=== PATIENT | male | born 1945 | race Caucasian/White ===

== ENCOUNTER 2016-08-10 13:56 | Inpatient (IN) | payer OTHER, BC ==
--- NOTE | 2016-08-10 14:09 | PDOC ---
[id number] Source: Patient Exam Limitations: No Limitations - History of Present Illness Initial Comments: 71 yo M hx tracheostomy with laryngectomy, PVD, DM presents with discolored R foot. He states that this occurred over the past week. C/o pain to the same. No f/c. He follows up with Dr. Boston for wound care. C/o pain to the R foot. He has a wound to the great toe. <Kaye Torres - Last Filed: 08/12/16 07:26> - General Stated Complaint: FOOT PAIN Time Seen by Provider: 08/10/16 14:00 Past History <Jonel Bird - Last Filed: 08/10/16 15:08> - Past Medical History Anemia: Yes Cancer: Yes (laryngeal CA w/ permenant tracheostomy) COPD: Yes (PE) GI Disorders: Yes (colostomy/GERD) Disorders: Yes (UTI) HTN: Yes Seizures: Yes (dementia) - Surgical History Abdominal Surgery: Yes (S/P COLOSTOMY; Hartmans procedure) - Immunization History Immunization Up to Date: Yes - Psycho/Social/Smoking Cessation Hx Anxiety: No Suicidal Ideation: No Smoking History: Unknown if ever smoked Have you smoked in the past 12 months: No Hx Alcohol Use: No Drug/Substance Use Hx: No Substance Use Type: None <Kaye Torres - Last Filed: 08/12/16 07:26> - Past Medical History Allergies/Adverse Reactions: Allergies Allergy/AdvReac Type Severity Reaction Status Date / Time Penicillins Allergy Unknown Verified 09/19/15 22:08 Home Medications: Ambulatory Orders Ferrous Sulfate 325 mg PO TID 04/09/15 Midodrine HCl 5 mg PO BID 04/09/15 Oxycodone HCl/Acetaminophen [Percocet 5-325 mg Tablet] 1 tab PO Q6H PRN Pantoprazole Sodium [Protonix] 40 mg PO BID 04/09/15 Potassium Chloride [Klor-Con 10] 20 meq PO DAILY 04/09/15 Warfarin Na [Coumadin -] 7 mg PO HS 04/09/15 Folic Acid - 1 mg PO DAILY tablet 04/25/15 Latanoprost 0.005% Eye Drops [Xalatan 0.005% Eye Drops -] 1 drop OU HS drops Mirtazapine [Remeron -] 15 mg PO HS 07/25/15 Multivitamins [Multivit ([facility] Formulary)] 1 tab PO DAILY 07/25/15 Magnesium Oxide [Mag-Ox -] 400 mg PO DAILY 08/30/15 Acetaminophen [Pain Relief] 650 mg PO PRN PRN 09/19/15 Albuterol 2.5/Ipratropium 0.5 [Duoneb -] 1 amp NEB QID PRN #0 amp 09/26/15 Clotrimazole [Lotrimin 1% Solution -] 1 applic TP BID 06/17/16 Dorzolamide HCl [Trusopt 2%] 1 drop OD DAILY 06/17/16 Famotidine 10 mg PO DAILY 06/17/16 Brimonidine Tartrate [Alphagan 0.15% -] 1 drop OD BID 08/10/16 Doxycycline Monohydrate [Monodox] 100 mg PO Q12H 08/10/16 Nystatin Cream [Mycostatin] 1 applic TP TID 08/10/16 Review of Systems - Review of Systems Able to Perform ROS?: Yes Comments:: GENERAL/CONSTITUTIONAL: No fever or chills. No weakness. HEAD, EYES, EARS, NOSE AND THROAT: No change in vision. No ear pain or discharge. No sore throat. CARDIOVASCULAR: No chest pain or shortness of breath. RESPIRATORY: No cough, wheezing, or hemoptysis. GASTROINTESTINAL: No nausea, vomiting, diarrhea or constipation. GENITOURINARY: No dysuria, frequency, or change in urination. MUSCULOSKELETAL: No joint or muscle swelling or pain. No neck or back pain. SKIN: +Discolored R foot. NEUROLOGIC: No headache, vertigo, loss of consciousness, or change in strength/ sensation. ENDOCRINE: No increased thirst. No abnormal weight change. HEMATOLOGIC/LYMPHATIC: No anemia, easy bleeding, or history of blood clots. ALLERGIC/IMMUNOLOGIC: No hives or skin allergy. <Kaye Torres - Last Filed: 08/12/16 07:26> *Physical Exam - Vital Signs Last Vital Signs Temp Pulse Resp BP Pulse Ox 98.3 F 18 L 17 129/77 100 08/10/16 14:14 08/10/16 14:14 08/10/16 14:14 08/10/16 14:14 08/10/16 14:14 <Jonel Bird - Last Filed: 08/10/16 15:08> - Physical Exam Comments: GENERAL: Awake, alert, and fully oriented, in no acute distress HEAD: No signs of trauma EYES: PERRLA, EOMI, sclera anicteric, conjunctiva clear ENT: Auricles normal inspection, hearing grossly normal, nares patent, oropharynx clear without exudates. Moist mucosa NECK: Normal ROM, supple, no lymphadenopathy, JVD, or masses LUNGS: Breath sounds equal, clear to auscultation bilaterally. No wheezes, and no crackles HEART: Regular rate and rhythm, normal S1 and S2, no murmurs, rubs or gallops ABDOMEN: Soft, nontender, normoactive bowel sounds. No guarding, no rebound. No masses EXTREMITIES: Normal range of motion. No clubbing or cyanosis. No cords, erythema. +Purple discoloration to the toes and distal foot on the R side. + Wound to the 1st toe, no active drainage. +Faint R DP pulse. NEUROLOGICAL: Cranial nerves II through XII grossly intact. Normal speech, normal gait SKIN: Warm, Dry, normal turgor, no rashes or lesions noted. <Kaye Torres - Last Filed: 08/12/16 07:26> ED Treatment Course - LABORATORY CBC & Chemistry Diagram: 08/10/16 14:21 08/10/16 14:21 - ADDITIONAL ORDERS Additional order review: 08/10/16 14:21 RBC 3.96 L MCV 92.3 MCHC 33.5 RDW 13.1 MPV 7.5 Neutrophils % 68.7 Lymphocytes % 17.2 Monocytes % 9.8 Eosinophils % 3.3 Basophils % 1.0 D <Jonel Bird - Last Filed: 08/10/16 15:08> - LABORATORY CBC & Chemistry Diagram: 08/10/16 14:21 08/10/16 14:21 <Kaye Torres - Last Filed: 08/12/16 07:26> Medical Decision Making - Medical Decision Making 08/10/16 14:49 Second call placed to Dr. Boston at 14:49. Awaiting call back. Case discussed with Dr. Boston at 15:05. <Jonel Bird - Last Filed: 08/10/16 15:08> - Medical Decision Making 08/10/16 14:[address] Boston through his service. Awaiting callback. 08/10/16 17:[address] Rdoas at shift change. He is currently in [place], obtaining CTA aorta with runoffs as per Dr. Boston. Heparin ordered. For admission. <Kaye Torres - Last Filed: 08/12/16 07:26> *DC/Admit/Observation/Transfer - Attestations Scribe Attestion: 08/10/16 15:08 Documentation prepared by Jonel Bird, acting as medical record librarians teacher for Kaye Torres MD. <Jonel Bird - Last Filed: 08/10/16 15:08> <Kaye Torres - Last Filed: 08/12/16 07:26> Diagnosis at time of Disposition: Peripheral vascular disease, Chronic wound of extremity
[2016-08-10 14:20] VITALS: BMI 23.1
[2016-08-10 14:42] LABS: EOSINOPHIL 3.3 % (0-4.5); MCH 30.9 pg (25.7-33.7); MCHC 33.5 g/dl (32.0-35.9); MEAN CELL VOLUME 92.3 fl (80-96); MEAN PLT VOLUME 7.5 fl (7.5-11.1); NEUTROPHILS 68.7 % (42.8-82.8); PLATELET COUNT 283 K/MM3 (134-434); RDW 13.1 % (11.9-15.9); WHITE BLOOD COUNT 6.6 K/mm3 (4.0-10.0)
[2016-08-10 15:06] LABS: INR 2.47 (0.82-1.09); PROTHROMBIN TIME (PATIENT) 27.7 SEC (9.98-11.88)
[2016-08-10] MEDS ORDERED: HEPARIN NA (PORCINE) 5,000 UNITS/ML 1ML VIAL IVPUSH ONE (15:11)
[2016-08-10 15:19] LABS: ALBUMIN 3.5 g/dl (3.4-5.0); ANION GAP 10 (8-16); CALCIUM 8.9 mg/dL (8.5-10.1); CO2 27 mmol/L (21-32); CREATININE 0.8 mg/dL (0.7-1.3); GLUCOSE,RANDOM 85 mg/dL (74-106); SGOT/AST 11 U/L (15-37); SGPT/ALT 20 U/L (12-78)
[2016-08-10 15:20] LABS: ALK PHOS 80 U/L (45-117); BILIRUBIN,TOTAL 0.4 mg/dL (0.2-1.0); TOT PROT 7.4 g/dl (6.4-8.2)
[2016-08-10] MEDS ORDERED: HEPARIN INFUSION - 500 ML IVPB ONE (16:34)
--- NOTE | 2016-08-10 17:42 | PDOC ---
*Physical Exam - Vital Signs Last Vital Signs Temp Pulse Resp BP Pulse Ox 98.3 F 18 L 17 129/77 100 08/10/16 14:14 08/10/16 14:14 08/10/16 14:14 08/10/16 14:14 08/10/16 14:14 ED Treatment Course - LABORATORY CBC & Chemistry Diagram: 08/10/16 14:21 08/10/16 14:21 - ADDITIONAL ORDERS Additional order review: Laboratory Results 08/10/16 08/10/16 08/10/16 14:29 14:29 14:21 INR PTT (Actin FS) 44.8 H Sodium Potassium Chloride Carbon Dioxide Anion Gap BUN Creatinine Creat Clearance w eGFR Random Glucose Lactic Acid 1.141 Calcium Total Bilirubin AST ALT Alkaline Phosphatase Total Protein Albumin Blood Type O POSITIVE Antibody Screen Negative 08/10/16 08/10/16 14:21 14:21 INR 2.47 H PTT (Actin FS) Sodium 140 Potassium 4.2 Chloride 103 Carbon Dioxide 27 Anion Gap 10 BUN 17 D Creatinine 0.8 Creat Clearance w eGFR > 60 Random Glucose 85 Lactic Acid Calcium 8.9 Total Bilirubin 0.4 D AST 11 L D ALT 20 Alkaline Phosphatase 80 Total Protein 7.4 Albumin 3.5 D Blood Type Antibody Screen 08/10/16 14:21 RBC 3.96 L MCV 92.3 MCHC 33.5 RDW 13.1 MPV 7.5 Neutrophils % 68.7 Lymphocytes % 17.2 Monocytes % 9.8 Eosinophils % 3.3 Basophils % 1.0 D Medical Decision Making - Medical Decision Making 08/10/16 17:38 Received signout on this 71-year-old gentleman sent from senior living with necrotic right foot. Vascular has been consulted, patient has been ordered for heparin, plan was to admit to Dr. Smith, covering Dr. Bear. Dr. Smith accepts the patient for inpatient med/surg. *DC/Admit/Observation/Transfer Diagnosis at time of Disposition: Peripheral vascular disease, Chronic wound of extremity - Discharge Dispostion Condition at time of disposition: Fair Admit: Yes - Referrals Referrals: Nat Bear MD [Primary Care Provider] - - Patient Instructions - Post Discharge Activity
[2016-08-10] MEDS ORDERED: HEPARIN NA (PORCINE) 5,000 UNITS/ML 1ML VIAL ONE (17:43)
[2016-08-10] MEDS ORDERED: ACETAMINOPHEN 325 MG TABLET (FP) PO PRN (18:13)
[2016-08-10] MEDS ORDERED: ALBUTEROL SO4 2.5/IPRATROPIUM 0.5 INH SOL 3 ML VIAL.NEB. NEB PRN (18:13)
[2016-08-10] MEDS ORDERED: FOLIC ACID 1 MG TABLET (FP) PO ONE (18:13)
[2016-08-10] MEDS ORDERED: DOCUSATE SODIUM 100 MG CAPSULE (FP) PO PRN (18:13)
[2016-08-10] MEDS: HEPARIN - 25,000 UNIT in SODIUM CHLORIDE 495 ML IV SCH (18:50)
[2016-08-10] MEDS: DORZOLAMIDE 2% HCL OPHTHALMIC SOLUTION 10 ML BOTTLE OD SCH (22:35)
[2016-08-10] MEDS: LATANOPROST 0.005% OPHTH SOLN 2.5ML BOTTLE OD SCH (22:35)
[2016-08-10] MEDS: NYSTATIN 100,000 UNIT/GM TOPICAL CREAM 15 GM TUBE TP SCH (22:35)
[2016-08-10] MEDS: MIRTAZAPINE 15 MG TABLET (FP) PO SCH (22:36)
[2016-08-11] MEDS: DORZOLAMIDE 2% HCL OPHTHALMIC SOLUTION 10 ML BOTTLE OD SCH ×3 (05:34→21:29)
[2016-08-11 08:38] LABS: INR 2.55 (0.82-1.09); PROTHROMBIN TIME (PATIENT) 28.6 SEC (9.98-11.88)
[2016-08-11 08:41] LABS: ACTIVATED PTT 69.3 SECONDS (26.9-34.4)
[2016-08-11] MEDS: NYSTATIN 100,000 UNIT/GM TOPICAL CREAM 15 GM TUBE TP SCH ×3 (09:35→21:29)
[2016-08-11] MEDS: MULTIVITAMINS (DAILY MVI) TABLET (FP) PO SCH (09:35)
[2016-08-11] MEDS: FERROUS SO4 325 MG TABLET (FP) PO SCH ×3 (09:36→17:51)
[2016-08-11] MEDS: MIDODRINE HCL 5 MG TABLET PO SCH ×2 (09:37→17:51)
[2016-08-11] MEDS: oxyCODONE HCL 5 MG TABLET PO PRN ×2 (09:37→21:30)
[2016-08-11] MEDS: BRIMONIDINE TARTRATE 0.15% OPHTHALMIC 5 ML BOTTLE OD SCH (09:37)
[2016-08-11] MEDS: PANTOPRAZOLE 40 MG TABLET (FP) PO SCH (09:38)
[2016-08-11 09:50] LABS: CHOLESTEROL 155 mg/dL (50-200); LDL CHOLESTEROL (ONLY SJRH) 106 mg/dL (5-100)
--- NOTE | 2016-08-11 10:22 | HP ---
Admitting History and Physical - Primary Care Physician PCP: Nat Bear - Admission Chief Complaint: LOWER EXTREMITY ARTERIAL OCCLUSION VS GANGRENE NECROSIS History of Present Illness: 71 yo M hx tracheostomy with laryngectomy, PVD, DM presents with discolored R foot. He states that this occurred over the past week. C/o pain to the same. No f/c. He follows up with Dr. Boston for wound care. History Source: Patient, Medical Record - Past Medical History OUTPATIENT PHYSICAL THERAPIST: Yes: Dementia Cardiovascular: Yes: HTN Pulmonary: Yes: COPD, Pulmonary Embolus Gastrointestinal: Yes: Diverticulitis, Other (colovesicular fistula with diverticulosis , heme posistive stools) Renal/: Yes: UTI (recurrent) Heme/Onc: Yes: Anemia, Cancer (laryngeal cancer with permanent tracheostomy ) Musculoskeletal: Yes: Chronic low back pain, Osteoarthritis, Other (avascular necrosis of the hip) - Past Surgical History Past Surgical History: Yes: Colectomy, Colostomy - Smoking History Smoking history: Unknown if ever smoked Have you smoked in the past 12 months: No - Alcohol/Substance Use Hx Alcohol Use: No - Social History ADL: Support Services History of Recent Travel: No Home Medications - Allergies Allergies/Adverse Reactions: Allergies Allergy/AdvReac Type Severity Reaction Status Date / Time Penicillins Allergy Unknown Verified 09/19/15 22:08 - Home Medications Home Medications: Ambulatory Orders Ferrous Sulfate 325 mg PO TID 04/09/15 Midodrine HCl 5 mg PO BID 04/09/15 Oxycodone HCl/Acetaminophen [Percocet 5-325 mg Tablet] 1 tab PO Q6H PRN Pantoprazole Sodium [Protonix] 40 mg PO BID 04/09/15 Potassium Chloride [Klor-Con 10] 20 meq PO DAILY 04/09/15 Warfarin Na [Coumadin -] 7 mg PO HS 04/09/15 Folic Acid - 1 mg PO DAILY tablet 04/25/15 Latanoprost 0.005% Eye Drops [Xalatan 0.005% Eye Drops -] 1 drop OU HS drops Mirtazapine [Remeron -] 15 mg PO HS 07/25/15 Multivitamins [Multivit ([facility] Formulary)] 1 tab PO DAILY 07/25/15 Magnesium Oxide [Mag-Ox -] 400 mg PO DAILY 08/30/15 Acetaminophen [Pain Relief] 650 mg PO PRN PRN 09/19/15 Albuterol 2.5/Ipratropium 0.5 [Duoneb -] 1 amp NEB QID PRN #0 amp 09/26/15 Clotrimazole [Lotrimin 1% Solution -] 1 applic TP BID 06/17/16 Dorzolamide HCl [Trusopt 2%] 1 drop OD DAILY 06/17/16 Famotidine 10 mg PO DAILY 06/17/16 Brimonidine Tartrate [Alphagan 0.15% -] 1 drop OD BID 08/10/16 Doxycycline Monohydrate [Monodox] 100 mg PO Q12H 08/10/16 Nystatin Cream [Mycostatin] 1 applic TP TID 08/10/16 Review of Systems - Review of Systems Constitutional: reports: Weakness Eyes: reports: No Symptoms HENT: reports: No Symptoms Neck: reports: No Symptoms Cardiovascular: reports: No Symptoms Respiratory: reports: SOB, Other Gastrointestinal: reports: No Symptoms Genitourinary: reports: Incontinence Musculoskeletal: reports: Muscle Weakness Integumentary: reports: Wound Neurological: reports: Pre-Existing Deficit, Weakness Endocrine: reports: No Symptoms Hematology/Lymphatic: reports: No Symptoms Physical Examination Vital Signs: Vital Signs Temperature 98.3 F 08/11/16 07:03 Pulse Rate 68 08/11/16 07:03 Respiratory Rate 20 08/11/16 07:03 Blood Pressure 112/65 08/11/16 07:03 O2 Sat by Pulse Oximetry (%) 100 08/10/16 22:00 Findings/Remarks: TRACHEOSTOMY PRESENT, NO RESP. DISTRESS Constitutional: Yes: No Distress Eyes: Yes: WNL HENT: Yes: WNL Neck: Yes: Other Cardiovascular: Yes: WNL Respiratory: Yes: Other (TRACHEOSTOMY) Renal/: Yes: Incontinence Musculoskeletal: Yes: Muscle Weakness Extremities: Yes: WNL Edema: No Peripheral Pulses WNL: Yes Integumentary: Yes: Other Wound/Incision: Yes: Dressing Dry and Intact Neurological: Yes: Pre-Existing Deficit ...Motor Strength: LLE, RLE Psychiatric: Yes: Other Imaging - Results Cat Scan: Pending Problem List - Problems (1) Chronic wound of extremity Code(s): GZV3922 - (2) Peripheral vascular disease Code(s): I73.9 - PERIPHERAL VASCULAR DISEASE, UNSPECIFIED (3) Anemia Code(s): D64.9 - ANEMIA, UNSPECIFIED (4) Tracheostomy in place Code(s): Z98.89 - OTHER SPECIFIED POSTPROCEDURAL STATES * DO NOT USE * (5) Wound infection Code(s): T14.8 - OTHER INJURY OF UNSPECIFIED BODY REGION L08.9 - LOCAL INFECTION OF THE SKIN AND SUBCUTANEOUS TISSUE, UNSP Assessment/Plan WOUND CARE WITH VASC SX CTA LOWER EXTREMITY PENDING IC ABX PER ID TRACHEOSTOMY CARE PULMONARY FOLLOW UP
--- NOTE | 2016-08-11 11:20 | CON.PULM ---
Consult Consult Specialty:: PULM/CCM Referred by:: DEYSI Reason for Consultation:: Trach / COPD / PE - History of Present Illness Chief Complaint: Right Foot dicoloration History of Present Illness: 71 M, laryngeal CA, S/P laryngectomy/Tracheostomy, PE on Coumadin, PVD, and DM. Admitted via the ER due to discoloration and tenderness of his right great toe and second digit. Patient is awake and alert. He is in NAD on RA. He communicates with an electronic speaking aide. Trach is noted to be intact and in place. Patient reports cough up a very hard, dark 5mm object. Difficult to ascertain grossly what it is (?dried mucous, a part of a tooth). - History Source History Provided By: Patient Limitations to Obtaining History: No Limitations - Past Medical History [employer]: Yes: Dementia Cardio/Vascular: Yes: HTN Pulmonary: Yes: COPD, Pulmonary Embolus Gastrointestinal: Yes: Diverticulitis, Other (colovesicular fistula with diverticulosis , heme posistive stools) Renal/: Yes: UTI (recurrent) Musculoskeletal: Yes: Chronic low back pain, Osteoarthritis, Other (avascular necrosis of the hip) - Past Surgical History Past Surgical History: Yes: Colectomy, Colostomy - Alcohol/Substance Use Hx Alcohol Use: No - Smoking History Smoking history: Unknown if ever smoked Have you smoked in the past 12 months: No - Social History Usual Living Arrangement: Custodial ADL: Support Services History of Recent Travel: No Home Medications - Allergies Allergies/Adverse Reactions: Allergies Allergy/AdvReac Type Severity Reaction Status Date / Time Penicillins Allergy Unknown Verified 09/19/15 22:08 - Home Medications Home Medications: Ambulatory Orders Ferrous Sulfate 325 mg PO TID 04/09/15 Midodrine HCl 5 mg PO BID 04/09/15 Oxycodone HCl/Acetaminophen [Percocet 5-325 mg Tablet] 1 tab PO Q6H PRN Pantoprazole Sodium [Protonix] 40 mg PO BID 04/09/15 Potassium Chloride [Klor-Con 10] 20 meq PO DAILY 04/09/15 Warfarin Na [Coumadin -] 7 mg PO HS 04/09/15 Folic Acid - 1 mg PO DAILY tablet 04/25/15 Latanoprost 0.005% Eye Drops [Xalatan 0.005% Eye Drops -] 1 drop OU HS drops Mirtazapine [Remeron -] 15 mg PO HS 07/25/15 Multivitamins [Multivit ([facility] Formulary)] 1 tab PO DAILY 07/25/15 Magnesium Oxide [Mag-Ox -] 400 mg PO DAILY 08/30/15 Acetaminophen [Pain Relief] 650 mg PO PRN PRN 09/19/15 Albuterol 2.5/Ipratropium 0.5 [Duoneb -] 1 amp NEB QID PRN #0 amp 09/26/15 Clotrimazole [Lotrimin 1% Solution -] 1 applic TP BID 06/17/16 Dorzolamide HCl [Trusopt 2%] 1 drop OD DAILY 06/17/16 Famotidine 10 mg PO DAILY 06/17/16 Brimonidine Tartrate [Alphagan 0.15% -] 1 drop OD BID 08/10/16 Doxycycline Monohydrate [Monodox] 100 mg PO Q12H 08/10/16 Nystatin Cream [Mycostatin] 1 applic TP TID 08/10/16 Review of Systems - Review of Systems Constitutional: denies: Chills, Fever, Loss of Appetite, Malaise, Night Sweats, Weakness Eyes: reports: No Symptoms HENT: reports: No Symptoms Neck: reports: No Symptoms Cardiovascular: denies: Chest Pain, Edema, Palpitations, Shortness of Breath Respiratory: reports: Cough. denies: Hemoptysis, SOB, SOB on Exertion, Wheezing Gastrointestinal: reports: No Symptoms Genitourinary: reports: No Symptoms Breasts: reports: No Symptoms Reported Musculoskeletal: reports: Other (Right foot discoloration/discomfort) Integumentary: reports: Change in Color, Wound Neurological: reports: No Symptoms Endocrine: reports: No Symptoms Hematology/Lymphatic: reports: No Symptoms Psychiatric: reports: No Symptoms Physical Exam Vital Sings: Vital Signs Temperature 98.3 F 08/11/16 07:03 Pulse Rate 68 08/11/16 07:03 Respiratory Rate 20 08/11/16 07:03 Blood Pressure 112/65 08/11/16 07:03 O2 Sat by Pulse Oximetry (%) 100 08/10/16 22:00 Constitutional: Yes: Well Nourished, No Distress, Calm Eyes: Yes: Conjunctiva Clear, EOM Intact HENT: Yes: Atraumatic, Normocephalic, Other (intact tracheostomy ) Neck: Yes: Supple, Trachea Midline, Other (Tracheostomy intact ) Cardiovascular: Yes: Regular Rate and Rhythm Respiratory: Yes: Cough, Rhonchi. No: Accessory Muscle Use, Rales, SOB, Stridor , Tachypnea, Wheezes ...Inspection: Yes: WNL ...Clubbing: No Gastrointestinal: Yes: WNL, Normal Bowel Sounds, Soft Renal/: Yes: WNL Musculoskeletal: Yes: WNL Extremities: Yes: Other (discoloration (?) Gangrene right great toe/second digit ) Peripheral Pulses WNL: Yes Integumentary: Yes: Venous Stasis Changes, Other Neurological: Yes: WNL, Alert, Oriented ...Motor Strength: WNL Psychiatric: Yes: WNL, Alert, Oriented Problem List - Problems (1) Chronic wound of extremity Code(s): [id number] - (2) Peripheral vascular disease Code(s): I73.9 - PERIPHERAL VASCULAR DISEASE, UNSPECIFIED (3) Afib Code(s): I48.91 - UNSPECIFIED ATRIAL FIBRILLATION Qualifiers: Atrial fibrillation type: chronic Qualified Code(s): I48.2 - Chronic atrial fibrillation (4) Glaucoma Code(s): H40.9 - UNSPECIFIED GLAUCOMA (5) HTN (hypertension) Code(s): I10 - ESSENTIAL (PRIMARY) HYPERTENSION Qualifiers: Hypertension type: essential hypertension (7) Pulmonary emboli Code(s): I26.99 - OTHER PULMONARY EMBOLISM WITHOUT ACUTE COR PULMONALE (8) Tracheostomy in place Code(s): Z98.89 - OTHER SPECIFIED POSTPROCEDURAL STATES * DO NOT USE * (9) Wound infection Code(s): T14.8 - OTHER INJURY OF UNSPECIFIED BODY REGION L08.9 - LOCAL INFECTION OF THE SKIN AND SUBCUTANEOUS TISSUE, UNSP Assessment/Plan CXR O2 as needed BD TX PRN Suction PRN Noted patient is on IV Heparin Vascular evaluation has been called Will follow Thank you. Dr Kelley
[2016-08-11] MEDS: HEPARIN - 25,000 UNIT in SODIUM CHLORIDE 495 ML IV SCH (17:51)
--- NOTE | 2016-08-11 20:23 | EKG ---
Test Reason : Blood Pressure : / mmHG Vent. Rate : 077 BPM Atrial Rate : 077 BPM P-R Int : 162 ms QRS Dur : 094 ms QT Int : 408 ms P-R-T Axes : 065 -11 044 degrees QTc Int : 461 ms NORMAL SINUS RHYTHM MINIMAL VOLTAGE CRITERIA FOR LVH, MAY BE NORMAL VARIANT SUSPECT LEAD REVERSAL IN PRECORDIAL LEADS ABNORMAL ECG WHEN COMPARED WITH ECG OF 20-SEP-2015 12:18, COMPARED TO EKG NO SIGNIFICANT CHANGE IS FOUND Confirmed by FIDENCIO OLEA MD ([id number]) on 08/11/2016 8:22:52 PM Referred By: Confirmed By:FIDENCIO OLEA MD
[2016-08-11] MEDS ORDERED: PT OWN MED DRAWER 7, Y5N ONE (20:58)
[2016-08-11] MEDS: LATANOPROST 0.005% OPHTH SOLN 2.5ML BOTTLE OD SCH (21:30)
[2016-08-11] MEDS: MIRTAZAPINE 15 MG TABLET (FP) PO SCH (21:30)
[2016-08-12] MEDS: DORZOLAMIDE 2% HCL OPHTHALMIC SOLUTION 10 ML BOTTLE OD SCH ×3 (06:23→22:01)
[2016-08-12 08:02] LABS: INR 2.05 (0.82-1.09); PROTHROMBIN TIME (PATIENT) 22.9 SEC (9.98-11.88)
[2016-08-12 08:05] LABS: ACTIVATED PTT 61.7 SECONDS (26.9-34.4)
--- NOTE | 2016-08-12 09:29 | CONSULT ---
Consult Consult Specialty:: Infectious Disease Referred by:: Dr. Olivares Reason for Consultation:: Wound to right foot/possible gangrene - History of Present Illness Chief Complaint: Worsening pain to right foot History of Present Illness: this is a 71M PMH of HTN COPD PE in the past laryngeal Ca s/p laryngectomy with tracheostomy speaks with a voice assist device PVD DM presented to the emergency room yesterday 2 days ago with a complaint of worsening redness/ discoloration of RLE involving the toes. He states that this progressed over the past week and he wanted his foot to be looked at by a doctor. He denies nausea vomiting fevers chills chest pain or shortness of breath denies dysuria. - History Source History Provided By: Patient, Medical Record Limitations to Obtaining History: Dementia - Past Medical History [employer]: Yes: Dementia Cardio/Vascular: Yes: HTN Pulmonary: Yes: COPD, Pulmonary Embolus Gastrointestinal: Yes: Diverticulitis, Other (colovesicular fistula with diverticulosis , heme posistive stools) Renal/: Yes: UTI (recurrent) Musculoskeletal: Yes: Chronic low back pain, Osteoarthritis, Other (avascular necrosis of the hip) - Past Surgical History Past Surgical History: Yes: Colectomy, Colostomy Additional Surgical History: laryngectomy - Alcohol/Substance Use Hx Alcohol Use: No - Smoking History Smoking history: Former smoker Have you smoked in the past 12 months: No - Social History Usual Living Arrangement: [facility] ADL: Support Services History of Recent Travel: No Home Medications - Allergies Allergies/Adverse Reactions: Allergies Allergy/AdvReac Type Severity Reaction Status Date / Time Penicillins Allergy Unknown Verified 09/19/15 22:08 - Home Medications Home Medications: Ambulatory Orders Ferrous Sulfate 325 mg PO TID 04/09/15 Midodrine HCl 5 mg PO BID 04/09/15 Oxycodone HCl/Acetaminophen [Percocet 5-325 mg Tablet] 1 tab PO Q6H PRN Pantoprazole Sodium [Protonix] 40 mg PO BID 04/09/15 Potassium Chloride [Klor-Con 10] 20 meq PO DAILY 04/09/15 Warfarin Na [Coumadin -] 7 mg PO HS 04/09/15 Folic Acid - 1 mg PO DAILY tablet 04/25/15 Latanoprost 0.005% Eye Drops [Xalatan 0.005% Eye Drops -] 1 drop OU HS drops Mirtazapine [Remeron -] 15 mg PO HS 07/25/15 Multivitamins [Multivit ([facility] Formulary)] 1 tab PO DAILY 07/25/15 Magnesium Oxide [Mag-Ox -] 400 mg PO DAILY 08/30/15 Acetaminophen [Pain Relief] 650 mg PO PRN PRN 09/19/15 Albuterol 2.5/Ipratropium 0.5 [Duoneb -] 1 amp NEB QID PRN #0 amp 09/26/15 Clotrimazole [Lotrimin 1% Solution -] 1 applic TP BID 06/17/16 Dorzolamide HCl [Trusopt 2%] 1 drop OD DAILY 06/17/16 Famotidine 10 mg PO DAILY 06/17/16 Brimonidine Tartrate [Alphagan 0.15% -] 1 drop OD BID 08/10/16 Doxycycline Monohydrate [Monodox] 100 mg PO Q12H 08/10/16 Nystatin Cream [Mycostatin] 1 applic TP TID 08/10/16 [place]-3 Acid Ethyl Esters [Lovaza] 1 gm PO BID #30 capsule 08/12/16 Family Disease History - Family Disease History Family History: Unable to Obtain (does not remember) Review of Systems - Review of Systems Constitutional: reports: No Symptoms. denies: Chills, Fever HENT: reports: No Symptoms Neck: reports: No Symptoms Cardiovascular: reports: No Symptoms Respiratory: reports: No Symptoms Gastrointestinal: reports: No Symptoms Integumentary: reports: Erythema, Wound, Other (RLE dusky/erythema with pain and a black eschar over great toe) Neurological: reports: No Symptoms Endocrine: reports: No Symptoms Physical Exam Vital Signs: Vital Signs Temperature 98.9 F 08/12/16 06:48 Pulse Rate 78 08/12/16 06:48 Respiratory Rate 20 08/12/16 06:48 Blood Pressure 142/74 08/12/16 06:48 O2 Sat by Pulse Oximetry (%) 100 08/11/16 21:00 Constitutional: Yes: Well Nourished, No Distress Eyes: Yes: Conjunctiva Clear HENT: Yes: Atraumatic, Other (trachestomy in place) Neck: Yes: Trachea Midline Cardiovascular: Yes: Regular Rate and Rhythm Respiratory: Yes: CTA Bilaterally, Other (bronchial breath sounds) Gastrointestinal: Yes: Soft Extremities: Yes: Other (RLE dusky with some erythema over toes and going up towards the metatarsals cool to touch when compared to LLE decreased capillary refill tender to palpation Eschar over Right great toe. 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 - VESICAL FISTULA, NOT ELSEWHERE CLASSIFIED (5) [place]-vesical fistula Code(s): N32.1 - VESICOINTESTINAL FISTULA (6) Glaucoma Code(s): H40.9 - UNSPECIFIED GLAUCOMA (7) HTN (hypertension) Code(s): I10 - ESSENTIAL (PRIMARY) HYPERTENSION Qualifiers: Hypertension type: essential hypertension Qualified Code(s): I10 - Essential (primary) hypertension (9) Pulmonary emboli Code(s): I26.99 - OTHER PULMONARY EMBOLISM WITHOUT ACUTE COR PULMONALE (10) Tracheostomy in place Code(s): Z98.89 - OTHER SPECIFIED POSTPROCEDURAL STATES * DO NOT USE * (11) Critical ischemia of lower extremity Code(s): I99.8 - OTHER DISORDER OF CIRCULATORY SYSTEM Assessment/Plan 71M with multiple medical problems including peripheral vascular disease and history of PE presents to the hospital with right foot change in color and increased pain concern for critical limb ischemia. patient is known to Dr. Boston and follow with him for wound care. CTA done with bilateral lower extremity run off - final read pending patient is afebrile without leukocytosis this seems to be a vascular issue not an infectious issue. Do not suspect wet gangrene of the RLE Vascular surgery evaluation please recall if further assistance is needed from the ID service thank you for this consult and allowing us to participate in the care of this patient Case discussed with attending Dr. Tilley
--- NOTE | 2016-08-12 10:10 | PN ---
Progress Note, Physician Chief Complaint: patient trach is clogged with mucus plugs want it leaned complaining of pain on right foot toes 1 and 2nd toe - Current Medication List Current Medications: Active Medications Acetaminophen (Tylenol -) 650 mg PO Q6H PRN PRN Reason: FEVER OR PAIN Albuterol/Ipratropium (Duoneb -) 1 amp NEB Q6H PRN PRN Reason: SHORTNESS OF BREATH Brimonidine Tartrate (Alphagan 0.15% -) 1 drop OD DAILY [facility] Last Admin: 08/11/16 09:37 Dose: 1 drop Docusate Sodium (Colace -) 100 mg PO Q8H PRN PRN Reason: CONSTIPATION Dorzolamide HCl (Trusopt 2%) 1 drop OD TID [facility] Last Admin: 08/12/16 06:23 Dose: 1 drop Ferrous Sulfate (Feosol -) 325 mg PO TIDCM [facility] Last Admin: 08/11/16 17:51 Dose: 325 mg Heparin Sodium (Porcine) 25, (000 unit/ Sodium Chloride) 500 mls @ 20 mls/hr IV TITR TEDDY; 1,000 UNIT/HR PRN Reason: Protocol Last Admin: 08/11/16 17:51 Dose: 18 mls/hr Latanoprost (Xalatan 0.005% Eye Drops -) 1 drop OD HS [facility] Last Admin: 08/11/16 21:30 Dose: 1 drop Midodrine (Proamatine -) 5 mg PO BID-MID [facility] Last Admin: 08/11/16 17:51 Dose: 5 mg Mirtazapine (Remeron -) 15 mg PO HS [facility] Last Admin: 08/11/16 21:30 Dose: 15 mg Multivitamins/Minerals/Vitamin C (Tab-A-Vit -) 1 tab PO DAILY [facility] Last Admin: 08/11/16 09:35 Dose: 1 tab Nystatin (Mycostatin Cream -) 1 applic TP BID [facility] Last Admin: 08/11/16 21:29 Dose: 1 applic Oxycodone HCl (Roxicodone -) 5 mg PO Q6H PRN PRN Reason: PAIN Last Admin: 08/11/16 21:30 Dose: 5 mg Pantoprazole Sodium (Protonix -) 40 mg PO DAILY [facility] Last Admin: 08/11/16 09:38 Dose: 40 mg - Objective Vital Signs: Vital Signs Temperature 98.9 F 08/12/16 06:48 Pulse Rate 78 08/12/16 06:48 Respiratory Rate 20 08/12/16 06:48 Blood Pressure 142/74 08/12/16 06:48 O2 Sat by Pulse Oximetry (%) 100 08/11/16 21:00 Constitutional: Yes: Calm Neck: Yes: Other (trach) Cardiovascular: Yes: Regular Rate and Rhythm, S1, S2 Respiratory: Yes: CTA Bilaterally, Diminished (at bases) Gastrointestinal: Yes: Normal Bowel Sounds, Soft, Other (colostomy) Extremities: Yes: Other (right foot 1 and 2 nd toe darkish discoloration tender to touch wound on plantar surface of first toe on right foot has right DP pulse) Edema: No Neurological: Yes: Alert, Oriented Labs: INR, PTT INR 2.05 (0.82-1.09) H 08/12/16 06:00 Problem List - Problems (1) [place]-vesical fistula Assessment/Plan: functioning Code(s): N32.1 - VESICOINTESTINAL FISTULA (2) HTN (hypertension) Code(s): I10 - ESSENTIAL (PRIMARY) HYPERTENSION Qualifiers: Hypertension type: essential hypertension (3) Laryngeal cancer Assessment/Plan: s/p surgery with trach (4) Pulmonary emboli Assessment/Plan: heparin drip couamdin on hold if intervention is needed for right foot Code(s): I26.99 - OTHER PULMONARY EMBOLISM WITHOUT ACUTE COR PULMONALE (5) Tracheostomy in place Assessment/Plan: needs cleaning Code(s): Z98.89 - OTHER SPECIFIED POSTPROCEDURAL STATES * DO NOT USE * (6) Orthostatic hypotension Assessment/Plan: midodrine Code(s): I95.1 - ORTHOSTATIC HYPOTENSION (7) Chronic wound of extremity Assessment/Plan: does not look infectious will hold off abx vascular eval CTA done report pending heparin drip Code(s): [id number] - (8) Peripheral vascular disease Assessment/Plan: vascular to see patinet heparin drip Code(s): I73.9 - PERIPHERAL VASCULAR DISEASE, UNSPECIFIED (9) Hyperlipidemia Assessment/Plan: statin lovaza check hga1c Code(s): E78.5 - HYPERLIPIDEMIA, UNSPECIFIED (10) Glaucoma Assessment/Plan: eye drops Code(s): H40.9 - UNSPECIFIED GLAUCOMA
[2016-08-12] MEDS: FERROUS SO4 325 MG TABLET (FP) PO SCH ×3 (10:23→17:57)
[2016-08-12] MEDS: PANTOPRAZOLE 40 MG TABLET (FP) PO SCH (10:23)
[2016-08-12] MEDS: MIDODRINE HCL 5 MG TABLET PO SCH ×2 (10:23→18:04)
[2016-08-12] MEDS: BRIMONIDINE TARTRATE 0.15% OPHTHALMIC 5 ML BOTTLE OD SCH (10:26)
[2016-08-12] MEDS: MULTIVITAMINS (DAILY MVI) TABLET (FP) PO SCH (10:27)
[2016-08-12] MEDS: NYSTATIN 100,000 UNIT/GM TOPICAL CREAM 15 GM TUBE TP SCH ×2 (10:27→22:02)
--- NOTE | 2016-08-12 11:44 | PN ---
Teaching Attending Note Name of Resident: Jose Maria Espinoza ATTENDING PHYSICIAN STATEMENT I saw and evaluated the patient. I reviewed the resident's note and discussed the case with the resident. I agree with the resident's findings and plan as documented. SUBJECTIVE: Chart reviewed Patient examned OBJECTIVE: ASSESSMENT AND PLAN: NO infection issues at this time Vascular evaluation pending
--- NOTE | 2016-08-12 14:35 | PN ---
Progress Note (short form) - Note Progress Note: Feels like Trach is full of secretions. Inner cannula was washed by the RN. Yesterday he showed me a very hard, dark 5mm object. Difficult to ascertain grossly what it was (?dried mucous, a part of a tooth). CXR: No acute pathology Intake & Output 08/09/16 08/10/16 08/11/16 08/12/16 23:59 23:59 23:59 23:59 Intake Total 1466 516 Output Total 550 600 600 Balance -550 866 -84 Weight 171 lb Last Vital Signs Temp Pulse Resp BP Pulse Ox 98.9 F 78 20 142/74 100 08/12/16 06:48 08/12/16 06:48 08/12/16 06:48 08/12/16 06:48 08/11/16 21:00 Active Medications Acetaminophen (Tylenol -) 650 mg PO Q6H PRN PRN Reason: FEVER OR PAIN Albuterol/Ipratropium (Duoneb -) 1 amp NEB Q6H PRN PRN Reason: SHORTNESS OF BREATH Atorvastatin Calcium (Lipitor -) 10 mg PO [facility] Brimonidine Tartrate (Alphagan 0.15% -) 1 drop OD DAILY [facility] Last Admin: 08/12/16 10:26 Dose: 1 drop Docusate Sodium (Colace -) 100 mg PO Q8H PRN PRN Reason: CONSTIPATION Dorzolamide HCl (Trusopt 2%) 1 drop OD TID [facility] Last Admin: 08/12/16 06:23 Dose: 1 drop Ferrous Sulfate (Feosol -) 325 mg PO TIDCM [facility] Last Admin: 08/12/16 12:15 Dose: 325 mg Heparin Sodium (Porcine) 25, (000 unit/ Sodium Chloride) 500 mls @ 20 mls/hr IV TITR TEDDY; 1,000 UNIT/HR PRN Reason: Protocol Last Admin: 08/11/16 17:51 Dose: 18 mls/hr Latanoprost (Xalatan 0.005% Eye Drops -) 1 drop OD [facility] Last Admin: 08/11/16 21:30 Dose: 1 drop Midodrine (Proamatine -) 5 mg PO BID-MID [facility] Last Admin: 08/12/16 10:23 Dose: 5 mg Mirtazapine (Remeron -) 15 mg PO [facility] Last Admin: 08/11/16 21:30 Dose: 15 mg Multivitamins/Minerals/Vitamin C (Tab-A-Vit -) 1 tab PO DAILY [facility] Last Admin: 08/12/16 10:27 Dose: 1 tab Nystatin (Mycostatin Cream -) 1 applic TP BID [facility] Last Admin: 08/12/16 10:27 Dose: 1 applic [id number] Ethyl Esters (Lovaza -) 2 gm PO BID [facility] Oxycodone HCl (Roxicodone -) 5 mg PO Q6H PRN PRN Reason: PAIN Last Admin: 08/11/16 21:30 Dose: 5 mg Pantoprazole Sodium (Protonix -) 40 mg PO DAILY [facility] Last Admin: 08/12/16 10:23 Dose: 40 mg Constitutional: Yes: Well Nourished, No Distress Eyes: Yes: Conjunctiva Clear, EOM Intact HENT: Yes: Atraumatic, Normocephalic, Other (intact tracheostomy ) Neck: Yes: Supple, Trachea Midline, Other (Tracheostomy intact ) Cardiovascular: Yes: Regular Rate and Rhythm Respiratory: Yes: Cough, Rhonchi. No: Accessory Muscle Use, Rales, SOB, Stridor , Tachypnea, Wheezes ...Inspection: Yes: WNL ...Clubbing: No Gastrointestinal: Yes: WNL, Normal Bowel Sounds, Soft Renal/: Yes: WNL Musculoskeletal: Yes: WNL Extremities: Yes: Other (discoloration right great toe/second digit ) Peripheral Pulses WNL: Yes Integumentary: Yes: Venous Stasis Changes, Other Neurological: Yes: WNL, Alert, Oriented ...Motor Strength: WNL Psychiatric: Yes: WNL, Alert, Oriented Laboratory Results - last 24 hr 08/12/16 06:00 INR 2.05 H PTT ([facility]) 61.7 H Problem List - Problems (1) Chronic wound of extremity Code(s): [id number] - (2) Peripheral vascular disease Code(s): I73.9 - PERIPHERAL VASCULAR DISEASE, UNSPECIFIED (3) Afib Code(s): I48.91 - UNSPECIFIED ATRIAL FIBRILLATION Qualifiers: Atrial fibrillation type: chronic Qualified Code(s): I48.2 - Chronic atrial fibrillation (4) Glaucoma Code(s): H40.9 - UNSPECIFIED GLAUCOMA (5) HTN (hypertension) Code(s): I10 - ESSENTIAL (PRIMARY) HYPERTENSION Qualifiers: Hypertension type: essential hypertension (7) Pulmonary emboli Code(s): I26.99 - OTHER PULMONARY EMBOLISM WITHOUT ACUTE COR PULMONALE (8) Tracheostomy in place Code(s): Z98.89 - OTHER SPECIFIED POSTPROCEDURAL STATES * DO NOT USE * (9) Wound infection Code(s): T14.8 - OTHER INJURY OF UNSPECIFIED BODY REGION L08.9 - LOCAL INFECTION OF THE SKIN AND SUBCUTANEOUS TISSUE, UNSP Assessment/Plan O2 as needed BD TX PRN Suction PRN (can have use suction catheter if needed) D/C planning if no vascular intervention Dr Kelley Problem List - Problems (1) Chronic wound of extremity Code(s): ACL3896 - (2) Peripheral vascular disease Code(s): I73.9 - PERIPHERAL VASCULAR DISEASE, UNSPECIFIED (3) Afib Code(s): I48.91 - UNSPECIFIED ATRIAL FIBRILLATION Qualifiers: Atrial fibrillation type: chronic Qualified Code(s): I48.2 - Chronic atrial fibrillation (4) Glaucoma Code(s): H40.9 - UNSPECIFIED GLAUCOMA (5) HTN (hypertension) Code(s): I10 - ESSENTIAL (PRIMARY) HYPERTENSION Qualifiers: Hypertension type: essential hypertension Qualified Code(s): I10 - Essential (primary) hypertension (7) Pulmonary emboli Code(s): I26.99 - OTHER PULMONARY EMBOLISM WITHOUT ACUTE COR PULMONALE (8) Tracheostomy in place Code(s): Z98.89 - OTHER SPECIFIED POSTPROCEDURAL STATES * DO NOT USE * (9) Wound infection Code(s): T14.8 - OTHER INJURY OF UNSPECIFIED BODY REGION L08.9 - LOCAL INFECTION OF THE SKIN AND SUBCUTANEOUS TISSUE, UNSP
[2016-08-12] MEDS: HEPARIN - 25,000 UNIT in SODIUM CHLORIDE 495 ML IV SCH ×2 (18:04→18:05)
--- NOTE | 2016-08-12 18:54 | CONSULT ---
Consult - Past Medical History LENO SEWER: Yes: Dementia Cardio/Vascular: Yes: HTN Pulmonary: Yes: COPD, Pulmonary Embolus Gastrointestinal: Yes: Diverticulitis, Other (colovesicular fistula with diverticulosis , heme posistive stools) Renal/: Yes: UTI (recurrent) Musculoskeletal: Yes: Chronic low back pain, Osteoarthritis, Other (avascular necrosis of the hip) - Past Surgical History Past Surgical History: Yes: Colectomy, Colostomy Additional Surgical History: laryngectomy - Alcohol/Substance Use Hx Alcohol Use: No - Smoking History Smoking history: Former smoker Have you smoked in the past 12 months: No - Social History Usual Living Arrangement: Residential ADL: Support Services History of Recent Travel: No Home Medications - Allergies Allergies/Adverse Reactions: Allergies Allergy/AdvReac Type Severity Reaction Status Date / Time Penicillins Allergy Unknown Verified 09/19/15 22:08 - Home Medications Home Medications: Ambulatory Orders Ferrous Sulfate 325 mg PO TID 04/09/15 Midodrine HCl 5 mg PO BID 04/09/15 Oxycodone HCl/Acetaminophen [Percocet 5-325 mg Tablet] 1 tab PO Q6H PRN Pantoprazole Sodium [Protonix] 40 mg PO BID 04/09/15 Potassium Chloride [Klor-Con 10] 20 meq PO DAILY 04/09/15 Warfarin Na [Coumadin -] 7 mg PO HS 04/09/15 Folic Acid - 1 mg PO DAILY tablet 04/25/15 Latanoprost 0.005% Eye Drops [Xalatan 0.005% Eye Drops -] 1 drop OU HS drops Mirtazapine [Remeron -] 15 mg PO HS 07/25/15 Multivitamins [Multivit ([facility] Formulary)] 1 tab PO DAILY 07/25/15 Magnesium Oxide [Mag-Ox -] 400 mg PO DAILY 08/30/15 Acetaminophen [Pain Relief] 650 mg PO PRN PRN 09/19/15 Albuterol 2.5/Ipratropium 0.5 [Duoneb -] 1 amp NEB QID PRN #0 amp 09/26/15 Clotrimazole [Lotrimin 1% Solution -] 1 applic TP BID 06/17/16 Dorzolamide HCl [Trusopt 2%] 1 drop OD DAILY 06/17/16 Famotidine 10 mg PO DAILY 06/17/16 Brimonidine Tartrate [Alphagan 0.15% -] 1 drop OD BID 08/10/16 Doxycycline Monohydrate [Monodox] 100 mg PO Q12H 08/10/16 Nystatin Cream [Mycostatin] 1 applic TP TID 08/10/16 [place]-3 Acid Ethyl Esters [Lovaza] 1 gm PO BID #30 capsule 08/12/16 Physical Exam Vital Signs: Vital Signs Temperature 98.6 F 08/12/16 17:39 Pulse Rate 103 H 08/12/16 17:39 Respiratory Rate 20 08/12/16 17:39 Blood Pressure 159/79 08/12/16 17:39 O2 Sat by Pulse Oximetry (%) 100 08/12/16 09:00 Assessment/Plan Vascular Surgery 71 yo M hx tracheostomy with laryngectomy, PVD, DM presents with discolored R foot. He states that this occurred over the past week. C/o pain to the same. No f/c. He follows up with Dr. Boston for wound care. C/o pain to the R foot. He has a wound to the great toe. <Kaye Torres - Last Filed: 08/12/16 07:26> - General Stated Complaint: FOOT PAIN Time Seen by Provider: 08/10/16 14:00 Past History <Jonel Bird - Last Filed: 08/10/16 15:08> - Past Medical History Anemia: Yes Cancer: Yes (laryngeal CA w/ permenant tracheostomy) COPD: Yes (PE) GI Disorders: Yes (colostomy/GERD) Disorders: Yes (UTI) HTN: Yes Seizures: Yes (dementia) - Surgical History Abdominal Surgery: Yes (S/P COLOSTOMY; Hartmans procedure) - Immunization History Immunization Up to Date: Yes - Psycho/Social/Smoking Cessation Hx Anxiety: No Suicidal Ideation: No Smoking History: Unknown if ever smoked Have you smoked in the past 12 months: No Hx Alcohol Use: No Drug/Substance Use Hx: No Substance Use Type: None <Kaye Torres - Last Filed: 08/12/16 07:26> - Past Medical History Allergies/Adverse Reactions: Allergies Allergy/AdvReac Type Severity Reaction Status Date / Time Penicillins Allergy Unknown Verified 09/19/15 22:08 Home Medications: Ambulatory Orders Ferrous Sulfate 325 mg PO TID 11/01/15 Midodrine HCl 5 mg PO BID 04/09/15 Oxycodone HCl/Acetaminophen [Percocet 5-325 mg Tablet] 1 tab PO Q6H PRN Pantoprazole Sodium [Protonix] 40 mg PO BID 04/09/15 Potassium Chloride [Klor-Con 10] 20 meq PO DAILY 04/09/15 Warfarin Na [Coumadin -] 7 mg PO HS 04/09/15 Folic Acid - 1 mg PO DAILY tablet 04/25/15 Latanoprost 0.005% Eye Drops [Xalatan 0.005% Eye Drops -] 1 drop OU HS drops Mirtazapine [Remeron -] 15 mg PO HS 07/25/15 Multivitamins [Multivit ([facility] Formulary)] 1 tab PO DAILY 07/25/15 Magnesium Oxide [Mag-Ox -] 400 mg PO DAILY 08/30/15 Acetaminophen [Pain Relief] 650 mg PO PRN PRN 09/19/15 Albuterol 2.5/Ipratropium 0.5 [Duoneb -] 1 amp NEB QID PRN #0 amp 09/26/15 Clotrimazole [Lotrimin 1% Solution -] 1 applic TP BID 06/17/16 Dorzolamide HCl [Trusopt 2%] 1 drop OD DAILY 06/17/16 Famotidine 10 mg PO DAILY 06/17/16 Brimonidine Tartrate [Alphagan 0.15% -] 1 drop OD BID 08/10/16 Doxycycline Monohydrate [Monodox] 100 mg PO Q12H 08/10/16 Nystatin Cream [Mycostatin] 1 applic TP TID 08/10/16 PE Head - NC/AT Lung - CTA Heart - RRR abd - soft,nt,nd ext - right foot rubor. Painful to touch No palpable DP, PT , or popliteal pulse. A/P Right foot rubor with great toe gangrene. CTA does not show any stenosis. Could be emoblization from the aorta. However there is no palpable pulse in the foot, and the CTA shows good runoff into foot. Pt should get angiogram to look at runoff into foot. Currently INR is 2.05. Hold coumadin. Will do angio on once INR is stable. Will make NPO past midnite to check INR in am. Stanley Boston DO
[2016-08-12] MEDS ORDERED: ATORVASTATIN CA 10 MG TABLET (FP) PO SCH (22:00)
[2016-08-12] MEDS: LATANOPROST 0.005% OPHTH SOLN 2.5ML BOTTLE OD SCH (22:01)
[2016-08-12] MEDS: MIRTAZAPINE 15 MG TABLET (FP) PO SCH (22:01)
[2016-08-12] MEDS: OMEGA-3 ACID ETHYL ESTERS (FATTY-ACIDS) 1 GM CAPSULE (FP) PO SCH (22:01)
[2016-08-13] MEDS ORDERED: PT OWN MED DRAWER 7, Y5N ONE ×5 (05:56→22:22)
[2016-08-13] MEDS: DORZOLAMIDE 2% HCL OPHTHALMIC SOLUTION 10 ML BOTTLE OD SCH ×3 (05:57→22:50)
--- NOTE | 2016-08-13 07:58 | PN ---
Progress Note, Physician - Current Medication List Current Medications: Active Medications Acetaminophen (Tylenol -) 650 mg PO Q6H PRN PRN Reason: FEVER OR PAIN Albuterol/Ipratropium (Duoneb -) 1 amp NEB Q6H PRN PRN Reason: SHORTNESS OF BREATH Atorvastatin Calcium (Lipitor -) 10 mg PO [facility] Last Admin: 08/12/16 22:01 Dose: 10 mg Brimonidine Tartrate (Alphagan 0.15% -) 1 drop OD DAILY [facility] Last Admin: 08/12/16 10:26 Dose: 1 drop Docusate Sodium (Colace -) 100 mg PO Q8H PRN PRN Reason: CONSTIPATION Dorzolamide HCl (Trusopt 2%) 1 drop OD TID [facility] Last Admin: 08/13/16 05:57 Dose: 1 drop Ferrous Sulfate (Feosol -) 325 mg PO TIDCM [facility] Last Admin: 08/12/16 17:57 Dose: Not Given Latanoprost (Xalatan 0.005% Eye Drops -) 1 drop OD [facility] Last Admin: 08/12/16 22:01 Dose: 1 drop Midodrine (Proamatine -) 5 mg PO BID-MID [facility] Last Admin: 08/12/16 18:04 Dose: 5 mg Mirtazapine (Remeron -) 15 mg PO [facility] Last Admin: 08/12/16 22:01 Dose: 15 mg Multivitamins/Minerals/Vitamin C (Tab-A-Vit -) 1 tab PO DAILY [facility] Last Admin: 08/12/16 10:27 Dose: 1 tab Nystatin (Mycostatin Cream -) 1 applic TP BID [facility] Last Admin: 08/12/16 22:02 Dose: 1 applic Hwtuq-8-Dvgh Ethyl Esters (Lovaza -) 2 gm PO BID [facility] Last Admin: 08/12/16 22:01 Dose: 2 gm Oxycodone HCl (Roxicodone -) 5 mg PO Q6H PRN PRN Reason: PAIN Last Admin: 08/11/16 21:30 Dose: 5 mg Pantoprazole Sodium (Protonix -) 40 mg PO DAILY [facility] Last Admin: 08/12/16 10:23 Dose: 40 mg - Objective Vital Signs: Vital Signs Temperature 98.5 F 08/13/16 06:48 Pulse Rate 77 08/13/16 06:48 Respiratory Rate 20 08/13/16 06:48 Blood Pressure 137/78 08/13/16 06:48 O2 Sat by Pulse Oximetry (%) 96 08/12/16 21:00 Cardiovascular: Yes: S1, S2 Respiratory: Yes: Regular, CTA Bilaterally Gastrointestinal: Yes: Normal Bowel Sounds, Soft Extremities: Yes: Cyanosis Wound/Incision: Yes: Excoriated, Unapproximated Labs: INR, PTT INR 2.05 (0.82-1.09) H 08/12/16 06:00 Assessment/Plan Problems (1) [place]-vesical fistula Assessment/Plan: functioning Code(s): N32.1 - VESICOINTESTINAL FISTULA (2) HTN (hypertension) Code(s): I10 - ESSENTIAL (PRIMARY) HYPERTENSION Qualifiers: Hypertension type: essential hypertension (3) Laryngeal cancer Assessment/Plan: s/p surgery with trach (4) Pulmonary emboli Assessment/Plan: heparin drip Coumadin on hold if intervention is needed for right foot Code(s): I26.99 - OTHER PULMONARY EMBOLISM WITHOUT ACUTE COR PULMONALE (5) Tracheostomy in place Assessment/Plan: needs cleaning Code(s): Z98.89 - OTHER SPECIFIED POSTPROCEDURAL STATES * DO NOT USE * (6) Orthostatic hypotension Assessment/Plan: midodrine Code(s): I95.1 - ORTHOSTATIC HYPOTENSION (7) Chronic wound of extremity Assessment/Plan: does not look infectious will hold off abx vascular eval noted CTA done report noted--for angio heparin drip Code(s): PPL9128 - (8) Peripheral vascular disease Assessment/Plan: R/O EMBOLIC EVENTS CARDIO vascular consult noted heparin drip Code(s): I73.9 - PERIPHERAL VASCULAR DISEASE, UNSPECIFIED (9) Hyperlipidemia Assessment/Plan: statin lovaza check hga1c Code(s): E78.5 - HYPERLIPIDEMIA, UNSPECIFIED (10) Glaucoma Assessment/Plan: eye drops Code(s): H40.9 - UNSPECIFIED GLAUCOMA
[2016-08-13 08:07] LABS: BASOPHIL 0.8 % (0-2.0); EOSINOPHIL 2.8 % (0-4.5); MCH 31.2 pg (25.7-33.7); MCHC 34.1 g/dl (32.0-35.9); MEAN CELL VOLUME 91.4 fl (80-96); NEUTROPHILS 72.9 % (42.8-82.8); PLATELET COUNT 287 K/MM3 (134-434); RDW 13.2 % (11.9-15.9); WHITE BLOOD COUNT 6.9 K/mm3 (4.0-10.0)
[2016-08-13] MEDS: FERROUS SO4 325 MG TABLET (FP) PO SCH ×3 (08:25→18:17)
[2016-08-13 08:28] LABS: INR 1.47 (0.82-1.09); PROTHROMBIN TIME (PATIENT) 16.3 SEC (9.98-11.88)
[2016-08-13 08:34] LABS: ALBUMIN 3.4 g/dl (3.4-5.0); ALK PHOS 79 U/L (45-117); ANION GAP 8 (8-16); BILIRUBIN,TOTAL 0.6 mg/dL (0.2-1.0); CALCIUM 8.7 mg/dL (8.5-10.1); CO2 26 mmol/L (21-32); CREATININE 0.7 mg/dL (0.7-1.3); GLUCOSE,RANDOM 90 mg/dL (74-106); SGOT/AST 16 U/L (15-37); SGPT/ALT 18 U/L (12-78)
[2016-08-13] MEDS: OMEGA-3 ACID ETHYL ESTERS (FATTY-ACIDS) 1 GM CAPSULE (FP) PO SCH ×2 (10:03→22:49)
[2016-08-13] MEDS: MULTIVITAMINS (DAILY MVI) TABLET (FP) PO SCH (10:04)
[2016-08-13] MEDS: BRIMONIDINE TARTRATE 0.15% OPHTHALMIC 5 ML BOTTLE OD SCH (10:04)
[2016-08-13] MEDS: MIDODRINE HCL 5 MG TABLET PO SCH ×2 (10:04→18:17)
[2016-08-13] MEDS: PANTOPRAZOLE 40 MG TABLET (FP) PO SCH (10:04)
--- NOTE | 2016-08-13 10:25 | PN ---
Progress Note (short form) - Note Progress Note: No acute events overnight. Patient removed inner cannula and it appeared clean. No CP or SOB. Intake & Output 08/10/16 08/11/16 08/12/16 08/13/16 23:59 23:59 23:59 23:59 Intake Total 1466 716 Output Total 805 668 9803 450 Balance -550 866 -284 -450 Weight 171 lb Last Vital Signs Temp Pulse Resp BP Pulse Ox 98.6 F 71 20 128/81 96 08/13/16 09:14 08/13/16 09:14 08/13/16 09:14 08/13/16 09:14 08/12/16 21:00 Active Medications Acetaminophen (Tylenol -) 650 mg PO Q6H PRN PRN Reason: FEVER OR PAIN Albuterol/Ipratropium (Duoneb -) 1 amp NEB Q6H PRN PRN Reason: SHORTNESS OF BREATH Atorvastatin Calcium (Lipitor -) 10 mg PO [facility] Last Admin: 08/12/16 22:01 Dose: 10 mg Brimonidine Tartrate (Alphagan 0.15% -) 1 drop OD DAILY [facility] Last Admin: 08/13/16 10:04 Dose: 1 drop Docusate Sodium (Colace -) 100 mg PO Q8H PRN PRN Reason: CONSTIPATION Dorzolamide HCl (Trusopt 2%) 1 drop OD TID [facility] Last Admin: 08/13/16 05:57 Dose: 1 drop Ferrous Sulfate (Feosol -) 325 mg PO TIDCM [facility] Last Admin: 08/13/16 08:25 Dose: 325 mg Latanoprost (Xalatan 0.005% Eye Drops -) 1 drop OD [facility] Last Admin: 08/12/16 22:01 Dose: 1 drop Midodrine (Proamatine -) 5 mg PO BID-MID [facility] Last Admin: 08/13/16 10:04 Dose: 5 mg Mirtazapine (Remeron -) 15 mg PO [facility] Last Admin: 08/12/16 22:01 Dose: 15 mg Multivitamins/Minerals/Vitamin C (Tab-A-Vit -) 1 tab PO DAILY [facility] Last Admin: 08/13/16 10:04 Dose: 1 tab Nystatin (Mycostatin Cream -) 1 applic TP BID [facility] Last Admin: 08/12/16 22:02 Dose: 1 applic Kyfhb-7-[id number] Ethyl Esters (Lovaza -) 2 gm PO BID [facility] Last Admin: 08/13/16 10:03 Dose: 2 gm Oxycodone HCl (Roxicodone -) 5 mg PO Q6H PRN PRN Reason: PAIN Last Admin: 08/11/16 21:30 Dose: 5 mg Pantoprazole Sodium (Protonix -) 40 mg PO DAILY [facility] Last Admin: 08/13/16 10:04 Dose: 40 mg Constitutional: Yes: Well Nourished, No Distress Eyes: Yes: Conjunctiva Clear, EOM Intact HENT: Yes: Atraumatic, Normocephalic, Other (intact tracheostomy ) Neck: Yes: Supple, Trachea Midline, Other (Tracheostomy intact ) Cardiovascular: Yes: Regular Rate and Rhythm Respiratory: Yes: Cough, Rhonchi. No: Accessory Muscle Use, Rales, SOB, Stridor , Tachypnea, Wheezes ...Inspection: Yes: WNL ...Clubbing: No Gastrointestinal: Yes: WNL, Normal Bowel Sounds, Soft Renal/: Yes: WNL Musculoskeletal: Yes: WNL Extremities: Yes: Other (discoloration right great toe/second digit ) Peripheral Pulses WNL: Yes Integumentary: Yes: Venous Stasis Changes, Other Neurological: Yes: WNL, Alert, Oriented ...Motor Strength: WNL Psychiatric: Yes: WNL, Alert, Oriented Laboratory Results - last 24 hr 08/13/16 08/13/16 08/13/16 06:00 06:00 06:00 WBC 6.9 RBC 3.90 L Hgb 12.2 Hct 35.7 MCV 91.4 MCHC 34.1 RDW 13.2 Plt Count 287 MPV 8.0 Neutrophils % 72.9 Lymphocytes % 15.2 Monocytes % 8.3 Eosinophils % 2.8 Basophils % 0.8 INR PTT (Actin FS) Sodium 141 Potassium 3.9 Chloride 107 Carbon Dioxide 26 Anion Gap 8 BUN 14 Creatinine 0.7 Creat Clearance w eGFR > 60 Random Glucose 90 Hemoglobin A1c % 5.0 D Calcium 8.7 Total Bilirubin 0.6 D AST 16 D ALT 18 Alkaline Phosphatase 79 Total Protein 7.0 Albumin 3.4 08/13/16 08/13/16 06:00 06:00 WBC RBC Hgb Hct MCV MCHC RDW Plt Count MPV Neutrophils % Lymphocytes % Monocytes % Eosinophils % Basophils % INR 1.47 H PTT (Actin FS) 36.7 H D Sodium Potassium Chloride Carbon Dioxide Anion Gap BUN Creatinine Creat Clearance w eGFR Random Glucose Hemoglobin A1c % Calcium Total Bilirubin AST ALT Alkaline Phosphatase Total Protein Albumin Problem List - Problems (1) Chronic wound of extremity Code(s): [id number] - (2) Peripheral vascular disease Code(s): I73.9 - PERIPHERAL VASCULAR DISEASE, UNSPECIFIED (3) Afib Code(s): I48.91 - UNSPECIFIED ATRIAL FIBRILLATION Qualifiers: Atrial fibrillation type: chronic Qualified Code(s): I48.2 - Chronic atrial fibrillation (4) Glaucoma Code(s): H40.9 - UNSPECIFIED GLAUCOMA (5) HTN (hypertension) Code(s): I10 - ESSENTIAL (PRIMARY) HYPERTENSION Qualifiers: Hypertension type: essential hypertension (7) Pulmonary emboli Code(s): I26.99 - OTHER PULMONARY EMBOLISM WITHOUT ACUTE COR PULMONALE (8) Tracheostomy in place Code(s): Z98.89 - OTHER SPECIFIED POSTPROCEDURAL STATES * DO NOT USE * (9) Wound infection Code(s): T14.8 - OTHER INJURY OF UNSPECIFIED BODY REGION L08.9 - LOCAL INFECTION OF THE SKIN AND SUBCUTANEOUS TISSUE, UNSP Assessment/Plan O2 as needed BD TX PRN Suction PRN D/C planning if no vascular intervention Dr Kelley Problem List - Problems (1) Chronic wound of extremity Code(s): QLG5696 - (2) Peripheral vascular disease Code(s): I73.9 - PERIPHERAL VASCULAR DISEASE, UNSPECIFIED (3) Afib Code(s): I48.91 - UNSPECIFIED ATRIAL FIBRILLATION Qualifiers: Atrial fibrillation type: chronic Qualified Code(s): I48.2 - Chronic atrial fibrillation (4) Glaucoma Code(s): H40.9 - UNSPECIFIED GLAUCOMA (5) HTN (hypertension) Code(s): I10 - ESSENTIAL (PRIMARY) HYPERTENSION Qualifiers: Hypertension type: essential hypertension Qualified Code(s): I10 - Essential (primary) hypertension (7) Pulmonary emboli Code(s): I26.99 - OTHER PULMONARY EMBOLISM WITHOUT ACUTE COR PULMONALE (8) Tracheostomy in place Code(s): Z98.89 - OTHER SPECIFIED POSTPROCEDURAL STATES * DO NOT USE * (9) Wound infection Code(s): T14.8 - OTHER INJURY OF UNSPECIFIED BODY REGION L08.9 - LOCAL INFECTION OF THE SKIN AND SUBCUTANEOUS TISSUE, UNSP
--- NOTE | 2016-08-13 10:36 | CONSULT ---
Consult - text type - Consultation Consultation Note: CARDIOLOGY ASKED BY DR. Brennan TO SEE PT. 72 YO MAN 08/12/16 RIGHT FOOT GANGRENE. PT SEEN, EXAMINED ECG'S REVIEWED. WORKING DX; PERIPHERAL VASCULAR DISEASE RIGHT TOE CRITICAL ISCHEMIA COMMENT: THERE IS NO CARDIAC CONTRA INDICATION TO VASCULAR SURGERY WHICH MAY PROCEED WITH AN ACCEPTABLE RISK. PT IS HEMODYNAMICALLY STABLE. NO CARDIAC SYMPTOMS. ECG NO ACUTE CHANGES. REC: OBTAIN ANY PRIOR CARDIAC RECORDS NOT PRESENTLY AVAILABLE. W/U AND TREATMENT DIRECTED BY VASCULAR SURGERY. THANKS. FULL NOTE DICTATED. WILL FOLLOW.
[2016-08-13] MEDS ORDERED: LIDOCAINE HCL 1%, 10 MG/ML (20ML VIAL) ONE (11:17)
[2016-08-13] MEDS ORDERED: HEPARIN NA (PORCINE) 5,000 UNITS/ML 1ML VIAL ONE (11:17)
[2016-08-13] MEDS ORDERED: CLINDAMYCIN PHOSPHATE 600 MG/4 ML VIAL IVPB ONE (12:09)
[2016-08-13] MEDS ORDERED: LIDOCAINE HCL 1%, 10 MG/ML (20ML VIAL) IJ ONE (12:15)
[2016-08-13] MEDS ORDERED: HEPARIN INFUSION - 500 ML IVPB ONE (13:48)
[2016-08-13] MEDS ORDERED: HEPARIN NA (PORCINE) 5,000 UNITS/ML 1ML VIAL IVPUSH PRN ×6 (13:50→13:53)
[2016-08-13] MEDS ORDERED: oxyCODONE HCL 5 MG TABLET PO PRN (13:53)
[2016-08-13] MEDS ORDERED: DOCUSATE SODIUM 100 MG CAPSULE (FP) PO PRN (13:53)
[2016-08-13] MEDS ORDERED: ALBUTEROL SO4 2.5/IPRATROPIUM 0.5 INH SOL 3 ML VIAL.NEB. NEB PRN (13:53)
--- NOTE | 2016-08-13 13:54 | OP ---
Operative Note - Note: Operative Date: 08/13/16 Pre-Operative Diagnosis: Right foot gangrene Operation: Aortogram, RLE angiogram, SFA atherectomy, angioplasty Findings: Right SFA occlusion Post-Operative Diagnosis: Same as Pre-op Surgeon: Stanley Boston Anesthesia: Fractional Estimated Blood Loss (mls): 75 Operative Report Dictated: Yes
[2016-08-13] MEDS ORDERED: HEPARIN INFUSION - 500 ML IVPB SCH (14:00)
[2016-08-13] MEDS: HEPARIN INFUSION - 500 ML IVPB SCH (14:50)
[2016-08-13] MEDS: NYSTATIN 100,000 UNIT/GM TOPICAL CREAM 15 GM TUBE TP SCH ×2 (15:18→22:49)
[2016-08-13] MEDS: MIRTAZAPINE 15 MG TABLET (FP) PO SCH (22:49)
[2016-08-13] MEDS: ATORVASTATIN CA 10 MG TABLET (FP) PO SCH (22:50)
[2016-08-13] MEDS: LATANOPROST 0.005% OPHTH SOLN 2.5ML BOTTLE OD SCH (22:50)
[2016-08-14] MEDS: DORZOLAMIDE 2% HCL OPHTHALMIC SOLUTION 10 ML BOTTLE OD SCH ×4 (06:43→22:10)
--- NOTE | 2016-08-14 08:33 | PN ---
Progress Note, Physician - Current Medication List Current Medications: Active Medications Acetaminophen (Tylenol -) 650 mg PO Q6H PRN PRN Reason: FEVER OR PAIN Albuterol/Ipratropium (Duoneb -) 1 amp NEB Q6H PRN PRN Reason: SHORTNESS OF BREATH Atorvastatin Calcium (Lipitor -) 10 mg PO HS [facility] Last Admin: 08/13/16 22:50 Dose: 10 mg Brimonidine Tartrate (Alphagan 0.15% -) 1 drop OD DAILY [facility] Docusate Sodium (Colace -) 100 mg PO Q8H PRN PRN Reason: CONSTIPATION Dorzolamide HCl (Trusopt 2%) 1 drop OD TID [facility] Last Admin: 08/14/16 06:43 Dose: 1 drop Fentanyl (Sublimaze Injection -) 25 mcg IVPUSH [id number] PRN PRN Reason: PAIN Stop: 08/16/16 14:57 Ferrous Sulfate (Feosol -) 325 mg PO TIDCM [facility] Last Admin: 08/13/16 18:17 Dose: 325 mg Heparin Sodium (Porcine) (Heparin -) 1,000 unit IVPUSH PRN PRN PRN Reason: Heparin Heparin Sodium (Porcine) (Heparin -) 5,000 unit IVPUSH PRN PRN PRN Reason: Heparin Heparin Sodium/Dextrose (Heparin Infusion -) 500 mls @ 20 mls/hr IVPB TITR [facility] ; 1,000 UNITS/HR PRN Reason: Protocol Last Admin: 08/13/16 14:50 Dose: 20 mls/hr Latanoprost (Xalatan 0.005% Eye Drops -) 1 drop OD [facility] Last Admin: 08/13/16 22:50 Dose: 1 drop Midodrine (Proamatine -) 5 mg PO BID-MID [facility] Last Admin: 08/13/16 18:17 Dose: 5 mg Mirtazapine (Remeron -) 15 mg PO [facility] Last Admin: 08/13/16 22:49 Dose: 15 mg Multivitamins/Minerals/Vitamin C (Tab-A-Vit -) 1 tab PO DAILY [facility] Nystatin (Mycostatin Cream -) 1 applic TP BID [facility] Last Admin: 08/13/16 22:49 Dose: 1 applic Eflbc-2-[id number] Ethyl Esters (Lovaza -) 2 gm PO BID [facility] Last Admin: 08/13/16 22:49 Dose: 2 gm Oxycodone HCl (Roxicodone -) 5 mg PO Q6H PRN PRN Reason: PAIN Pantoprazole Sodium (Protonix -) 40 mg PO DAILY [facility] - Objective Vital Signs: Vital Signs Temperature 99.1 F 08/14/16 06:00 Pulse Rate 80 08/14/16 06:00 Respiratory Rate 20 08/14/16 06:00 Blood Pressure 149/80 08/14/16 06:00 O2 Sat by Pulse Oximetry (%) 99 08/13/16 14:15 Cardiovascular: Yes: Regular Rate and Rhythm Respiratory: Yes: Regular, CTA Bilaterally Gastrointestinal: Yes: Normal Bowel Sounds, Soft Extremities: Yes: Cool, Cyanosis Labs: CBC, BMP 08/13/16 06:00 08/13/16 06:00 INR, PTT INR 1.47 (0.82-1.09) H 08/13/16 06:00 Assessment/Plan Problems (1) [place]-vesical fistula Assessment/Plan: functioning Code(s): N32.1 - VESICOINTESTINAL FISTULA (2) HTN (hypertension) Code(s): I10 - ESSENTIAL (PRIMARY) HYPERTENSION Qualifiers: Hypertension type: essential hypertension (3) Laryngeal cancer Assessment/Plan: s/p surgery with trach (4) Pulmonary emboli Assessment/Plan: heparin drip Coumadin on hold if intervention is needed for right foot Code(s): I26.99 - OTHER PULMONARY EMBOLISM WITHOUT ACUTE COR PULMONALE (5) Tracheostomy in place Assessment/Plan: needs cleaning Code(s): Z98.89 - OTHER SPECIFIED POSTPROCEDURAL STATES * DO NOT USE * (6) Orthostatic hypotension Assessment/Plan: midodrine Code(s): I95.1 - ORTHOSTATIC HYPOTENSION (7) Chronic wound of extremity Assessment/Plan: does not look infectious will hold off abx vascular eval noted CTA done report noted--for angio heparin drip Code(s): OCS1011 - (8) Peripheral vascular disease Assessment/Plan: Operative Date: 08/13/16 Pre-Operative Diagnosis: Right foot gangrene Operation: Aortogram, RLE angiogram, SFA atherectomy, angioplasty Findings: Right SFA occlusion Post-Operative Diagnosis: Same as Pre-op Surgeon: Stanley Boston CARDIO vascular consult noted heparin drip--CHECK IF ABLE TO RESUME COUMADIN Code(s): I73.9 - PERIPHERAL VASCULAR DISEASE, UNSPECIFIED (9) Hyperlipidemia Assessment/Plan: statin lovaza check hga1c Code(s): E78.5 - HYPERLIPIDEMIA, UNSPECIFIED (10) Glaucoma Assessment/Plan: eye drops Code(s): H40.9 - UNSPECIFIED GLAUCOMA
[2016-08-14] MEDS: FERROUS SO4 325 MG TABLET (FP) PO SCH ×3 (08:47→19:06)
--- NOTE | 2016-08-14 08:59 | PN ---
Progress Note (short form) - Note Progress Note: POD #1 s/p Aortogram, RLE angiogram, SFA atherectomy, angioplasty Alert. Doing well. No complaints. Afebrile. AVSS. General: alert. nad ABD: soft. nt. nd LE: left groin stab incision intact. small hematoma noted upon palpation. Right foot rubor w/ great toe gangrene. Problem List - Problems (1) Chronic wound of extremity Assessment/Plan: Cont care per primary medical team. Heparin gtt Monitor PT/PTT/INR Code(s): [id number] -
--- NOTE | 2016-08-14 09:33 | PN ---
Progress Note, Physician Chief Complaint: s/p angiogram angioplasty lower extremity under monitored anesthesia care History of Present Illness: post op day one - Current Medication List Current Medications: Active Medications Acetaminophen (Tylenol -) 650 mg PO Q6H PRN PRN Reason: FEVER OR PAIN Albuterol/Ipratropium (Duoneb -) 1 amp NEB Q6H PRN PRN Reason: SHORTNESS OF BREATH Atorvastatin Calcium (Lipitor -) 10 mg PO HS [facility] Last Admin: 08/13/16 22:50 Dose: 10 mg Brimonidine Tartrate (Alphagan 0.15% -) 1 drop OD DAILY [facility] Docusate Sodium (Colace -) 100 mg PO Q8H PRN PRN Reason: CONSTIPATION Dorzolamide HCl (Trusopt 2%) 1 drop OD TID [facility] Last Admin: 08/14/16 06:43 Dose: 1 drop Fentanyl (Sublimaze Injection -) 25 mcg IVPUSH [id number] PRN PRN Reason: PAIN Stop: 08/16/16 14:57 Ferrous Sulfate (Feosol -) 325 mg PO TIDCM [facility] Last Admin: 08/14/16 08:47 Dose: 325 mg Heparin Sodium (Porcine) (Heparin -) 1,000 unit IVPUSH PRN PRN PRN Reason: Heparin Heparin Sodium (Porcine) (Heparin -) 5,000 unit IVPUSH PRN PRN PRN Reason: Heparin Heparin Sodium/Dextrose (Heparin Infusion -) 500 mls @ 20 mls/hr IVPB TITR [facility] ; 1,000 UNITS/HR PRN Reason: Protocol Last Admin: 08/13/16 14:50 Dose: 20 mls/hr Latanoprost (Xalatan 0.005% Eye Drops -) 1 drop OD [facility] Last Admin: 08/13/16 22:50 Dose: 1 drop Midodrine (Proamatine -) 5 mg PO BID-MID [facility] Last Admin: 08/13/16 18:17 Dose: 5 mg Mirtazapine (Remeron -) 15 mg PO [facility] Last Admin: 08/13/16 22:49 Dose: 15 mg Multivitamins/Minerals/Vitamin C (Tab-A-Vit -) 1 tab PO DAILY [facility] Nystatin (Mycostatin Cream -) 1 applic TP BID [facility] Last Admin: 08/13/16 22:49 Dose: 1 applic Xdzde-3-Fvij Ethyl Esters (Lovaza -) 2 gm PO BID [facility] Last Admin: 08/13/16 22:49 Dose: 2 gm Oxycodone HCl (Roxicodone -) 5 mg PO Q6H PRN PRN Reason: PAIN Pantoprazole Sodium (Protonix -) 40 mg PO DAILY [facility] - Objective Vital Signs: Vital Signs Temperature 99.1 F 08/14/16 06:00 Pulse Rate 80 08/14/16 06:00 Respiratory Rate 20 08/14/16 06:00 Blood Pressure 149/80 08/14/16 06:00 O2 Sat by Pulse Oximetry (%) 99 08/13/16 14:15 Constitutional: Yes: Well Nourished Cardiovascular: Yes: WNL Respiratory: Yes: Other (trach collar, no difficulties breathing apparent) Gastrointestinal: Yes: WNL Labs: CBC, BMP 08/13/16 06:00 08/13/16 06:00 INR, PTT INR 1.47 (0.82-1.09) H 08/13/16 06:00 Assessment/Plan no adverse effect of anesthetic, dept of anesthesia will sign off care at this time
[2016-08-14] MEDS ORDERED: PT OWN MED DRAWER 7, Y5N ONE ×4 (10:35→21:37)
[2016-08-14] MEDS: NYSTATIN 100,000 UNIT/GM TOPICAL CREAM 15 GM TUBE TP SCH ×2 (10:43→23:49)
[2016-08-14] MEDS: BRIMONIDINE TARTRATE 0.15% OPHTHALMIC 5 ML BOTTLE OD SCH (10:45)
[2016-08-14] MEDS: OMEGA-3 ACID ETHYL ESTERS (FATTY-ACIDS) 1 GM CAPSULE (FP) PO SCH ×2 (10:47→22:09)
[2016-08-14] MEDS: MULTIVITAMINS (DAILY MVI) TABLET (FP) PO SCH (10:47)
[2016-08-14] MEDS: PANTOPRAZOLE 40 MG TABLET (FP) PO SCH (10:48)
[2016-08-14] MEDS: MIDODRINE HCL 5 MG TABLET PO SCH ×2 (10:53→19:06)
--- NOTE | 2016-08-14 11:48 | PN ---
Progress Note, Physician History of Present Illness: pulmonary alert,nad,-sob,+ dark tracheal secretions - Current Medication List Current Medications: Active Medications Acetaminophen (Tylenol -) 650 mg PO Q6H PRN PRN Reason: FEVER OR PAIN Albuterol/Ipratropium (Duoneb -) 1 amp NEB Q6H PRN PRN Reason: SHORTNESS OF BREATH Atorvastatin Calcium (Lipitor -) 10 mg PO HS [facility] Last Admin: 08/13/16 22:50 Dose: 10 mg Brimonidine Tartrate (Alphagan 0.15% -) 1 drop OD DAILY [facility] Last Admin: 08/14/16 10:45 Dose: 1 drop Docusate Sodium (Colace -) 100 mg PO Q8H PRN PRN Reason: CONSTIPATION Dorzolamide HCl (Trusopt 2%) 1 drop OD TID [facility] Last Admin: 08/14/16 06:43 Dose: 1 drop Fentanyl (Sublimaze Injection -) 25 mcg IVPUSH [id number] PRN PRN Reason: PAIN Stop: 08/16/16 14:57 Ferrous Sulfate (Feosol -) 325 mg PO TIDCM [facility] Last Admin: 08/14/16 08:47 Dose: 325 mg Heparin Sodium (Porcine) (Heparin -) 1,000 unit IVPUSH PRN PRN PRN Reason: Heparin Last Admin: 08/14/16 10:18 Dose: 1,000 unit Heparin Sodium (Porcine) (Heparin -) 5,000 unit IVPUSH PRN PRN PRN Reason: Heparin Heparin Sodium/Dextrose (Heparin Infusion -) 500 mls @ 20 mls/hr IVPB TITR [facility] ; 1,000 UNITS/HR PRN Reason: Protocol Last Titration: 08/14/16 10:10 Dose: 1,100 units/hr Latanoprost (Xalatan 0.005% Eye Drops -) 1 drop OD HS [facility] Last Admin: 08/13/16 22:50 Dose: 1 drop Midodrine (Proamatine -) 5 mg PO BID-MID [facility] Last Admin: 08/14/16 10:53 Dose: 5 mg Mirtazapine (Remeron -) 15 mg PO HS [facility] Last Admin: 08/13/16 22:49 Dose: 15 mg Multivitamins/Minerals/Vitamin C (Tab-A-Vit -) 1 tab PO DAILY [facility] Last Admin: 08/14/16 10:47 Dose: 1 tab Nystatin (Mycostatin Cream -) 1 applic TP BID [facility] Last Admin: 08/14/16 10:43 Dose: 1 applic Whyfj-7-Hzwj Ethyl Esters (Lovaza -) 2 gm PO BID [facility] Last Admin: 08/14/16 10:47 Dose: 2 gm Oxycodone HCl (Roxicodone -) 5 mg PO Q6H PRN PRN Reason: PAIN Pantoprazole Sodium (Protonix -) 40 mg PO DAILY [facility] Last Admin: 08/14/16 10:48 Dose: 40 mg - Objective Vital Signs: Vital Signs Temperature 99.1 F 08/14/16 06:00 Pulse Rate 80 08/14/16 06:00 Respiratory Rate 20 08/14/16 06:00 Blood Pressure 149/80 08/14/16 06:00 O2 Sat by Pulse Oximetry (%) 99 08/13/16 14:15 Constitutional: Yes: Well Nourished, Calm Eyes: Yes: WNL HENT: Yes: WNL Neck: Yes: Supple (trach) Cardiovascular: Yes: Pulse Irregular, S1, S2 Respiratory: Yes: Rhonchi (few scattered angélica rhonchi) Gastrointestinal: Yes: Normal Bowel Sounds, Soft Extremities: Yes: Other (r great toe gangrene) Labs: CBC, BMP Assessment/Plan Problem List - Problems (1) Chronic wound of extremity Code(s): [id number] - (2) Peripheral vascular disease Code(s): I73.9 - PERIPHERAL VASCULAR DISEASE, UNSPECIFIED (3) Afib Code(s): I48.91 - UNSPECIFIED ATRIAL FIBRILLATION Qualifiers: Atrial fibrillation type: chronic Qualified Code(s): I48.2 - Chronic atrial fibrillation (4) Glaucoma Code(s): H40.9 - UNSPECIFIED GLAUCOMA (5) HTN (hypertension) Code(s): I10 - ESSENTIAL (PRIMARY) HYPERTENSION Qualifiers: Hypertension type: essential hypertension (7) Pulmonary emboli Code(s): I26.99 - OTHER PULMONARY EMBOLISM WITHOUT ACUTE COR PULMONALE (8) Tracheostomy in place Code(s): Z98.89 - OTHER SPECIFIED POSTPROCEDURAL STATES * DO NOT USE * (9) Wound infection Code(s): T14.8 - OTHER INJURY OF UNSPECIFIED BODY REGION L08.9 - LOCAL INFECTION OF THE SKIN AND SUBCUTANEOUS TISSUE, UNSP Assessment/Plan CXR O2 as needed BD TX PRN Suction PRN heparin DR METCALF
--- NOTE | 2016-08-14 12:08 | CONS ---
DATE OF CONSULTATION: 08/13/2016 REQUESTING PHYSICIAN: Nat Bear MD PATIENT PROFILE: The patient is a 72-year-old man admitted because of pain in the right foot. He denies any prior history of a myocardial infarction, angina or congestive heart failure. He has a prior history of smoking and previously had undergone a laryngectomy. In addition he has known peripheral vascular disease. He is admitted now with complaints of pain in the right foot and was admitted to the emergency room on August 10, 2016. He was found to have clinica evidence of gangrene and surgical intervention and revascularization therapy is anticipated. The patient has a prior history of hyperlipidemia and hypertension. He denies any history of diabetes. He presently denies symptoms of chest pain, palpitations, and shortness of breath or syncope. PRIOR MEDICAL HISTORY: Mild dementia, hypertension, hyperlipidemia, chronic obstructive lung disease, pulmonary embolus, laryngectomy, peripheral vascular disease, colostomy for a colovesicular fistula secondary to diverticulosis, urinary tract infections. SOCIAL HISTORY: He denies a history of alcohol abuse, smoking in the past, stopped. PAST SURGICAL HISTORY: Colectomy, laryngectomy. ALLERGIES: PENICILLIN. MEDICATIONS: Midodrine 5 mg b.i.d., Remeron 15 mg daily, Lovaza 2 g b.i.d., Lipitor 10 mg daily, iron supplement. PHYSICAL EXAMINATION: GENERAL: On examination the patient appears in no acute distress, awake and alert. He is using a voice-assisted device to speak through his laryngectomy site. VITAL SIGNS: Temperature afebrile. Pulse is 70, respiratory rate 18 per minute, blood pressure 142/70, oxygen saturation 100%. NECK: There is no neck vein distention. LUNGS: There is poor air exchange bilaterally. HEART: Sounds are normal. No murmur or gallop is audible. ABDOMEN: Soft, nontender. There is no organ enlargement. There is no abdominal bruit. The patient is wearing diapers. EXTREMITIES: The foot is bandaged. Reportedly there was evidence of gangrene and rubor. DATA BASE: Electrocardiogram demonstrates sinus rhythm, R wave decay V1 through V3. There are no acute ST or T wave changes seen. The R wave decay may in part be related to abnormal lead placement. The possibility of anterior wall myocardial infarction of indeterminant age could not be ruled out. LABORATORY DATA: White blood cell count 6.9, hematocrit 36%, platelet count 287,000. INR is 1.5 down from 2.0 with previous treatment of Coumadin which has been discontinued/held. Electrolytes are normal. BUN is 14, creatinine 0.7. Cholesterol is 155, LDL 106, HDL 36 and triglycerides 94. Glucose is 85. IMPRESSION: The working diagnosis is peripheral vascular disease with critical right toe ischemia. COMMENT: There is no cardiac contraindication to vascular surgery which may proceed with an acceptable cardiac risk. There has been no recent myocardial infarction. The patient is hemodynamically stable. There are no cardiac related symptoms and the preoperative electrocardiogram shows no acute changes. As such, the operation may proceed with an acceptable cardiac risk. SUGGESTIONS: 1. Obtain any prior cardiac record, noninvasive studies, etc, not presently available for reviewed. 2. No further cardiac testing is required at this time prior to an attempt at revascularization. 3. Workup and therapy as directed by vascular surgery and medicine. Thank you for allowing me to take part in the care of this pleasant patient. We will follow along with you. MOLLY LUBIN M.D. MARIANO/[id number]
--- NOTE | 2016-08-14 12:51 | EKG ---
Test Reason : Blood Pressure : / mmHG Vent. Rate : 077 BPM Atrial Rate : 077 BPM P-R Int : 156 ms QRS Dur : 104 ms QT Int : 388 ms P-R-T Axes : 059 -15 035 degrees QTc Int : 439 ms NORMAL SINUS RHYTHM NORMAL ECG WHEN COMPARED WITH ECG OF 10-AUG-2016 19:04, MINIMAL CRITERIA FOR ANTERIOR INFARCT ARE NO LONGER PRESENT Confirmed by KAREN ARIZMENDI, KAN ([id number]) on 08/14/2016 12:51:13 PM Referred By: Shamar GARCÍA Confirmed By:KAN JONES MD
[2016-08-14] MEDS: HEPARIN INFUSION - 500 ML IVPB SCH ×2 (13:59→16:30)
[2016-08-14] MEDS ORDERED: HEPARIN INFUSION - 500 ML IVPB ONE (16:25)
--- NOTE | 2016-08-14 19:48 | PN ---
Progress Note (short form) - Note Progress Note: Vascular Surgery S/P angioplasty Doing well. Right foot is warm. Needs to follow up in wound care clinic Needs HBO as outpt [facility] [place] dO
[2016-08-14] MEDS: ATORVASTATIN CA 10 MG TABLET (FP) PO SCH (22:09)
[2016-08-14] MEDS: MIRTAZAPINE 15 MG TABLET (FP) PO SCH (22:09)
[2016-08-14] MEDS: LATANOPROST 0.005% OPHTH SOLN 2.5ML BOTTLE OD SCH (22:10)
[2016-08-15] MEDS: DORZOLAMIDE 2% HCL OPHTHALMIC SOLUTION 10 ML BOTTLE OD SCH ×3 (06:24→21:29)
[2016-08-15 07:52] LABS: MCHC 33.8 g/dl (32.0-35.9); MEAN CELL VOLUME 91.6 fl (80-96); MEAN PLT VOLUME 8.2 fl (7.5-11.1); PLATELET COUNT 283 K/MM3 (134-434); WHITE BLOOD COUNT 7.8 K/mm3 (4.0-10.0)
[2016-08-15 08:21] LABS: INR 1.3 (0.82-1.09); PROTHROMBIN TIME (PATIENT) 14.4 SEC (9.98-11.88)
--- NOTE | 2016-08-15 08:46 | PN ---
Progress Note (short form) - Note Progress Note: S/P angioplasty yesterday. No acute events overnight. No CP or SOB. Intake & Output 08/12/16 08/13/16 08/14/16 08/15/16 23:59 23:59 23:59 23:59 Intake Total 056 859 1367 264 Output Total 1000 1300 2175 450 Balance -284 -800 -1175 -186 Last Vital Signs Temp Pulse Resp BP Pulse Ox 97.5 F L 66 20 129/73 100 08/15/16 06:00 08/15/16 06:00 08/15/16 06:00 08/15/16 06:00 08/14/16 20:42 Active Medications Acetaminophen (Tylenol -) 650 mg PO Q6H PRN PRN Reason: FEVER OR PAIN Albuterol/Ipratropium (Duoneb -) 1 amp NEB Q6H PRN PRN Reason: SHORTNESS OF BREATH Atorvastatin Calcium (Lipitor -) 10 mg PO HS [facility] Last Admin: 08/14/16 22:09 Dose: 10 mg Brimonidine Tartrate (Alphagan 0.15% -) 1 drop OD DAILY [facility] Last Admin: 08/14/16 10:45 Dose: 1 drop Docusate Sodium (Colace -) 100 mg PO Q8H PRN PRN Reason: CONSTIPATION Dorzolamide HCl (Trusopt 2%) 1 drop OD TID [facility] Last Admin: 08/15/16 06:24 Dose: 1 drop Fentanyl (Sublimaze Injection -) 25 mcg IVPUSH [id number] PRN PRN Reason: PAIN Stop: 08/16/16 14:57 Ferrous Sulfate (Feosol -) 325 mg PO TIDCM [facility] Last Admin: 08/14/16 19:06 Dose: 325 mg Heparin Sodium (Porcine) (Heparin -) 1,000 unit IVPUSH PRN PRN PRN Reason: Heparin Last Admin: 08/14/16 10:18 Dose: 1,000 unit Heparin Sodium (Porcine) (Heparin -) 5,000 unit IVPUSH PRN PRN PRN Reason: Heparin Heparin Sodium/Dextrose (Heparin Infusion -) 500 mls @ 20 mls/hr IVPB TITR TEDDY ; 1,000 UNITS/HR PRN Reason: Protocol Last Admin: 08/14/16 16:30 Dose: 22 mls/hr Latanoprost (Xalatan 0.005% Eye Drops -) 1 drop OD HS [facility] Last Admin: 08/14/16 22:10 Dose: 1 drop Midodrine (Proamatine -) 5 mg PO BID-MID [facility] Last Admin: 08/14/16 19:06 Dose: 5 mg Mirtazapine (Remeron -) 15 mg PO HS [facility] Last Admin: 08/14/16 22:09 Dose: 15 mg Multivitamins/Minerals/Vitamin C (Tab-A-Vit -) 1 tab PO DAILY [facility] Last Admin: 08/14/16 10:47 Dose: 1 tab Nystatin (Mycostatin Cream -) 1 applic TP BID [facility] Last Admin: 08/14/16 23:49 Dose: 1 applic [id number]-1-[id number] Ethyl Esters (Lovaza -) 2 gm PO BID [facility] Last Admin: 08/14/16 22:09 Dose: 2 gm Oxycodone HCl (Roxicodone -) 5 mg PO Q6H PRN PRN Reason: PAIN Pantoprazole Sodium (Protonix -) 40 mg PO DAILY [facility] Last Admin: 08/14/16 10:48 Dose: 40 mg Constitutional: Yes: Well Nourished, No Distress Eyes: Yes: Conjunctiva Clear, EOM Intact HENT: Yes: Atraumatic, Normocephalic, Other (intact tracheostomy ) Neck: Yes: Supple, Trachea Midline, Other (Tracheostomy intact ) Cardiovascular: Yes: Regular Rate and Rhythm Respiratory: Yes: Cough, Rhonchi. No: Accessory Muscle Use, Rales, SOB, Stridor , Tachypnea, Wheezes ...Inspection: Yes: WNL ...Clubbing: No Gastrointestinal: Yes: WNL, Normal Bowel Sounds, Soft Renal/: Yes: WNL Musculoskeletal: Yes: WNL Extremities: Yes: warm Peripheral Pulses WNL: Yes Integumentary: Yes: Venous Stasis Changes, Other Neurological: Yes: WNL, Alert, Oriented ...Motor Strength: WNL Psychiatric: Yes: WNL, Alert, Oriented Laboratory Results - last 24 hr 08/14/16 08/15/16 08/15/16 16:00 06:00 06:00 WBC 7.8 RBC 3.88 L Hgb 12.0 Hct 35.5 MCV 91.6 MCHC 33.8 RDW 13.0 Plt Count 283 MPV 8.2 INR PTT (Actin FS) 59.6 H 56.6 H 08/15/16 06:00 WBC RBC Hgb Hct MCV MCHC RDW Plt Count MPV INR 1.30 H PTT (Actin FS) Problem List - Problems (1) Chronic wound of extremity Code(s): EVD8002 - (2) Peripheral vascular disease Code(s): I73.9 - PERIPHERAL VASCULAR DISEASE, UNSPECIFIED (3) Afib Code(s): I48.91 - UNSPECIFIED ATRIAL FIBRILLATION Qualifiers: Atrial fibrillation type: chronic Qualified Code(s): I48.2 - Chronic atrial fibrillation (4) Glaucoma Code(s): H40.9 - UNSPECIFIED GLAUCOMA (5) HTN (hypertension) Code(s): I10 - ESSENTIAL (PRIMARY) HYPERTENSION Qualifiers: Hypertension type: essential hypertension (7) Pulmonary emboli Code(s): I26.99 - OTHER PULMONARY EMBOLISM WITHOUT ACUTE COR PULMONALE (8) Tracheostomy in place Code(s): Z98.89 - OTHER SPECIFIED POSTPROCEDURAL STATES * DO NOT USE * (9) Wound infection Code(s): T14.8 - OTHER INJURY OF UNSPECIFIED BODY REGION L08.9 - LOCAL INFECTION OF THE SKIN AND SUBCUTANEOUS TISSUE, UNSP Assessment/Plan O2 as needed BD TX PRN Suction PRN D/C planning HBO therapy as an outpatient Dr Kelley Problem List - Problems (1) Chronic wound of extremity Code(s): [id number] - (2) Peripheral vascular disease Code(s): I73.9 - PERIPHERAL VASCULAR DISEASE, UNSPECIFIED (3) Afib Code(s): I48.91 - UNSPECIFIED ATRIAL FIBRILLATION Qualifiers: Atrial fibrillation type: chronic Qualified Code(s): I48.2 - Chronic atrial fibrillation (4) Glaucoma Code(s): H40.9 - UNSPECIFIED GLAUCOMA (5) HTN (hypertension) Code(s): I10 - ESSENTIAL (PRIMARY) HYPERTENSION Qualifiers: Hypertension type: essential hypertension Qualified Code(s): I10 - Essential (primary) hypertension (7) Pulmonary emboli Code(s): I26.99 - OTHER PULMONARY EMBOLISM WITHOUT ACUTE COR PULMONALE (8) Tracheostomy in place Code(s): Z98.89 - OTHER SPECIFIED POSTPROCEDURAL STATES * DO NOT USE * (9) Wound infection Code(s): T14.8 - OTHER INJURY OF UNSPECIFIED BODY REGION L08.9 - LOCAL INFECTION OF THE SKIN AND SUBCUTANEOUS TISSUE, UNSP
[2016-08-15] MEDS ORDERED: PT OWN MED DRAWER 7, Y5N ONE (09:56)
[2016-08-15] MEDS: FERROUS SO4 325 MG TABLET (FP) PO SCH ×3 (09:58→17:19)
[2016-08-15] MEDS: BRIMONIDINE TARTRATE 0.15% OPHTHALMIC 5 ML BOTTLE OD SCH (09:58)
[2016-08-15] MEDS: NYSTATIN 100,000 UNIT/GM TOPICAL CREAM 15 GM TUBE TP SCH ×2 (09:59→21:27)
[2016-08-15] MEDS: OMEGA-3 ACID ETHYL ESTERS (FATTY-ACIDS) 1 GM CAPSULE (FP) PO SCH ×2 (09:59→21:26)
[2016-08-15] MEDS: MULTIVITAMINS (DAILY MVI) TABLET (FP) PO SCH (09:59)
[2016-08-15] MEDS: PANTOPRAZOLE 40 MG TABLET (FP) PO SCH (09:59)
[2016-08-15] MEDS: MIDODRINE HCL 5 MG TABLET PO SCH ×2 (10:27→17:19)
--- NOTE | 2016-08-15 13:35 | PN ---
Progress Note, Physician Chief Complaint: patient is s/p angioplasdty on heparin drip to get kelvin patrick - Current Medication List Current Medications: Active Medications Acetaminophen (Tylenol -) 650 mg PO Q6H PRN PRN Reason: FEVER OR PAIN Albuterol/Ipratropium (Duoneb -) 1 amp NEB Q6H PRN PRN Reason: SHORTNESS OF BREATH Atorvastatin Calcium (Lipitor -) 10 mg PO HS [facility] Last Admin: 08/14/16 22:09 Dose: 10 mg Brimonidine Tartrate (Alphagan 0.15% -) 1 drop OD DAILY [facility] Last Admin: 08/15/16 09:58 Dose: 1 drop Docusate Sodium (Colace -) 100 mg PO Q8H PRN PRN Reason: CONSTIPATION Dorzolamide HCl (Trusopt 2%) 1 drop OD TID [facility] Last Admin: 08/15/16 13:26 Dose: 1 drop Fentanyl (Sublimaze Injection -) 25 mcg IVPUSH [id number] PRN PRN Reason: PAIN Stop: 08/16/16 14:57 Ferrous Sulfate (Feosol -) 325 mg PO TIDCM [facility] Last Admin: 08/15/16 11:47 Dose: 325 mg Heparin Sodium (Porcine) (Heparin -) 1,000 unit IVPUSH PRN PRN PRN Reason: Heparin Last Admin: 08/14/16 10:18 Dose: 1,000 unit Heparin Sodium (Porcine) (Heparin -) 5,000 unit IVPUSH PRN PRN PRN Reason: Heparin Heparin Sodium/Dextrose (Heparin Infusion -) 500 mls @ 20 mls/hr IVPB TITR TEDDY ; 1,000 UNITS/HR PRN Reason: Protocol Last Admin: 08/14/16 16:30 Dose: 22 mls/hr Latanoprost (Xalatan 0.005% Eye Drops -) 1 drop OD HS [facility] Last Admin: 08/14/16 22:10 Dose: 1 drop Midodrine (Proamatine -) 5 mg PO BID-MID [facility] Last Admin: 08/15/16 10:27 Dose: 5 mg Mirtazapine (Remeron -) 15 mg PO HS [facility] Last Admin: 08/14/16 22:09 Dose: 15 mg Multivitamins/Minerals/Vitamin C (Tab-A-Vit -) 1 tab PO DAILY [facility] Last Admin: 08/15/16 09:59 Dose: 1 tab Nystatin (Mycostatin Cream -) 1 applic TP BID [facility] Last Admin: 08/15/16 09:59 Dose: Not Given Fgkvs-[id number] Ethyl Esters (Lovaza -) 2 gm PO BID [facility] Last Admin: 08/15/16 09:59 Dose: 2 gm Oxycodone HCl (Roxicodone -) 5 mg PO Q6H PRN PRN Reason: PAIN Pantoprazole Sodium (Protonix -) 40 mg PO DAILY [facility] Last Admin: 08/15/16 09:59 Dose: 40 mg Warfarin Sodium (Coumadin -) 5 mg PO DAILY@1800 [facility] - Objective Vital Signs: Vital Signs Temperature 99.2 F 08/15/16 09:50 Pulse Rate 78 08/15/16 09:50 Respiratory Rate 20 08/15/16 09:50 Blood Pressure 107/67 08/15/16 09:50 O2 Sat by Pulse Oximetry (%) 100 08/14/16 20:42 Constitutional: Yes: Calm, Thin Neck: Yes: Other (trach) Cardiovascular: Yes: Regular Rate and Rhythm, S1, S2 Respiratory: Yes: CTA Bilaterally Gastrointestinal: Yes: Normal Bowel Sounds, Soft Extremities: Yes: Other (left foot dusky discoloration of 1-2 toes noted not painful anymore foot wound) Edema: No Labs: CBC, BMP 08/15/16 06:00 08/13/16 06:00 INR, PTT INR 1.30 (0.82-1.09) H 08/15/16 06:00 Problem List - Problems (1) [place]-vesical fistula Assessment/Plan: functioning Code(s): N32.1 - VESICOINTESTINAL FISTULA (2) HTN (hypertension) Assessment/Plan: stable Code(s): I10 - ESSENTIAL (PRIMARY) HYPERTENSION Qualifiers: Hypertension type: essential hypertension Qualified Code(s): I10 - Essential (primary) hypertension (3) Laryngeal cancer Assessment/Plan: s/p surgery with trach (4) Pulmonary emboli Assessment/Plan: heparin drip to couamdin transtiton Code(s): I26.99 - OTHER PULMONARY EMBOLISM WITHOUT ACUTE COR PULMONALE (5) Tracheostomy in place Assessment/Plan: needs cleaning Code(s): Z98.89 - OTHER SPECIFIED POSTPROCEDURAL STATES * DO NOT USE * (6) Orthostatic hypotension Assessment/Plan: midodrine Code(s): I95.1 - ORTHOSTATIC HYPOTENSION (7) Chronic wound of extremity Assessment/Plan: does not look infectious will hold off abx vascular eval CTA done report pending heparin drip Code(s): [id number] - (8) Peripheral vascular disease Assessment/Plan: s/p [facility] to coumadin Code(s): I73.9 - PERIPHERAL VASCULAR DISEASE, UNSPECIFIED (9) Hyperlipidemia Code(s): E78.5 - HYPERLIPIDEMIA, UNSPECIFIED (10) Glaucoma Code(s): H40.9 - UNSPECIFIED GLAUCOMA Assessment/Plan plan couamdin tonight need to brdige heparin to couamdin prior to dc
[2016-08-15] MEDS: HEPARIN INFUSION - 500 ML IVPB SCH (17:01)
[2016-08-15] MEDS: WARFARIN NA 5 MG TABLET (UD) PO SCH (17:19)
[2016-08-15] MEDS: MIRTAZAPINE 15 MG TABLET (FP) PO SCH (21:26)
[2016-08-15] MEDS: ATORVASTATIN CA 10 MG TABLET (FP) PO SCH (21:26)
[2016-08-15] MEDS: LATANOPROST 0.005% OPHTH SOLN 2.5ML BOTTLE OD SCH (21:29)
[2016-08-16] MEDS: HEPARIN INFUSION - 500 ML IVPB SCH ×2 (01:20→16:51)
[2016-08-16] MEDS: DORZOLAMIDE 2% HCL OPHTHALMIC SOLUTION 10 ML BOTTLE OD SCH ×3 (06:57→22:24)
[2016-08-16 08:03] LABS: MCH 31.1 pg (25.7-33.7); MCHC 34.1 g/dl (32.0-35.9); MEAN CELL VOLUME 91.3 fl (80-96); MEAN PLT VOLUME 8.3 fl (7.5-11.1); PLATELET COUNT 270 K/MM3 (134-434); RDW 13.4 % (11.9-15.9); WHITE BLOOD COUNT 7.1 K/mm3 (4.0-10.0)
[2016-08-16 08:26] LABS: INR 1.27 (0.82-1.09)
--- NOTE | 2016-08-16 09:37 | PN ---
Progress Note, Physician - Current Medication List Current Medications: Active Medications Acetaminophen (Tylenol -) 650 mg PO Q6H PRN PRN Reason: FEVER OR PAIN Albuterol/Ipratropium (Duoneb -) 1 amp NEB Q6H PRN PRN Reason: SHORTNESS OF BREATH Atorvastatin Calcium (Lipitor -) 10 mg PO HS [facility] Last Admin: 08/15/16 21:26 Dose: 10 mg Brimonidine Tartrate (Alphagan 0.15% -) 1 drop OD DAILY [facility] Last Admin: 08/15/16 09:58 Dose: 1 drop Docusate Sodium (Colace -) 100 mg PO Q8H PRN PRN Reason: CONSTIPATION Dorzolamide HCl (Trusopt 2%) 1 drop OD TID [facility] Last Admin: 08/16/16 06:57 Dose: 1 drop Ferrous Sulfate (Feosol -) 325 mg PO TIDCM [facility] Last Admin: 08/15/16 17:19 Dose: 325 mg Heparin Sodium (Porcine) (Heparin -) 1,000 unit IVPUSH PRN PRN PRN Reason: Heparin Last Admin: 08/14/16 10:18 Dose: 1,000 unit Heparin Sodium (Porcine) (Heparin -) 5,000 unit IVPUSH PRN PRN PRN Reason: Heparin Heparin Sodium/Dextrose (Heparin Infusion -) 500 mls @ 20 mls/hr IVPB TITR TEDDY ; 1,000 UNITS/HR PRN Reason: Protocol Last Admin: 08/16/16 01:20 Dose: 22 mls/hr Latanoprost (Xalatan 0.005% Eye Drops -) 1 drop OD HS [facility] Last Admin: 08/15/16 21:29 Dose: 1 drop Midodrine (Proamatine -) 5 mg PO BID-MID [facility] Last Admin: 08/15/16 17:19 Dose: 5 mg Mirtazapine (Remeron -) 15 mg PO HS [facility] Last Admin: 08/15/16 21:26 Dose: 15 mg Multivitamins/Minerals/Vitamin C (Tab-A-Vit -) 1 tab PO DAILY [facility] Last Admin: 08/15/16 09:59 Dose: 1 tab Nystatin (Mycostatin Cream -) 1 applic TP BID [facility] Last Admin: 08/15/16 21:27 Dose: Not Given Pfnvi-8-Tjie Ethyl Esters (Lovaza -) 2 gm PO BID [facility] Last Admin: 08/15/16 21:26 Dose: 2 gm Oxycodone HCl (Roxicodone -) 5 mg PO Q6H PRN PRN Reason: PAIN Pantoprazole Sodium (Protonix -) 40 mg PO DAILY [facility] Last Admin: 08/15/16 09:59 Dose: 40 mg Warfarin Sodium (Coumadin -) 5 mg PO DAILY@1800 [facility] Last Admin: 08/15/16 17:19 Dose: 5 mg - Objective Vital Signs: Vital Signs Temperature 98.4 F 08/16/16 06:39 Pulse Rate 71 08/16/16 06:39 Respiratory Rate 18 08/16/16 06:39 Blood Pressure 134/79 08/16/16 06:39 O2 Sat by Pulse Oximetry (%) 99 08/15/16 21:00 Cardiovascular: Yes: Regular Rate and Rhythm Respiratory: Yes: Regular, CTA Bilaterally Gastrointestinal: Yes: Normal Bowel Sounds, Soft Extremities: Yes: Cool, Cyanosis Labs: CBC, BMP 08/16/16 06:00 08/13/16 06:00 INR, PTT INR 1.27 (0.82-1.09) H 08/16/16 06:00 Assessment/Plan - Problems (1) [place]-vesical fistula Assessment/Plan: functioning Code(s): N32.1 - VESICOINTESTINAL FISTULA (2) HTN (hypertension) Assessment/Plan: stable Code(s): I10 - ESSENTIAL (PRIMARY) HYPERTENSION Qualifiers: Hypertension type: essential hypertension Qualified Code(s): I10 - Essential (primary) hypertension (3) Laryngeal cancer Assessment/Plan: s/p surgery with trach (4) Pulmonary emboli Assessment/Plan: heparin drip to Coumadin transition Code(s): I26.99 - OTHER PULMONARY EMBOLISM WITHOUT ACUTE COR PULMONALE (5) Tracheostomy in place Assessment/Plan: needs cleaning Code(s): Z98.89 - OTHER SPECIFIED POSTPROCEDURAL STATES * DO NOT USE * (6) Orthostatic hypotension Assessment/Plan: midodrine Code(s): I95.1 - ORTHOSTATIC HYPOTENSION (7) Chronic wound of extremity Assessment/Plan: does not look infectious will hold off abx vascular eval CTA done report pending heparin drip Code(s): [id number] - (8) Peripheral vascular disease Assessment/Plan: s/p angioplasty to get HBO as outpatient at wound care [facility] heparin drip to Coumadin Code(s): I73.9 - PERIPHERAL VASCULAR DISEASE, UNSPECIFIED (9) Hyperlipidemia Code(s): E78.5 - HYPERLIPIDEMIA, UNSPECIFIED (10) Glaucoma Code(s): H40.9 - UNSPECIFIED GLAUCOMA
[2016-08-16] MEDS ORDERED: PT OWN MED DRAWER 7, Y5N ONE ×2 (09:43→20:56)
[2016-08-16] MEDS: FERROUS SO4 325 MG TABLET (FP) PO SCH ×3 (09:49→17:12)
[2016-08-16] MEDS: OMEGA-3 ACID ETHYL ESTERS (FATTY-ACIDS) 1 GM CAPSULE (FP) PO SCH ×2 (09:49→22:23)
[2016-08-16] MEDS: BRIMONIDINE TARTRATE 0.15% OPHTHALMIC 5 ML BOTTLE OD SCH (09:49)
[2016-08-16] MEDS: NYSTATIN 100,000 UNIT/GM TOPICAL CREAM 15 GM TUBE TP SCH ×2 (09:50→22:24)
[2016-08-16] MEDS: PANTOPRAZOLE 40 MG TABLET (FP) PO SCH (09:50)
[2016-08-16] MEDS: MIDODRINE HCL 5 MG TABLET PO SCH ×2 (09:50→17:12)
[2016-08-16] MEDS: MULTIVITAMINS (DAILY MVI) TABLET (FP) PO SCH (09:51)
[2016-08-16] MEDS: WARFARIN NA 5 MG TABLET (UD) PO SCH (17:12)
[2016-08-16] MEDS: ATORVASTATIN CA 10 MG TABLET (FP) PO SCH (22:23)
[2016-08-16] MEDS: MIRTAZAPINE 15 MG TABLET (FP) PO SCH (22:23)
[2016-08-16] MEDS: LATANOPROST 0.005% OPHTH SOLN 2.5ML BOTTLE OD SCH (22:25)
[2016-08-17] MEDS: DORZOLAMIDE 2% HCL OPHTHALMIC SOLUTION 10 ML BOTTLE OD SCH ×3 (05:53→21:28)
[2016-08-17] MEDS: FERROUS SO4 325 MG TABLET (FP) PO SCH ×3 (08:38→17:13)
[2016-08-17 08:39] LABS: MCHC 33.8 g/dl (32.0-35.9); MEAN CELL VOLUME 91.6 fl (80-96); MEAN PLT VOLUME 8.4 fl (7.5-11.1); PLATELET COUNT 273 K/MM3 (134-434); RDW 13.2 % (11.9-15.9); WHITE BLOOD COUNT 6.9 K/mm3 (4.0-10.0)
[2016-08-17 08:59] LABS: INR 1.41 (0.82-1.09); PROTHROMBIN TIME (PATIENT) 15.6 SEC (9.98-11.88)
[2016-08-17] MEDS ORDERED: WARFARIN NA 5 MG TABLET (UD) PO SCH (10:22)
[2016-08-17] MEDS ORDERED: PT OWN MED DRAWER 7, Y5N ONE ×3 (10:22→21:09)
--- NOTE | 2016-08-17 10:23 | PN ---
Progress Note, Physician Chief Complaint: NO DISTRESS FOOT HURTS WITH PALPATION ONLY - Current Medication List Current Medications: Active Medications Acetaminophen (Tylenol -) 650 mg PO Q6H PRN PRN Reason: FEVER OR PAIN Albuterol/Ipratropium (Duoneb -) 1 amp NEB Q6H PRN PRN Reason: SHORTNESS OF BREATH Atorvastatin Calcium (Lipitor -) 10 mg PO HS [facility] Last Admin: 08/16/16 22:23 Dose: 10 mg Brimonidine Tartrate (Alphagan 0.15% -) 1 drop OD DAILY [facility] Last Admin: 08/16/16 09:49 Dose: 1 drop Docusate Sodium (Colace -) 100 mg PO Q8H PRN PRN Reason: CONSTIPATION Dorzolamide HCl (Trusopt 2%) 1 drop OD TID [facility] Last Admin: 08/17/16 05:53 Dose: 1 drop Ferrous Sulfate (Feosol -) 325 mg PO TIDCM [facility] Last Admin: 08/17/16 08:38 Dose: 325 mg Heparin Sodium (Porcine) (Heparin -) 1,000 unit IVPUSH PRN PRN PRN Reason: Heparin Last Admin: 08/14/16 10:18 Dose: 1,000 unit Heparin Sodium (Porcine) (Heparin -) 5,000 unit IVPUSH PRN PRN PRN Reason: Heparin Heparin Sodium/Dextrose (Heparin Infusion -) 500 mls @ 20 mls/hr IVPB TITR TEDDY ; 1,000 UNITS/HR PRN Reason: Protocol Last Admin: 08/16/16 16:51 Dose: Not Given Latanoprost (Xalatan 0.005% Eye Drops -) 1 drop OD HS [facility] Last Admin: 08/16/16 22:25 Dose: 1 drop Midodrine (Proamatine -) 5 mg PO BID-MID [facility] Last Admin: 08/16/16 17:12 Dose: 5 mg Mirtazapine (Remeron -) 15 mg PO HS [facility] Last Admin: 08/16/16 22:23 Dose: 15 mg Multivitamins/Minerals/Vitamin C (Tab-A-Vit -) 1 tab PO DAILY [facility] Last Admin: 08/16/16 09:51 Dose: 1 tab Nystatin (Mycostatin Cream -) 1 applic TP BID [facility] Last Admin: 08/16/16 22:24 Dose: 1 applic Ttmjg-3-Icef Ethyl Esters (Lovaza -) 2 gm PO BID [facility] Last Admin: 08/16/16 22:23 Dose: 2 gm Pantoprazole Sodium (Protonix -) 40 mg PO DAILY [facility] Last Admin: 08/16/16 09:50 Dose: 40 mg Warfarin Sodium (Coumadin -) 5 mg PO DAILY@1800 [facility] Last Admin: 08/16/16 17:12 Dose: 5 mg - Objective Vital Signs: Vital Signs Temperature 99.5 F 08/17/16 06:00 Pulse Rate 67 08/17/16 06:00 Respiratory Rate 20 08/17/16 06:00 Blood Pressure 123/78 08/17/16 06:00 O2 Sat by Pulse Oximetry (%) 99 08/16/16 20:16 Cardiovascular: Yes: WNL Respiratory: Yes: WNL Gastrointestinal: Yes: WNL Edema: No Labs: CBC, BMP 08/17/16 06:15 08/13/16 06:00 INR, PTT INR 1.41 (0.82-1.09) H 08/17/16 06:15 Problem List - Problems (1) Peripheral vascular disease Code(s): I73.9 - PERIPHERAL VASCULAR DISEASE, UNSPECIFIED (2) Afib Code(s): I48.91 - UNSPECIFIED ATRIAL FIBRILLATION Qualifiers: Atrial fibrillation type: chronic Qualified Code(s): I48.2 - Chronic atrial fibrillation (3) [place]-vesical fistula Code(s): N32.1 - VESICOINTESTINAL FISTULA (4) HTN (hypertension) Code(s): I10 - ESSENTIAL (PRIMARY) HYPERTENSION Qualifiers: Hypertension type: essential hypertension Qualified Code(s): I10 - Essential (primary) hypertension Assessment/Plan (1) [place]-vesical fistula Assessment/Plan: functioning Code(s): N32.1 - VESICOINTESTINAL FISTULA (2) HTN (hypertension) Assessment/Plan: stable Code(s): I10 - ESSENTIAL (PRIMARY) HYPERTENSION Qualifiers: Hypertension type: essential hypertension Qualified Code(s): I10 - Essential (primary) hypertension (3) Laryngeal cancer Assessment/Plan: s/p surgery with trach (4) Pulmonary emboli Assessment/Plan: heparin drip coumadin increased f/u inr Code(s): I26.99 - OTHER PULMONARY EMBOLISM WITHOUT ACUTE COR PULMONALE (5) Tracheostomy in place Assessment/Plan: needs cleaning Code(s): Z98.89 - OTHER SPECIFIED POSTPROCEDURAL STATES * DO NOT USE * (6) Orthostatic hypotension Assessment/Plan: midodrine Code(s): I95.1 - ORTHOSTATIC HYPOTENSION (7) Chronic wound of extremity Assessment/Plan: does not look infectious will hold off abx vascular eval heparin drip Code(s): [id number] - (8) Peripheral vascular disease Assessment/Plan: s/p angioplasty to get HBO as outpatient at [facility] heparin drip to Coumadin Code(s): I73.9 - PERIPHERAL VASCULAR DISEASE, UNSPECIFIED (9) Hyperlipidemia Code(s): E78.5 - HYPERLIPIDEMIA, UNSPECIFIED (10) Glaucoma Code(s): H40.9 - UNSPECIFIED 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
[2016-08-17] MEDS: OMEGA-3 ACID ETHYL ESTERS (FATTY-ACIDS) 1 GM CAPSULE (FP) PO SCH ×2 (10:30→21:27)
[2016-08-17] MEDS: MULTIVITAMINS (DAILY MVI) TABLET (FP) PO SCH (10:30)
[2016-08-17] MEDS: PANTOPRAZOLE 40 MG TABLET (FP) PO SCH (10:30)
[2016-08-17] MEDS: MIDODRINE HCL 5 MG TABLET PO SCH ×2 (10:31→17:13)
[2016-08-17] MEDS: BRIMONIDINE TARTRATE 0.15% OPHTHALMIC 5 ML BOTTLE OD SCH (10:32)
[2016-08-17] MEDS: NYSTATIN 100,000 UNIT/GM TOPICAL CREAM 15 GM TUBE TP SCH ×2 (10:33→21:27)
[2016-08-17] MEDS: HEPARIN INFUSION - 500 ML IVPB SCH (14:36)
[2016-08-17] MEDS ORDERED: WARFARIN NA 2.5 MG TABLET (FP) ONE (17:10)
[2016-08-17] MEDS ORDERED: WARFARIN NA 3 MG TABLET ONE (17:11)
[2016-08-17] MEDS: WARFARIN NA 2.5 MG, WARFARIN NA 3 MG PO SCH (17:13)
[2016-08-17] MEDS: ATORVASTATIN CA 10 MG TABLET (FP) PO SCH (21:27)
[2016-08-17] MEDS: MIRTAZAPINE 15 MG TABLET (FP) PO SCH (21:27)
[2016-08-17] MEDS: LATANOPROST 0.005% OPHTH SOLN 2.5ML BOTTLE OD SCH (21:28)
[2016-08-18] MEDS: DORZOLAMIDE 2% HCL OPHTHALMIC SOLUTION 10 ML BOTTLE OD SCH ×3 (06:25→21:50)
[2016-08-18 07:50] LABS: MCH 31.5 pg (25.7-33.7); MCHC 34.2 g/dl (32.0-35.9); MEAN PLT VOLUME 8.4 fl (7.5-11.1); PLATELET COUNT 288 K/MM3 (134-434); RDW 13.1 % (11.9-15.9); WHITE BLOOD COUNT 7.7 K/mm3 (4.0-10.0)
[2016-08-18 08:23] LABS: ALK PHOS 78 U/L (45-117); ANION GAP 10 (8-16); BILIRUBIN,TOTAL 0.5 mg/dL (0.2-1.0); CALCIUM 8.2 mg/dL (8.5-10.1); CO2 25 mmol/L (21-32); CREATININE 0.8 mg/dL (0.7-1.3); GLUCOSE,RANDOM 106 mg/dL (74-106); SGOT/AST 15 U/L (15-37); SGPT/ALT 24 U/L (12-78); TOT PROT 6.8 g/dl (6.4-8.2)
[2016-08-18] MEDS: FERROUS SO4 325 MG TABLET (FP) PO SCH ×3 (08:44→17:50)
[2016-08-18] MEDS: NYSTATIN 100,000 UNIT/GM TOPICAL CREAM 15 GM TUBE TP SCH ×2 (10:00→22:00)
[2016-08-18] MEDS ORDERED: PT OWN MED DRAWER 7, Y5N ONE (10:03)
[2016-08-18] MEDS: OMEGA-3 ACID ETHYL ESTERS (FATTY-ACIDS) 1 GM CAPSULE (FP) PO SCH ×2 (10:05→21:47)
[2016-08-18] MEDS: BRIMONIDINE TARTRATE 0.15% OPHTHALMIC 5 ML BOTTLE OD SCH (10:05)
[2016-08-18] MEDS: MULTIVITAMINS (DAILY MVI) TABLET (FP) PO SCH (10:05)
[2016-08-18] MEDS: MIDODRINE HCL 5 MG TABLET PO SCH ×2 (10:05→17:50)
[2016-08-18] MEDS: PANTOPRAZOLE 40 MG TABLET (FP) PO SCH (10:05)
--- NOTE | 2016-08-18 11:42 | PN ---
Progress Note (short form) - Note Progress Note: Nursing staff note the pts right toes to be slightly cooler and a little more bluish today. He has complaints of pain with examination of the toes. Vital Signs Period Temp Pulse Resp BP Sys/Apge Pulse Ox Last 24 Hr 98.4 F-99.1 F 68-73 18-20 125-132/75-82 94-99 PE: GEN: appears comfortable, resting in bed Left leg: left groin without hematoma. foot warm Right leg: foot warm to forefoot. with doppler there is a PT/DP signal. Good palpable femoral and popliteal with doppler heard. 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 INR, PTT INR 1.41 (0.82-1.09) H 08/17/16 06:15 Laboratory Tests 08/18/16 06:15 PTT (Actin FS) 54.7 H A/P: 71 yo male s/p angiogram with R SFA arterectomy His foot remains warm to the forefoot with doppler pulses Recommend to cont current therapy with IV heparin/coumadin D/w Dr. Childs and the surgical team will cont to follow the patient. No acute intervention at this time.
--- NOTE | 2016-08-18 13:17 | PN ---
Progress Note, Physician Chief Complaint: NOTED BLOTCHY SKIN & FLAKY HAIR -> NO COMPLAINTS C/O R FOOT COLDNESS -> WANT PAIN Rx - Current Medication List Current Medications: Active Medications Acetaminophen (Tylenol -) 650 mg PO Q6H PRN PRN Reason: FEVER OR PAIN Albuterol/Ipratropium (Duoneb -) 1 amp NEB Q6H PRN PRN Reason: SHORTNESS OF BREATH Atorvastatin Calcium (Lipitor -) 10 mg PO HS [facility] Last Admin: 08/17/16 21:27 Dose: 10 mg Brimonidine Tartrate (Alphagan 0.15% -) 1 drop OD DAILY [facility] Last Admin: 08/18/16 10:05 Dose: 1 drop Docusate Sodium (Colace -) 100 mg PO Q8H PRN PRN Reason: CONSTIPATION Dorzolamide HCl (Trusopt 2%) 1 drop OD TID [facility] Last Admin: 08/18/16 06:25 Dose: 1 drop Ferrous Sulfate (Feosol -) 325 mg PO TIDCM [facility] Last Admin: 08/18/16 12:08 Dose: 325 mg Heparin Sodium (Porcine) (Heparin -) 1,000 unit IVPUSH PRN PRN PRN Reason: Heparin Last Admin: 08/14/16 10:18 Dose: 1,000 unit Heparin Sodium (Porcine) (Heparin -) 5,000 unit IVPUSH PRN PRN PRN Reason: Heparin Heparin Sodium/Dextrose (Heparin Infusion -) 500 mls @ 20 mls/hr IVPB TITR [facility] ; 1,000 UNITS/HR PRN Reason: Protocol Last Titration: 08/18/16 10:00 Dose: 1,100 units/hr Latanoprost (Xalatan 0.005% Eye Drops -) 1 drop OD HS [facility] Last Admin: 08/17/16 21:28 Dose: 1 drop Midodrine (Proamatine -) 5 mg PO BID-MID [facility] Last Admin: 08/18/16 10:05 Dose: 5 mg Mirtazapine (Remeron -) 15 mg PO HS [facility] Last Admin: 08/17/16 21:27 Dose: 15 mg Multivitamins/Minerals/Vitamin C (Tab-A-Vit -) 1 tab PO DAILY [facility] Last Admin: 08/18/16 10:05 Dose: 1 tab Nystatin (Mycostatin Cream -) 1 applic TP BID [facility] Last Admin: 08/18/16 10:00 Dose: 1 applic [id number] Ethyl Esters (Lovaza -) 2 gm PO BID [facility] Last Admin: 08/18/16 10:05 Dose: 2 gm Pantoprazole Sodium (Protonix -) 40 mg PO DAILY [facility] Last Admin: 08/18/16 10:05 Dose: 40 mg Warfarin Sodium 2.5 mg/ (Warfarin Sodium 3 mg) 5.5 mg PO DAILY@1800 [facility] Last Admin: 08/17/16 17:13 Dose: 5.5 mg - Objective Vital Signs: Vital Signs Temperature 99.1 F 08/18/16 06:00 Pulse Rate 68 08/18/16 06:00 Respiratory Rate 20 08/18/16 09:00 Blood Pressure 132/80 08/18/16 06:00 O2 Sat by Pulse Oximetry (%) 99 08/18/16 09:00 Cardiovascular: Yes: WNL Respiratory: Yes: WNL Gastrointestinal: Yes: WNL Edema: No Labs: CBC, BMP 08/18/16 06:15 08/18/16 06:15 INR, PTT INR 1.41 (0.82-1.09) H 08/17/16 06:15 Problem List - Problems (1) Peripheral vascular disease Code(s): I73.9 - PERIPHERAL VASCULAR DISEASE, UNSPECIFIED (2) Afib Code(s): I48.91 - UNSPECIFIED ATRIAL FIBRILLATION Qualifiers: Atrial fibrillation type: chronic Qualified Code(s): I48.2 - Chronic atrial fibrillation (3) [place]-vesical fistula Code(s): N32.1 - VESICOINTESTINAL FISTULA (4) HTN (hypertension) Code(s): I10 - ESSENTIAL (PRIMARY) HYPERTENSION Qualifiers: Hypertension type: essential hypertension Qualified Code(s): I10 - Essential (primary) hypertension Assessment/Plan (1) [place]-vesical fistula Assessment/Plan: functioning Code(s): N32.1 - VESICOINTESTINAL FISTULA (2) HTN (hypertension) Assessment/Plan: stable Code(s): I10 - ESSENTIAL (PRIMARY) HYPERTENSION Qualifiers: Hypertension type: essential hypertension Qualified Code(s): I10 - Essential (primary) hypertension (3) Laryngeal cancer Assessment/Plan: s/p surgery with trach (4) Pulmonary emboli Assessment/Plan: heparin drip coumadin increased f/u inr Code(s): I26.99 - OTHER PULMONARY EMBOLISM WITHOUT ACUTE COR PULMONALE (5) Tracheostomy in place Assessment/Plan: needs cleaning Code(s): Z98.89 - OTHER SPECIFIED POSTPROCEDURAL STATES * DO NOT USE * (6) Orthostatic hypotension Assessment/Plan: midodrine Code(s): I95.1 - ORTHOSTATIC HYPOTENSION (7) Chronic wound of extremity Assessment/Plan: does not look infectious will hold off abx vascular eval heparin drip Code(s): [id number] - (8) Peripheral vascular disease Assessment/Plan: s/p angioplasty to get HBO as outpatient at [facility] care [facility] heparin drip to Coumadin Code(s): I73.9 - PERIPHERAL VASCULAR DISEASE, UNSPECIFIED (9) Hyperlipidemia Code(s): E78.5 - HYPERLIPIDEMIA, UNSPECIFIED (10) Glaucoma Code(s): H40.9 - UNSPECIFIED GLAUCOMA [facility]
[2016-08-18] MEDS: HEPARIN INFUSION - 500 ML IVPB SCH (13:41)
[2016-08-18] MEDS ORDERED: oxyCODONE HCL 5 MG TABLET PO PRN (13:49)
[2016-08-18] MEDS ORDERED: SELENIUM SULFIDE 2.5% LOTION 4 OZ. TP SCH (14:00)
[2016-08-18] MEDS ORDERED: SELENIUM SULFIDE TP PRN (15:59)
[2016-08-18] MEDS ORDERED: WARFARIN NA 3 MG TABLET ONE (17:34)
[2016-08-18] MEDS ORDERED: WARFARIN NA 2.5 MG TABLET (FP) ONE (17:34)
[2016-08-18] MEDS: WARFARIN NA 2.5 MG, WARFARIN NA 3 MG PO SCH (17:50)
[2016-08-18] MEDS: ACETAMINOPHEN 325 MG TABLET (FP) PO PRN (17:50)
[2016-08-18 20:38] LABS: INR 1.66 (0.82-1.09); PROTHROMBIN TIME (PATIENT) 18.5 SEC (9.98-11.88)
[2016-08-18] MEDS: MIRTAZAPINE 15 MG TABLET (FP) PO SCH (21:47)
[2016-08-18] MEDS: ATORVASTATIN CA 10 MG TABLET (FP) PO SCH (21:47)
[2016-08-18] MEDS: LATANOPROST 0.005% OPHTH SOLN 2.5ML BOTTLE OD SCH (21:51)
[2016-08-19] MEDS: DORZOLAMIDE 2% HCL OPHTHALMIC SOLUTION 10 ML BOTTLE OD SCH ×3 (06:20→22:17)
[2016-08-19] MEDS: FERROUS SO4 325 MG TABLET (FP) PO SCH ×3 (08:14→18:02)
[2016-08-19 08:38] LABS: MCH 31.1 pg (25.7-33.7); MCHC 33.8 g/dl (32.0-35.9); MEAN CELL VOLUME 92.2 fl (80-96); MEAN PLT VOLUME 8.3 fl (7.5-11.1); PLATELET COUNT 296 K/MM3 (134-434); RDW 13.2 % (11.9-15.9); WHITE BLOOD COUNT 7.5 K/mm3 (4.0-10.0)
[2016-08-19 08:59] LABS: ALBUMIN 2.9 g/dl (3.4-5.0); ANION GAP 10 (8-16); BILIRUBIN,TOTAL 0.4 mg/dL (0.2-1.0); CALCIUM 8.3 mg/dL (8.5-10.1); CO2 24 mmol/L (21-32); GLUCOSE,RANDOM 101 mg/dL (74-106); SGOT/AST 16 U/L (15-37); SGPT/ALT 21 U/L (12-78); TOT PROT 6.7 g/dl (6.4-8.2)
[2016-08-19 09:00] LABS: ALK PHOS 77 U/L (45-117); CREATININE 0.7 mg/dL (0.7-1.3)
[2016-08-19 09:01] LABS: INR 1.75 (0.82-1.09); PROTHROMBIN TIME (PATIENT) 19.5 SEC (9.98-11.88)
[2016-08-19] MEDS ORDERED: PT OWN MED DRAWER 7, Y5N ONE ×2 (10:17→22:11)
[2016-08-19] MEDS: MIDODRINE HCL 5 MG TABLET PO SCH ×2 (10:21→18:02)
[2016-08-19] MEDS: OMEGA-3 ACID ETHYL ESTERS (FATTY-ACIDS) 1 GM CAPSULE (FP) PO SCH ×2 (10:21→22:16)
[2016-08-19] MEDS: PANTOPRAZOLE 40 MG TABLET (FP) PO SCH (10:22)
[2016-08-19] MEDS: NYSTATIN 100,000 UNIT/GM TOPICAL CREAM 15 GM TUBE TP SCH ×2 (10:22→22:10)
[2016-08-19] MEDS: BRIMONIDINE TARTRATE 0.15% OPHTHALMIC 5 ML BOTTLE OD SCH (10:22)
[2016-08-19] MEDS: MULTIVITAMINS (DAILY MVI) TABLET (FP) PO SCH (10:22)
--- NOTE | 2016-08-19 10:25 | PN ---
Progress Note, Physician Chief Complaint: on heparin drip INR is subtherapeutic seen by jose peters yesterday - Current Medication List Current Medications: Active Medications Acetaminophen (Tylenol -) 650 mg PO Q6H PRN PRN Reason: FEVER OR PAIN Last Admin: 08/18/16 17:50 Dose: 650 mg Albuterol/Ipratropium (Duoneb -) 1 amp NEB Q6H PRN PRN Reason: SHORTNESS OF BREATH Atorvastatin Calcium (Lipitor -) 10 mg PO HS [facility] Last Admin: 08/18/16 21:47 Dose: 10 mg Brimonidine Tartrate (Alphagan 0.15% -) 1 drop OD DAILY [facility] Last Admin: 08/18/16 10:05 Dose: 1 drop Docusate Sodium (Colace -) 100 mg PO Q8H PRN PRN Reason: CONSTIPATION Dorzolamide HCl (Trusopt 2%) 1 drop OD TID [facility] Last Admin: 08/19/16 06:20 Dose: 1 drop Ferrous Sulfate (Feosol -) 325 mg PO TIDCM [facility] Last Admin: 08/19/16 08:14 Dose: 325 mg Heparin Sodium (Porcine) (Heparin -) 1,000 unit IVPUSH PRN PRN PRN Reason: Heparin Last Admin: 08/14/16 10:18 Dose: 1,000 unit Heparin Sodium (Porcine) (Heparin -) 5,000 unit IVPUSH PRN PRN PRN Reason: Heparin Heparin Sodium/Dextrose (Heparin Infusion -) 500 mls @ 20 mls/hr IVPB TITR [facility] ; 1,000 UNITS/HR PRN Reason: Protocol Last Admin: 08/18/16 13:41 Dose: 22 mls/hr Latanoprost (Xalatan 0.005% Eye Drops -) 1 drop OD HS [facility] Last Admin: 08/18/16 21:51 Dose: 1 drop Midodrine (Proamatine -) 5 mg PO BID-MID [facility] Last Admin: 08/18/16 17:50 Dose: 5 mg Mirtazapine (Remeron -) 15 mg PO HS [facility] Last Admin: 08/18/16 21:47 Dose: 15 mg Multivitamins/Minerals/Vitamin C (Tab-A-Vit -) 1 tab PO DAILY [facility] Last Admin: 08/18/16 10:05 Dose: 1 tab Non-Formulary Med ( Selenium Sulfide 2. 25% Shampoo) 1 each TP DAILY PRN Nystatin (Mycostatin Cream -) 1 applic TP BID [facility] Last Admin: 08/18/16 22:00 Dose: 1 applic [id number]-[id number] Ethyl Esters (Lovaza -) 2 gm PO BID [facility] Last Admin: 08/18/16 21:47 Dose: 2 gm Oxycodone HCl (Roxicodone -) 5 mg PO Q6H PRN PRN Reason: PAIN Pantoprazole Sodium (Protonix -) 40 mg PO DAILY [facility] Last Admin: 08/18/16 10:05 Dose: 40 mg Warfarin Sodium 2.5 mg/ (Warfarin Sodium 3 mg) 5.5 mg PO DAILY@1800 [facility] Last Admin: 08/18/16 17:50 Dose: 5.5 mg - Objective Vital Signs: Vital Signs Temperature 99.6 F 08/19/16 05:59 Pulse Rate 72 08/19/16 05:59 Respiratory Rate 20 08/19/16 05:59 Blood Pressure 138/87 08/19/16 05:59 O2 Sat by Pulse Oximetry (%) 98 08/18/16 21:00 Constitutional: Yes: Calm Neck: Yes: Other (trach) Cardiovascular: Yes: Regular Rate and Rhythm, S1, S2 Respiratory: Yes: CTA Bilaterally Gastrointestinal: Yes: Normal Bowel Sounds, Soft Extremities: Yes: Other (right foot first toe dry gangrene first to 3 toe blusih dicoloration) Neurological: Yes: Alert, Oriented Labs: CBC, BMP 08/19/16 06:15 08/19/16 06:15 INR, PTT INR 1.75 (0.82-1.09) H 08/19/16 06:15 Problem List - Problems (1) Peripheral vascular disease Assessment/Plan: s/p Right SFA arterectomy heparin to couamdin inr subhterepatic no further vasc intervention Code(s): I73.9 - PERIPHERAL VASCULAR DISEASE, UNSPECIFIED (2) [place]-vesical fistula Assessment/Plan: functioning Code(s): N32.1 - VESICOINTESTINAL FISTULA (3) HTN (hypertension) Assessment/Plan: stable Code(s): I10 - ESSENTIAL (PRIMARY) HYPERTENSION Qualifiers: Hypertension type: essential hypertension Qualified Code(s): I10 - Essential (primary) hypertension (4) Laryngeal cancer Assessment/Plan: s/p surgery with trach (5) Pulmonary emboli Assessment/Plan: heparin drip to kelvin hilliard Code(s): I26.99 - OTHER PULMONARY EMBOLISM WITHOUT ACUTE COR PULMONALE (6) Tracheostomy in place Assessment/Plan: needs cleaning Code(s): Z98.89 - OTHER SPECIFIED POSTPROCEDURAL STATES * DO NOT USE * (7) Orthostatic hypotension Assessment/Plan: midodrine Code(s): I95.1 - ORTHOSTATIC HYPOTENSION (8) Chronic wound of extremity Assessment/Plan: dry gangrene on right toe Code(s): [id number] - (9) Hyperlipidemia Assessment/Plan: statin lovaza check hga1c Code(s): E78.5 - HYPERLIPIDEMIA, UNSPECIFIED (10) Glaucoma Code(s): H40.9 - UNSPECIFIED GLAUCOMA Assessment/Plan to continue heparin drip till INR is therapetic then dc back to [place]
[2016-08-19] MEDS: HEPARIN INFUSION - 500 ML IVPB SCH ×3 (11:08→18:03)
[2016-08-19] MEDS ORDERED: WARFARIN NA 2.5 MG TABLET (FP) ONE (17:57)
[2016-08-19] MEDS ORDERED: WARFARIN NA 3 MG TABLET ONE (17:58)
[2016-08-19] MEDS: WARFARIN NA 2.5 MG, WARFARIN NA 3 MG PO SCH (18:01)
[2016-08-19] MEDS: ACETAMINOPHEN 325 MG TABLET (FP) PO PRN (18:03)
--- NOTE | 2016-08-19 19:49 | PN ---
Progress Note (short form) - Note Progress Note: Vascular Surgery Pt seen and examined Right foot is stable. Good cap refill. Cont present care. Stanley Boston DO
[2016-08-19] MEDS: MIRTAZAPINE 15 MG TABLET (FP) PO SCH (22:16)
[2016-08-19] MEDS: ATORVASTATIN CA 10 MG TABLET (FP) PO SCH (22:16)
[2016-08-19] MEDS: LATANOPROST 0.005% OPHTH SOLN 2.5ML BOTTLE OD SCH (22:17)
[2016-08-20] MEDS: DORZOLAMIDE 2% HCL OPHTHALMIC SOLUTION 10 ML BOTTLE OD SCH ×3 (06:04→22:11)
[2016-08-20 08:11] LABS: INR 1.92 (0.82-1.09); PROTHROMBIN TIME (PATIENT) 21.4 SEC (9.98-11.88)
[2016-08-20] MEDS: FERROUS SO4 325 MG TABLET (FP) PO SCH ×3 (09:18→17:51)
[2016-08-20] MEDS: PANTOPRAZOLE 40 MG TABLET (FP) PO SCH (09:18)
[2016-08-20] MEDS: OMEGA-3 ACID ETHYL ESTERS (FATTY-ACIDS) 1 GM CAPSULE (FP) PO SCH ×2 (09:18→22:10)
[2016-08-20] MEDS: MIDODRINE HCL 5 MG TABLET PO SCH ×2 (09:18→17:52)
[2016-08-20] MEDS: BRIMONIDINE TARTRATE 0.15% OPHTHALMIC 5 ML BOTTLE OD SCH (09:19)
[2016-08-20] MEDS: NYSTATIN 100,000 UNIT/GM TOPICAL CREAM 15 GM TUBE TP SCH ×2 (09:19→22:10)
[2016-08-20] MEDS: MULTIVITAMINS (DAILY MVI) TABLET (FP) PO SCH (09:19)
[2016-08-20] MEDS: HEPARIN INFUSION - 500 ML IVPB SCH (09:20)
--- NOTE | 2016-08-20 16:41 | PN ---
Progress Note, Physician Chief Complaint: C/O FOOT PAIN +TRACHEOSTOMY - Current Medication List Current Medications: Active Medications Acetaminophen (Tylenol -) 650 mg PO Q6H PRN PRN Reason: FEVER OR PAIN Last Admin: 08/19/16 18:03 Dose: 650 mg Albuterol/Ipratropium (Duoneb -) 1 amp NEB Q6H PRN PRN Reason: SHORTNESS OF BREATH Atorvastatin Calcium (Lipitor -) 10 mg PO [facility] Last Admin: 08/19/16 22:16 Dose: 10 mg Brimonidine Tartrate (Alphagan 0.15% -) 1 drop OD DAILY [facility] Last Admin: 08/20/16 09:19 Dose: 1 drop Docusate Sodium (Colace -) 100 mg PO Q8H PRN PRN Reason: CONSTIPATION Dorzolamide HCl (Trusopt 2%) 1 drop OD TID [facility] Last Admin: 08/20/16 13:49 Dose: 1 drop Ferrous Sulfate (Feosol -) 325 mg PO TIDCM [facility] Last Admin: 08/20/16 11:50 Dose: 325 mg Latanoprost (Xalatan 0.005% Eye Drops -) 1 drop OD [facility] Last Admin: 08/19/16 22:17 Dose: 1 drop Midodrine (Proamatine -) 5 mg PO BID-MID [facility] Last Admin: 08/20/16 09:18 Dose: 5 mg Mirtazapine (Remeron -) 15 mg PO [facility] Last Admin: 08/19/16 22:16 Dose: 15 mg Multivitamins/Minerals/Vitamin C (Tab-A-Vit -) 1 tab PO DAILY [facility] Last Admin: 08/20/16 09:19 Dose: 1 tab Non-Formulary Med ( Selenium Sulfide 2. 25% Shampoo) 1 each TP DAILY PRN Nystatin (Mycostatin Cream -) 1 applic TP BID [facility] Last Admin: 08/20/16 09:19 Dose: 1 applic Ifyrc-2-Uwvs Ethyl Esters (Lovaza -) 2 gm PO BID [facility] Last Admin: 08/20/16 09:18 Dose: 2 gm Oxycodone HCl (Roxicodone -) 5 mg PO Q6H PRN PRN Reason: PAIN Pantoprazole Sodium (Protonix -) 40 mg PO DAILY [facility] Last Admin: 08/20/16 09:18 Dose: 40 mg Warfarin Sodium 2.5 mg/ (Warfarin Sodium 3 mg) 5.5 mg PO DAILY@1800 [facility] Last Admin: 08/19/16 18:01 Dose: 5.5 mg - Objective Vital Signs: Vital Signs Temperature 98.5 F 08/20/16 08:30 Pulse Rate 70 08/20/16 08:30 Respiratory Rate 18 08/20/16 08:30 Blood Pressure 122/71 08/20/16 08:30 O2 Sat by Pulse Oximetry (%) 98 08/19/16 21:00 Constitutional: Yes: Mild Distress Eyes: Yes: WNL HENT: Yes: WNL Neck: Yes: WNL Cardiovascular: Yes: WNL Respiratory: Yes: Other (TRACHEOSOTMY) Gastrointestinal: Yes: WNL Genitourinary: Yes: WNL Musculoskeletal: Yes: Muscle Pain, Muscle Weakness Extremities: Yes: Other Edema: No Peripheral Pulses WNL: Yes Integumentary: Yes: WNL Wound/Incision: Yes: Other Neurological: Yes: Pre-Existing Deficit ...Motor Strength: LLE, RLE Labs: CBC, BMP 08/19/16 06:15 08/19/16 06:15 INR, PTT INR 1.92 (0.82-1.09) H 08/20/16 06:30 Problem List - Problems (1) Chronic wound of extremity Code(s): [id number] - (2) Peripheral vascular disease Code(s): I73.9 - PERIPHERAL VASCULAR DISEASE, UNSPECIFIED (3) Anemia Code(s): D64.9 - ANEMIA, UNSPECIFIED (4) Tracheostomy in place Code(s): Z98.89 - OTHER SPECIFIED POSTPROCEDURAL STATES * DO NOT USE * (5) Wound infection Code(s): T14.8 - OTHER INJURY OF UNSPECIFIED BODY REGION L08.9 - LOCAL INFECTION OF THE SKIN AND SUBCUTANEOUS TISSUE, UNSP Assessment/Plan WOUND CARE WITH VASC SX CTA LOWER EXTREMITY REVIEWED IC ABX PER ID TRACHEOSTOMY CARE PULMONARY FOLLOW UP PAIN CONTROL
[2016-08-20] MEDS ORDERED: WARFARIN NA 2.5 MG TABLET (FP) ONE (17:48)
[2016-08-20] MEDS ORDERED: WARFARIN NA 3 MG TABLET ONE (17:49)
[2016-08-20] MEDS: WARFARIN NA 2.5 MG, WARFARIN NA 3 MG PO SCH (17:51)
[2016-08-20] MEDS ORDERED: PT OWN MED DRAWER 7, Y5N ONE (22:07)
[2016-08-20] MEDS: MIRTAZAPINE 15 MG TABLET (FP) PO SCH (22:10)
[2016-08-20] MEDS: ATORVASTATIN CA 10 MG TABLET (FP) PO SCH (22:10)
[2016-08-20] MEDS: LATANOPROST 0.005% OPHTH SOLN 2.5ML BOTTLE OD SCH (22:11)
[2016-08-21] MEDS: DORZOLAMIDE 2% HCL OPHTHALMIC SOLUTION 10 ML BOTTLE OD SCH (05:42)
[2016-08-21 07:05] VITALS: BP 125/70; PULSE 62; TEMP 98.9
[2016-08-21 08:29] LABS: INR 2.08 (0.82-1.09); PROTHROMBIN TIME (PATIENT) 23.2 SEC (9.98-11.88)
[2016-08-21] MEDS: FERROUS SO4 325 MG TABLET (FP) PO SCH ×2 (08:54→11:14)
--- NOTE | 2016-08-21 09:54 | DS ---
Physical Examination Vital Signs: Vital Signs Temperature 98.9 F 08/21/16 07:02 Pulse Rate 62 08/21/16 07:02 Respiratory Rate 20 08/21/16 07:02 Blood Pressure 125/70 08/21/16 07:02 O2 Sat by Pulse Oximetry (%) 98 08/20/16 21:00 Cardiovascular: Yes: Regular Rate and Rhythm Respiratory: Yes: Regular, CTA Bilaterally Gastrointestinal: Yes: Normal Bowel Sounds, Soft Edema: No Integumentary: Yes: Other (TOES DISCOLLERED --CYANOSIS--IMPROVING) Wound/Incision: Yes: Open to air Labs: CBC, BMP 08/19/16 06:15 08/19/16 06:15 Discharge Summary Reason For Visit: PVD CHRONIC WOUND OF EXTREMITY (MRSA VRE Current Active Problems Chronic wound of extremity (Acute) Critical ischemia of lower extremity (Acute) Hyperlipidemia (Acute) Peripheral vascular disease (Acute) Hospital Course: - Problems (1) Peripheral vascular disease Assessment/Plan: s/p Right SFA arterectomy heparin to couamdin inr subhterepatic no further vasc intervention Code(s): I73.9 - PERIPHERAL VASCULAR DISEASE, UNSPECIFIED (2) [place]-vesical fistula Assessment/Plan: functioning Code(s): N32.1 - VESICOINTESTINAL FISTULA (3) HTN (hypertension) Assessment/Plan: stable Code(s): I10 - ESSENTIAL (PRIMARY) HYPERTENSION Qualifiers: Hypertension type: essential hypertension Qualified Code(s): I10 - Essential (primary) hypertension (4) Laryngeal cancer Assessment/Plan: s/p surgery with trach (5) Pulmonary emboli Assessment/Plan: heparin drip to couamdin transtiton Code(s): I26.99 - OTHER PULMONARY EMBOLISM WITHOUT ACUTE COR PULMONALE (6) Tracheostomy in place Assessment/Plan: needs cleaning Code(s): Z98.89 - OTHER SPECIFIED POSTPROCEDURAL STATES * DO NOT USE * (7) Orthostatic hypotension Assessment/Plan: midodrine Code(s): I95.1 - ORTHOSTATIC HYPOTENSION (8) Chronic wound of extremity Assessment/Plan: dry gangrene on right toe Code(s): [id number] - (9) Hyperlipidemia Assessment/Plan: statin lovaza check hga1c Code(s): E78.5 - HYPERLIPIDEMIA, UNSPECIFIED (10) Glaucoma Code(s): H40.9 - UNSPECIFIED GLAUCOMA Assessment/Plan to continue heparin drip till INR is therapetic then dc back to [place] - Instructions Referrals: Nat Bear MD [Primary Care Provider] - Disposition: LONG TERM FACILITY - Home Medications Comprehensive Discharge Medication List: Ambulatory Orders Ferrous Sulfate 325 mg PO TID 04/09/15 Midodrine HCl 5 mg PO BID 04/09/15 Oxycodone HCl/Acetaminophen [Percocet 5-325 mg Tablet] 1 tab PO Q6H PRN Pantoprazole Sodium [Protonix] 40 mg PO BID 04/09/15 Potassium Chloride [Klor-Con 10] 20 meq PO DAILY 04/09/15 Warfarin Na [Coumadin -] 7 mg PO HS 04/09/15 Folic Acid - 1 mg PO DAILY tablet 04/25/15 Latanoprost 0.005% Eye Drops [Xalatan 0.005% Eye Drops -] 1 drop OU HS drops Mirtazapine [Remeron -] 15 mg PO HS 07/25/15 Multivitamins [Multivit ([facility] Formulary)] 1 tab PO DAILY 07/25/15 Magnesium Oxide [Mag-Ox -] 400 mg PO DAILY 08/30/15 Acetaminophen [Pain Relief] 650 mg PO PRN PRN 09/19/15 Albuterol 2.5/Ipratropium 0.5 [Duoneb -] 1 amp NEB QID PRN #0 amp 09/26/15 Clotrimazole [Lotrimin 1% Solution -] 1 applic TP BID 06/17/16 Dorzolamide HCl [Trusopt 2%] 1 drop OD DAILY 06/17/16 Famotidine 10 mg PO DAILY 06/17/16 Brimonidine Tartrate [Alphagan 0.15% -] 1 drop OD BID 08/10/16 Doxycycline Monohydrate [Monodox] 100 mg PO Q12H 08/10/16 Nystatin Cream [Mycostatin] 1 applic TP TID 08/10/16 [place]-3 Acid Ethyl Esters [Lovaza] 1 gm PO BID #30 capsule 08/12/16
[2016-08-21] MEDS ORDERED: PT OWN MED DRAWER 7, Y5N ONE (11:07)
[2016-08-21] MEDS: OMEGA-3 ACID ETHYL ESTERS (FATTY-ACIDS) 1 GM CAPSULE (FP) PO SCH (11:14)
[2016-08-21] MEDS: ACETAMINOPHEN 325 MG TABLET (FP) PO PRN (11:15)
[2016-08-21] MEDS: MULTIVITAMINS (DAILY MVI) TABLET (FP) PO SCH (11:15)
[2016-08-21] MEDS: NYSTATIN 100,000 UNIT/GM TOPICAL CREAM 15 GM TUBE TP SCH (11:15)
[2016-08-21] MEDS: MIDODRINE HCL 5 MG TABLET PO SCH (11:15)
[2016-08-21] MEDS: BRIMONIDINE TARTRATE 0.15% OPHTHALMIC 5 ML BOTTLE OD SCH (11:15)
[2016-08-21] MEDS: PANTOPRAZOLE 40 MG TABLET (FP) PO SCH (11:15)
--- NOTE | 2016-09-12 16:15 | OP ---
DATE OF OPERATION: 08/13/2016 PREOPERATIVE DIAGNOSIS: Right foot gangrene. POSTOPERATIVE DIAGNOSIS: Right foot gangrene. OPERATION: Aortogram, right lower extremity angiogram, superficial femoral artery atherectomy with angioplasty. FINDINGS: Right SFA occlusion. SURGEON: Stanley Moncada DO ANESTHESIA: Fractional. BLOOD LOSS: 75 mL. DESCRIPTION OF PROCEDURE: The patient is a 71-year-old male who comes in with right foot gangrene from [facility]. It was decided that he would need an angiogram. Patient was consented for the procedure, understanding all risks, benefits, and alternatives and was then taken to the operating room. Once in the operating suite, he was laid on the operating table in supine manner and the area of the left and right groins were prepped and draped in sterile surgical manner. We then injected 10 mL of 0.5% over the left common femoral artery. We then used our Micropuncture needle and punctured the left common femoral artery. Micropuncture wire was inserted. Our Micropuncture sheath was inserted. A 0.035 floppy guidewire was inserted into the aorta, followed by a Merit catheter. We then shot an aortogram via hand injection showing that the aorta, then the iliac arteries were without any disease. We then placed a 0.035 floppy guidewire up and over to the right common femoral artery and our Merit catheter followed. We then shot an angiogram of the right lower extremity showing that the common femoral artery, the profunda, and the proximal SFA were patent. The mid to distal SFA had an occlusion for about 5 cm. SFA reconstituted. Popliteal artery was patent. The patient had 2-vessel runoff into the foot. The patient has microvascular disease and not much circulation is getting to his toes. At this point we placed a guidewire into the SFA, took out our Merit catheter and placed a 6 x 45 crossover sheath. IV heparin 5000 units was administered to the patient. We then placed a 0.035 stiff guidewire followed by a Quick-Cross catheter and we were able to cross our occlusion. Once the occlusion was crossed, we exchanged for a Viper Wire. We then performed CSI orbital atherectomy of the occluded SFA. Once orbital atherectomy was produced, we then went ahead and used a drug-coated balloon, and a 5 x 8 drug-coated balloon was used and we performed angioplasty of the SFA. Completion angiogram now showed that the SFA was patent and the flow was brisk and the runoff into the foot was the same as before but more brisk. At this point we brought our crossover sheath up and over. StarClose device was successfully deployed in the left common femoral artery. The area was wet and dried. Pressure was held for 5 minutes. After there was no bleeding, the area was wet and dried and Dermabond was placed. The patient tolerated the procedure with no complication. Patient transferred to the PACU in stable condition. STANLYE MONCADA DO [id number]
== END 2016-08-21 11:54 | DRG 271 ==
LOC: JER 13:56 → SUPCPDRO 13:56 → JERBED 17:42 → UNDOADMIN 17:46 → JERBED 17:46 → J8W 20:26
PROVIDERS: ADMIT Family Medicine; ATTEND Family Medicine
PROC: 3E033GC Introduction of Other Therapeutic Substance into Peripheral Vein, Percutaneous Approach (ICD-10-PCS; 2016-08-10)
PROC: 04CK3ZZ Extirpation of Matter from Right Femoral Artery, Percutaneous Approach (ICD-10-PCS; 2016-08-13)
PROC: B41D1ZZ Fluoroscopy of Aorta and Bilateral Lower Extremity Arteries using Low Osmolar Contrast (ICD-10-PCS; 2016-08-13)
PROC: 3E06317 Introduction of Other Thrombolytic into Central Artery, Percutaneous Approach (ICD-10-PCS; 2016-08-13)
PROC: 047K34Z Dilation of Right Femoral Artery with Drug-eluting Intraluminal Device, Percutaneous Approach (ICD-10-PCS; principal; 2016-08-13 12:00)
DX: E11.52 Type 2 diabetes mellitus with diabetic peripheral angiopathy with gangrene (principal); N32.1 Vesicointestinal fistula; J44.9 Chronic obstructive pulmonary disease, unspecified; M47.9 Spondylosis, unspecified; D64.9 Anemia, unspecified; Z93.0 Tracheostomy status; Z85.21 Personal history of malignant neoplasm of larynx; Z86.711 Personal history of pulmonary embolism; Z79.01 Long term (current) use of anticoagulants; H40.9 Unspecified glaucoma; I10 Essential (primary) hypertension; K21.9 Gastro-esophageal reflux disease without esophagitis; F03.90 Unspecified dementia, unspecified severity, without behavioral disturbance, psychotic disturbance, mood disturbance, and anxiety; I95.1 Orthostatic hypotension; I77.1 Stricture of artery
CPT/HCPCS: 36415; 71020-TC; 75635-TC; 76000-TC; 80053; 80061; 82272; 83036; 83605; 83721; 85025; 85027; 85610; 85730; 86850; 86900; 86901; 87040; 87081; 93005; 93010; 94640; 94760; 99285-25; J1644

== ENCOUNTER 2016-09-04 12:34 | Inpatient (IN) | payer OTHER, BC ==
--- NOTE | 2016-09-04 12:48 | PDOC ---
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 The patient reports having pain in his right foot with any weight bearing activities or movement. He denies any recent fevers , chills, headache or dizziness. He denies any recent nausea, vomit, or diarrhea. Allergies: Penicillins Past surgical history: None reported. Social History: Former smoker. Primary Care Physician: <Hill Huertas - Last Filed: 09/04/16 14:46> <Nishant Rodas - Last Filed: 09/04/16 14:49> - General Chief Complaint: Wound Stated Complaint: GANGRENE Time Seen by Provider: 09/04/16 12:38 Past History <Hill Huertas - Last Filed: 09/04/16 14:46> - Past Medical History Anemia: Yes Cancer: Yes (laryngeal CA w/ permenant tracheostomy) COPD: Yes (PE) GI Disorders: Yes (colostomy/GERD) Disorders: Yes (UTI) HTN: Yes Seizures: Yes (dementia) - Surgical History Abdominal Surgery: Yes (S/P COLOSTOMY; Hartmans procedure) - Immunization History Immunization Up to Date: Yes - Psycho/Social/Smoking Cessation Hx Anxiety: No Suicidal Ideation: No Smoking History: Former smoker Have you smoked in the past 12 months: No Hx Alcohol Use: No Drug/Substance Use Hx: No Substance Use Type: None <Nishant Rodas - Last Filed: 09/04/16 14:49> - Past Medical History Allergies/Adverse Reactions: Allergies Allergy/AdvReac Type Severity Reaction Status Date / Time Penicillins Allergy Unknown Verified 09/04/16 13:32 Home Medications: Ambulatory Orders Ferrous Sulfate 325 mg PO TID 04/09/15 Midodrine HCl 5 mg PO BID 04/09/15 Oxycodone HCl/Acetaminophen [Percocet 5-325 mg Tablet] 1 tab PO Q6H PRN Pantoprazole Sodium [Protonix] 40 mg PO BID 04/09/15 Potassium Chloride [Klor-Con 10] 20 meq PO DAILY 04/09/15 Warfarin Na [Coumadin -] 7 mg PO HS 04/09/15 Folic Acid - 1 mg PO DAILY tablet 04/25/15 Latanoprost 0.005% Eye Drops [Xalatan 0.005% Eye Drops -] 1 drop OU HS drops Mirtazapine [Remeron -] 15 mg PO HS 07/25/15 Multivitamins [Multivit ([facility] Formulary)] 1 tab PO DAILY 07/25/15 Magnesium Oxide [Mag-Ox -] 400 mg PO DAILY 08/30/15 Acetaminophen [Pain Relief] 650 mg PO PRN PRN 09/19/15 Albuterol 2.5/Ipratropium 0.5 [Duoneb -] 1 amp NEB QID PRN #0 amp 09/26/15 Clotrimazole [Lotrimin 1% Solution -] 1 applic TP BID 06/17/16 Dorzolamide HCl [Trusopt 2%] 1 drop OD DAILY 06/17/16 Famotidine 10 mg PO DAILY 06/17/16 Brimonidine Tartrate [Alphagan 0.15% -] 1 drop OD BID 08/10/16 Doxycycline Monohydrate [Monodox] 100 mg PO Q12H 08/10/16 Nystatin Cream [Mycostatin] 1 applic TP TID 08/10/16 [place]-3 Acid Ethyl Esters [Lovaza] 1 gm PO BID #30 capsule 08/12/16 Review of Systems - Review of Systems Constitutional: No: Chills, Fever Cardiac (ROS): No: Palpitations Musculoskeletal: Yes: Joint Pain Integumentary: Yes: Rash All Other Systems: Reviewed and Negative <Nishant Rodas - Last Filed: 09/04/16 14:49> *Physical Exam - Physical Exam Comments: 09/04/16 13:13 GENERAL: The patient is awake, alert, and fully oriented, in no acute distress. HEAD: Normal with no signs of trauma. EYES: Pupils equal, round and reactive to light, extraocular movements intact, sclera anicteric, conjunctiva clear with no pallor. ENT: Tracheostomy in place. Ears normal, nares patent, oropharynx clear without exudates. Moist mucous membranes. NECK: Normal range of motion, supple without lymphadenopathy, JVD, or masses. LUNGS: Breath sounds equal, clear to auscultation bilaterally. No wheeze/ crackles. HEART: Regular rate and rhythm, normal S1 and S2 without murmur or rub. ABDOMEN: LLQ ostomy with hardened stool in bag. The ostomy site is pink. Soft/ nontender/nondistended. BS wnl. No guarding or rebound. No palpable masses. No hepatosplenomegaly. EXTREMITIES: Dry Ghangaria at the the great toe and distal aspect of the 2nd toe. There is also erythema and early discharge from the proximal aspect of the 2nd toe. Foot is warm up to the ankle. Distal metatarsal also has diffuse robur and early cyanosis. NEUROLOGICAL: Cranial nerves II through XII grossly intact. PSYCH: Normal mood, normal affect. SKIN: Warm, Dry, normal turgor, no rashes or lesions noted. <Hill Huertas - Last Filed: 09/04/16 14:46> Heart Score/ECG Review #1 ECG reviewed & interpreted by me at: 13:16 General ECG Interpretation: Sinus Rhythm, Normal Rate (70), Normal Intervals ( qtc 442), No acute ischemic changes <Nishant Rodas - Last Filed: 09/04/16 14:49> ED Treatment Course - LABORATORY CBC & Chemistry Diagram: 09/04/16 13:55 09/04/16 13:55 <Hill Huertas - Last Filed: 09/04/16 14:46> - LABORATORY CBC & Chemistry Diagram: 09/04/16 13:55 09/04/16 13:55 <Nishant Rodas - Last Filed: 09/04/16 14:49> Medical Decision Making - Medical Decision Making 09/04/16 14:46 Call made to , case discussed. <Hill Huertas - Last Filed: 09/04/16 14:46> - Medical Decision Making 09/04/16 13:25 A portion of this note was documented by scribe services under my direction. I have reviewed the details of the note, within reason, and agree with the documentation with the following case summary and management plan written by me. 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 Bera for further evaluation. Afebrile. No acute distress but complaining of right foot pain Right foot has chronic great toe dry gangrene which extends to the distal second toe, proximal second toe and distal aspect of the foot are now erythematous and tender with possible early cyanosis. The foot is warm to touch , there is no evidence of ankle effusion or swelling or tracking cellulitis. 71-year-old male with possible acute on chronic right foot gangrene, will need antibiotics and vascular evaluation. Labs Pain control IV antibiotics Right foot x-ray, vascular consult Will discuss with Dr. Bear, likely admission. 09/04/16 14:48 WBC 9.8, chemistries pending. Discussed with Dr. Bear: Dr. hamilton saw the patient yesterday. Plan is for admission, angio, and likely amputation. Admitted to inpatient med/surg by Dr. Bear. Dr. hamilton consulted <Nishant Rodas - Last Filed: 09/04/16 14:49> *DC/Admit/Observation/Transfer - Attestations Scribe Attestion: 09/04/16 13:14 Documentation prepared by Hill Huertas, acting as director biomedical engineering for Nishant Rodas MD. <Hill Huertas - Last Filed: 09/04/16 14:46> - Discharge Dispostion Admit: Yes <Nishant Rodas - Last Filed: 09/04/16 14:49> Diagnosis at time of Disposition: Peripheral vascular disease, Gangrene - Discharge Dispostion Condition at time of disposition: Fair - Referrals Referrals: Nat Bear MD [Primary Care Provider] -
[2016-09-04] MEDS ORDERED: morphine CARPU-JECT 4 MG/1 ML DISP.SYRIN IVPUSH ONE (13:12)
[2016-09-04] MEDS ORDERED: VANCOMYCIN 1,000 MG in DEXTROSE 5%-WATER - 250 ML IVPB ONE (13:12)
[2016-09-04] MEDS ORDERED: LEVOFLOXACIN 500 MG IVPB 100 ML IVPB ONE ×2 (13:14→15:16)
[2016-09-04 13:34] VITALS: BMI 23.1
[2016-09-04] MEDS ORDERED: morphine CARPU-JECT 4 MG/1 ML DISP.SYRIN ONE (14:11)
[2016-09-04] MEDS ORDERED: VANCOMYCIN 1 GRAM (PRE-DOCKED) 250 ML IVPB ONE (14:12)
[2016-09-04 14:13] LABS: BASOPHIL 0.9 % (0-2.0); EOSINOPHIL 1.3 % (0-4.5); MCH 29.9 pg (25.7-33.7); MCHC 32.9 g/dl (32.0-35.9); MEAN CELL VOLUME 90.8 fl (80-96); NEUTROPHILS 79.1 % (42.8-82.8); PLATELET COUNT 367 K/MM3 (134-434); RDW 13.3 % (11.9-15.9); WHITE BLOOD COUNT 9.8 K/mm3 (4.0-10.0)
[2016-09-04 14:39] LABS: ALBUMIN 3.4 g/dl (3.4-5.0); ANION GAP 12 (8-16); C-REACTIVE PROTEIN 8.5 MG/DL (0.00-0.3); CALCIUM 8.9 mg/dL (8.5-10.1); CO2 25 mmol/L (21-32); CREATININE 0.9 mg/dL (0.7-1.3); GLUCOSE,RANDOM 79 mg/dL (74-106); SGOT/AST 18 U/L (15-37); SGPT/ALT 23 U/L (12-78)
[2016-09-04 14:41] LABS: ALK PHOS 95 U/L (45-117); BILIRUBIN,TOTAL 0.6 mg/dL (0.2-1.0); TOT PROT 8.1 g/dl (6.4-8.2)
[2016-09-04 14:48] LABS: INR 3.3 (0.82-1.09); PROTHROMBIN TIME (PATIENT) 37.2 SEC (9.98-11.88)
[2016-09-04 14:51] LABS: ACTIVATED PTT 54.2 SECONDS (26.9-34.4)
--- NOTE | 2016-09-04 17:26 | CONSULT ---
Consult - Past Medical History [employer]: Yes: Dementia Cardio/Vascular: Yes: HTN Pulmonary: Yes: COPD, Pulmonary Embolus Gastrointestinal: Yes: Diverticulitis, Other (colovesicular fistula with diverticulosis , heme posistive stools) Renal/: Yes: UTI (recurrent) Musculoskeletal: Yes: Chronic low back pain, Osteoarthritis, Other (avascular necrosis of the hip) - Past Surgical History Past Surgical History: Yes: Colectomy, Colostomy - Alcohol/Substance Use Hx Alcohol Use: No - Smoking History Smoking history: Former smoker Have you smoked in the past 12 months: No - Social History Usual Living Arrangement: Senior Care ADL: Support Services History of Recent Travel: No Home Medications - Allergies Allergies/Adverse Reactions: Allergies Allergy/AdvReac Type Severity Reaction Status Date / Time Penicillins Allergy Unknown Verified 09/04/16 13:32 - Home Medications Home Medications: Ambulatory Orders Aa/Hydrolyzed Collagen, Whey [Lps Neutral Flavor Liquid] 30 ml PO DAILY Acetaminophen [Tylenol] 650 mg PO QID PRN 09/04/16 Albuterol 2.5/Ipratropium 0.5 [Duoneb -] 1 amp NEB QID 09/04/16 Brimonidine Tartrate [Alphagan 0.15% -] 1 drop BID 09/04/16 Collagenase Clostridium Hist. [Santyl -] 1 applic TP BID 09/04/16 Dorzolamide HCl [Trusopt 2%] 1 drop AM 09/04/16 Famotidine 10 mg PO AM 09/04/16 Ferrous Sulfate 325 mg PO TID 09/04/16 Folic Acid 1 mg PO DAILY 09/04/16 Latanoprost 0.005% Eye Drops [Xalatan 0.005% Eye Drops -] 1 drop OU HS 09/04/16 Magnesium Oxide [Mag-Ox -] 400 mg PO DAILY 09/04/16 Midodrine HCl [Proamatine -] 5 mg PO BID 09/04/16 Mirtazapine [Remeron -] 15 mg PO HS 09/04/16 Multivitamin [Poly-Vitamin] 1 each PO DAILY 09/04/16 Oxford-3 Acid Ethyl Esters [Lovaza -] 1,000 mg PO BID 09/04/16 Omeprazole 20 mg PO BID 09/04/16 Oxycodone HCl 5 mg PO QID PRN 09/04/16 Potassium Chloride 20 meq PO DAILY 09/04/16 Warfarin Na [Coumadin] 7 mg PO DAILY@1800 09/04/16 Physical Exam Vital Signs: Vital Signs Temperature 98.2 F 09/04/16 12:55 Pulse Rate 72 09/04/16 12:55 Respiratory Rate 19 09/04/16 12:55 Blood Pressure 130/66 09/04/16 12:55 O2 Sat by Pulse Oximetry (%) 98 09/04/16 12:55 Assessment/Plan Vascular Surgery The patient is a 71 year old male, with a significant past medical history of s/ p largenectomy, PVD, DM, who presents to the emergency department with 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 The patient reports having pain in his right foot with any weight bearing activities or movement. He denies any recent fevers , chills, headache or dizziness. He denies any recent nausea, vomit, or diarrhea. Allergies: Penicillins Past surgical history: None reported. Social History: Former smoker. Primary Care Physician: Dr.Annabi TRISTAN Head - NC/AT Lung - cTA Heart - RRR abd - soft,nt,nd Ext -right foot gangrene first and second toe. A/P Will do angiogram ankit to look at runoff . Will then get podiatry for toe amputations if needed. Stanley Boston DO
[2016-09-04 17:48] LABS: ERYTHROCYTE SEDIMENTATION RATE 95 mm/hr (0-20)
[2016-09-04] MEDS ORDERED: oxyCODONE HCL 5 MG TABLET PO PRN (20:49)
[2016-09-04] MEDS: PANTOPRAZOLE 20 MG TABLET (FP) PO SCH (22:01)
[2016-09-04] MEDS: LATANOPROST 0.005% OPHTH SOLN 2.5ML BOTTLE OU SCH (22:01)
[2016-09-04] MEDS: MIRTAZAPINE 15 MG TABLET (FP) PO SCH (22:01)
[2016-09-04] MEDS: FERROUS SO4 325 MG TABLET (FP) PO SCH (22:02)
[2016-09-04] MEDS: D5-1/2NS+20 MEQ KCL - 1,000 ML IV SCH (22:02)
[2016-09-04] MEDS: OMEGA-3 ACID ETHYL ESTERS (FATTY-ACIDS) 1 GM CAPSULE (FP) PO SCH (22:02)
[2016-09-04] MEDS: MIDODRINE HCL 5 MG TABLET PO SCH (22:02)
[2016-09-04] MEDS: BRIMONIDINE TARTRATE 0.15% OPHTHALMIC 5 ML BOTTLE OU SCH (22:02)
[2016-09-05] MEDS: ALBUTEROL SO4 2.5/IPRATROPIUM 0.5 INH SOL 3 ML VIAL.NEB. NEB SCH ×5 (00:35→23:37)
[2016-09-05] MEDS: FERROUS SO4 325 MG TABLET (FP) PO SCH ×3 (06:02→22:12)
[2016-09-05 06:52] LABS: BASOPHIL 0.8 % (0-2.0); MCH 30.5 pg (25.7-33.7); MCHC 33.8 g/dl (32.0-35.9); MEAN PLT VOLUME 7.8 fl (7.5-11.1); NEUTROPHILS 78.8 % (42.8-82.8); PLATELET COUNT 322 K/MM3 (134-434); RDW 13.1 % (11.9-15.9); WHITE BLOOD COUNT 7.8 K/mm3 (4.0-10.0)
[2016-09-05 07:09] LABS: INR 3.99 (0.82-1.09); PROTHROMBIN TIME (PATIENT) 45.1 SEC (9.98-11.88)
[2016-09-05 07:18] LABS: ALK PHOS 84 U/L (45-117); ANION GAP 9 (8-16); BILIRUBIN,TOTAL 0.5 mg/dL (0.2-1.0); CALCIUM 8.7 mg/dL (8.5-10.1); CO2 25 mmol/L (21-32); CREATININE 0.9 mg/dL (0.7-1.3); GLUCOSE,RANDOM 120 mg/dL (74-106); MAGNESIUM 1.9 mg/dL (1.8-2.4); SGOT/AST 13 U/L (15-37); SGPT/ALT 20 U/L (12-78); TOT PROT 7.5 g/dl (6.4-8.2)
--- NOTE | 2016-09-05 08:27 | HP ---
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 Cardiovascular: Yes: HTN Pulmonary: Yes: COPD, Pulmonary Embolus Gastrointestinal: Yes: Diverticulitis, Other (colovesicular fistula with diverticulosis , heme posistive stools) Renal/: Yes: UTI (recurrent) Heme/Onc: Yes: Anemia, Cancer (laryngeal cancer with permanent tracheostomy ) Musculoskeletal: Yes: Chronic low back pain, Osteoarthritis, Other (avascular necrosis of the hip) - Past Surgical History Past Surgical History: Yes: Colectomy, Colostomy - Smoking History Smoking history: Former smoker Have you smoked in the past 12 months: No - Alcohol/Substance Use Hx Alcohol Use: No - Social History ADL: Support Services History of Recent Travel: No Home Medications - Allergies Allergies/Adverse Reactions: Allergies Allergy/AdvReac Type Severity Reaction Status Date / Time Penicillins Allergy Unknown Verified 09/04/16 13:32 - Home Medications Home Medications: Ambulatory Orders Aa/Hydrolyzed Collagen, Whey [Lps Neutral Flavor Liquid] 30 ml PO DAILY Acetaminophen [Tylenol] 650 mg PO QID PRN 09/04/16 Albuterol 2.5/Ipratropium 0.5 [Duoneb -] 1 amp NEB QID 09/04/16 Brimonidine Tartrate [Alphagan 0.15% -] 1 drop BID 09/04/16 Collagenase Clostridium Hist. [Santyl -] 1 applic TP BID 09/04/16 Dorzolamide HCl [Trusopt 2%] 1 drop AM 09/04/16 Famotidine 10 mg PO AM 09/04/16 Ferrous Sulfate 325 mg PO TID 09/04/16 Folic Acid 1 mg PO DAILY 09/04/16 Latanoprost 0.005% Eye Drops [Xalatan 0.005% Eye Drops -] 1 drop OU HS 09/04/16 Magnesium Oxide [Mag-Ox -] 400 mg PO DAILY 09/04/16 Midodrine HCl [Proamatine -] 5 mg PO BID 09/04/16 Mirtazapine [Remeron -] 15 mg PO HS 09/04/16 Multivitamin [Poly-Vitamin] 1 each PO DAILY 09/04/16 [place]-3 Acid Ethyl Esters [Lovaza -] 1,000 mg PO BID 09/04/16 Omeprazole 20 mg PO BID 09/04/16 Oxycodone HCl 5 mg PO QID PRN 09/04/16 Potassium Chloride 20 meq PO DAILY 09/04/16 Warfarin Na [Coumadin] 7 mg PO DAILY@1800 09/04/16 Review of Systems - Review of Systems Cardiovascular: denies: Chest Pain Respiratory: denies: SOB Gastrointestinal: denies: Abdominal Pain Musculoskeletal: reports: Extremity Pain Physical Examination Vital Signs: Vital Signs Temperature 98.2 F 09/04/16 12:55 Pulse Rate 72 09/05/16 02:45 Respiratory Rate 16 09/05/16 02:45 Blood Pressure 118/62 09/05/16 02:45 O2 Sat by Pulse Oximetry (%) 98 09/05/16 02:45 Cardiovascular: Yes: Murmur, S1, S2 Respiratory: Yes: Regular, CTA Bilaterally Gastrointestinal: Yes: Normal Bowel Sounds, Soft Extremities: Yes: Erythema (RT FOOT), Other (GANGRENE OF [address] AND [address] TOES ON RT ) Labs: CBC, BMP 09/05/16 06:25 09/05/16 06:25 Problem List - Problems (1) Gangrene Assessment/Plan: SURGICAL CONSULT FOR ANGIO AND AMPUTATION IV ABX Code(s): I96 - GANGRENE, NOT ELSEWHERE CLASSIFIED (2) Peripheral vascular disease Assessment/Plan: ABOVE Code(s): I73.9 - PERIPHERAL VASCULAR DISEASE, UNSPECIFIED (3) HTN (hypertension) Assessment/Plan: MONITOR Code(s): I10 - ESSENTIAL (PRIMARY) HYPERTENSION Qualifiers: Hypertension type: essential hypertension Qualified Code(s): I10 - Essential (primary) hypertension (4) Pulmonary emboli Assessment/Plan: ON COUMADIN HOLD AND ADJUST Code(s): I26.99 - OTHER PULMONARY EMBOLISM WITHOUT ACUTE COR PULMONALE
[2016-09-05] MEDS: OMEGA-3 ACID ETHYL ESTERS (FATTY-ACIDS) 1 GM CAPSULE (FP) PO SCH ×2 (09:00→22:12)
[2016-09-05] MEDS: MULTIVITAMINS (DAILY MVI) TABLET (FP) PO SCH (09:00)
[2016-09-05] MEDS: FOLIC ACID 1 MG TABLET (FP) PO SCH (09:00)
[2016-09-05] MEDS: MIDODRINE HCL 5 MG TABLET PO SCH ×2 (09:00→18:15)
[2016-09-05] MEDS: PANTOPRAZOLE 20 MG TABLET (FP) PO SCH ×2 (09:00→22:12)
[2016-09-05] MEDS: POTASSIUM CHLORIDE TABS 20 MEQ TABLET.ER (FP) PO SCH (09:00)
[2016-09-05] MEDS: MAGNESIUM OXIDE 400 MG TABLET (FP) PO SCH (09:00)
[2016-09-05] MEDS ORDERED: LEVOFLOXACIN 500 MG IVPB 100 ML IVPB ONE (09:01)
[2016-09-05] MEDS: LEVOFLOXACIN 500 MG IVPB 100 ML IVPB SCH (09:02)
[2016-09-05] MEDS: DORZOLAMIDE 2% HCL OPHTHALMIC SOLUTION 10 ML BOTTLE OU SCH (09:41)
[2016-09-05] MEDS: BRIMONIDINE TARTRATE 0.15% OPHTHALMIC 5 ML BOTTLE OU SCH ×2 (09:41→22:12)
[2016-09-05] MEDS ORDERED: PT OWN MED DRAWER 7, Y5N ONE ×2 (11:14→20:17)
--- NOTE | 2016-09-05 12:18 | EKG ---
Test Reason : Blood Pressure : / mmHG Vent. Rate : 072 BPM Atrial Rate : 072 BPM P-R Int : 152 ms QRS Dur : 100 ms QT Int : 408 ms P-R-T Axes : 067 005 055 degrees QTc Int : 446 ms NORMAL SINUS RHYTHM NORMAL ECG WHEN COMPARED WITH ECG OF 04-SEP-2016 13:16, NO SIGNIFICANT CHANGE WAS FOUND Confirmed by NIRALI MONROY MD ([id number]) on 09/05/2016 12:17:37 PM Referred By: PANFILO NEGRO Confirmed By:NIRALI MONROY MD
--- NOTE | 2016-09-05 12:23 | EKG ---
Test Reason : Blood Pressure : / mmHG Vent. Rate : 070 BPM Atrial Rate : 070 BPM P-R Int : 136 ms QRS Dur : 088 ms QT Int : 410 ms P-R-T Axes : 052 -03 042 degrees QTc Int : 442 ms POOR DATA QUALITY, INTERPRETATION MAY BE ADVERSELY AFFECTED NORMAL SINUS RHYTHM NORMAL ECG WHEN COMPARED WITH ECG OF 14-AUG-2016 09:57, NO SIGNIFICANT CHANGE WAS FOUND Confirmed by PORFIRIO ARIZMENDI, NIRALI ([id number]) on 09/05/2016 12:23:10 PM Referred By: Confirmed By:NIRALI MONROY MD
--- NOTE | 2016-09-05 15:17 | PN ---
Progress Note (short form) - Note Progress Note: ID Consult dictated Dry gangrene R foot Peripheral vascular disease PCN allergy Surgical evaluation Observe off antibiotics Local wound care
--- NOTE | 2016-09-05 16:42 | PN ---
Progress Note (short form) - Note Progress Note: Vascular surgery Pt with right foot gangrene. INR is 3.99. Will do angiogram when INR is stable. Please start IV heparin once INR falls below 2. Stanley Boston DO
[2016-09-05] MEDS: D5-1/2NS+20 MEQ KCL - 1,000 ML IV SCH (18:14)
--- NOTE | 2016-09-05 18:50 | CONS ---
DATE OF CONSULTATION: DATE OF DICTATION: 09/05/2016 The patient is a 71-year-old male evaluated for gangrene, right foot. The patient is a [place] [facility] resident. He has a history of peripheral vascular disease. According to the notes, he had a history of dry gangrene involving the right great toe. At the [place] [facility], he was noted to have progression of the dry gangrene with hyperemia involving the dorsal aspect of the right foot. There was no reported associated fever or chills. He was admitted for further evaluation. Past medical history positive for colovesical fistula, status post diverting colostomy complicated by intraabdominal abscess, requiring drainage, history of laryngeal cancer, status post tracheostomy, pulmonary embolism, hypertension, COPD, peripheral vascular disease. He has had a history of resistant pathogens including MRSA and VRE in IV fluid cultures and urine cultures. Allergies to PENICILLIN. He has tolerated cephalosporins in the past. Medications include Alphagan, Tylenol, Levaquin, Remeron, Lovaza, DuoNeb, Protonix, folic acid. SOCIAL HISTORY: He is a [place] [facility] resident, former smoker. SYSTEMS REVIEW: Neurologic: Positive for mild dementia. Cardiac: Negative chest pain or palpitations. Respiratory: Negative cough or sputum production. Gastrointestinal: As per HPI. Genitourinary: Negative for urinary tract infection. LABORATORY DATA: White count 7.8, hematocrit 34.0, platelet count 322, creatinine 0.9. ESR is 95. PHYSICAL EXAMINATION: General: He is awake and alert. He is chronically ill appearing. Vital Signs: Temperature 98.1. Blood pressure 116/75. Pulse 70, regular. Respiration 20 per minute. Eyes: Sclerae anicteric. Heart Sounds: S1, S2. Lungs: Clear. Abdomen: Soft. Positive colostomy. Extremities: Negative for edema. Examination of the right foot, there is dry gangrene present involving the right great toe and 2nd toe. No purulent drainage. Positive foul odor. IMPRESSION: 1. Dry gangrene of the right foot. 2. Peripheral vascular disease. 3. PENICILLIN allergy. Patient with dry gangrene of the right foot. There does not appear to be a cellulitic component. Would observe off antibiotic therapy. Obtain cultures for elevated temperature or leukocytosis. Surgical evaluation. Local wound care. Thank you for the kind referral. DALJIT PLATA M.D. OLLIS/[id number]
[2016-09-05] MEDS: LATANOPROST 0.005% OPHTH SOLN 2.5ML BOTTLE OU SCH (22:00)
[2016-09-05] MEDS: MIRTAZAPINE 15 MG TABLET (FP) PO SCH (22:12)
[2016-09-06] MEDS: ALBUTEROL SO4 2.5/IPRATROPIUM 0.5 INH SOL 3 ML VIAL.NEB. NEB SCH ×4 (06:04→23:57)
[2016-09-06] MEDS: FERROUS SO4 325 MG TABLET (FP) PO SCH ×3 (06:11→22:06)
[2016-09-06] MEDS: DORZOLAMIDE 2% HCL OPHTHALMIC SOLUTION 10 ML BOTTLE OU SCH (06:12)
[2016-09-06] MEDS ORDERED: PT OWN MED DRAWER 7, Y5N ONE ×3 (06:43→10:58)
[2016-09-06] MEDS: FOLIC ACID 1 MG TABLET (FP) PO SCH (10:22)
[2016-09-06] MEDS: MULTIVITAMINS (DAILY MVI) TABLET (FP) PO SCH (10:22)
[2016-09-06] MEDS: MIDODRINE HCL 5 MG TABLET PO SCH ×2 (10:22→17:14)
[2016-09-06] MEDS: LEVOFLOXACIN 500 MG IVPB 100 ML IVPB SCH (10:22)
[2016-09-06] MEDS: MAGNESIUM OXIDE 400 MG TABLET (FP) PO SCH (10:22)
[2016-09-06] MEDS: PANTOPRAZOLE 20 MG TABLET (FP) PO SCH ×2 (10:22→22:06)
[2016-09-06] MEDS: OMEGA-3 ACID ETHYL ESTERS (FATTY-ACIDS) 1 GM CAPSULE (FP) PO SCH ×2 (10:22→22:06)
[2016-09-06] MEDS: POTASSIUM CHLORIDE TABS 20 MEQ TABLET.ER (FP) PO SCH (10:22)
[2016-09-06] MEDS: D5-1/2NS+20 MEQ KCL - 1,000 ML IV SCH ×2 (10:23→21:09)
[2016-09-06] MEDS: BRIMONIDINE TARTRATE 0.15% OPHTHALMIC 5 ML BOTTLE OU SCH ×2 (10:23→22:10)
[2016-09-06 12:00] LABS: INR 3.64 (0.82-1.09); PROTHROMBIN TIME (PATIENT) 41.1 SEC (9.98-11.88)
--- NOTE | 2016-09-06 14:15 | PN ---
Progress Note, Physician Chief Complaint: in bed no distress - Current Medication List Current Medications: Active Medications Acetaminophen (Tylenol -) 650 mg PO QID PRN PRN Reason: PAIN/FEVER Albuterol/Ipratropium (Duoneb -) 1 amp NEB QIDR [facility] Last Admin: 09/06/16 11:33 Dose: 1 amp Brimonidine Tartrate (Alphagan 0.15% -) 1 drop OU BID [facility] Last Admin: 09/06/16 10:23 Dose: 1 drop Dorzolamide HCl (Trusopt 2%) 1 drop OU AM [facility] Last Admin: 09/06/16 06:12 Dose: 1 drop Ferrous Sulfate (Feosol -) 325 mg PO TID [facility] Last Admin: 09/06/16 14:06 Dose: 325 mg Folic Acid (Folic Acid -) 1 mg PO DAILY [facility] Last Admin: 09/06/16 10:22 Dose: 1 mg Potassium Chloride/Dextrose/Sod Cl (D5-1/2ns+20 Meq Kcl -) 1,000 mls @ 75 mls/ hr IV ASDIR [facility] Last Admin: 09/06/16 10:23 Dose: 75 mls/hr Levofloxacin (Levaquin 500 Mg Premixed Ivpb -) 100 mls @ 100 mls/hr IVPB DAILY [facility] Last Admin: 09/06/16 10:22 Dose: 100 mls/hr Latanoprost (Xalatan 0.005% Eye Drops -) 1 drop OU HS [facility] Last Admin: 09/05/16 22:00 Dose: Not Given Magnesium Oxide (Mag-Ox -) 400 mg PO DAILY [facility] Last Admin: 09/06/16 10:22 Dose: 400 mg Midodrine (Proamatine -) 5 mg PO BID-MID [facility] Last Admin: 09/06/16 10:22 Dose: 5 mg Mirtazapine (Remeron -) 15 mg PO HS [facility] Last Admin: 09/05/16 22:12 Dose: 15 mg Multivitamins/Minerals/Vitamin C (Tab-A-Vit -) 1 tab PO DAILY [facility] Last Admin: 09/06/16 10:22 Dose: 1 tab Ymhef-0-Axme Ethyl Esters (Lovaza -) 1 gm PO BID [facility] Last Admin: 09/06/16 10:22 Dose: 1 gm Oxycodone HCl (Roxicodone -) 5 mg PO QID PRN PRN Reason: PAIN Pantoprazole Sodium (Protonix -) 20 mg PO BID [facility] Last Admin: 09/06/16 10:22 Dose: 20 mg Potassium Chloride (K-Dur -) 20 meq PO DAILY [facility] Last Admin: 09/06/16 10:22 Dose: 20 meq - Objective Vital Signs: Vital Signs Temperature 98.5 F 09/06/16 06:28 Pulse Rate 70 09/06/16 06:28 Respiratory Rate 20 09/06/16 09:00 Blood Pressure 130/74 09/06/16 06:28 O2 Sat by Pulse Oximetry (%) 97 09/06/16 09:00 Constitutional: Yes: Calm Neck: Yes: Trachea Midline, Other (trachesostomy) Cardiovascular: Yes: Regular Rate and Rhythm, S1, S2 Respiratory: Yes: CTA Bilaterally Gastrointestinal: Yes: Normal Bowel Sounds, Soft Extremities: Yes: Other (right foot dry gangrene) Wound/Incision: Yes: Dressing Dry and Intact Labs: CBC, BMP 09/05/16 06:25 09/05/16 06:25 INR, PTT INR 3.64 (0.82-1.09) H 09/06/16 11:30 Problem List - Problems (1) Gangrene Assessment/Plan: appreicate vascl eval iNR still high wating to drift down ID saw patient no abx Code(s): I96 - GANGRENE, NOT ELSEWHERE CLASSIFIED (2) Peripheral vascular disease Assessment/Plan: angiogram once inr in < 2 then start heparin drip Code(s): I73.9 - PERIPHERAL VASCULAR DISEASE, UNSPECIFIED (3) Pulmonary emboli Assessment/Plan: hold coumadin let INR trend down then start heparin drip once INR < 2 Code(s): I26.99 - OTHER PULMONARY EMBOLISM WITHOUT ACUTE COR PULMONALE (4) Laryngeal cancer Assessment/Plan: s/p trach (5) Orthostatic hypotension Assessment/Plan: midodrine Code(s): I95.1 - ORTHOSTATIC HYPOTENSION
--- NOTE | 2016-09-06 15:51 | PN ---
Progress Note (short form) - Note Progress Note: Vascular surgery right foot gangrene INR is 3.64. Will await to do angiogram. Please start IV heparin once INR is below 2. Stanley Boston DO
[2016-09-06] MEDS: ACETAMINOPHEN 325 MG TABLET (FP) PO PRN ×2 (17:14→22:08)
[2016-09-06] MEDS: MIRTAZAPINE 15 MG TABLET (FP) PO SCH (22:07)
[2016-09-06] MEDS: LATANOPROST 0.005% OPHTH SOLN 2.5ML BOTTLE OU SCH (23:07)
[2016-09-07] MEDS: ALBUTEROL SO4 2.5/IPRATROPIUM 0.5 INH SOL 3 ML VIAL.NEB. NEB SCH ×3 (06:22→17:51)
[2016-09-07] MEDS: FERROUS SO4 325 MG TABLET (FP) PO SCH ×3 (07:05→21:21)
[2016-09-07] MEDS: DORZOLAMIDE 2% HCL OPHTHALMIC SOLUTION 10 ML BOTTLE OU SCH (07:07)
[2016-09-07] MEDS ORDERED: PT OWN MED DRAWER 7, Y5N ONE ×3 (07:57→21:27)
--- NOTE | 2016-09-07 08:11 | PN ---
Progress Note, Physician - Current Medication List Current Medications: Active Medications Acetaminophen (Tylenol -) 650 mg PO QID PRN PRN Reason: PAIN/FEVER Last Admin: 09/06/16 22:08 Dose: 650 mg Albuterol/Ipratropium (Duoneb -) 1 amp NEB QIDR [facility] Last Admin: 09/07/16 06:22 Dose: 1 amp Brimonidine Tartrate (Alphagan 0.15% -) 1 drop OU BID [facility] Last Admin: 09/06/16 22:10 Dose: 1 drop Dorzolamide HCl (Trusopt 2%) 1 drop OU AM [facility] Last Admin: 09/07/16 07:07 Dose: 1 drop Ferrous Sulfate (Feosol -) 325 mg PO TID [facility] Last Admin: 09/07/16 07:05 Dose: 325 mg Folic Acid (Folic Acid -) 1 mg PO DAILY [facility] Last Admin: 09/06/16 10:22 Dose: 1 mg Potassium Chloride/Dextrose/Sod Cl (D5-1/2ns+20 Meq Kcl -) 1,000 mls @ 75 mls/ hr IV ASDIR [facility] Last Admin: 09/06/16 21:09 Dose: 75 mls/hr Levofloxacin (Levaquin 500 Mg Premixed Ivpb -) 100 mls @ 100 mls/hr IVPB DAILY [facility] Last Admin: 09/06/16 10:22 Dose: 100 mls/hr Latanoprost (Xalatan 0.005% Eye Drops -) 1 drop OU HS [facility] Last Admin: 09/06/16 23:07 Dose: 1 drop Magnesium Oxide (Mag-Ox -) 400 mg PO DAILY [facility] Last Admin: 09/06/16 10:22 Dose: 400 mg Midodrine (Proamatine -) 5 mg PO BID-MID [facility] Last Admin: 09/06/16 17:14 Dose: 5 mg Mirtazapine (Remeron -) 15 mg PO HS [facility] Last Admin: 09/06/16 22:07 Dose: 15 mg Multivitamins/Minerals/Vitamin C (Tab-A-Vit -) 1 tab PO DAILY [facility] Last Admin: 09/06/16 10:22 Dose: 1 tab Hhwwa-5-Wfma Ethyl Esters (Lovaza -) 1 gm PO BID [facility] Last Admin: 09/06/16 22:06 Dose: 1 gm Oxycodone HCl (Roxicodone -) 5 mg PO QID PRN PRN Reason: PAIN Last Admin: 09/06/16 22:07 Dose: 5 mg Pantoprazole Sodium (Protonix -) 20 mg PO BID [facility] Last Admin: 09/06/16 22:06 Dose: 20 mg Potassium Chloride (K-Dur -) 20 meq PO DAILY [facility] Last Admin: 09/06/16 10:22 Dose: 20 meq - Objective Vital Signs: Vital Signs Temperature 98.2 F 09/07/16 06:00 Pulse Rate 68 09/07/16 06:00 Respiratory Rate 18 09/07/16 06:00 Blood Pressure 145/75 09/07/16 06:00 O2 Sat by Pulse Oximetry (%) 97 09/06/16 21:00 Cardiovascular: Yes: Regular Rate and Rhythm Respiratory: Yes: Regular, CTA Bilaterally Gastrointestinal: Yes: Normal Bowel Sounds, Soft Labs: CBC, BMP 09/05/16 06:25 09/05/16 06:25 INR, PTT INR 3.64 (0.82-1.09) H 09/06/16 11:30 Problem List - Problems (1) Gangrene Code(s): I96 - GANGRENE, NOT ELSEWHERE CLASSIFIED (2) Peripheral vascular disease Code(s): I73.9 - PERIPHERAL VASCULAR DISEASE, UNSPECIFIED (3) HTN (hypertension) Code(s): I10 - ESSENTIAL (PRIMARY) HYPERTENSION Qualifiers: Hypertension type: essential hypertension Qualified Code(s): I10 - Essential (primary) hypertension (4) Pulmonary emboli Code(s): I26.99 - OTHER PULMONARY EMBOLISM WITHOUT ACUTE COR PULMONALE Assessment/Plan 1) Gangrene Assessment/Plan: appreciate vascl eval INR still high INR, PTT INR 2.39 (0.82-1.09) H D 09/07/16 09:00 HEPARIN ONCE INR LESS THAN 2 ID saw patient no abx Code(s): I96 - GANGRENE, NOT ELSEWHERE CLASSIFIED (2) Peripheral vascular disease Assessment/Plan: angiogram once inr in < 2 then start heparin drip Code(s): I73.9 - PERIPHERAL VASCULAR DISEASE, UNSPECIFIED (3) Pulmonary emboli Assessment/Plan: hold Coumadin let INR trend down then start heparin drip once INR < 2 Code(s): I26.99 - OTHER PULMONARY EMBOLISM WITHOUT ACUTE COR PULMONALE (4) Laryngeal cancer Assessment/Plan: s/p trach (5) Orthostatic hypotension Assessment/Plan: midodrine Code(s): I95.1 - ORTHOSTATIC HYPOTENSION
--- NOTE | 2016-09-07 08:34 | PN ---
Progress Note (short form) - Note Progress Note: Vascular Surgery Vital Signs Period Temp Pulse Resp BP Sys/Page Pulse Ox Last 24 Hr 98.1 F-99.0 F 68-74 16-20 108-145/61-75 97-97 PE: Right foot remains warm with dry gangrene INR, PTT INR 3.64 (0.82-1.09) H 09/06/16 11:30 CBC, BMP 09/05/16 06:25 09/05/16 06:25 A/P: 71 yo male with R foot dry gangrene willl plan for angio once INR lower, follow value daily(ordered for today) Begin IV heparin wonce INR <2
[2016-09-07 09:39] LABS: BASOPHIL 0.7 % (0-2.0); MCH 30.3 pg (25.7-33.7); MCHC 33.8 g/dl (32.0-35.9); MEAN CELL VOLUME 89.6 fl (80-96); NEUTROPHILS 77.2 % (42.8-82.8); PLATELET COUNT 334 K/MM3 (134-434); RDW 13.4 % (11.9-15.9)
[2016-09-07 09:45] LABS: INR 2.39 (0.82-1.09); PROTHROMBIN TIME (PATIENT) 26.8 SEC (9.98-11.88)
[2016-09-07] MEDS: FOLIC ACID 1 MG TABLET (FP) PO SCH (09:58)
[2016-09-07] MEDS: POTASSIUM CHLORIDE TABS 20 MEQ TABLET.ER (FP) PO SCH (09:58)
[2016-09-07] MEDS: MAGNESIUM OXIDE 400 MG TABLET (FP) PO SCH (09:59)
[2016-09-07] MEDS: MIDODRINE HCL 5 MG TABLET PO SCH ×2 (09:59→17:22)
[2016-09-07] MEDS: OMEGA-3 ACID ETHYL ESTERS (FATTY-ACIDS) 1 GM CAPSULE (FP) PO SCH ×2 (09:59→21:31)
[2016-09-07] MEDS: PANTOPRAZOLE 20 MG TABLET (FP) PO SCH ×2 (10:00→21:22)
[2016-09-07] MEDS: MULTIVITAMINS (DAILY MVI) TABLET (FP) PO SCH (10:00)
[2016-09-07] MEDS: BRIMONIDINE TARTRATE 0.15% OPHTHALMIC 5 ML BOTTLE OU SCH ×2 (10:00→21:31)
[2016-09-07 10:03] LABS: ANION GAP 10 (8-16); CALCIUM 8.6 mg/dL (8.5-10.1); CO2 25 mmol/L (21-32); GLUCOSE,RANDOM 89 mg/dL (74-106)
[2016-09-07 10:08] LABS: ALK PHOS 88 U/L (45-117); BILIRUBIN,TOTAL 0.5 mg/dL (0.2-1.0); CREATININE 0.8 mg/dL (0.7-1.3); SGOT/AST 15 U/L (15-37); SGPT/ALT 22 U/L (12-78); TOT PROT 7.2 g/dl (6.4-8.2)
[2016-09-07] MEDS: D5-1/2NS+20 MEQ KCL - 1,000 ML IV SCH (21:06)
[2016-09-07] MEDS: ACETAMINOPHEN 325 MG TABLET (FP) PO PRN (21:21)
[2016-09-07] MEDS: MIRTAZAPINE 15 MG TABLET (FP) PO SCH (21:22)
[2016-09-07] MEDS: LATANOPROST 0.005% OPHTH SOLN 2.5ML BOTTLE OU SCH (21:31)
[2016-09-07] MEDS ORDERED: oxyCODONE HCL 5 MG TABLET PO PRN (23:06)
[2016-09-08] MEDS: ALBUTEROL SO4 2.5/IPRATROPIUM 0.5 INH SOL 3 ML VIAL.NEB. NEB SCH ×5 (00:11→23:43)
[2016-09-08] MEDS: FERROUS SO4 325 MG TABLET (FP) PO SCH ×3 (06:05→21:47)
[2016-09-08] MEDS: DORZOLAMIDE 2% HCL OPHTHALMIC SOLUTION 10 ML BOTTLE OU SCH (06:07)
[2016-09-08 07:39] LABS: INR 1.78 (0.82-1.09); PROTHROMBIN TIME (PATIENT) 19.8 SEC (9.98-11.88)
[2016-09-08] MEDS ORDERED: PT OWN MED DRAWER 7, Y5N ONE ×2 (08:02→10:19)
--- NOTE | 2016-09-08 08:32 | PN ---
Progress Note (short form) - Note Progress Note: Vascular surgery: Vital Signs Period Temp Pulse Resp BP Sys/Page Pulse Ox Last 24 Hr 97.7 F-99.3 F 65-78 16-20 115-147/70-88 96 INR 1.8 today, please begin IV heparin. Will plan for angio on 09/09. Npo after midnight. D/w Dr. Boston
[2016-09-08] MEDS ORDERED: HEPARIN NA (PORCINE) 5,000 UNITS/ML 1ML VIAL IVPUSH PRN (09:58)
--- NOTE | 2016-09-08 10:00 | PN ---
Progress Note, Physician - Current Medication List Current Medications: Active Medications Acetaminophen (Tylenol -) 650 mg PO QID PRN PRN Reason: PAIN/FEVER Last Admin: 09/07/16 21:21 Dose: 650 mg Albuterol/Ipratropium (Duoneb -) 1 amp NEB QIDR [facility] Last Admin: 09/08/16 06:12 Dose: 1 amp Brimonidine Tartrate (Alphagan 0.15% -) 1 drop OU BID [facility] Last Admin: 09/07/16 21:31 Dose: 1 drop Dorzolamide HCl (Trusopt 2%) 1 drop OU AM [facility] Last Admin: 09/08/16 06:07 Dose: 1 drop Ferrous Sulfate (Feosol -) 325 mg PO TID [facility] Last Admin: 09/08/16 06:05 Dose: 325 mg Folic Acid (Folic Acid -) 1 mg PO DAILY [facility] Last Admin: 09/07/16 09:58 Dose: 1 mg Potassium Chloride/Dextrose/Sod Cl (D5-1/2ns+20 Meq Kcl -) 1,000 mls @ 75 mls/ hr IV ASDIR [facility] Last Admin: 09/07/16 21:06 Dose: Not Given Latanoprost (Xalatan 0.005% Eye Drops -) 1 drop OU HS [facility] Last Admin: 09/07/16 21:31 Dose: 1 drop Magnesium Oxide (Mag-Ox -) 400 mg PO DAILY [facility] Last Admin: 09/07/16 09:59 Dose: 400 mg Midodrine (Proamatine -) 5 mg PO BID-MID [facility] Last Admin: 09/07/16 17:22 Dose: 5 mg Mirtazapine (Remeron -) 15 mg PO HS [facility] Last Admin: 09/07/16 21:22 Dose: 15 mg Multivitamins/Minerals/Vitamin C (Tab-A-Vit -) 1 tab PO DAILY [facility] Last Admin: 09/07/16 10:00 Dose: 1 tab Xycbe-8-Ikow Ethyl Esters (Lovaza -) 1 gm PO BID [facility] Last Admin: 09/07/16 21:31 Dose: 1 gm Oxycodone HCl (Roxicodone -) 5 mg PO Q6H PRN Pantoprazole Sodium (Protonix -) 20 mg PO BID [facility] Last Admin: 09/07/16 21:22 Dose: 20 mg Potassium Chloride (K-Dur -) 20 meq PO DAILY [facility] Last Admin: 09/07/16 09:58 Dose: 20 meq - Objective Vital Signs: Vital Signs Temperature 97.7 F 09/08/16 06:00 Pulse Rate 65 09/08/16 06:00 Respiratory Rate 20 09/08/16 06:00 Blood Pressure 147/88 09/08/16 06:00 O2 Sat by Pulse Oximetry (%) 96 09/07/16 21:00 Cardiovascular: Yes: Regular Rate and Rhythm Respiratory: Yes: Regular, CTA Bilaterally Gastrointestinal: Yes: Normal Bowel Sounds, Soft Extremities: Yes: Other (GANGRENE OF TOES) Labs: CBC, BMP 09/07/16 09:00 09/07/16 09:00 INR, PTT INR 1.78 (0.82-1.09) H 09/08/16 06:00 Problem List - Problems (1) Gangrene Code(s): I96 - GANGRENE, NOT ELSEWHERE CLASSIFIED (2) Peripheral vascular disease Code(s): I73.9 - PERIPHERAL VASCULAR DISEASE, UNSPECIFIED (3) HTN (hypertension) Code(s): I10 - ESSENTIAL (PRIMARY) HYPERTENSION Qualifiers: Hypertension type: essential hypertension Qualified Code(s): I10 - Essential (primary) hypertension (4) Pulmonary emboli Code(s): I26.99 - OTHER PULMONARY EMBOLISM WITHOUT ACUTE COR PULMONALE Assessment/Plan 1) Gangrene Assessment/Plan: appreciate vascl eval INR still high INR, PTT INR 1.78 (0.82-1.09) H 09/08/16 06:00 HEPARIN ORDERED ID saw patient no abx Code(s): I96 - GANGRENE, NOT ELSEWHERE CLASSIFIED (2) Peripheral vascular disease Assessment/Plan: angiogram once inr in < 2 then start heparin drip Code(s): I73.9 - PERIPHERAL VASCULAR DISEASE, UNSPECIFIED (3) Pulmonary emboli Assessment/Plan: hold Coumadin let INR trend down then start heparin drip once INR < 2 Code(s): I26.99 - OTHER PULMONARY EMBOLISM WITHOUT ACUTE COR PULMONALE (4) Laryngeal cancer Assessment/Plan: s/p trach (5) Orthostatic hypotension Assessment/Plan: midodrine Code(s): I95.1 - ORTHOSTATIC HYPOTENSION
[2016-09-08] MEDS: FOLIC ACID 1 MG TABLET (FP) PO SCH (10:23)
[2016-09-08] MEDS: POTASSIUM CHLORIDE TABS 20 MEQ TABLET.ER (FP) PO SCH (10:24)
[2016-09-08] MEDS: MAGNESIUM OXIDE 400 MG TABLET (FP) PO SCH (10:24)
[2016-09-08] MEDS: MIDODRINE HCL 5 MG TABLET PO SCH ×2 (10:24→17:13)
[2016-09-08] MEDS: OMEGA-3 ACID ETHYL ESTERS (FATTY-ACIDS) 1 GM CAPSULE (FP) PO SCH ×2 (10:24→21:47)
[2016-09-08] MEDS: MULTIVITAMINS (DAILY MVI) TABLET (FP) PO SCH (10:25)
[2016-09-08] MEDS: PANTOPRAZOLE 20 MG TABLET (FP) PO SCH ×2 (10:25→21:48)
[2016-09-08] MEDS: BRIMONIDINE TARTRATE 0.15% OPHTHALMIC 5 ML BOTTLE OU SCH ×2 (10:25→21:51)
[2016-09-08] MEDS: HEPARIN INFUSION - 500 ML IVPB SCH ×2 (12:02→18:37)
[2016-09-08] MEDS: HEPARIN NA (PORCINE) 5,000 UNITS/ML 1ML VIAL IVPUSH PRN (18:36)
[2016-09-08] MEDS: D5-1/2NS+20 MEQ KCL - 1,000 ML IV SCH (21:18)
[2016-09-08] MEDS: MIRTAZAPINE 15 MG TABLET (FP) PO SCH (21:48)
[2016-09-08] MEDS: ACETAMINOPHEN 325 MG TABLET (FP) PO PRN (21:49)
[2016-09-08] MEDS: LATANOPROST 0.005% OPHTH SOLN 2.5ML BOTTLE OU SCH (21:51)
[2016-09-09] MEDS: HEPARIN INFUSION - 500 ML IVPB SCH ×2 (00:53→12:30)
[2016-09-09] MEDS: HEPARIN NA (PORCINE) 5,000 UNITS/ML 1ML VIAL IVPUSH PRN (00:54)
[2016-09-09] MEDS: ALBUTEROL SO4 2.5/IPRATROPIUM 0.5 INH SOL 3 ML VIAL.NEB. NEB SCH ×4 (06:10→23:02)
[2016-09-09] MEDS: FERROUS SO4 325 MG TABLET (FP) PO SCH ×3 (06:16→21:52)
[2016-09-09] MEDS: DORZOLAMIDE 2% HCL OPHTHALMIC SOLUTION 10 ML BOTTLE OU SCH (06:18)
[2016-09-09] MEDS ORDERED: PT OWN MED DRAWER 7, Y5N ONE ×3 (07:06→21:34)
[2016-09-09] MEDS: LEVOFLOXACIN 500 MG IVPB 100 ML IVPB SCH (07:53)
[2016-09-09 08:24] LABS: BASOPHIL 0.8 % (0-2.0); EOSINOPHIL 5.3 % (0-4.5); MCH 30.3 pg (25.7-33.7); MCHC 33.8 g/dl (32.0-35.9); MEAN CELL VOLUME 89.6 fl (80-96); NEUTROPHILS 66.1 % (42.8-82.8); PLATELET COUNT 307 K/MM3 (134-434); RDW 13.5 % (11.9-15.9); WHITE BLOOD COUNT 7.5 K/mm3 (4.0-10.0)
[2016-09-09 08:57] LABS: INR 1.43 (0.82-1.09); PROTHROMBIN TIME (PATIENT) 15.9 SEC (9.98-11.88)
--- NOTE | 2016-09-09 09:47 | PN ---
Progress Note (short form) - Note Progress Note: Heparin held at 9AM. At 12P Medical optimization / clearance
[2016-09-09] MEDS: FOLIC ACID 1 MG TABLET (FP) PO SCH (10:59)
[2016-09-09] MEDS: POTASSIUM CHLORIDE TABS 20 MEQ TABLET.ER (FP) PO SCH (10:59)
[2016-09-09] MEDS: MIDODRINE HCL 5 MG TABLET PO SCH ×2 (11:00→18:57)
[2016-09-09] MEDS: MULTIVITAMINS (DAILY MVI) TABLET (FP) PO SCH (11:00)
[2016-09-09] MEDS: PANTOPRAZOLE 20 MG TABLET (FP) PO SCH ×2 (11:00→21:52)
[2016-09-09] MEDS: MAGNESIUM OXIDE 400 MG TABLET (FP) PO SCH (11:00)
[2016-09-09] MEDS: OMEGA-3 ACID ETHYL ESTERS (FATTY-ACIDS) 1 GM CAPSULE (FP) PO SCH ×2 (11:00→21:52)
[2016-09-09] MEDS: BRIMONIDINE TARTRATE 0.15% OPHTHALMIC 5 ML BOTTLE OU SCH ×2 (11:02→21:53)
[2016-09-09] MEDS ORDERED: KETAMINE HCL 200 MG/20 ML VIAL ONE (11:31)
[2016-09-09] MEDS ORDERED: PROPOFOL 20 ML ONE ×2 (11:31)
[2016-09-09] MEDS ORDERED: MIDAZOLAM HCL 2 MG/2 ML SINGLE DOSE VIAL ONE (11:31)
[2016-09-09] MEDS ORDERED: CLINDAMYCIN 600 MG PREMIX BAG IVPB ONE (11:50)
--- NOTE | 2016-09-09 12:18 | OP ---
Operative Note - Note: Operative Date: 09/09/16 Pre-Operative Diagnosis: Right foot gangrene Operation: Aortogram, Right lower extremtity angiogram Findings: Good runoff in foot. Pt needs TMA Post-Operative Diagnosis: Same as Pre-op Surgeon: Stanley Boston Anesthesia: Fractional Estimated Blood Loss (mls): 10 Operative Report Dictated: Yes
[2016-09-09] MEDS ORDERED: HEPARIN NA (PORCINE) 5,000 UNITS/ML 1ML VIAL IVPUSH PRN ×3 (12:21→12:24)
--- NOTE | 2016-09-09 12:23 | PN ---
Progress Note (short form) - Note Progress Note: Vascular Surgery Right lower ext angiogram performed. Pt has AT and PT runoff into foot. However minimal flow getting to distal toes. Pt needs TMA . Will consult Dr. Mayer for intervention. Stanley Boston DO
[2016-09-09] MEDS ORDERED: HEPARIN INFUSION - 500 ML IVPB ONE (12:40)
[2016-09-09] MEDS ORDERED: HEPARIN NA (PORCINE) 5,000 UNITS/ML 1ML VIAL ONE (12:41)
[2016-09-09] MEDS ORDERED: ONDANSETRON 4 MG/2 ML VIAL IVPUSH PRN (12:55)
[2016-09-09] MEDS ORDERED: oxyCODONE HCL 5 MG TABLET PO PRN (13:05)
[2016-09-09] MEDS ORDERED: D5-1/2NS+20 MEQ KCL - 1,000 ML IV SCH (13:05)
[2016-09-09] MEDS ORDERED: ACETAMINOPHEN 325 MG TABLET (FP) PO PRN (13:05)
--- NOTE | 2016-09-09 13:31 | PN ---
Progress Note, Physician Chief Complaint: seen in recovery room s/p angiogram mininmal flow in distal toes needs TMA - Current Medication List Current Medications: Active Medications Acetaminophen (Tylenol -) 650 mg PO QID PRN PRN Reason: PAIN/FEVER Albuterol/Ipratropium (Duoneb -) 1 amp NEB QIDR TEDDY Brimonidine Tartrate (Alphagan 0.15% -) 1 drop OU BID TEDDY Dorzolamide HCl (Trusopt 2%) 1 drop OU AM TEDDY Ferrous Sulfate (Feosol -) 325 mg PO TID TEDDY Folic Acid (Folic Acid -) 1 mg PO DAILY TEDDY Heparin Sodium (Porcine) (Heparin -) 5,000 unit IVPUSH PRN PRN PRN Reason: Heparin Heparin Sodium (Porcine) (Heparin -) 1,000 unit IVPUSH PRN PRN PRN Reason: Heparin Heparin Sodium/Dextrose (Heparin Infusion -) 500 mls @ 16 mls/hr IVPB TITR TEDDY ; 800 UNITS/HR PRN Reason: Protocol Potassium Chloride/Dextrose/Sod Cl (D5-1/2ns+20 Meq Kcl -) 1,000 mls @ 75 mls/ hr IV ASDIR TEDDY Latanoprost (Xalatan 0.005% Eye Drops -) 1 drop OU HS TEDDY Magnesium Oxide (Mag-Ox -) 400 mg PO DAILY TEDDY Midodrine (Proamatine -) 5 mg PO BID-MID TEDDY Mirtazapine (Remeron -) 15 mg PO HS [facility] Multivitamins/Minerals/Vitamin C (Tab-A-Vit -) 1 tab PO DAILY [facility] Drmdi-3-Ghym Ethyl Esters (Lovaza -) 1 gm PO BID TEDDY Ondansetron HCl (Zofran Injection) 4 mg IVPUSH Q6H PRN PRN Reason: NAUSEA AND/OR VOMITING Stop: 09/09/16 18:56 Oxycodone HCl (Roxicodone -) 5 mg PO Q6H PRN Pantoprazole Sodium (Protonix -) 20 mg PO BID [facility] Potassium Chloride (K-Dur -) 20 meq PO DAILY TEDDY - Objective Vital Signs: Vital Signs Temperature 98.6 F 09/09/16 09:40 Pulse Rate 68 09/09/16 09:40 Respiratory Rate 18 09/09/16 09:40 Blood Pressure 138/70 09/09/16 09:40 O2 Sat by Pulse Oximetry (%) 99 09/08/16 21:00 Constitutional: Yes: Calm Neck: Yes: Other (trachesotomy) Cardiovascular: Yes: Regular Rate and Rhythm, S1, S2 Respiratory: Yes: CTA Bilaterally, Diminished (at bases) Gastrointestinal: Yes: Normal Bowel Sounds, Soft Extremities: Yes: Other (black toes on left foot,pain on palpation) Edema: No Labs: CBC, BMP 09/09/16 06:00 09/07/16 09:00 INR, PTT INR 1.43 (0.82-1.09) H 09/09/16 06:00 Problem List - Problems (1) Gangrene Assessment/Plan: appreicate vascl eval s/p angiogram needs TMA on iv heparin Code(s): I96 - GANGRENE, NOT ELSEWHERE CLASSIFIED (2) Peripheral vascular disease Assessment/Plan: TMA per podiatry awaiting eval Code(s): I73.9 - PERIPHERAL VASCULAR DISEASE, UNSPECIFIED (3) Pulmonary emboli Assessment/Plan: icv heparin Code(s): I26.99 - OTHER PULMONARY EMBOLISM WITHOUT ACUTE COR PULMONALE (4) Laryngeal cancer Assessment/Plan: s/p trach (5) Orthostatic hypotension Assessment/Plan: midodrine Code(s): I95.1 - ORTHOSTATIC HYPOTENSION
--- NOTE | 2016-09-09 16:08 | CONSULT ---
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 The patient reports having pain in his right foot with any weight bearing activities or movement. He denies any recent fevers, chills, headache or dizziness. He denies any recent nausea, vomit, or diarrhea. - History Source History Provided By: Patient - Past Medical History TANK CALIBRATOR: Yes: Dementia Cardio/Vascular: Yes: HTN Pulmonary: Yes: COPD, Pulmonary Embolus Gastrointestinal: Yes: Diverticulitis, Other (colovesicular fistula with diverticulosis , heme posistive stools) Renal/: Yes: UTI (recurrent) Musculoskeletal: Yes: Chronic low back pain, Osteoarthritis, Other (avascular necrosis of the hip) - Past Surgical History Past Surgical History: Yes: Colectomy, Colostomy - Alcohol/Substance Use Hx Alcohol Use: No - Smoking History Smoking history: Former smoker Have you smoked in the past 12 months: No - Social History Usual Living Arrangement: Group Home ADL: Support Services History of Recent Travel: No Home Medications - Allergies Allergies/Adverse Reactions: Allergies Allergy/AdvReac Type Severity Reaction Status Date / Time Penicillins Allergy Unknown Verified 09/04/16 13:32 - Home Medications Home Medications: Ambulatory Orders Aa/Hydrolyzed Collagen, Whey [Lps Neutral Flavor Liquid] 30 ml PO DAILY Acetaminophen [Tylenol] 650 mg PO QID PRN 09/04/16 Albuterol 2.5/Ipratropium 0.5 [Duoneb -] 1 amp NEB QID 09/04/16 Brimonidine Tartrate [Alphagan 0.15% -] 1 drop BID 09/04/16 Collagenase Clostridium Hist. [Santyl -] 1 applic TP BID 09/04/16 Dorzolamide HCl [Trusopt 2%] 1 drop AM 09/04/16 Famotidine 10 mg PO AM 09/04/16 Ferrous Sulfate 325 mg PO TID 09/04/16 Folic Acid 1 mg PO DAILY 09/04/16 Latanoprost 0.005% Eye Drops [Xalatan 0.005% Eye Drops -] 1 drop OU HS 09/04/16 Magnesium Oxide [Mag-Ox -] 400 mg PO DAILY 09/04/16 Midodrine HCl [Proamatine -] 5 mg PO BID 09/04/16 Mirtazapine [Remeron -] 15 mg PO HS 09/04/16 Multivitamin [Poly-Vitamin] 1 each PO DAILY 09/04/16 [place]-3 Acid Ethyl Esters [Lovaza -] 1,000 mg PO BID 09/04/16 Omeprazole 20 mg PO BID 09/04/16 Oxycodone HCl 5 mg PO QID PRN 09/04/16 Potassium Chloride 20 meq PO DAILY 09/04/16 Warfarin Na [Coumadin] 7 mg PO DAILY@1800 09/04/16 Review of Systems - Review of Systems Constitutional: reports: No Symptoms Eyes: reports: No Symptoms HENT: reports: No Symptoms Neck: reports: No Symptoms Cardiovascular: reports: No Symptoms Respiratory: reports: No Symptoms Gastrointestinal: reports: No Symptoms Genitourinary: reports: No Symptoms Musculoskeletal: reports: No Symptoms Neurological: reports: No Symptoms Hematology/Lymphatic: reports: No Symptoms Psychiatric: reports: No Symptoms Physical Exam Vital Signs: Vital Signs Temperature 97.3 F L 09/09/16 15:00 Pulse Rate 63 09/09/16 15:00 Respiratory Rate 18 09/09/16 15:00 Blood Pressure 114/68 09/09/16 15:00 O2 Sat by Pulse Oximetry (%) 99 09/09/16 14:50 Constitutional: Yes: Well Nourished Extremities: Yes: Delayed Capillary Refill, Erythema Edema: No Edema: LLE: Trace, RLE: Trace Peripheral Pulses WNL: Yes Integumentary: Yes: Other (Right: full thickness well demarcated gangrene 1st & 2nd toes, with partial gangrene 3rd toe and cellulitis 4th&5th toes) Neurological: Yes: WNL, Alert ...Motor Strength: WNL Psychiatric: Yes: Alert Labs: CBC, BMP 09/09/16 06:00 09/07/16 09:00 Problem List - Problems (1) Gangrene Code(s): I96 - GANGRENE, NOT ELSEWHERE CLASSIFIED (2) Peripheral vascular disease Code(s): I73.9 - PERIPHERAL VASCULAR DISEASE, UNSPECIFIED (3) Afib Code(s): I48.91 - UNSPECIFIED ATRIAL FIBRILLATION Qualifiers: Atrial fibrillation type: chronic Qualified Code(s): I48.2 - Chronic atrial fibrillation (4) HTN (hypertension) Code(s): I10 - ESSENTIAL (PRIMARY) HYPERTENSION Qualifiers: Hypertension type: essential hypertension Qualified Code(s): I10 - Essential (primary) hypertension (5) Hyperlipidemia Code(s): E78.5 - HYPERLIPIDEMIA, UNSPECIFIED Assessment/Plan Plan: Patient seen and evaluated D/W Estee Meade via telephone the need for amputation, risks and procedure D/W Estee rivero guarantees given or implied as to the outcome and the need for possible future surgery explained Pateitn to the OR on 09/12/16 @ 9am Consent in Chart for Estee Meade to sign
[2016-09-09] MEDS: MIRTAZAPINE 15 MG TABLET (FP) PO SCH (21:52)
[2016-09-09] MEDS: LATANOPROST 0.005% OPHTH SOLN 2.5ML BOTTLE OU SCH (21:53)
[2016-09-10] MEDS: ALBUTEROL SO4 2.5/IPRATROPIUM 0.5 INH SOL 3 ML VIAL.NEB. NEB SCH ×3 (06:42→19:26)
[2016-09-10] MEDS: FERROUS SO4 325 MG TABLET (FP) PO SCH ×3 (06:53→21:30)
[2016-09-10] MEDS: DORZOLAMIDE 2% HCL OPHTHALMIC SOLUTION 10 ML BOTTLE OU SCH (06:53)
[2016-09-10 08:01] LABS: BASOPHIL 0.6 % (0-2.0); EOSINOPHIL 4.3 % (0-4.5); MCHC 33.6 g/dl (32.0-35.9); MEAN CELL VOLUME 89.3 fl (80-96); MEAN PLT VOLUME 8.1 fl (7.5-11.1); NEUTROPHILS 72.6 % (42.8-82.8); PLATELET COUNT 325 K/MM3 (134-434); RDW 13.1 % (11.9-15.9); WHITE BLOOD COUNT 7.7 K/mm3 (4.0-10.0)
[2016-09-10 08:12] LABS: INR 1.39 (0.82-1.09); PROTHROMBIN TIME (PATIENT) 15.4 SEC (9.98-11.88)
[2016-09-10] MEDS: POTASSIUM CHLORIDE TABS 20 MEQ TABLET.ER (FP) PO SCH (10:08)
[2016-09-10] MEDS: MIDODRINE HCL 5 MG TABLET PO SCH ×2 (10:08→17:39)
[2016-09-10] MEDS: MULTIVITAMINS (DAILY MVI) TABLET (FP) PO SCH (10:08)
[2016-09-10] MEDS: MAGNESIUM OXIDE 400 MG TABLET (FP) PO SCH (10:08)
[2016-09-10] MEDS: PANTOPRAZOLE 20 MG TABLET (FP) PO SCH ×2 (10:08→21:30)
[2016-09-10] MEDS: FOLIC ACID 1 MG TABLET (FP) PO SCH (10:08)
[2016-09-10] MEDS: OMEGA-3 ACID ETHYL ESTERS (FATTY-ACIDS) 1 GM CAPSULE (FP) PO SCH ×2 (10:09→21:29)
[2016-09-10] MEDS: BRIMONIDINE TARTRATE 0.15% OPHTHALMIC 5 ML BOTTLE OU SCH ×2 (10:21→21:30)
[2016-09-10] MEDS: HEPARIN INFUSION - 500 ML IVPB SCH (12:30)
[2016-09-10] MEDS ORDERED: PT OWN MED DRAWER 7, Y5N ONE (15:18)
--- NOTE | 2016-09-10 15:37 | OP ---
DATE OF OPERATION: 09/09/2016 PREOPERATIVE DIAGNOSIS: Right foot gangrene. POSTOPERATIVE DIAGNOSIS: Right foot gangrene. PROCEDURE: Aortogram, right lower extremity angiogram. SURGEON: Stanley Moncada DO ANESTHESIA: Fractional. BLOOD LOSS: Was 10 mL. The patient is a 71-year-old male who comes in with right foot gangrene from [facility]. He had angioplasty of his peroneal artery performed about a month ago, and now, the right foot gangrene of his 1st and 2nd toe has progressed onto his forefoot. It was thought that he would need an angiogram to look at what his runoff is into his foot. Patient's consented for the procedure, understanding all risks, benefits, alternatives. He was then taken to the operating room. Once in the operating room, he was placed on the operating table in supine manner and the right and left groin were prepped and draped in a sterile surgical manner. We then injected 10 mL of 0.5% lidocaine over the left common femoral artery. We then used our micropuncture needle to puncture the left common femoral artery. A micropuncture wire was placed, and a traditional 5-Eritrean sheath was placed. A 0.035 floppy guidewire was placed into the aorta followed by a Merit catheter. We then shot an aortogram by hand injection, showing that the aorta and the iliac arteries were without any disease. We then placed a 0.035 floppy guidewire up and over into the right common femoral artery followed by our Merit catheter. We then shot an angiogram of the right lower extremity showing that the common femoral artery, the profunda, and the SFA were patent. The popliteal artery was patent. Patient had 2-vessel runoff going into the foot which was the DP and the PT, and the peroneal artery was going down to the foot as well. The main 2 runoff arteries were the AT and the peroneal artery. The AT goes into the forefoot. Beyond that, there is very minimal flow to the toes, which is why there is gangrene of the toes. There is no bypassable disease. There are no areas that have stenosis that need angioplasty. At this point, we brought our Merit catheter up and over, and the 5-Eritrean sheath was removed, and pressure was held in the left groin for 5 minutes. There was no bleeding. The areas were wet and dried, and Dermabond was placed. The patient tolerated the procedure with no complications. Patient transferred to PACU in stable condition. Total blood loss 10 mL. I spoke to at length. Patient will need a TMA by Podiatry, and we will consult Podiatry. STANLEY MONCADA DO NP/[id number]
[2016-09-10] MEDS: MIRTAZAPINE 15 MG TABLET (FP) PO SCH (21:30)
[2016-09-10] MEDS: LATANOPROST 0.005% OPHTH SOLN 2.5ML BOTTLE OU SCH (21:30)
[2016-09-11] MEDS: ALBUTEROL SO4 2.5/IPRATROPIUM 0.5 INH SOL 3 ML VIAL.NEB. NEB SCH ×5 (06:02→23:55)
[2016-09-11] MEDS: DORZOLAMIDE 2% HCL OPHTHALMIC SOLUTION 10 ML BOTTLE OU SCH (06:41)
[2016-09-11] MEDS: FERROUS SO4 325 MG TABLET (FP) PO SCH ×3 (06:41→22:27)
[2016-09-11 08:31] LABS: BASOPHIL 0.5 % (0-2.0); EOSINOPHIL 1.9 % (0-4.5); MCH 30.1 pg (25.7-33.7); MCHC 33.6 g/dl (32.0-35.9); MEAN CELL VOLUME 89.8 fl (80-96); MEAN PLT VOLUME 8.2 fl (7.5-11.1); NEUTROPHILS 78.4 % (42.8-82.8); PLATELET COUNT 316 K/MM3 (134-434); RDW 13.5 % (11.9-15.9); WHITE BLOOD COUNT 8.6 K/mm3 (4.0-10.0)
[2016-09-11 08:46] LABS: INR 1.31 (0.82-1.09); PROTHROMBIN TIME (PATIENT) 14.5 SEC (9.98-11.88)
[2016-09-11 08:49] LABS: ACTIVATED PTT 49.5 SECONDS (26.9-34.4)
--- NOTE | 2016-09-11 09:02 | PN ---
Progress Note, Physician History of Present Illness: PODIATRY NOTES REVIEWED--FOR AMPUTATION - Current Medication List Current Medications: Active Medications Acetaminophen (Tylenol -) 650 mg PO QID PRN PRN Reason: PAIN/FEVER Albuterol/Ipratropium (Duoneb -) 1 amp NEB QIDR [facility] Last Admin: 09/11/16 06:02 Dose: 1 amp Brimonidine Tartrate (Alphagan 0.15% -) 1 drop OU BID [facility] Last Admin: 09/10/16 21:30 Dose: 1 drop Dorzolamide HCl (Trusopt 2%) 1 drop OU AM [facility] Last Admin: 09/11/16 06:41 Dose: 1 drop Ferrous Sulfate (Feosol -) 325 mg PO TID [facility] Last Admin: 09/11/16 06:41 Dose: 325 mg Folic Acid (Folic Acid -) 1 mg PO DAILY [facility] Last Admin: 09/10/16 10:08 Dose: 1 mg Heparin Sodium (Porcine) (Heparin -) 5,000 unit IVPUSH PRN PRN PRN Reason: Heparin Last Admin: 09/09/16 12:45 Dose: 5,000 unit Heparin Sodium (Porcine) (Heparin -) 1,000 unit IVPUSH PRN PRN PRN Reason: Heparin Last Admin: 09/10/16 10:17 Dose: 1,000 unit Heparin Sodium/Dextrose (Heparin Infusion -) 500 mls @ 16 mls/hr IVPB TITR TEDDY ; 800 UNITS/HR PRN Reason: Protocol Last Admin: 09/10/16 12:30 Dose: 18 mls/hr Latanoprost (Xalatan 0.005% Eye Drops -) 1 drop OU HS [facility] Last Admin: 09/10/16 21:30 Dose: 1 drop Magnesium Oxide (Mag-Ox -) 400 mg PO DAILY [facility] Last Admin: 09/10/16 10:08 Dose: 400 mg Midodrine (Proamatine -) 5 mg PO BID-MID [facility] Last Admin: 09/10/16 17:39 Dose: 5 mg Mirtazapine (Remeron -) 15 mg PO HS [facility] Last Admin: 09/10/16 21:30 Dose: 15 mg Multivitamins/Minerals/Vitamin C (Tab-A-Vit -) 1 tab PO DAILY [facility] Last Admin: 09/10/16 10:08 Dose: 1 tab [id number] Ethyl Esters (Lovaza -) 1 gm PO BID [facility] Last Admin: 09/10/16 21:29 Dose: 1 gm Oxycodone HCl (Roxicodone -) 5 mg PO Q6H PRN Pantoprazole Sodium (Protonix -) 20 mg PO BID [facility] Last Admin: 09/10/16 21:30 Dose: 20 mg Potassium Chloride (K-Dur -) 20 meq PO DAILY [facility] Last Admin: 09/10/16 10:08 Dose: 20 meq - Objective Vital Signs: Vital Signs Temperature 98.8 F 09/11/16 07:10 Pulse Rate 70 09/11/16 07:10 Respiratory Rate 20 09/11/16 07:10 Blood Pressure 110/68 09/11/16 07:10 O2 Sat by Pulse Oximetry (%) 96 09/10/16 21:16 Cardiovascular: Yes: Regular Rate and Rhythm Respiratory: Yes: Regular, CTA Bilaterally Gastrointestinal: Yes: Normal Bowel Sounds, Soft Extremities: Yes: Other (GANGRENE OF TOES ON RT FOOT) Labs: CBC, BMP 09/11/16 07:00 09/07/16 09:00 INR, PTT INR 1.31 (0.82-1.09) H 09/11/16 07:00 Problem List - Problems (1) Gangrene Code(s): I96 - GANGRENE, NOT ELSEWHERE CLASSIFIED (2) Peripheral vascular disease Code(s): I73.9 - PERIPHERAL VASCULAR DISEASE, UNSPECIFIED (3) HTN (hypertension) Code(s): I10 - ESSENTIAL (PRIMARY) HYPERTENSION Qualifiers: Qualified Code(s): I10 - Essential (primary) hypertension (4) Pulmonary emboli Code(s): I26.99 - OTHER PULMONARY EMBOLISM WITHOUT ACUTE COR PULMONALE Assessment/Plan 1) Gangrene Assessment/Plan: appreciate vascl eval INR still high HEPARIN ORDERED ID ON CASE FOR AMPUTATION CARDIO PREOP EVAL Code(s): I96 - GANGRENE, NOT ELSEWHERE CLASSIFIED (2) Peripheral vascular disease Assessment/Plan: angiogram NOTED then start heparin drip Code(s): I73.9 - PERIPHERAL VASCULAR DISEASE, UNSPECIFIED (3) Pulmonary emboli Assessment/Plan: hold Coumadin ON HEPARIN Code(s): I26.99 - OTHER PULMONARY EMBOLISM WITHOUT ACUTE COR PULMONALE (4) Laryngeal cancer Assessment/Plan: s/p trach
[2016-09-11] MEDS ORDERED: PT OWN MED DRAWER 7, Y5N ONE ×2 (10:39→21:08)
[2016-09-11] MEDS: MULTIVITAMINS (DAILY MVI) TABLET (FP) PO SCH (10:42)
[2016-09-11] MEDS: OMEGA-3 ACID ETHYL ESTERS (FATTY-ACIDS) 1 GM CAPSULE (FP) PO SCH ×2 (10:42→22:27)
[2016-09-11] MEDS: MAGNESIUM OXIDE 400 MG TABLET (FP) PO SCH (10:42)
[2016-09-11] MEDS: POTASSIUM CHLORIDE TABS 20 MEQ TABLET.ER (FP) PO SCH (10:42)
[2016-09-11] MEDS: MIDODRINE HCL 5 MG TABLET PO SCH ×2 (10:43→17:54)
[2016-09-11] MEDS: PANTOPRAZOLE 20 MG TABLET (FP) PO SCH ×2 (10:43→22:27)
[2016-09-11] MEDS: FOLIC ACID 1 MG TABLET (FP) PO SCH (10:43)
[2016-09-11] MEDS: BRIMONIDINE TARTRATE 0.15% OPHTHALMIC 5 ML BOTTLE OU SCH ×2 (10:48→22:26)
--- NOTE | 2016-09-11 13:07 | PN ---
Progress Note (short form) - Note Progress Note: PRE OP NOTE Patient seen bedside in NAD. He is for the OR tomorrow, TMA right foot Patient to NPO past midnight, D/C Heparin Risksk D/W with regarding Sx, consent obtained and in the Chart Problem List - Problems (1) Gangrene Code(s): I96 - GANGRENE, NOT ELSEWHERE CLASSIFIED (2) Peripheral vascular disease Code(s): I73.9 - PERIPHERAL VASCULAR DISEASE, UNSPECIFIED (3) Afib Code(s): I48.91 - UNSPECIFIED ATRIAL FIBRILLATION Qualifiers: Atrial fibrillation type: chronic Qualified Code(s): I48.2 - Chronic atrial fibrillation (4) HTN (hypertension) Code(s): I10 - ESSENTIAL (PRIMARY) HYPERTENSION Qualifiers: Hypertension type: essential hypertension Qualified Code(s): I10 - Essential (primary) hypertension (5) Hyperlipidemia Code(s): E78.5 - HYPERLIPIDEMIA, UNSPECIFIED
--- NOTE | 2016-09-11 14:16 | CON.CARD ---
Consult Consult Specialty:: Cardiology Referred by:: Dr. 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 Patient is pending transmetatarsal amputation of right foot tomorrow. Denies chest pain or dyspnea. 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 Cardio/Vascular: Yes: HTN Pulmonary: Yes: COPD, Pulmonary Embolus Gastrointestinal: Yes: Diverticulitis, Other (colovesicular fistula with diverticulosis , heme posistive stools) Renal/: Yes: UTI (recurrent) Musculoskeletal: Yes: Chronic low back pain, Osteoarthritis, Other (avascular necrosis of the hip) - Past Surgical History Past Surgical History: Yes: Colectomy, Colostomy - Alcohol/Substance Use Hx Alcohol Use: No - Smoking History Smoking history: Former smoker Have you smoked in the past 12 months: No - Social History Usual Living Arrangement: [facility] ADL: Support Services History of Recent Travel: No Home Medications - Allergies Allergies/Adverse Reactions: Allergies Allergy/AdvReac Type Severity Reaction Status Date / Time Penicillins Allergy Unknown Verified 09/04/16 13:32 - Home Medications Home Medications: Ambulatory Orders Aa/Hydrolyzed Collagen, Whey [Lps Neutral Flavor Liquid] 30 ml PO DAILY Acetaminophen [Tylenol] 650 mg PO QID PRN 09/04/16 Albuterol 2.5/Ipratropium 0.5 [Duoneb -] 1 amp NEB QID 09/04/16 Brimonidine Tartrate [Alphagan 0.15% -] 1 drop BID 09/04/16 Collagenase Clostridium Hist. [Santyl -] 1 applic TP BID 09/04/16 Dorzolamide HCl [Trusopt 2%] 1 drop AM 09/04/16 Famotidine 10 mg PO AM 09/04/16 Ferrous Sulfate 325 mg PO TID 09/04/16 Folic Acid 1 mg PO DAILY 09/04/16 Latanoprost 0.005% Eye Drops [Xalatan 0.005% Eye Drops -] 1 drop OU HS 03/29/17 Magnesium Oxide [Mag-Ox -] 400 mg PO DAILY 09/04/16 Midodrine HCl [Proamatine -] 5 mg PO BID 09/04/16 Mirtazapine [Remeron -] 15 mg PO HS 09/04/16 Multivitamin [Poly-Vitamin] 1 each PO DAILY 09/04/16 [place]-3 Acid Ethyl Esters [Lovaza -] 1,000 mg PO BID 09/04/16 Omeprazole 20 mg PO BID 09/04/16 Oxycodone HCl 5 mg PO QID PRN 09/04/16 Potassium Chloride 20 meq PO DAILY 09/04/16 Warfarin Na [Coumadin] 7 mg PO DAILY@1800 09/04/16 Family Disease History - Family Disease History Family History: Unremarkable (No premature CAD) Review of Systems - Review of Systems Constitutional: reports: No Symptoms Eyes: reports: No Symptoms HENT: reports: No Symptoms Cardiovascular: reports: No Symptoms Respiratory: reports: No Symptoms Genitourinary: reports: No Symptoms Endocrine: reports: No Symptoms Hematology/Lymphatic: reports: No Symptoms Vital Signs: Vital Signs Temperature 98.6 F 09/11/16 10:00 Pulse Rate 73 09/11/16 10:00 Respiratory Rate 18 09/11/16 10:00 Blood Pressure 122/71 09/11/16 10:00 O2 Sat by Pulse Oximetry (%) 96 09/10/16 21:16 Constitutional: Yes: No Distress Eyes: Yes: Conjunctiva Clear, EOM Intact HENT: Yes: Atraumatic, Normocephalic, Other (Tracheostomy present) Respiratory: Yes: CTA Bilaterally Gastrointestinal: Yes: Normal Bowel Sounds, Soft. No: Tenderness Cardiovascular: Yes: Regular Rate and Rhythm JVD: No Carotid Bruit: No Heart Sounds: Yes: S1, S2 Murmur: No: Systolic Murmur Extremities: Yes: Other (Dry gangrene of right 1st and 2nd toes) Edema: No Neurological: Yes: Alert, Oriented Psychiatric: Yes: WNL - Other Data Labs, Other Data: CBC, BMP 09/11/16 07:00 09/07/16 09:00 INR, PTT INR 1.31 (0.82-1.09) H 09/11/16 07:00 09/04/16 ECG: Normal sinus rhythm, rate 70 bpm Imaging - Results Chest X-ray: Report Reviewed (09/04/16: No active pulmonary disease), Image Reviewed Assessment/Plan 71 yo male with h/o pulmonary embolism on chronic anticoagulation (with coumadin ), hx laryngeal CA s/p laryngectomy, colo-vesicular fistula s/p repair, diverting colostomy, PAD, who was admitted on 09/05/16 with 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 Currently pending transmetatarsal amputation of right foot tomorrow. RECS: Patient does not have any cardiac contraindication to pending surgery and may proceed wiithout further cardiac evaluation. Patient to resume coumadin post-operatively when safe from bleeding risk standpoint per surgeon. Will see prn. Please call with questions.
[2016-09-11] MEDS: HEPARIN INFUSION - 500 ML IVPB SCH (15:39)
[2016-09-11] MEDS: LATANOPROST 0.005% OPHTH SOLN 2.5ML BOTTLE OU SCH (22:27)
[2016-09-11] MEDS: MIRTAZAPINE 15 MG TABLET (FP) PO SCH (22:27)
[2016-09-12] MEDS: HEPARIN INFUSION - 500 ML IVPB SCH ×2 (00:48→15:44)
[2016-09-12] MEDS: FERROUS SO4 325 MG TABLET (FP) PO SCH ×3 (05:45→21:22)
[2016-09-12] MEDS: DORZOLAMIDE 2% HCL OPHTHALMIC SOLUTION 10 ML BOTTLE OU SCH (06:13)
[2016-09-12] MEDS: ALBUTEROL SO4 2.5/IPRATROPIUM 0.5 INH SOL 3 ML VIAL.NEB. NEB SCH ×4 (06:15→23:40)
[2016-09-12] MEDS ORDERED: ONDANSETRON 4 MG/2 ML VIAL IVPUSH PRN ×2 (08:08→11:26)
[2016-09-12] MEDS ORDERED: PROMETHAZINE HCL 25 MG/1 ML VIAL IVPUSH PRN ×2 (08:08→11:26)
[2016-09-12] MEDS ORDERED: LACTATED RINGERS SOLUTION 1,000 ML IV SCH ×2 (08:15→11:26)
[2016-09-12 08:16] LABS: BASOPHIL 0.5 % (0-2.0); EOSINOPHIL 3.6 % (0-4.5); MCH 30.2 pg (25.7-33.7); MCHC 33.5 g/dl (32.0-35.9); MEAN CELL VOLUME 90.1 fl (80-96); MEAN PLT VOLUME 8.3 fl (7.5-11.1); NEUTROPHILS 73.7 % (42.8-82.8); PLATELET COUNT 319 K/MM3 (134-434); RDW 13.7 % (11.9-15.9); WHITE BLOOD COUNT 8.7 K/mm3 (4.0-10.0)
--- NOTE | 2016-09-12 08:17 | PN ---
Progress Note (short form) - Note Progress Note: PRe Op Note Patient seen and examined in holding area, no change in H&P Pateitn for TMA and HAMLET all Right foot secondary to Gangrene Consent Obtained and signed All Pre op labs notes X-rays reviewed Patient to the OR Problem List - Problems (1) Gangrene Code(s): I96 - GANGRENE, NOT ELSEWHERE CLASSIFIED (2) Peripheral vascular disease Code(s): I73.9 - PERIPHERAL VASCULAR DISEASE, UNSPECIFIED (3) Afib Code(s): I48.91 - UNSPECIFIED ATRIAL FIBRILLATION Qualifiers: Atrial fibrillation type: chronic Qualified Code(s): I48.2 - Chronic atrial fibrillation (4) HTN (hypertension) Code(s): I10 - ESSENTIAL (PRIMARY) HYPERTENSION Qualifiers: Hypertension type: essential hypertension Qualified Code(s): I10 - Essential (primary) hypertension (5) Hyperlipidemia Code(s): E78.5 - HYPERLIPIDEMIA, UNSPECIFIED
[2016-09-12 08:27] LABS: INR 1.19 (0.82-1.09); PROTHROMBIN TIME (PATIENT) 13.1 SEC (9.98-11.88)
[2016-09-12] MEDS ORDERED: LIDOCAINE HCL 2% (50ML VIAL) INF ONE (09:20)
[2016-09-12] MEDS: OMEGA-3 ACID ETHYL ESTERS (FATTY-ACIDS) 1 GM CAPSULE (FP) PO SCH ×2 (10:06→21:22)
[2016-09-12] MEDS: MAGNESIUM OXIDE 400 MG TABLET (FP) PO SCH (10:06)
[2016-09-12] MEDS: FOLIC ACID 1 MG TABLET (FP) PO SCH (10:06)
[2016-09-12] MEDS: MULTIVITAMINS (DAILY MVI) TABLET (FP) PO SCH (10:06)
[2016-09-12] MEDS: MIDODRINE HCL 5 MG TABLET PO SCH ×2 (10:06→18:09)
[2016-09-12] MEDS: PANTOPRAZOLE 20 MG TABLET (FP) PO SCH ×2 (10:06→21:22)
[2016-09-12] MEDS: POTASSIUM CHLORIDE TABS 20 MEQ TABLET.ER (FP) PO SCH (10:06)
[2016-09-12] MEDS: BRIMONIDINE TARTRATE 0.15% OPHTHALMIC 5 ML BOTTLE OU SCH ×2 (10:07→21:22)
--- NOTE | 2016-09-12 10:54 | OP ---
Operative Note - Note: Operative Date: 09/12/16 Pre-Operative Diagnosis: Gangrene right fore foot Operation: Trans metatarsal amputation with Tendo Achilles Lnegthening Findings: Gangrene across toes 1,2,3 and dusky appearance with no CFT toes 4and 5 all right foot Post-Operative Diagnosis: Same as Pre-op Surgeon: Raymundo Garcia Anesthesiologist/SHIPPING PACKER: Alejandro Wong Anesthesia: Local Specimens Removed: Bone and soft tissue ( Right Fore Foot) Estimated Blood Loss (mls): 25 Drains & Tubes with Location: none Operative Report Dictated: Yes
--- NOTE | 2016-09-12 11:03 | PROC ---
Procedure Note Procedure: Patetin underwent TMA right foot with Tendo Achilles Lengthening Patient tolerated all aspects of procedure and anesthesia well Transported to PACU with VSS in NAD and no active bleeding noted Will follow I will change dressing on the weekend
[2016-09-12] MEDS ORDERED: HEPARIN NA (PORCINE) 5,000 UNITS/ML 1ML VIAL IVPUSH PRN ×2 (11:26)
--- NOTE | 2016-09-12 11:44 | PN ---
Progress Note, Physician Chief Complaint: seen in pacu awake s/p tma and achiles tendon lenghtening - Current Medication List Current Medications: Active Medications Acetaminophen (Tylenol -) 650 mg PO QID PRN PRN Reason: PAIN/FEVER Albuterol/Ipratropium (Duoneb -) 1 amp NEB QIDR [facility] Brimonidine Tartrate (Alphagan 0.15% -) 1 drop OU BID TEDDY Dorzolamide HCl (Trusopt 2%) 1 drop OU AM [facility] Fentanyl (Sublimaze Injection -) 50 mcg IVPUSH [id number] PRN PRN Reason: PAIN Stop: 09/15/16 08:09 Ferrous Sulfate (Feosol -) 325 mg PO TID TEDDY Folic Acid (Folic Acid -) 1 mg PO DAILY TEDDY Heparin Sodium (Porcine) (Heparin -) 5,000 unit IVPUSH PRN PRN PRN Reason: Heparin Heparin Sodium (Porcine) (Heparin -) 1,000 unit IVPUSH PRN PRN PRN Reason: Heparin Heparin Sodium (Porcine) (Heparin -) 1,000 unit IVPUSH PRN PRN PRN Reason: Heparin Heparin Sodium (Porcine) (Heparin -) 5,000 unit IVPUSH PRN PRN PRN Reason: Heparin Heparin Sodium/Dextrose (Heparin Infusion -) 500 mls @ 16 mls/hr IVPB TITR TEDDY ; 800 UNITS/HR PRN Reason: Protocol Lactated Ringer's (Lactated Ringers Solution) 1,000 mls @ 125 mls/hr IV ASDIR TEDDY Latanoprost (Xalatan 0.005% Eye Drops -) 1 drop OU HS [facility] Magnesium Oxide (Mag-Ox -) 400 mg PO DAILY [facility] Midodrine (Proamatine -) 5 mg PO BID-MID TEDDY Mirtazapine (Remeron -) 15 mg PO HS [facility] Multivitamins/Minerals/Vitamin C (Tab-A-Vit -) 1 tab PO DAILY [facility] [id number]-6-[id number] Ethyl Esters (Lovaza -) 1 gm PO BID TEDDY Ondansetron HCl (Zofran Injection) 4 mg IVPUSH Q6H PRN PRN Reason: NAUSEA AND/OR VOMITING Stop: 09/12/16 14:09 Oxycodone HCl (Roxicodone -) 5 mg PO Q6H PRN Pantoprazole Sodium (Protonix -) 20 mg PO BID TEDDY Potassium Chloride (K-Dur -) 20 meq PO DAILY TEDDY Promethazine HCl (Phenergan Injection -) 12.5 mg IVPUSH Q6H PRN PRN Reason: NAUSEA Stop: 09/12/16 14:09 - Objective Vital Signs: Vital Signs Temperature 98.4 F 09/12/16 07:11 Pulse Rate 69 09/12/16 07:11 Respiratory Rate 20 09/12/16 07:11 Blood Pressure 120/69 09/12/16 07:11 O2 Sat by Pulse Oximetry (%) 100 09/11/16 12:00 Constitutional: Yes: Calm Neck: Yes: Other (trach) Cardiovascular: Yes: Regular Rate and Rhythm, S1, S2 Respiratory: Yes: CTA Bilaterally Gastrointestinal: Yes: Soft Wound/Incision: Yes: Dressing Dry and Intact Labs: CBC, BMP 09/12/16 06:15 09/07/16 09:00 INR, PTT INR 1.19 (0.82-1.09) H 09/12/16 06:15 Problem List - Problems (1) Gangrene Assessment/Plan: s/pTMA and achillles tendon lenghtening Code(s): I96 - GANGRENE, NOT ELSEWHERE CLASSIFIED (2) Peripheral vascular disease Assessment/Plan: TMA today Code(s): I73.9 - PERIPHERAL VASCULAR DISEASE, UNSPECIFIED (3) Pulmonary emboli Assessment/Plan: icv heparin Code(s): I26.99 - OTHER PULMONARY EMBOLISM WITHOUT ACUTE COR PULMONALE (4) Laryngeal cancer Assessment/Plan: s/p trach (5) Orthostatic hypotension Assessment/Plan: midodrine Code(s): I95.1 - ORTHOSTATIC HYPOTENSION
[2016-09-12] MEDS ORDERED: PT OWN MED DRAWER 7, Y5N ONE ×2 (15:39→21:02)
[2016-09-12] MEDS: HYDROCORTISONE 0.5% TOPICAL CREAM 30 GM TUBE TP SCH (15:44)
[2016-09-12] MEDS: LATANOPROST 0.005% OPHTH SOLN 2.5ML BOTTLE OU SCH (21:22)
[2016-09-12] MEDS: MIRTAZAPINE 15 MG TABLET (FP) PO SCH (21:22)
[2016-09-12] MEDS: oxyCODONE HCL 5 MG TABLET PO PRN (21:23)
[2016-09-12] MEDS: ACETAMINOPHEN 325 MG TABLET (FP) PO PRN (21:24)
[2016-09-12] MEDS: HEPARIN NA (PORCINE) 5,000 UNITS/ML 1ML VIAL IVPUSH PRN (22:52)
[2016-09-13] MEDS: FERROUS SO4 325 MG TABLET (FP) PO SCH ×3 (05:18→21:39)
[2016-09-13] MEDS: DORZOLAMIDE 2% HCL OPHTHALMIC SOLUTION 10 ML BOTTLE OU SCH (06:02)
[2016-09-13] MEDS: ALBUTEROL SO4 2.5/IPRATROPIUM 0.5 INH SOL 3 ML VIAL.NEB. NEB SCH ×4 (07:00→16:55)
--- NOTE | 2016-09-13 08:14 | OP ---
DATE OF OPERATION: 09/12/2016 SURGEON: Mina Messina DPM PREOPERATIVE DIAGNOSIS: Dry gangrene of the right foot with tight Achilles tendon of the right. POSTOPERATIVE DIAGNOSIS: Dry gangrene of the right foot with tight Achilles tendon of the right. OPERATION: Transmetatarsal amputation with percutaneous tendoachilles lengthening all right lower extremity. ANESTHESIA: Local with IV sedation. FINDINGS: The patient has dry gangrene across his digits 1, 2, and 3 with dusky appearance of digits 4 and 5 of the right foot. He also has a tight tendoachilles with limited ankle dorsiflexion. WOUND CLASSIFICATION: Clean. ESTIMATED BLOOD LOSS: 25 mL. SPECIMENS REMOVED: Bone and soft tissue, right forefoot. DRAINS: None. MATERIALS: None used. INDICATION FOR PROCEDURE: The patient is a pleasant 71-year-old male who was admitted to [facility] for gangrene of his right foot. The patient underwent an angiogram and angioplasty by Dr. Boston to increase flow to his right lower extremity. This procedure was done several days ago. I was then asked to see the patient, and it was determined that due to the level of the gangrene and the quality of his vascular status, a transmetatarsal amputation needed to be performed. The risks were discussed with the patient as well as his . No guarantees were given or implied as to the outcome of the procedure, and the need for possible future surgery including, but not limited to, a further proximal amputation was explained to the patient and the . After all their questions were answered to their satisfaction, consent was obtained. The patient was met this morning in the holding area, and once again, the procedure was discussed. The proper extremity was confirmed with the patient and marked with my initials. DESCRIPTION OF PROCEDURE: The patient was then transported into the operating room and placed on the operating room in a supine position and in good anatomical alignment with all bony prominences padded well. A time-out was called to confirm the nature of the procedure, the proper extremity to be worked on, and the identity of the patient. Once confirmed, attention was then directed to the right lower extremity where utilizing 2% lidocaine plain approximately 20 mL an ankle block was performed. The right foot was prepped and draped in the usual sterile fashion. Attention was then turned to the right forefoot where a fishmouth incision was made with the dorsal incision proximal and the plantar incision distal. The incision was carried down to the bone. All vessels transversing the incision line were identified and ligated as necessary. Utilizing a sagittal saw, a transmetatarsal amputation was performed. The forefoot was then handed off a sterile field and sent to Pathology for both gross and microscopic examination. The remaining portions of the bone were then rasped smooth. The surgical site was then flushed with copious amounts of normal saline. Hemostasis was noted to be under control. Attention was then turned to the posterior aspect of the right leg where 2 medial and 1 lateral stab incision was made starting 1 cm proximal to the superior aspect of the calcaneus. Once all 3 incisions were made and the tendoachilles was released, ankle joint dorsiflexion was noted to be past neutral, and there was no plantar flexion attitude of the forefoot. The deep tissue at the amputation site was then reapproximated using 2-0 Vicryl suture material in a simple interrupted fashion. The skin and skin flap was reapproximated using bryant. There was no evidence of any tension on the flap. It had good capillary refill and was noted to be warm to the touch. The incisions on the posterior aspect of the leg were all closed with 4-0 nylon suture material in a simple interrupted fashion. All surgical sites were dressed with Betadine-soaked Adaptic, Betadine-soaked gauze, dry, sterile gauze, Moustapha wrap, and an Sterling wrap. The instrument, needle, and sponge counts were all noted to be correct. Hemostasis was noted to be under control. The patient was transported to post anesthesia care unit with vital signs stable in no apparent distress. The patient will be discharged to the floor as per post anesthesia care unit criteria. MINA RUVALCABA DPM [id number]
[2016-09-13 08:49] LABS: BASOPHIL 0.5 % (0-2.0); EOSINOPHIL 0.9 % (0-4.5); MCH 29.9 pg (25.7-33.7); MCHC 33.3 g/dl (32.0-35.9); MEAN CELL VOLUME 89.7 fl (80-96); MEAN PLT VOLUME 8.2 fl (7.5-11.1); PLATELET COUNT 311 K/MM3 (134-434); RDW 13.5 % (11.9-15.9); WHITE BLOOD COUNT 13.3 K/mm3 (4.0-10.0)
[2016-09-13 08:53] LABS: INR 1.29 (0.82-1.09); PROTHROMBIN TIME (PATIENT) 14.3 SEC (9.98-11.88)
[2016-09-13] MEDS: ACETAMINOPHEN 325 MG TABLET (FP) PO PRN (09:05)
[2016-09-13] MEDS: MIDODRINE HCL 5 MG TABLET PO SCH ×2 (09:06→17:33)
[2016-09-13] MEDS: PANTOPRAZOLE 20 MG TABLET (FP) PO SCH ×2 (09:06→21:39)
[2016-09-13] MEDS: oxyCODONE HCL 5 MG TABLET PO PRN (09:06)
[2016-09-13] MEDS: FOLIC ACID 1 MG TABLET (FP) PO SCH (09:06)
[2016-09-13] MEDS: MAGNESIUM OXIDE 400 MG TABLET (FP) PO SCH (09:06)
[2016-09-13] MEDS: MULTIVITAMINS (DAILY MVI) TABLET (FP) PO SCH (09:06)
[2016-09-13] MEDS: OMEGA-3 ACID ETHYL ESTERS (FATTY-ACIDS) 1 GM CAPSULE (FP) PO SCH ×2 (09:07→21:39)
[2016-09-13] MEDS: HYDROCORTISONE 0.5% TOPICAL CREAM 30 GM TUBE TP SCH (09:08)
[2016-09-13] MEDS: BRIMONIDINE TARTRATE 0.15% OPHTHALMIC 5 ML BOTTLE OU SCH ×2 (09:10→21:40)
[2016-09-13] MEDS: HEPARIN NA (PORCINE) 5,000 UNITS/ML 1ML VIAL IVPUSH PRN (09:15)
[2016-09-13] MEDS ORDERED: POTASSIUM CHLORIDE TABS 20 MEQ TABLET.ER (FP) PO SCH (10:00)
--- NOTE | 2016-09-13 12:41 | PN ---
Progress Note, Physician Chief Complaint: awake and alert - Current Medication List Current Medications: Active Medications Acetaminophen (Tylenol -) 650 mg PO QID PRN PRN Reason: PAIN/FEVER Last Admin: 09/13/16 09:05 Dose: 650 mg Albuterol/Ipratropium (Duoneb -) 1 amp NEB QIDR [facility] Last Admin: 09/13/16 11:37 Dose: 1 amp Brimonidine Tartrate (Alphagan 0.15% -) 1 drop OU BID [facility] Last Admin: 09/13/16 09:10 Dose: 1 drop Dorzolamide HCl (Trusopt 2%) 1 drop OU AM [facility] Last Admin: 09/13/16 06:02 Dose: 1 drop Fentanyl (Sublimaze Injection -) 50 mcg IVPUSH [id number] PRN PRN Reason: PAIN Stop: 09/15/16 12:12 Ferrous Sulfate (Feosol -) 325 mg PO TID [facility] Last Admin: 09/13/16 05:18 Dose: 325 mg Folic Acid (Folic Acid -) 1 mg PO DAILY [facility] Last Admin: 09/13/16 09:06 Dose: 1 mg Heparin Sodium (Porcine) (Heparin -) 5,000 unit IVPUSH PRN PRN PRN Reason: Heparin Last Admin: 09/13/16 09:15 Dose: 5,000 unit Heparin Sodium (Porcine) (Heparin -) 1,000 unit IVPUSH PRN PRN PRN Reason: Heparin Hydrocortisone (Hytone 0.5% Cream -) 1 applic TP DAILY [facility] Last Admin: 09/13/16 09:08 Dose: 1 applic Heparin Sodium/Dextrose (Heparin Infusion -) 500 mls @ 16 mls/hr IVPB TITR TEDDY ; 800 UNITS/HR PRN Reason: Protocol Last Titration: 09/13/16 09:15 Dose: 1,100 units/hr Latanoprost (Xalatan 0.005% Eye Drops -) 1 drop OU HS [facility] Last Admin: 09/12/16 21:22 Dose: 1 drop Magnesium Oxide (Mag-Ox -) 400 mg PO DAILY [facility] Last Admin: 09/13/16 09:06 Dose: 400 mg Midodrine (Proamatine -) 5 mg PO BID-MID [facility] Last Admin: 09/13/16 09:06 Dose: 5 mg Mirtazapine (Remeron -) 15 mg PO HS [facility] Last Admin: 09/12/16 21:22 Dose: 15 mg Multivitamins/Minerals/Vitamin C (Tab-A-Vit -) 1 tab PO DAILY [facility] Last Admin: 09/13/16 09:06 Dose: 1 tab Eetcc-8-Dhjf Ethyl Esters (Lovaza -) 1 gm PO BID [facility] Last Admin: 09/13/16 09:07 Dose: 1 gm Oxycodone HCl (Roxicodone -) 5 mg PO Q6H PRN Last Admin: 09/13/16 09:06 Dose: 5 mg Pantoprazole Sodium (Protonix -) 20 mg PO BID [facility] Last Admin: 09/13/16 09:06 Dose: 20 mg - Objective Vital Signs: Vital Signs Temperature 98.1 F 09/13/16 06:34 Pulse Rate 99 H 09/13/16 06:34 Respiratory Rate 20 09/13/16 06:34 Blood Pressure 148/98 09/13/16 06:34 O2 Sat by Pulse Oximetry (%) 100 09/12/16 13:43 Constitutional: Yes: Calm Neck: Yes: Trachea Midline, Other (trach) Cardiovascular: Yes: Regular Rate and Rhythm, S1, S2 Respiratory: Yes: CTA Bilaterally Gastrointestinal: Yes: Normal Bowel Sounds, Soft Edema: No Wound/Incision: Yes: Dressing Dry and Intact Neurological: Yes: Alert, Oriented Labs: CBC, BMP 09/13/16 06:15 09/07/16 09:00 INR, PTT INR 1.29 (0.82-1.09) H 09/13/16 06:15 Problem List - Problems (1) Gangrene Assessment/Plan: s/pTMA and achillles tendon lenghtening podiatry to change dressing on weekend Code(s): I96 - GANGRENE, NOT ELSEWHERE CLASSIFIED (2) Peripheral vascular disease Assessment/Plan: POD 1 gonzales; start coumadin tomorrow heparin to coumadin before he can go backto [place] Code(s): I73.9 - PERIPHERAL VASCULAR DISEASE, UNSPECIFIED (3) Pulmonary emboli Assessment/Plan: will start coumadin tmw night and monitor inr Code(s): I26.99 - OTHER PULMONARY EMBOLISM WITHOUT ACUTE COR PULMONALE (4) Laryngeal cancer Assessment/Plan: s/p trach (5) Orthostatic hypotension Assessment/Plan: midodrine Code(s): I95.1 - ORTHOSTATIC HYPOTENSION
[2016-09-13] MEDS: HEPARIN INFUSION - 500 ML IVPB SCH (17:36)
[2016-09-13] MEDS: LATANOPROST 0.005% OPHTH SOLN 2.5ML BOTTLE OU SCH (21:39)
[2016-09-13] MEDS: MIRTAZAPINE 15 MG TABLET (FP) PO SCH (21:39)
[2016-09-14] MEDS: ALBUTEROL SO4 2.5/IPRATROPIUM 0.5 INH SOL 3 ML VIAL.NEB. NEB SCH ×4 (00:15→18:12)
[2016-09-14] MEDS: DORZOLAMIDE 2% HCL OPHTHALMIC SOLUTION 10 ML BOTTLE OU SCH (06:12)
[2016-09-14] MEDS: FERROUS SO4 325 MG TABLET (FP) PO SCH ×3 (06:12→23:19)
[2016-09-14 08:13] LABS: MCH 29.7 pg (25.7-33.7); MCHC 33.4 g/dl (32.0-35.9); MEAN CELL VOLUME 89.1 fl (80-96); MEAN PLT VOLUME 8.3 fl (7.5-11.1); PLATELET COUNT 264 K/MM3 (134-434); RDW 13.6 % (11.9-15.9); WHITE BLOOD COUNT 14.5 K/mm3 (4.0-10.0)
[2016-09-14 08:34] LABS: INR 1.49 (0.82-1.09); PROTHROMBIN TIME (PATIENT) 16.5 SEC (9.98-11.88)
[2016-09-14 08:37] LABS: ALBUMIN 2.7 g/dl (3.4-5.0); ANION GAP 13 (8-16); CO2 22 mmol/L (21-32); GLUCOSE,RANDOM 99 mg/dL (74-106); MAGNESIUM 1.6 mg/dL (1.8-2.4); SGOT/AST 20 U/L (15-37); SGPT/ALT 19 U/L (12-78)
[2016-09-14 08:40] LABS: ALK PHOS 79 U/L (45-117); BILIRUBIN,TOTAL 0.6 mg/dL (0.2-1.0); TOT PROT 6.9 g/dl (6.4-8.2)
[2016-09-14] MEDS ORDERED: PT OWN MED DRAWER 7, Y5N ONE (10:36)
[2016-09-14] MEDS: OMEGA-3 ACID ETHYL ESTERS (FATTY-ACIDS) 1 GM CAPSULE (FP) PO SCH ×2 (10:40→23:22)
[2016-09-14] MEDS: FOLIC ACID 1 MG TABLET (FP) PO SCH (10:40)
[2016-09-14] MEDS: MAGNESIUM OXIDE 400 MG TABLET (FP) PO SCH (10:40)
[2016-09-14] MEDS: MULTIVITAMINS (DAILY MVI) TABLET (FP) PO SCH (10:41)
[2016-09-14] MEDS: PANTOPRAZOLE 20 MG TABLET (FP) PO SCH ×2 (10:41→23:19)
[2016-09-14] MEDS: MIDODRINE HCL 5 MG TABLET PO SCH ×2 (10:41→17:48)
[2016-09-14] MEDS: BRIMONIDINE TARTRATE 0.15% OPHTHALMIC 5 ML BOTTLE OU SCH ×2 (10:42→23:21)
[2016-09-14] MEDS: HYDROCORTISONE 0.5% TOPICAL CREAM 30 GM TUBE TP SCH (10:42)
[2016-09-14] MEDS: HEPARIN NA (PORCINE) 5,000 UNITS/ML 1ML VIAL IVPUSH PRN (10:58)
[2016-09-14] MEDS: HEPARIN INFUSION - 500 ML IVPB SCH ×2 (11:00→14:39)
--- NOTE | 2016-09-14 11:10 | PN ---
Progress Note, Physician Chief Complaint: sleepy - Current Medication List Current Medications: Active Medications Acetaminophen (Tylenol -) 650 mg PO QID PRN PRN Reason: PAIN/FEVER Last Admin: 09/13/16 09:05 Dose: 650 mg Albuterol/Ipratropium (Duoneb -) 1 amp NEB QIDR [facility] Last Admin: 09/14/16 07:26 Dose: 1 amp Brimonidine Tartrate (Alphagan 0.15% -) 1 drop OU BID [facility] Last Admin: 09/14/16 10:42 Dose: 1 drop Dorzolamide HCl (Trusopt 2%) 1 drop OU AM TED[facility] Last Admin: 09/14/16 06:12 Dose: 1 drop Fentanyl (Sublimaze Injection -) 50 mcg IVPUSH [id number] PRN PRN Reason: PAIN Stop: 09/15/16 12:12 Ferrous Sulfate (Feosol -) 325 mg PO TID [facility] Last Admin: 09/14/16 06:12 Dose: 325 mg Folic Acid (Folic Acid -) 1 mg PO DAILY [facility] Last Admin: 09/14/16 10:40 Dose: 1 mg Heparin Sodium (Porcine) (Heparin -) 5,000 unit IVPUSH PRN PRN PRN Reason: Heparin Last Admin: 09/13/16 09:15 Dose: 5,000 unit Heparin Sodium (Porcine) (Heparin -) 1,000 unit IVPUSH PRN PRN PRN Reason: Heparin Last Admin: 09/14/16 10:58 Dose: 1,000 unit Hydrocortisone (Hytone 0.5% Cream -) 1 applic TP DAILY [facility] Last Admin: 09/14/16 10:42 Dose: 1 applic Heparin Sodium/Dextrose (Heparin Infusion -) 500 mls @ 16 mls/hr IVPB TITR TEDDY ; 800 UNITS/HR PRN Reason: Protocol Last Admin: 09/14/16 11:00 Dose: 24 mls/hr Latanoprost (Xalatan 0.005% Eye Drops -) 1 drop OU HS [facility] Last Admin: 09/13/16 21:39 Dose: 1 drop Magnesium Oxide (Mag-Ox -) 400 mg PO DAILY [facility] Last Admin: 09/14/16 10:40 Dose: 400 mg Midodrine (Proamatine -) 5 mg PO BID-MID [facility] Last Admin: 09/14/16 10:41 Dose: 5 mg Mirtazapine (Remeron -) 15 mg PO HS [facility] Last Admin: 09/13/16 21:39 Dose: 15 mg Multivitamins/Minerals/Vitamin C (Tab-A-Vit -) 1 tab PO DAILY [facility] Last Admin: 09/14/16 10:41 Dose: 1 tab Alssp-9-Fcoy Ethyl Esters (Lovaza -) 1 gm PO BID [facility] Last Admin: 09/14/16 10:40 Dose: 1 gm Oxycodone HCl (Roxicodone -) 5 mg PO Q6H PRN Last Admin: 09/13/16 09:06 Dose: 5 mg Pantoprazole Sodium (Protonix -) 20 mg PO BID [facility] Last Admin: 09/14/16 10:41 Dose: 20 mg Potassium Chloride (K-Dur -) 20 meq PO ONCE ONE Stop: 09/14/16 11:09 Warfarin Sodium (Coumadin -) 7 mg PO DAILY@1800 [facility] - Objective Vital Signs: Vital Signs Temperature 99.8 F H 09/14/16 06:47 Pulse Rate 93 H 09/14/16 06:47 Respiratory Rate 20 09/14/16 06:47 Blood Pressure 119/68 09/14/16 06:47 O2 Sat by Pulse Oximetry (%) 96 09/13/16 21:00 Constitutional: Yes: Calm Neck: Yes: WNL Cardiovascular: Yes: WNL Respiratory: Yes: WNL Gastrointestinal: Yes: WNL Edema: No Labs: CBC, BMP 09/14/16 06:20 09/14/16 06:20 INR, PTT INR 1.49 (0.82-1.09) H 09/14/16 06:20 Problem List - Problems (1) Gangrene Code(s): I96 - GANGRENE, NOT ELSEWHERE CLASSIFIED (2) Peripheral vascular disease Code(s): I73.9 - PERIPHERAL VASCULAR DISEASE, UNSPECIFIED Assessment/Plan (1) Gangrene Assessment/Plan: s/pTMA and achillles tendon lenghtening podiatry to change dressing on weekend Code(s): I96 - GANGRENE, NOT ELSEWHERE CLASSIFIED (2) Peripheral vascular disease Assessment/Plan: start coumadin heparin to coumadin before he can go backto [place] Code(s): I73.9 - PERIPHERAL VASCULAR DISEASE, UNSPECIFIED (3) Pulmonary emboli Assessment/Plan: start coumadin tmw night and monitor inr Code(s): I26.99 - OTHER PULMONARY EMBOLISM WITHOUT ACUTE COR PULMONALE (4) Laryngeal cancer Assessment/Plan: s/p trach (5) Orthostatic hypotension Assessment/Plan: midodrine Code(s): I95.1 - ORTHOSTATIC HYPOTENSION [facility]
[2016-09-14] MEDS ORDERED: POTASSIUM CHLORIDE TABS 20 MEQ TABLET.ER (FP) PO ONE (12:00)
[2016-09-14] MEDS ORDERED: WARFARIN NA 5 MG TABLET (UD) ONE (17:41)
[2016-09-14] MEDS ORDERED: WARFARIN NA 2 MG TABLET (UD) ONE (17:41)
[2016-09-14] MEDS: WARFARIN NA 5 MG, WARFARIN NA 2 MG PO SCH (17:48)
[2016-09-14] MEDS ORDERED: WARFARIN NA 1 MG TABLET (FP) PO SCH (18:00)
[2016-09-14] MEDS: ACETAMINOPHEN 325 MG TABLET (FP) PO PRN (18:53)
[2016-09-14] MEDS: MIRTAZAPINE 15 MG TABLET (FP) PO SCH (23:20)
[2016-09-14] MEDS: oxyCODONE HCL 5 MG TABLET PO PRN (23:20)
[2016-09-14] MEDS: LATANOPROST 0.005% OPHTH SOLN 2.5ML BOTTLE OU SCH (23:21)
[2016-09-15] MEDS: ALBUTEROL SO4 2.5/IPRATROPIUM 0.5 INH SOL 3 ML VIAL.NEB. NEB SCH ×4 (00:10→18:34)
[2016-09-15] MEDS: DORZOLAMIDE 2% HCL OPHTHALMIC SOLUTION 10 ML BOTTLE OU SCH (06:35)
[2016-09-15] MEDS: FERROUS SO4 325 MG TABLET (FP) PO SCH ×3 (06:35→22:20)
[2016-09-15 08:16] LABS: MCH 30.2 pg (25.7-33.7); MCHC 33.8 g/dl (32.0-35.9); MEAN CELL VOLUME 89.3 fl (80-96); MEAN PLT VOLUME 8.5 fl (7.5-11.1); PLATELET COUNT 257 K/MM3 (134-434); RDW 14.3 % (11.9-15.9); WHITE BLOOD COUNT 15.3 K/mm3 (4.0-10.0)
[2016-09-15 08:25] LABS: INR 1.4 (0.82-1.09); PROTHROMBIN TIME (PATIENT) 15.5 SEC (9.98-11.88)
--- NOTE | 2016-09-15 08:43 | PN ---
Progress Note (short form) - Note Progress Note: PODIATRY NOTE Patient seen bedside, Post-Op day # 3 resting comfortably eating lunch. Appreciate that bandage was taken off and re-applied by nursing Right foot: Dressing loose but clean dry intact. Upon removal bryant intact wound well coapted with no dehiscence. No drainage no mal odor slight color change to flap but not sure if its due to excessive motion/pressure from patient moving especially since flap warm to touch. Achilles sx sites clean and dry with sutures intact 3 days S/P TMA with HAMLET all right doing well thus far Today, paint sx sites with betadine, apply betadine DSD Leukocytosis? will follow Dressing change by me in 3 days All notes read & appreciated Problem List - Problems (1) Gangrene Code(s): I96 - GANGRENE, NOT ELSEWHERE CLASSIFIED (2) Peripheral vascular disease Code(s): I73.9 - PERIPHERAL VASCULAR DISEASE, UNSPECIFIED (3) Afib Code(s): I48.91 - UNSPECIFIED ATRIAL FIBRILLATION Qualifiers: Atrial fibrillation type: chronic Qualified Code(s): I48.2 - Chronic atrial fibrillation (4) HTN (hypertension) Code(s): I10 - ESSENTIAL (PRIMARY) HYPERTENSION Qualifiers: Hypertension type: essential hypertension Qualified Code(s): I10 - Essential (primary) hypertension (5) Hyperlipidemia Code(s): E78.5 - HYPERLIPIDEMIA, UNSPECIFIED
[2016-09-15 08:57] LABS: ALBUMIN 2.5 g/dl (3.4-5.0); ALK PHOS 89 U/L (45-117); ANION GAP 12 (8-16); BILIRUBIN,TOTAL 0.5 mg/dL (0.2-1.0); CALCIUM 8.1 mg/dL (8.5-10.1); CO2 22 mmol/L (21-32); COCKROFT - GAULT 68.55; CREATININE 1.1 mg/dL (0.7-1.3); GLUCOSE,RANDOM 110 mg/dL (74-106); SGOT/AST 24 U/L (15-37); SGPT/ALT 23 U/L (12-78); TOT PROT 6.8 g/dl (6.4-8.2)
--- NOTE | 2016-09-15 09:23 | PN ---
Progress Note, Physician Chief Complaint: CALM - Current Medication List Current Medications: Active Medications Acetaminophen (Tylenol -) 650 mg PO QID PRN PRN Reason: PAIN/FEVER Last Admin: 09/14/16 18:53 Dose: 650 mg Albuterol/Ipratropium (Duoneb -) 1 amp NEB QIDR [facility] Last Admin: 09/15/16 06:31 Dose: Not Given Brimonidine Tartrate (Alphagan 0.15% -) 1 drop OU BID [facility] Last Admin: 09/14/16 23:21 Dose: 1 drop Dorzolamide HCl (Trusopt 2%) 1 drop OU AM [facility] Last Admin: 09/15/16 06:35 Dose: 1 drop Fentanyl (Sublimaze Injection -) 50 mcg IVPUSH [id number] PRN PRN Reason: PAIN Stop: 09/15/16 12:12 Ferrous Sulfate (Feosol -) 325 mg PO TID [facility] Last Admin: 09/15/16 06:35 Dose: 325 mg Folic Acid (Folic Acid -) 1 mg PO DAILY [facility] Last Admin: 09/14/16 10:40 Dose: 1 mg Heparin Sodium (Porcine) (Heparin -) 5,000 unit IVPUSH PRN PRN PRN Reason: Heparin Last Admin: 09/13/16 09:15 Dose: 5,000 unit Heparin Sodium (Porcine) (Heparin -) 1,000 unit IVPUSH PRN PRN PRN Reason: Heparin Last Admin: 09/14/16 10:58 Dose: 1,000 unit Hydrocortisone (Hytone 0.5% Cream -) 1 applic TP DAILY [facility] Last Admin: 09/14/16 10:42 Dose: 1 applic Heparin Sodium/Dextrose (Heparin Infusion -) 500 mls @ 16 mls/hr IVPB TITR TEDDY ; 800 UNITS/HR PRN Reason: Protocol Last Admin: 09/14/16 14:39 Dose: 24 mls/hr Latanoprost (Xalatan 0.005% Eye Drops -) 1 drop OU HS [facility] Last Admin: 09/14/16 23:21 Dose: 1 drop Magnesium Oxide (Mag-Ox -) 400 mg PO DAILY [facility] Last Admin: 09/14/16 10:40 Dose: 400 mg Midodrine (Proamatine -) 5 mg PO BID-MID [facility] Last Admin: 09/14/16 17:48 Dose: 5 mg Mirtazapine (Remeron -) 15 mg PO HS [facility] Last Admin: 09/14/16 23:20 Dose: 15 mg Multivitamins/Minerals/Vitamin C (Tab-A-Vit -) 1 tab PO DAILY [facility] Last Admin: 09/14/16 10:41 Dose: 1 tab Nisrf-8-Rwek Ethyl Esters (Lovaza -) 1 gm PO BID [facility] Last Admin: 09/14/16 23:22 Dose: 1 gm Oxycodone HCl (Roxicodone -) 5 mg PO Q6H PRN Last Admin: 09/14/16 23:20 Dose: 5 mg Pantoprazole Sodium (Protonix -) 20 mg PO BID [facility] Last Admin: 09/14/16 23:19 Dose: 20 mg Warfarin Sodium 5 mg/ Warfarin (Sodium 2 mg) 7 mg PO DAILY@1800 [facility] Last Admin: 09/14/16 17:48 Dose: 7 mg - Objective Vital Signs: Vital Signs Temperature 100.3 F H 09/14/16 15:12 Pulse Rate 90 09/14/16 15:12 Respiratory Rate 18 09/14/16 22:00 Blood Pressure 89/57 09/14/16 15:12 O2 Sat by Pulse Oximetry (%) 96 09/14/16 21:00 Constitutional: Yes: Calm Neck: Yes: WNL Cardiovascular: Yes: WNL Respiratory: Yes: WNL Gastrointestinal: Yes: WNL Edema: No Labs: CBC, BMP 09/15/16 06:30 09/15/16 06:30 INR, PTT INR 1.40 (0.82-1.09) H 09/15/16 06:30 Problem List - Problems (1) Gangrene Code(s): I96 - GANGRENE, NOT ELSEWHERE CLASSIFIED (2) Peripheral vascular disease Code(s): I73.9 - PERIPHERAL VASCULAR DISEASE, UNSPECIFIED Assessment/Plan (1) Gangrene Assessment/Plan: s/pTMA and achillles tendon lenghtening podiatry to change dressing on weekend Code(s): I96 - GANGRENE, NOT ELSEWHERE CLASSIFIED (2) Peripheral vascular disease Assessment/Plan: started coumadin heparin to coumadin before he can go backto [place] -> consider lovenox Code(s): I73.9 - PERIPHERAL VASCULAR DISEASE, UNSPECIFIED (3) Pulmonary emboli Assessment/Plan: start coumadin tmw night and monitor inr Code(s): I26.99 - OTHER PULMONARY EMBOLISM WITHOUT ACUTE COR PULMONALE (4) Laryngeal cancer Assessment/Plan: s/p trach (5) Orthostatic hypotension Assessment/Plan: midodrine Code(s): I95.1 - ORTHOSTATIC HYPOTENSION DISCHARGE PLAN BACK TO SNF ONCE INR THERAPEUTIC SERVICE COORDINATOR FM
[2016-09-15] MEDS ORDERED: POTASSIUM CHLORIDE TABS 20 MEQ TABLET.ER (FP) PO ONE (09:45)
[2016-09-15] MEDS ORDERED: PT OWN MED DRAWER 7, Y5N ONE (11:05)
[2016-09-15] MEDS: BRIMONIDINE TARTRATE 0.15% OPHTHALMIC 5 ML BOTTLE OU SCH ×2 (11:08→22:23)
[2016-09-15] MEDS: PANTOPRAZOLE 20 MG TABLET (FP) PO SCH ×2 (11:09→22:20)
[2016-09-15] MEDS: MIDODRINE HCL 5 MG TABLET PO SCH ×2 (11:09→17:54)
[2016-09-15] MEDS: FOLIC ACID 1 MG TABLET (FP) PO SCH (11:09)
[2016-09-15] MEDS: OMEGA-3 ACID ETHYL ESTERS (FATTY-ACIDS) 1 GM CAPSULE (FP) PO SCH ×2 (11:09→22:20)
[2016-09-15] MEDS: MAGNESIUM OXIDE 400 MG TABLET (FP) PO SCH (11:09)
[2016-09-15] MEDS: HYDROCORTISONE 0.5% TOPICAL CREAM 30 GM TUBE TP SCH (11:09)
[2016-09-15] MEDS: MULTIVITAMINS (DAILY MVI) TABLET (FP) PO SCH (11:10)
[2016-09-15] MEDS: HEPARIN INFUSION - 500 ML IVPB SCH ×3 (11:10→20:26)
[2016-09-15] MEDS: HEPARIN NA (PORCINE) 5,000 UNITS/ML 1ML VIAL IVPUSH PRN (11:40)
[2016-09-15] MEDS ORDERED: WARFARIN NA 2 MG TABLET (UD) ONE (17:47)
[2016-09-15] MEDS ORDERED: WARFARIN NA 5 MG TABLET (UD) ONE (17:47)
[2016-09-15] MEDS: WARFARIN NA 5 MG, WARFARIN NA 2 MG PO SCH (17:55)
[2016-09-15] MEDS: ACETAMINOPHEN 325 MG TABLET (FP) PO PRN (17:55)
[2016-09-15] MEDS: MIRTAZAPINE 15 MG TABLET (FP) PO SCH (22:21)
[2016-09-15] MEDS: oxyCODONE HCL 5 MG TABLET PO PRN (22:21)
[2016-09-15] MEDS: LATANOPROST 0.005% OPHTH SOLN 2.5ML BOTTLE OU SCH (22:23)
[2016-09-16] MEDS: ALBUTEROL SO4 2.5/IPRATROPIUM 0.5 INH SOL 3 ML VIAL.NEB. NEB SCH ×5 (06:30→23:47)
[2016-09-16] MEDS: HEPARIN INFUSION - 500 ML IVPB SCH ×2 (06:36→15:39)
[2016-09-16] MEDS: FERROUS SO4 325 MG TABLET (FP) PO SCH ×3 (06:36→21:38)
[2016-09-16] MEDS: oxyCODONE HCL 5 MG TABLET PO PRN (06:41)
[2016-09-16 08:12] LABS: MCH 29.8 pg (25.7-33.7); MCHC 33.4 g/dl (32.0-35.9); MEAN CELL VOLUME 89.3 fl (80-96); MEAN PLT VOLUME 8.3 fl (7.5-11.1); PLATELET COUNT 263 K/MM3 (134-434); WHITE BLOOD COUNT 14.3 K/mm3 (4.0-10.0)
[2016-09-16 08:42] LABS: ALBUMIN 2.6 g/dl (3.4-5.0); ANION GAP 11 (8-16); CALCIUM 8.4 mg/dL (8.5-10.1); CO2 23 mmol/L (21-32); GLUCOSE,RANDOM 125 mg/dL (74-106)
[2016-09-16 08:46] LABS: ALK PHOS 100 U/L (45-117); BILIRUBIN,TOTAL 0.5 mg/dL (0.2-1.0); SGOT/AST 30 U/L (15-37); SGPT/ALT 35 U/L (12-78)
[2016-09-16] MEDS ORDERED: PT OWN MED DRAWER 7, Y5N ONE (09:12)
[2016-09-16] MEDS: PANTOPRAZOLE 20 MG TABLET (FP) PO SCH ×2 (09:13→21:38)
[2016-09-16] MEDS: MIDODRINE HCL 5 MG TABLET PO SCH ×2 (09:13→18:21)
[2016-09-16] MEDS: MAGNESIUM OXIDE 400 MG TABLET (FP) PO SCH (09:13)
[2016-09-16] MEDS: MULTIVITAMINS (DAILY MVI) TABLET (FP) PO SCH (09:13)
[2016-09-16] MEDS: BRIMONIDINE TARTRATE 0.15% OPHTHALMIC 5 ML BOTTLE OU SCH ×2 (09:14→21:43)
[2016-09-16] MEDS: HYDROCORTISONE 0.5% TOPICAL CREAM 30 GM TUBE TP SCH (09:14)
[2016-09-16] MEDS: DORZOLAMIDE 2% HCL OPHTHALMIC SOLUTION 10 ML BOTTLE OU SCH (09:14)
[2016-09-16] MEDS: FOLIC ACID 1 MG TABLET (FP) PO SCH (09:14)
[2016-09-16 10:54] LABS: INR 1.63 (0.82-1.09); PROTHROMBIN TIME (PATIENT) 18.1 SEC (9.98-11.88)
--- NOTE | 2016-09-16 11:47 | PN ---
Progress Note, Physician Chief Complaint: in bed calm on heparin drip - Current Medication List Current Medications: Active Medications Acetaminophen (Tylenol -) 650 mg PO QID PRN PRN Reason: PAIN/FEVER Last Admin: 09/15/16 17:55 Dose: 650 mg Albuterol/Ipratropium (Duoneb -) 1 amp NEB QIDR [facility] Last Admin: 09/16/16 06:30 Dose: Not Given Brimonidine Tartrate (Alphagan 0.15% -) 1 drop OU BID [facility] Last Admin: 09/16/16 09:14 Dose: 1 drop Dorzolamide HCl (Trusopt 2%) 1 drop OU AM [facility] Last Admin: 09/16/16 09:14 Dose: 1 drop Ferrous Sulfate (Feosol -) 325 mg PO TID [facility] Last Admin: 09/16/16 06:36 Dose: 325 mg Folic Acid (Folic Acid -) 1 mg PO DAILY [facility] Last Admin: 09/16/16 09:14 Dose: 1 mg Heparin Sodium (Porcine) (Heparin -) 5,000 unit IVPUSH PRN PRN PRN Reason: Heparin Last Admin: 09/13/16 09:15 Dose: 5,000 unit Heparin Sodium (Porcine) (Heparin -) 1,000 unit IVPUSH PRN PRN PRN Reason: Heparin Last Admin: 09/15/16 11:40 Dose: 1,000 unit Hydrocortisone (Hytone 0.5% Cream -) 1 applic TP DAILY [facility] Last Admin: 09/16/16 09:14 Dose: 1 applic Heparin Sodium/Dextrose (Heparin Infusion -) 500 mls @ 16 mls/hr IVPB TITR TEDDY ; 800 UNITS/HR PRN Reason: Protocol Last Admin: 09/16/16 06:36 Dose: 26 mls/hr Latanoprost (Xalatan 0.005% Eye Drops -) 1 drop OU HS [facility] Last Admin: 09/15/16 22:23 Dose: 1 drop Magnesium Oxide (Mag-Ox -) 400 mg PO DAILY [facility] Last Admin: 09/16/16 09:13 Dose: 400 mg Midodrine (Proamatine -) 5 mg PO BID-MID [facility] Last Admin: 09/16/16 09:13 Dose: 5 mg Mirtazapine (Remeron -) 15 mg PO HS [facility] Last Admin: 09/15/16 22:21 Dose: 15 mg Multivitamins/Minerals/Vitamin C (Tab-A-Vit -) 1 tab PO DAILY [facility] Last Admin: 09/16/16 09:13 Dose: 1 tab [id number] Ethyl Esters (Lovaza -) 1 gm PO BID [facility] Last Admin: 09/15/16 22:20 Dose: 1 gm Oxycodone HCl (Roxicodone -) 5 mg PO Q6H PRN Last Admin: 09/16/16 06:41 Dose: 5 mg Pantoprazole Sodium (Protonix -) 20 mg PO BID [facility] Last Admin: 09/16/16 09:13 Dose: 20 mg Warfarin Sodium (Coumadin -) 8 mg PO DAILY@1800 [facility] - Objective Vital Signs: Vital Signs Temperature 98.5 F 09/16/16 06:00 Pulse Rate 86 09/16/16 06:00 Respiratory Rate 18 09/16/16 06:00 Blood Pressure 98/57 09/16/16 06:00 O2 Sat by Pulse Oximetry (%) 98 09/15/16 21:00 Constitutional: Yes: Calm, Thin Neck: Yes: Other (trach) Cardiovascular: Yes: Regular Rate and Rhythm, S1, S2 Respiratory: Yes: CTA Bilaterally, Diminished (on bases) Gastrointestinal: Yes: Normal Bowel Sounds, Soft Edema: No Wound/Incision: Yes: Dressing Dry and Intact Neurological: Yes: Alert, Oriented Labs: CBC, BMP 09/16/16 07:00 09/16/16 07:00 INR, PTT INR 1.63 (0.82-1.09) H 09/16/16 07:00 Problem List - Problems (1) Gangrene Assessment/Plan: s/pTMA and achillles tendon lenghtening drssing change yesterday next change on friday iv heparin to couamdin Code(s): I96 - GANGRENE, NOT ELSEWHERE CLASSIFIED (2) Peripheral vascular disease Assessment/Plan: increase couamdin dose check inr in am Code(s): I73.9 - PERIPHERAL VASCULAR DISEASE, UNSPECIFIED (3) Pulmonary emboli Assessment/Plan: inr in am inc couamdin tonight Code(s): I26.99 - OTHER PULMONARY EMBOLISM WITHOUT ACUTE COR PULMONALE (4) Laryngeal cancer Assessment/Plan: s/p trach (5) Orthostatic hypotension Assessment/Plan: midodrine Code(s): I95.1 - ORTHOSTATIC HYPOTENSION Assessment/Plan heparin to couamdin next dressing change friday
[2016-09-16] MEDS: OMEGA-3 ACID ETHYL ESTERS (FATTY-ACIDS) 1 GM CAPSULE (FP) PO SCH ×2 (11:53→21:38)
--- NOTE | 2016-09-16 14:31 | PATH ---
Surgical Pathology Report Patient Name: FIDELIA VELEZ [facility]. Rec. #: [id number] /Age/Gender: 1945 (Age: 71) / M Account: [id number] Location: [facility] MED/SURG Taken: 09/12/2016 Received: 09/12/2016 Reported: 09/16/2016 Physicians: Raymundo Garcia DPM Specimen(s) Received TRANSMETATARSAL AMPUTATION RIGHT FOOT (FOREFOOT) & TENDONS Clinical History Peripheral vascular disease, gangrene right foot (forefoot) Final Diagnosis RIGHT FOREFOOT AND TENDONS, TRANSMETATARSAL AMPUTATION: SKIN, SOFT TISSUE AND UNDERLYING BONE WITH GANGRENOUS NECROSIS. SKIN AND SOFT TISSUE AT THE RESECTION MARGIN APPEAR VIABLE WITH FOCAL HEMORRHAGE. BONES AT RESECTION MARGIN APPEAR VIABLE WITH FOCAL HEMORRHAGE (FIRST METATARSAL). BENIGN FIBROCONNECTIVE TENDON TISSUE. Electronically Signed Lawrence Kessler M.D. Gross Description Received in formalin labeled "transmetatarsal amputation right foot and tendons" is a 9.0 x 8.8 x 3.0 cm transmetatarsal amputation specimen. The specimen displays an 8.6 x 6.8 cm black, gangrenous lesion focally extending to 0.4 cm from the skin and soft tissue margin of resection on the dorsal surface. The lesion involves digits 1-4 as well as the underlying bone. Also received within the same container is a 6.5 x 1.5 x 0.4 cm aggregate of multiple rausch, irregular portions of tendon. Sales Project Coordinator sections are submitted in 6 cassettes as follows: 1-lesion with underlying bone, following decalcification; 2-bone margin from hallux, following decalcification; 3-bone margin from second and third digits, following decalcification; 4-bone margin from fourth and fifth digits, following decalcification; 5-skin and soft tissue margin of resection; 6-authorization representative separately received tendons. 09/13/201609/13/2016
[2016-09-16] MEDS: ACETAMINOPHEN 325 MG TABLET (FP) PO PRN (15:38)
[2016-09-16] MEDS ORDERED: WARFARIN NA 3 MG TABLET PO SCH (18:00)
[2016-09-16] MEDS ORDERED: WARFARIN NA 5 MG TABLET (UD) PO SCH (18:00)
[2016-09-16] MEDS: MIRTAZAPINE 15 MG TABLET (FP) PO SCH (21:38)
[2016-09-16] MEDS: LATANOPROST 0.005% OPHTH SOLN 2.5ML BOTTLE OU SCH (21:44)
[2016-09-17] MEDS: HEPARIN INFUSION - 500 ML IVPB SCH (02:36)
[2016-09-17] MEDS: FERROUS SO4 325 MG TABLET (FP) PO SCH (05:24)
[2016-09-17] MEDS: DORZOLAMIDE 2% HCL OPHTHALMIC SOLUTION 10 ML BOTTLE OU SCH (06:08)
[2016-09-17] MEDS: ALBUTEROL SO4 2.5/IPRATROPIUM 0.5 INH SOL 3 ML VIAL.NEB. NEB SCH ×2 (07:03→11:46)
[2016-09-17 08:23] LABS: MCH 29.3 pg (25.7-33.7); MCHC 32.7 g/dl (32.0-35.9); MEAN CELL VOLUME 89.8 fl (80-96); MEAN PLT VOLUME 8.3 fl (7.5-11.1); PLATELET COUNT 294 K/MM3 (134-434); RDW 14.3 % (11.9-15.9); WHITE BLOOD COUNT 13.2 K/mm3 (4.0-10.0)
[2016-09-17 08:37] VITALS: BP 99/65; PULSE 93; TEMP 98.3
[2016-09-17 09:33] LABS: INR 2.58 (0.82-1.09); PROTHROMBIN TIME (PATIENT) 28.9 SEC (9.98-11.88)
[2016-09-17] MEDS ORDERED: PT OWN MED DRAWER 7, Y5N ONE (09:39)
[2016-09-17] MEDS: FOLIC ACID 1 MG TABLET (FP) PO SCH (09:44)
[2016-09-17] MEDS: MAGNESIUM OXIDE 400 MG TABLET (FP) PO SCH (09:44)
[2016-09-17] MEDS: OMEGA-3 ACID ETHYL ESTERS (FATTY-ACIDS) 1 GM CAPSULE (FP) PO SCH (09:44)
[2016-09-17] MEDS: HYDROCORTISONE 0.5% TOPICAL CREAM 30 GM TUBE TP SCH (09:45)
[2016-09-17] MEDS: BRIMONIDINE TARTRATE 0.15% OPHTHALMIC 5 ML BOTTLE OU SCH (09:45)
[2016-09-17] MEDS: MULTIVITAMINS (DAILY MVI) TABLET (FP) PO SCH (09:45)
[2016-09-17] MEDS: PANTOPRAZOLE 20 MG TABLET (FP) PO SCH (09:45)
[2016-09-17] MEDS: MIDODRINE HCL 5 MG TABLET PO SCH (09:45)
--- NOTE | 2016-09-17 10:52 | DS ---
Physical Examination Vital Signs: Vital Signs Temperature 98.3 F 09/17/16 08:20 Pulse Rate 93 H 09/17/16 08:20 Respiratory Rate 18 09/17/16 08:20 Blood Pressure 99/65 09/17/16 08:20 O2 Sat by Pulse Oximetry (%) 99 09/16/16 21:00 low grade temp Constitutional: Yes: Calm Neck: Yes: Trachea Midline, Other (tracheostomy) Cardiovascular: Yes: Regular Rate and Rhythm, Murmur, S1, S2 Respiratory: Yes: CTA Bilaterally Gastrointestinal: Yes: Normal Bowel Sounds, Soft Extremities: Yes: Other (left stump soft bryant clean, discoloration noted) Labs: CBC, BMP 09/17/16 07:15 09/16/16 07:00 Discharge Summary Reason For Visit: PERIPHERAL VASCULAR DISEASE Current Active Problems Gangrene (Acute) Peripheral vascular disease (Acute) Other Procedures: TMA and arteriogram Hospital Course: The patient is a 71 year old male, with a significant past medical history of s/ p largenectomy, PVD, DM, who presents to the emergency department with 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 The patient reports having pain in his right foot with any weight bearing activities or movement. He denies any recent fevers , chills, headache or dizziness. He denies any recent nausea, vomit, or diarrhea. Allergies: Penicillins but has tolerated cephalosporin in the past Past surgical history: None reported. Social History: Former smoker. Primary Care Physician: patient had arteriogram shows no flow in distal toes of left foot then had TMA and achiles tendon lenghtening slight low grade temp with WBC count will start on abx d/w podiatry he will see patient tmw at wound care center iv heparin to couamdn INR Is therapeutic - Instructions Diet, Activity, Other Instructions: INR on MWF have patient go to woundcare center on 09/18/[address] Mayer for left foot keflex po bid for 7 days weekly BMP check Referrals: Nat Bear MD [Primary Care Provider] - Disposition: [facility] - Home Medications Comprehensive Discharge Medication List: Ambulatory Orders Aa/Hydrolyzed Collagen, Whey [Lps Neutral Flavor Liquid] 30 ml PO DAILY Acetaminophen [Tylenol] 650 mg PO QID PRN 09/04/16 Albuterol 2.5/Ipratropium 0.5 [Duoneb -] 1 amp NEB QID 09/04/16 Brimonidine Tartrate [Alphagan 0.15% -] 1 drop BID 09/04/16 Collagenase Clostridium Hist. [Santyl -] 1 applic TP BID 09/04/16 Dorzolamide HCl [Trusopt 2%] 1 drop AM 09/04/16 Famotidine 10 mg PO AM 09/04/16 Ferrous Sulfate 325 mg PO TID 09/04/16 Folic Acid 1 mg PO DAILY 09/04/16 Latanoprost 0.005% Eye Drops [Xalatan 0.005% Eye Drops -] 1 drop OU HS 09/04/16 Magnesium Oxide [Mag-Ox -] 400 mg PO DAILY 09/04/16 Midodrine HCl [Proamatine -] 5 mg PO BID 09/04/16 Mirtazapine [Remeron -] 15 mg PO HS 09/04/16 Multivitamin [Poly-Vitamin] 1 each PO DAILY 09/04/16 [place]-3 Acid Ethyl Esters [Lovaza -] 1,000 mg PO BID 09/04/16 Omeprazole 20 mg PO BID 09/04/16 Oxycodone HCl 5 mg PO QID PRN 09/04/16 Potassium Chloride 20 meq PO DAILY 09/04/16 Warfarin Na [Coumadin] 7 mg PO DAILY@1800 09/04/16
[2016-09-17] MEDS ORDERED: CEPHALEXIN MONOHYDRATE 500 MG CAPSULE (UD) PO SCH (11:15)
[2016-09-17] MEDS: ACETAMINOPHEN 325 MG TABLET (FP) PO PRN (12:00)
== END 2016-09-17 13:40 | DRG 240 ==
LOC: JER 12:34 → JERBED 14:49 → J8W 09-05 10:40
PROVIDERS: ADMIT Family Medicine; ATTEND Family Medicine
PROC: 0Y6M0ZB Detachment at Right Foot, Partial 2nd Ray, Open Approach (ICD-10-PCS; 2016-09-09)
PROC: 0Y6M0ZC Detachment at Right Foot, Partial 3rd Ray, Open Approach (ICD-10-PCS; 2016-09-09)
PROC: 0Y6M0ZD Detachment at Right Foot, Partial 4th Ray, Open Approach (ICD-10-PCS; 2016-09-09)
PROC: 0Y6M0ZF Detachment at Right Foot, Partial 5th Ray, Open Approach (ICD-10-PCS; 2016-09-09)
PROC: 0L8N3ZZ Division of Right Lower Leg Tendon, Percutaneous Approach (ICD-10-PCS; 2016-09-09)
PROC: B40DYZZ Plain Radiography of Aorta and Bilateral Lower Extremity Arteries using Other Contrast (ICD-10-PCS; 2016-09-09)
PROC: B40FYZZ Plain Radiography of Right Lower Extremity Arteries using Other Contrast (ICD-10-PCS; 2016-09-09)
PROC: 0Y6M0Z9 Detachment at Right Foot, Partial 1st Ray, Open Approach (ICD-10-PCS; principal; 2016-09-09 12:30)
DX: E11.52 Type 2 diabetes mellitus with diabetic peripheral angiopathy with gangrene (principal); K57.92 Diverticulitis of intestine, part unspecified, without perforation or abscess without bleeding; D64.9 Anemia, unspecified; E78.5 Hyperlipidemia, unspecified; F03.90 Unspecified dementia, unspecified severity, without behavioral disturbance, psychotic disturbance, mood disturbance, and anxiety; I48.2 Chronic atrial fibrillation; J44.9 Chronic obstructive pulmonary disease, unspecified; I10 Essential (primary) hypertension; M19.90 Unspecified osteoarthritis, unspecified site; M54.5 Low back pain; I95.1 Orthostatic hypotension; Z86.711 Personal history of pulmonary embolism; Z85.21 Personal history of malignant neoplasm of larynx; Z93.0 Tracheostomy status; Z87.891 Personal history of nicotine dependence; Z88.0 Allergy status to penicillin; Z93.3 Colostomy status
CPT/HCPCS: 36415; 71010-TC; 73630-TC-RT; 76000-TC; 80053; 82272; 83735; 85025; 85027; 85610; 85651; 85730; 86140; 86850; 86900; 86901; 88305-TC; 88311-TC; 93005; 93010; 94640; 94760; 99285-25; J1644

== ENCOUNTER 2016-09-18 16:22 | Inpatient (IN) | payer OTHER, BC ==
--- NOTE | 2016-09-18 17:50 | PDOC ---
History of Present Illness - General History Source: Patient Exam Limitations: Clinical Condition - History of Present Illness Initial Comments: 09/18/16 18:15 The patient is a 71-year-old man with a significant past medical history of anemia, hypertension, laryngeal Ca with permanent tracheostomy and laryngectomy , chronic obstructive pulmonary disease, pulmonary embolism (on Coumadin), seizure disorder, dementia, gastroesophageal reflux disease and urinary tract infection who was discharge form this hospital yesterday and was sent to the emergency department by Dr. Garcia and Dr. Stanley Boston today for further evaluation of right foot gangrene (avascular necrosis). Patient is scheduled for right below the knee amputation after the reversal of Coumadin. HPI is limited. Allergies: Penicillin Past Surgical History: Colostomy. TME and HAMLET of the right foot Social History: No tobacco, ETOH and recreational drug use. Wound Care: Dr. Raymundo Garcia ext [phone] Vascular Surgeon: Dr. Stanley Boston [phone] <Ana Wyman - Last Filed: 09/18/16 18:44> - General History Source: Patient, Old Records Exam Limitations: Clinical Condition <Daniella Callahan - Last Filed: 09/18/16 19:49> - General Chief Complaint: Wound Infection Stated Complaint: PCP ADMIT Time Seen by Provider: 09/18/16 17:18 Past History <Ana Wyman - Last Filed: 09/18/16 18:44> - Past Medical History Anemia: Yes Cancer: Yes (laryngeal CA w/ permenant tracheostomy) COPD: Yes (PE) GI Disorders: Yes (colostomy/GERD) Disorders: Yes (UTI) HTN: Yes Seizures: Yes (dementia) - Surgical History Abdominal Surgery: Yes (S/P COLOSTOMY; Hartmans procedure) - Immunization History Immunization Up to Date: Yes - Psycho/Social/Smoking Cessation Hx Anxiety: No Suicidal Ideation: No Smoking History: Never smoked Have you smoked in the past 12 months: No Information on smoking cessation initiated: No Hx Alcohol Use: No Drug/Substance Use Hx: No Substance Use Type: None <Daniella Callahan - Last Filed: 09/18/16 19:49> - Past Medical History Allergies/Adverse Reactions: Allergies Allergy/AdvReac Type Severity Reaction Status Date / Time Penicillins Allergy Unknown Verified 09/18/16 16:31 Home Medications: Ambulatory Orders Aa/Hydrolyzed Collagen, Whey [Lps Neutral Flavor Liquid] 30 ml PO DAILY Acetaminophen [Tylenol] 650 mg PO QID PRN 09/04/16 Albuterol 2.5/Ipratropium 0.5 [Duoneb -] 1 amp NEB QID 09/04/16 Brimonidine Tartrate [Alphagan 0.15% -] 1 drop BID 09/04/16 Dorzolamide HCl [Trusopt 2% -] 1 drop AM 09/04/16 Famotidine 10 mg PO AM 09/04/16 Ferrous Sulfate 325 mg PO TID 09/04/16 Folic Acid 1 mg PO DAILY 09/04/16 Latanoprost 0.005% Eye Drops [Xalatan 0.005% Eye Drops -] 1 drop OU HS 09/04/16 Magnesium Oxide [Mag-Ox -] 400 mg PO DAILY 09/04/16 Midodrine HCl [Proamatine -] 5 mg PO BID 09/04/16 Mirtazapine [Remeron -] 15 mg PO HS 09/04/16 Multivitamin [Poly-Vitamin] 1 each PO DAILY 09/04/16 [place]-3 Acid Ethyl Esters [Lovaza -] 1,000 mg PO BID 09/04/16 Omeprazole 20 mg PO BID 09/04/16 Oxycodone HCl 5 mg PO QID PRN 09/04/16 Potassium Chloride 20 meq PO DAILY 09/04/16 Warfarin Na [Coumadin -] 7 mg PO DAILY@1800 09/04/16 Cephalexin Monohydrate [Keflex -] 500 mg PO BID #14 tab MDD 2 09/17/16 Review of Systems - Review of Systems Able to Perform ROS?: No <Ana Wyman - Last Filed: 09/18/16 18:44> *Physical Exam - Vital Signs Last Vital Signs Temp Pulse Resp BP Pulse Ox 98.5 F 94 H 19 110/70 100 09/18/16 16:29 09/18/16 16:29 09/18/16 16:29 09/18/16 16:29 09/18/16 16:29 - Physical Exam Comments: 09/18/16 18:17 GENERAL: Awake and alert. No acute distress. Uncooperative, refusing extremity examination. HEENT: Normocephalic, atraumatic. PERRLA, EOMI. No conjunctival pallor. Sclera are non-icteric. Permanent tracheostomy. NECK: Supple. Full ROM. No JVD. CARDIOVASCULAR: Regular rate and rhythm. No murmurs, rubs, or gallops. PULMONARY: No evidence of respiratory distress. Coarse crackles. ABDOMINAL: Soft. Non-tender. Non-distended. No rebound or guarding. No organomegaly. Normoactive bowel sounds. MUSCULOSKELETAL: Normal range of motion at all joints. No bony deformities or tenderness. No CVA tenderness. EXTREMITIES: Refused extremity exam. SKIN: Warm and dry. Normal capillary refill. No rashes. No jaundice. NEUROLOGICAL: Alert, awake, appropriate. Cranial nerves 2-12 intact. <Ana Wyman - Last Filed: 09/18/16 18:44> - Vital Signs Last Vital Signs Temp Pulse Resp BP Pulse Ox 98.5 F 94 H 19 110/70 100 09/18/16 16:29 09/18/16 16:29 09/18/16 16:29 09/18/16 16:29 09/18/16 16:29 <Daniella Callahan - Last Filed: 09/18/16 19:49> ED Treatment Course - LABORATORY CBC & Chemistry Diagram: 09/18/16 18:45 09/18/16 18:45 <Daniella Callahan - Last Filed: 09/18/16 19:49> Medical Decision Making - Medical Decision Making 09/18/16 18:[address] Bear. Immediate connection. Case was discussed. 09/18/16 18:[address] Stanley Boston. 09/18/16 18:[address] Boston. Case was discussed. <Ana Wyman - Last Filed: 09/18/16 18:44> - Medical Decision Making 09/18/16 18:33 71-year-old male with history of laryngeal CA status post tracheostomy, colectomy, dementia, hypertension, COPD, pulmonary embolism on Coumadin status post TM E and HAMLET of the right foot discharge from the hospital yesterday but was referred to the ED today for Coumadin reversal for surgery prior to right BKA as the wound site appears gangrenous. Plan: 1. Labs 2. Admit 09/18/16 19:48 <Daniella Callahan - Last Filed: 09/18/16 19:49> *DC/Admit/Observation/Transfer - Attestations Scribe Attestion: 09/18/16 18:17 Documentation prepared by Ana Wyman, acting as medical liaison for Daniella Callahan MD. <Ana Wyman - Last Filed: 09/18/16 18:44> - Discharge Dispostion Admit: Yes - Attestations Physician Attestion: 09/18/16 18:36 I, Dr. Daniella Callahan, attest that the scribes documentation that appears above has been prepared under my direction and personally reviewed by me in its entirety. I confirmed that the note above accurately reflects all work, treatment, procedures, and medical decision-making performed by me. <Daniella Callahan - Last Filed: 09/18/16 19:49> Diagnosis at time of Disposition: Wound infection - Discharge Dispostion Condition at time of disposition: Stable
[2016-09-18 18:57] LABS: BASOPHIL 0.4 % (0-2.0); EOSINOPHIL 0.5 % (0-4.5); MCH 29.5 pg (25.7-33.7); MCHC 33.3 g/dl (32.0-35.9); MEAN CELL VOLUME 88.5 fl (80-96); MEAN PLT VOLUME 8.9 fl (7.5-11.1); NEUTROPHILS 85.3 % (42.8-82.8); PLATELET COUNT 398 K/MM3 (134-434); RDW 14.1 % (11.9-15.9)
[2016-09-18 19:11] LABS: INR 3.39 (0.82-1.09); PROTHROMBIN TIME (PATIENT) 38.2 SEC (9.98-11.88)
[2016-09-18 19:13] LABS: ACTIVATED PTT 40.9 SECONDS (26.9-34.4)
[2016-09-18 19:37] LABS: ALBUMIN 2.8 g/dl (3.4-5.0); ANION GAP 11 (8-16); BILIRUBIN,TOTAL 0.5 mg/dL (0.2-1.0); CALCIUM 8.7 mg/dL (8.5-10.1); CO2 24 mmol/L (21-32); COCKROFT - GAULT 55.12; CREATININE 1.2 mg/dL (0.7-1.3); GLUCOSE,RANDOM 107 mg/dL (74-106); SGOT/AST 48 U/L (15-37); SGPT/ALT 61 U/L (12-78)
[2016-09-18 19:40] LABS: ALK PHOS 154 U/L (45-117); TOT PROT 7.9 g/dl (6.4-8.2); TROPONIN I < 0.02 ng/ml (0.00-0.05)
[2016-09-18 20:06] LABS: VENOUS BLOOD GAS HCO3 21.8 meq/L (19-25); VENOUS PH 7.34 (7.32-7.42)
[2016-09-18] MEDS ORDERED: oxyCODONE HCL 5 MG TABLET PO PRN (21:59)
[2016-09-18] MEDS: BRIMONIDINE TARTRATE 0.15% OPHTHALMIC 5 ML BOTTLE OD SCH (22:00)
[2016-09-18] MEDS: LATANOPROST 0.005% OPHTH SOLN 2.5ML BOTTLE OU SCH (22:00)
[2016-09-18] MEDS: MIDODRINE HCL 5 MG TABLET PO SCH (22:05)
[2016-09-18] MEDS: PANTOPRAZOLE 20 MG TABLET (FP) PO SCH (22:20)
[2016-09-18 22:24] LABS: URINE APPEARANCE TURBID; URINE BILIRUBIN NEGATIVE (NEGATIVE); URINE COLOR YELLOW; URINE GLUCOSE (UA) NEGATIVE (NEGATIVE); URINE KETONE TRACE (NEGATIVE); URINE NITRITE NEGATIVE (NEGATIVE); URINE UROBILINOGEN NEGATIVE E.U./dl (0.2-1.0)
[2016-09-18] MEDS ORDERED: LEVOFLOXACIN 500 MG IVPB 100 ML IVPB SCH (22:30)
[2016-09-18 22:31] LABS: URINE BLOOD 3+ (NEGATIVE); URINE LEUK ESTERASE 2+ (NEGATIVE); URINE PROTEIN 2+ (NEGATIVE)
[2016-09-18 22:55] LABS: URINE MUCUS FEW; URINE RBC 182 /hpf (0-3); URINE WBC 1747 /hpf (3-5)
[2016-09-19] MEDS: ALBUTEROL SO4 2.5/IPRATROPIUM 0.5 INH SOL 3 ML VIAL.NEB. NEB SCH ×4 (00:05→23:35)
[2016-09-19] MEDS: LEVOFLOXACIN 500 MG IVPB 100 ML IVPB SCH ×2 (00:53→21:42)
[2016-09-19] MEDS: MIRTAZAPINE 15 MG TABLET (FP) PO SCH ×2 (07:08→21:41)
[2016-09-19 09:05] LABS: BASOPHIL 0.3 % (0-2.0); EOSINOPHIL 0.3 % (0-4.5); MCH 29.5 pg (25.7-33.7); MCHC 33.4 g/dl (32.0-35.9); MEAN CELL VOLUME 88.3 fl (80-96); MEAN PLT VOLUME 8.4 fl (7.5-11.1); NEUTROPHILS 86.9 % (42.8-82.8); PLATELET COUNT 358 K/MM3 (134-434); WHITE BLOOD COUNT 14.3 K/mm3 (4.0-10.0)
[2016-09-19 09:17] LABS: INR 3.8 (0.82-1.09)
[2016-09-19 09:23] LABS: ALBUMIN 2.5 g/dl (3.4-5.0); ANION GAP 12 (8-16); CALCIUM 8.3 mg/dL (8.5-10.1); CO2 20 mmol/L (21-32); GLUCOSE,RANDOM 130 mg/dL (74-106); MAGNESIUM 1.9 mg/dL (1.8-2.4)
[2016-09-19 09:27] LABS: ALK PHOS 128 U/L (45-117); BILIRUBIN,TOTAL 0.6 mg/dL (0.2-1.0); COCKROFT - GAULT 73.49; CREATININE 0.9 mg/dL (0.7-1.3); SGOT/AST 29 U/L (15-37); SGPT/ALT 49 U/L (12-78); TOT PROT 7.4 g/dl (6.4-8.2)
--- NOTE | 2016-09-19 10:15 | CON.CARD ---
Consult Consult Specialty:: Cardiology Referred by:: Dr Bear Reason for Consultation:: preop evaluation - History of Present Illness Chief Complaint: sent to ER for Gangrene History of Present Illness: 71-year-old man with a history of anemia, hypertension, laryngeal Ca s/p tracheostomy and laryngectomy, COPD, colo-vesicular fistula s/p colostomy, pulmonary embolism on Coumadin, seizure disorder, dementia, GERD and urinary tract infection recently admitted with PVD s/p right TMA now sent to the emergency department for right foot gangrene awaiting right TMA. Not able to give history due to dementia. Appears comfortable. 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 Cardio/Vascular: Yes: HTN Pulmonary: Yes: COPD, Pulmonary Embolus Gastrointestinal: Yes: Diverticulitis, Other (colovesicular fistula with diverticulosis , heme posistive stools) Renal/: Yes: UTI (recurrent) Musculoskeletal: Yes: Chronic low back pain, Osteoarthritis, Other (avascular necrosis of the hip) - Past Surgical History Past Surgical History: Yes: Amputation, Colectomy, Colostomy - Alcohol/Substance Use Hx Alcohol Use: No - Smoking History Smoking history: Never smoked Have you smoked in the past 12 months: No - Social History Usual Living Arrangement: Assisted ADL: Support Services History of Recent Travel: No Home Medications - Allergies Allergies/Adverse Reactions: Allergies Allergy/AdvReac Type Severity Reaction Status Date / Time Penicillins Allergy Unknown Verified 09/18/16 16:31 - Home Medications Home Medications: Ambulatory Orders Aa/Hydrolyzed Collagen, Whey [Lps Neutral Flavor Liquid] 30 ml PO DAILY Acetaminophen [Tylenol] 650 mg PO QID PRN 09/04/16 Albuterol 2.5/Ipratropium 0.5 [Duoneb -] 1 amp NEB QID 09/04/16 Brimonidine Tartrate [Alphagan 0.15% -] 1 drop BID 09/04/16 Dorzolamide HCl [Trusopt 2% -] 1 drop AM 09/04/16 Famotidine 10 mg PO AM 09/04/16 Ferrous Sulfate 325 mg PO TID 09/04/16 Folic Acid 1 mg PO DAILY 09/04/16 Latanoprost 0.005% Eye Drops [Xalatan 0.005% Eye Drops -] 1 drop OU HS 09/04/16 Magnesium Oxide [Mag-Ox -] 400 mg PO DAILY 09/04/16 Midodrine HCl [Proamatine -] 5 mg PO BID 09/04/16 Mirtazapine [Remeron -] 15 mg PO HS 09/04/16 Multivitamin [Poly-Vitamin] 1 each PO DAILY 09/04/16 [place]-3 Acid Ethyl Esters [Lovaza -] 1,000 mg PO BID 09/04/16 Omeprazole 20 mg PO BID 09/04/16 Oxycodone HCl 5 mg PO QID PRN 09/04/16 Potassium Chloride 20 meq PO DAILY 09/04/16 Warfarin Na [Coumadin -] 7 mg PO DAILY@1800 09/04/16 Cephalexin Monohydrate [Keflex -] 500 mg PO BID #14 tab MDD 2 09/17/16 Family Disease History - Family Disease History Family History: Unable to Obtain Review of Systems Unable to obtain ROS, reason: dementia Vital Signs: Vital Signs Temperature 98.5 F 09/19/16 06:12 Pulse Rate 77 09/19/16 06:12 Respiratory Rate 20 09/19/16 06:12 Blood Pressure 108/73 09/19/16 06:12 O2 Sat by Pulse Oximetry (%) 99 09/19/16 06:12 Constitutional: Yes: No Distress Eyes: Yes: WNL HENT: Yes: Atraumatic, Normocephalic Neck: Yes: Supple, Other (tracheostomy) Respiratory: Yes: CTA Bilaterally Gastrointestinal: Yes: WNL Renal/: Yes: WNL Cardiovascular: Yes: WNL JVD: No Carotid Bruit: No PMI: Non-Displaced Heart Sounds: Yes: S1, S2 Murmur: Yes: Systolic Murmur, Grade 1 Musculoskeletal: Yes: WNL Extremities: Yes: WNL, Cool, Delayed Capillary Refill Peripheral Pulses: 0 Right Popliteal, 0 Right Dorsalis Pedis, 1+ Right Femoral, 1+ Left Popliteal, 1+ Left Doralis Pedis Integumentary: Yes: Venous Stasis Changes - Other Data Labs, Other Data: CBC, BMP 09/19/16 08:15 09/19/16 08:15 INR, PTT INR 3.80 (0.82-1.09) H 09/19/16 08:15 NSR nssttw changes, PVC. Echo: Report Reviewed (04/2015 normal EF, mac, moderate aortic sclerosis) Imaging - Results Chest X-ray: Report Reviewed (Trach, ASAO, KELLY uncoiled aorta.) EKG: Image Reviewed Problem List - Problems (1) Preop cardiovascular exam Assessment/Plan: There are no cardiac contraindications to surgery. He is medically optimized for the OR when coumadin is reversed. He is at intermediate risk. No further preop testing is needed. Restart coumadin when stable postop. Code(s): Z01.810 - ENCOUNTER FOR PREPROCEDURAL CARDIOVASCULAR EXAMINATION
[2016-09-19] MEDS: BRIMONIDINE TARTRATE 0.15% OPHTHALMIC 5 ML BOTTLE OD SCH ×2 (10:28→21:40)
[2016-09-19] MEDS: FERROUS SO4 325 MG TABLET (FP) PO SCH ×3 (10:29→17:30)
[2016-09-19] MEDS: MIDODRINE HCL 5 MG TABLET PO SCH ×2 (10:30→21:41)
[2016-09-19] MEDS: PANTOPRAZOLE 20 MG TABLET (FP) PO SCH ×2 (10:30→21:41)
[2016-09-19] MEDS: FOLIC ACID 1 MG TABLET (FP) PO SCH (10:30)
--- NOTE | 2016-09-19 11:02 | HP ---
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 Mayer and Dr. Stanley Boston today for further evaluation of right foot gangrene (avascular necrosis). Patient is scheduled for right below the knee amputation after the reversal of Coumadin. pateint is admitted for right BKA he was recently discharged and to go to wound care center yesterday, today his stump blackened discoloration which was not like that on the day of his last discharge and was discharge on course of keflex as well in ER WBC 15 and INR 3.3 History Source: Medical Record - Past Medical History YOUTH CARE SPECIALIST: Yes: Dementia Cardiovascular: Yes: HTN Pulmonary: Yes: COPD, Pulmonary Embolus Gastrointestinal: Yes: Diverticulitis, Other (colovesicular fistula with diverticulosis , heme posistive stools) Renal/: Yes: UTI (recurrent) Heme/Onc: Yes: Anemia, Cancer (laryngeal cancer with permanent tracheostomy ) Musculoskeletal: Yes: Chronic low back pain, Osteoarthritis, Other (avascular necrosis of the hip) - Past Surgical History Past Surgical History: Yes: Amputation, Colectomy, Colostomy - Smoking History Smoking history: Never smoked Have you smoked in the past 12 months: No - Alcohol/Substance Use Hx Alcohol Use: No - Social History ADL: Support Services History of Recent Travel: No Home Medications - Allergies Allergies/Adverse Reactions: Allergies Allergy/AdvReac Type Severity Reaction Status Date / Time Penicillins Allergy Unknown Verified 09/18/16 16:31 - Home Medications Home Medications: Ambulatory Orders Aa/Hydrolyzed Collagen, Whey [Lps Neutral Flavor Liquid] 30 ml PO DAILY Acetaminophen [Tylenol] 650 mg PO QID PRN 09/04/16 Albuterol 2.5/Ipratropium 0.5 [Duoneb -] 1 amp NEB QID 09/04/16 Brimonidine Tartrate [Alphagan 0.15% -] 1 drop BID 09/04/16 Dorzolamide HCl [Trusopt 2% -] 1 drop AM 09/04/16 Famotidine 10 mg PO AM 09/04/16 Ferrous Sulfate 325 mg PO TID 09/04/16 Folic Acid 1 mg PO DAILY 09/04/16 Latanoprost 0.005% Eye Drops [Xalatan 0.005% Eye Drops -] 1 drop OU HS 09/04/16 Magnesium Oxide [Mag-Ox -] 400 mg PO DAILY 09/04/16 Midodrine HCl [Proamatine -] 5 mg PO BID 09/04/16 Mirtazapine [Remeron -] 15 mg PO HS 09/04/16 Multivitamin [Poly-Vitamin] 1 each PO DAILY 09/04/16 [place]-3 Acid Ethyl Esters [Lovaza -] 1,000 mg PO BID 09/04/16 Omeprazole 20 mg PO BID 09/04/16 Oxycodone HCl 5 mg PO QID PRN 09/04/16 Potassium Chloride 20 meq PO DAILY 09/04/16 Warfarin Na [Coumadin -] 7 mg PO DAILY@1800 09/04/16 Cephalexin Monohydrate [Keflex -] 500 mg PO BID #14 tab MDD 2 09/17/16 Review of Systems - Review of Systems Neck: reports: No Symptoms Cardiovascular: reports: No Symptoms Respiratory: reports: No Symptoms Gastrointestinal: reports: No Symptoms Musculoskeletal: reports: Other (pain in right stump) Physical Examination Vital Signs: Vital Signs Temperature 98.5 F 09/19/16 06:12 Pulse Rate 77 09/19/16 06:12 Respiratory Rate 20 09/19/16 06:12 Blood Pressure 108/73 09/19/16 06:12 O2 Sat by Pulse Oximetry (%) 99 09/19/16 06:12 Constitutional: Yes: Calm Neck: Yes: Other (trach) Cardiovascular: Yes: Murmur, S1, S2 Respiratory: Yes: CTA Bilaterally Gastrointestinal: Yes: Normal Bowel Sounds, Soft Extremities: Yes: Other (right stump black discoloration which is spreading from the base of stup upwards tender to touch bryant clean) Labs: CBC, BMP 09/19/16 08:15 09/19/16 08:15 Imaging - Results Chest X-ray: Report Reviewed Problem List - Problems (1) Gangrene Assessment/Plan: spreading gnagrene of right stump hold coumadin when INR < 2.0 start heparin drip cardio clearance done vascular and podiatry on board to get Right BKA once INR < 2.0 iv abx Code(s): I96 - GANGRENE, NOT ELSEWHERE CLASSIFIED (2) Laryngeal cancer Assessment/Plan: s/p trach trach care (3) Orthostatic hypotension Assessment/Plan: midodrine Code(s): I95.1 - ORTHOSTATIC HYPOTENSION (4) Glaucoma Assessment/Plan: eye drops Code(s): H40.9 - UNSPECIFIED GLAUCOMA
--- NOTE | 2016-09-19 11:37 | EKG ---
Test Reason : Blood Pressure : / mmHG Vent. Rate : 077 BPM Atrial Rate : 077 BPM P-R Int : 112 ms QRS Dur : 096 ms QT Int : 424 ms P-R-T Axes : 051 004 033 degrees QTc Int : 479 ms POOR DATA QUALITY, INTERPRETATION MAY BE ADVERSELY AFFECTED SINUS RHYTHM WITH OCCASIONAL PREMATURE VENTRICULAR COMPLEXES OTHERWISE NORMAL ECG WHEN COMPARED WITH ECG OF 18-SEP-2016 18:55, PREMATURE VENTRICULAR COMPLEXES ARE NOW PRESENT Confirmed by NIRALI MONROY MD ([id number]) on 09/19/2016 11:36:36 AM Referred By: PANFILO NEGRO Confirmed By:NIRALI MONROY MD
--- NOTE | 2016-09-19 11:39 | EKG ---
Test Reason : Blood Pressure : / mmHG Vent. Rate : 089 BPM Atrial Rate : 089 BPM P-R Int : 100 ms QRS Dur : 086 ms QT Int : 384 ms P-R-T Axes : 024 012 051 degrees QTc Int : 467 ms POOR DATA QUALITY, INTERPRETATION MAY BE ADVERSELY AFFECTED SINUS RHYTHM WHEN COMPARED WITH ECG OF 05-SEP-2016 09:01, NO SIGNIFICANT CHANGE WAS FOUND Confirmed by PORFIRIO ARIZMENDI, NIRALI ([id number]) on 09/19/2016 11:39:24 AM Referred By: Confirmed By:NIRALI MONROY MD
[2016-09-19] MEDS ORDERED: PHYTONADIONE 10 MG/1 ML AMP IVPB ONE (15:29)
[2016-09-19 17:00] VITALS: BMI 19.0
[2016-09-19] MEDS ORDERED: PT OWN MED DRAWER 7, Y5N ONE (17:25)
--- NOTE | 2016-09-19 17:45 | PN ---
Progress Note (short form) - Note Progress Note: Vascular surgery Pt seen and examined yest in wound care center.
--- NOTE | 2016-09-19 17:47 | PN ---
Progress Note (short form) - Note Progress Note: Vascular Surgery Pt seen in wound care center yest. Recently had right TMA by podiatry, - now comes in with nonhealing flap. Will need BKA. INR is 3.80. Will do BKA once INR is normal. Can start IV heparin once Cr is less than 2. Stanley Boston DO
[2016-09-19] MEDS: ACETAMINOPHEN 325 MG TABLET (FP) PO PRN (18:47)
[2016-09-19] MEDS: DORZOLAMIDE 2% HCL OPHTHALMIC SOLUTION 10 ML BOTTLE OU SCH (19:54)
[2016-09-19] MEDS: LATANOPROST 0.005% OPHTH SOLN 2.5ML BOTTLE OU SCH (21:41)
[2016-09-19 22:25] LABS: INR 2.13 (0.82-1.09); PROTHROMBIN TIME (PATIENT) 23.8 SEC (9.98-11.88)
[2016-09-20] MEDS: DORZOLAMIDE 2% HCL OPHTHALMIC SOLUTION 10 ML BOTTLE OU SCH (06:14)
[2016-09-20] MEDS ORDERED: PT OWN MED DRAWER 7, Y5N ONE ×2 (06:16→10:49)
[2016-09-20] MEDS: ALBUTEROL SO4 2.5/IPRATROPIUM 0.5 INH SOL 3 ML VIAL.NEB. NEB SCH ×3 (07:02→17:48)
[2016-09-20] MEDS: FERROUS SO4 325 MG TABLET (FP) PO SCH ×3 (08:10→17:32)
[2016-09-20 09:14] LABS: BASOPHIL 0.4 % (0-2.0); EOSINOPHIL 0.3 % (0-4.5); MCH 30.3 pg (25.7-33.7); MCHC 34.1 g/dl (32.0-35.9); MEAN CELL VOLUME 88.9 fl (80-96); NEUTROPHILS 89.3 % (42.8-82.8); PLATELET COUNT 325 K/MM3 (134-434); RDW 14.2 % (11.9-15.9); WHITE BLOOD COUNT 12.6 K/mm3 (4.0-10.0)
--- NOTE | 2016-09-20 09:32 | PN ---
Progress Note (short form) - Note Progress Note: ID consult dictated imp/reccd 71 year old man just discharged 09/17 after right foot TMA on 09/12 for right foot gangrene of toes He was noted to have dry gangrene of the right TMA stump the day after discharge at the wound center and sent back to the hospital he was seen by vascular surgery and plan is for Right BKA today he had low grade fever overnight and we are asked to evaluate him he has dementia and is unable to give any history he is resting comfortably history of resistant organisms MRSA, VRE, ecoli ESBL last year gangrene of TMA stump- for right bka today, one dose of vancomycin education spec to OR with history of MRSA pyuria-UTI- f/u cultures- switch to ertapenem pending culture results PVD Dementia Problem List - Problems (1) Gangrene Code(s): I96 - GANGRENE, NOT ELSEWHERE CLASSIFIED (2) Urinary tract infection Code(s): N39.0 - URINARY TRACT INFECTION, SITE NOT SPECIFIED Qualifiers: Urinary tract infection type: site unspecified Hematuria presence: without hematuria Qualified Code(s): N39.0 - Urinary tract infection, site not specified (3) Peripheral vascular disease Code(s): I73.9 - PERIPHERAL VASCULAR DISEASE, UNSPECIFIED (4) Dementia Code(s): F03.90 - UNSPECIFIED DEMENTIA WITHOUT BEHAVIORAL DISTURBANCE
[2016-09-20 09:34] LABS: INR 1.68 (0.82-1.09); PROTHROMBIN TIME (PATIENT) 18.7 SEC (9.98-11.88)
[2016-09-20 09:46] LABS: CALCIUM 8.1 mg/dL (8.5-10.1); COCKROFT - GAULT 65.97
--- NOTE | 2016-09-20 09:50 | PN ---
Progress Note, Physician - Current Medication List Current Medications: Active Medications Acetaminophen (Tylenol -) 650 mg PO Q6H PRN PRN Reason: PAIN/FEVER Last Admin: 09/19/16 18:47 Dose: 650 mg Albuterol/Ipratropium (Duoneb -) 1 amp NEB QIDR [facility] Last Admin: 09/20/16 07:02 Dose: 1 amp Brimonidine Tartrate (Alphagan 0.15% -) 1 drop OD BID [facility] Last Admin: 09/19/16 21:40 Dose: 1 drop Dorzolamide HCl (Trusopt 2%) 1 drop OU AM [facility] Last Admin: 09/20/16 06:14 Dose: 1 drop Ferrous Sulfate (Feosol -) 325 mg PO TIDCM [facility] Last Admin: 09/20/16 08:10 Dose: Not Given Folic Acid (Folic Acid -) 1 mg PO DAILY [facility] Last Admin: 09/19/16 10:30 Dose: 1 mg Ertapenem 1 gm/ Sodium (Chloride) 50 mls @ 50 mls/hr IVPB DAILY [facility] PRN Reason: Protocol Latanoprost (Xalatan 0.005% Eye Drops -) 1 drop OU HS [facility] Last Admin: 09/19/16 21:41 Dose: 1 drop Midodrine (Proamatine -) 5 mg PO BID [facility] Last Admin: 09/19/16 21:41 Dose: 5 mg Mirtazapine (Remeron -) 15 mg PO HS [facility] Last Admin: 09/19/16 21:41 Dose: 15 mg Oxycodone HCl (Roxicodone -) 5 mg PO Q6H PRN PRN Reason: PAIN Pantoprazole Sodium (Protonix -) 20 mg PO BID [facility] Last Admin: 09/19/16 21:41 Dose: 20 mg Vancomycin HCl (Vancomycin (Pre-Docked)) 1,000 mg IVPB ONCE ONE PRN Reason: Protocol Stop: 09/20/16 10:01 - Objective Vital Signs: Vital Signs Temperature 97.9 F 09/20/16 05:30 Pulse Rate 79 09/20/16 05:30 Respiratory Rate 22 09/20/16 05:30 Blood Pressure 150/66 09/20/16 05:30 O2 Sat by Pulse Oximetry (%) 96 09/19/16 09:00 Cardiovascular: Yes: Regular Rate and Rhythm Respiratory: Yes: Regular, CTA Bilaterally Gastrointestinal: Yes: Normal Bowel Sounds, Soft Labs: CBC, BMP 09/20/16 07:45 INR, PTT INR 1.68 (0.82-1.09) H 09/20/16 07:45 Problem List - Problems (1) Gangrene Assessment/Plan: spreading gnagrene of right stump hold coumadin when INR < 2.0 start heparin drip cardio clearance done vascular and podiatry on board to get Right BKA once INR < 2.0 iv abx Code(s): I96 - GANGRENE, NOT ELSEWHERE CLASSIFIED (2) Orthostatic hypotension Assessment/Plan: on miodrine Code(s): I95.1 - ORTHOSTATIC HYPOTENSION (3) Peripheral vascular disease Assessment/Plan: per vascular ac postop Code(s): I73.9 - PERIPHERAL VASCULAR DISEASE, UNSPECIFIED (4) Pulmonary emboli Assessment/Plan: ac postop Code(s): I26.99 - OTHER PULMONARY EMBOLISM WITHOUT ACUTE COR PULMONALE
[2016-09-20] MEDS ORDERED: VANCOMYCIN 1 GRAM (PRE-DOCKED) 1,000 MG/250 ML BAG IVPB ONE (10:00)
[2016-09-20] MEDS ORDERED: ERTAPENEM SODIUM 1 GM in SODIUM CHLORIDE 50 ML IVPB SCH (10:00)
[2016-09-20] MEDS: MIDODRINE HCL 5 MG TABLET PO SCH ×2 (10:15→22:41)
[2016-09-20] MEDS: FOLIC ACID 1 MG TABLET (FP) PO SCH (10:15)
[2016-09-20] MEDS: PANTOPRAZOLE 20 MG TABLET (FP) PO SCH ×2 (10:15→22:41)
[2016-09-20] MEDS: BRIMONIDINE TARTRATE 0.15% OPHTHALMIC 5 ML BOTTLE OD SCH ×2 (10:55→22:42)
--- NOTE | 2016-09-20 13:57 | PN ---
Progress Note, Physician Chief Complaint: no new issues History of Present Illness: 71-year-old man with a history of anemia, hypertension, laryngeal Ca s/p tracheostomy and laryngectomy, COPD, colo-vesicular fistula s/p colostomy, pulmonary embolism on Coumadin, seizure disorder, dementia, GERD and urinary tract infection recently admitted with PVD s/p right TMA now sent to the emergency department for right foot gangrene awaiting right TMA. Not able to give history due to dementia. Appears comfortable. Getting PRBC and FFP to reverse coumadin. - Current Medication List Current Medications: Active Medications Acetaminophen (Tylenol -) 650 mg PO Q6H PRN PRN Reason: PAIN/FEVER Last Admin: 09/19/16 18:47 Dose: 650 mg Albuterol/Ipratropium (Duoneb -) 1 amp NEB QIDR [facility] Last Admin: 09/20/16 11:23 Dose: 1 amp Brimonidine Tartrate (Alphagan 0.15% -) 1 drop OD BID [facility] Last Admin: 09/20/16 10:55 Dose: 1 drop Dorzolamide HCl (Trusopt 2%) 1 drop OU AM [facility] Last Admin: 09/20/16 06:14 Dose: 1 drop Ferrous Sulfate (Feosol -) 325 mg PO TIDCM [facility] Last Admin: 09/20/16 13:20 Dose: Not Given Folic Acid (Folic Acid -) 1 mg PO DAILY [facility] Last Admin: 09/20/16 10:15 Dose: Not Given Ertapenem 1 gm/ Sodium (Chloride) 50 mls @ 50 mls/hr IVPB DAILY [facility] PRN Reason: Protocol Last Admin: 09/20/16 10:55 Dose: 50 mls/hr Latanoprost (Xalatan 0.005% Eye Drops -) 1 drop OU HS [facility] Last Admin: 09/19/16 21:41 Dose: 1 drop Midodrine (Proamatine -) 5 mg PO BID [facility] Last Admin: 09/20/16 10:15 Dose: Not Given Mirtazapine (Remeron -) 15 mg PO HS [facility] Last Admin: 09/19/16 21:41 Dose: 15 mg Oxycodone HCl (Roxicodone -) 5 mg PO Q6H PRN PRN Reason: PAIN Pantoprazole Sodium (Protonix -) 20 mg PO BID [facility] Last Admin: 09/20/16 10:15 Dose: Not Given - Objective Vital Signs: Vital Signs Temperature 98.7 F 09/20/16 11:00 Pulse Rate 87 09/20/16 11:00 Respiratory Rate 20 09/20/16 11:00 Blood Pressure 95/54 09/20/16 11:00 O2 Sat by Pulse Oximetry (%) 96 09/19/16 09:00 Constitutional: Yes: Cachectic Eyes: Yes: WNL HENT: Yes: WNL, Atraumatic, Normocephalic Neck: Yes: Other (tracheostomy) Cardiovascular: Yes: WNL Respiratory: Yes: WNL Gastrointestinal: Yes: WNL Extremities: Yes: Amputation (left tma rt toes) Edema: No Peripheral Pulses WNL: No Peripheral Pulses: Left Doralis Pedis: 0, Right Dorsalis Pedis: 0, Left Femoral : 1+, Right Femoral: 1+ Labs: CBC, BMP 09/20/16 07:45 09/20/16 07:45 INR, PTT INR 1.68 (0.82-1.09) H 09/20/16 07:45 Problem List - Problems (1) Preop cardiovascular exam Assessment/Plan: There are no cardiac contraindications to surgery. He is medically optimized for the OR when coumadin is reversed. He is at intermediate risk. No further preop testing is needed. Restart coumadin when stable postop. Code(s): Z01.810 - ENCOUNTER FOR PREPROCEDURAL CARDIOVASCULAR EXAMINATION
--- NOTE | 2016-09-20 15:29 | CONS ---
INFECTIOUS DISEASE CONSULTATION DATE OF CONSULTATION: DATE OF DICTATION: 09/20/2016 REQUESTED BY: Nat Bear MD DICTATED BY: Catherine Hamilton MD HISTORY OF PRESENT ILLNESS: This is a 71-year-old man with an extensive past medical history including laryngeal carcinoma status post laryngectomy with tracheostomy. He has a history of peripheral vascular disease. He was recently in the hospital from September 04 to September 17 when he was found to have dry gangrene of the toes of his right foot. He ultimately underwent a transmetatarsal amputation on September 12. He was discharged on September 17. He was seen in wound care on September 18. He was noted to now have gangrene of the stump of the TMA and he was re-admitted for a BKA. He was started on Levaquin after admission on September 18. Last night, he had fever to 100.7, and we are asked to comment. He is currently resting comfortably. He is in no acute distress at this time. He denies nausea, vomiting, fevers, chills, chest pain or shortness of breath. PAST MEDICAL HISTORY: His past medical history is notable for dementia, hypertension, pulmonary embolus, COPD, diverticulitis. He has had a colovesical fistula in the past with diverticulosis. He has a history of recurrent UTI, back pain, osteoarthritis. He is status post colectomy. He has a colostomy. He has had a laryngectomy for laryngeal carcinoma in the past. He has history of peripheral vascular disease as well as a recent TMA of the right foot on September 12. ALLERGIES: He is allergic to PENICILLIN. He tolerates cephalosporins and carbapenems. FAMILY HISTORY: Noncontributory. SOCIAL HISTORY: [place]. He is a former smoker. CURRENT MEDICATIONS: Warfarin, potassium chloride, oxycodone, omeprazole, Lovaza, multiple vitamins, Remeron, midodrine, magnesium oxide, folic acid, ferrous sulfate, famotidine, eye drops, DuoNeb and protein supplements. He was started on Keflex at the time of discharge. REVIEW OF SYSTEMS: As per HPI. PHYSICAL EXAM: General: He is awake and alert. He is a very poor historian and not able to give me any history regarding his foot. Vital signs: His T-max is 100.7. Current temperature is 97.9. Pulse is 79. Blood pressure is 150/66. Respiratory rate is 22. O2 saturation is 96% on room air. He weighs 150 pounds. HEENT: He is normocephalic. His eyes are anicteric. He has a tracheostomy. Lungs: Clear to auscultation. Heart: Regular rate and rhythm. Abdomen: Soft. He has a functioning colostomy. Extremities: Notable for gangrene of the TMA stump with some mild surrounding associated erythema extending from the TMA just toward the back of his foot. There is no erythema of the calf or the ankle. LABS: His white count is 12.6, hemoglobin 7.9. Platelets are 225. INR is 1.6. His BUN and creatinine are pending. Chemistries are pending. Yesterday, they were 29 and 0.9. Urinalysis has 1747 white cells, and urine and blood cultures are pending. In the past, he has had prior E. coli ESBL UTIs as well as MRSA of his nares on the prior admission, and both E. coli ESBL and a VRE on a fluid culture from August of 2015. SUMMARY: 1. This is a 71-year-old man who was just discharged status post TMA, now re-admitted with gangrene of the TMA stump with a right BKA today. I would give him one dose of vancomycin on-call to the OR with his history of MRSA colonization. 2. He has pyuria, consistent with UTI. Given the fever overnight, I would follow up cultures and switch him to ertapenem from Levaquin pending culture results. 3. History of PVD. 4. History of dementia. CATHERINE HAMILTON M.D. [id number]
[2016-09-20] MEDS: ACETAMINOPHEN 325 MG TABLET (FP) PO PRN (16:02)
[2016-09-20] MEDS ORDERED: VANCOMYCIN 1,000 MG VIAL (RESTRICTED TO ID ONLY) ONE (16:48)
[2016-09-20] MEDS ORDERED: VANCOMYCIN 1,000 MG VIAL (RESTRICTED TO ID ONLY) IVPB ONE (17:05)
[2016-09-20] MEDS ORDERED: PROPOFOL 20 ML ONE ×2 (17:08)
[2016-09-20] MEDS ORDERED: LIDOCAINE HCL/PF 2% SDV 5ML VIAL ONE (17:08)
[2016-09-20] MEDS ORDERED: ROCURONIUM BROMIDE 50 MG/5 ML VIAL ONE (17:11)
[2016-09-20] MEDS ORDERED: ePHEDrine SULFATE 50 MG/1 ML AMPULE ONE (17:39)
[2016-09-20] MEDS ORDERED: HYDROmorphone HCL/PF 1 MG/ML VIAL (FOR PYXIS CHARGING ONLY) ONE ×2 (17:41→18:02)
[2016-09-20] MEDS ORDERED: NEOSTIGMINE METHYLSULFATE 0.5 MG/ML - 10 ML MDV ONE (17:42)
[2016-09-20] MEDS ORDERED: GLYCOPYRROLATE 0.2 MG/1 ML VIAL ONE (17:43)
--- NOTE | 2016-09-20 19:01 | OP ---
Operative Note - Note: Operative Date: 09/20/16 Pre-Operative Diagnosis: Right foot gangrene Operation: right BKA Post-Operative Diagnosis: Same as Pre-op Surgeon: Stanley Boston Anesthesia: General Estimated Blood Loss (mls): 100 Operative Report Dictated: Yes
--- NOTE | 2016-09-20 19:08 | SURG ---
Surgery Internship Coordinator Note Internship Coordinator: Stephane Chiu PA-C Date of Service: 09/20/16 Diagnosis: Right foot gangrene Procedure: right lowe extremity below knee amputation I was present for the entirety of the operative procedure. For further detail, please refer to operative report. Visit type - Case Type Case Type: ED Admission - Emergency Emergency Visit: Yes ED Registration Date: 09/18/16 Care time: The patient presented to the Emergency Department on the above date and was hospitalized for further evaluation of their emergent condition. - New patient This patient is new to me today: Yes Date on this admission: 09/20/16
[2016-09-20] MEDS ORDERED: ACETAMINOPHEN 325 MG TABLET (FP) PO PRN (19:43)
[2016-09-20] MEDS ORDERED: HYDROmorphone HCL CARPU-JECT 1 MG/1 ML DISP.SYRIN IVPUSH PRN (19:51)
[2016-09-20] MEDS ORDERED: ONDANSETRON 4 MG/2 ML VIAL IVPUSH PRN (19:55)
[2016-09-20] MEDS: MIRTAZAPINE 15 MG TABLET (FP) PO SCH (22:41)
[2016-09-20] MEDS: LATANOPROST 0.005% OPHTH SOLN 2.5ML BOTTLE OU SCH (22:42)
[2016-09-21] MEDS: ALBUTEROL SO4 2.5/IPRATROPIUM 0.5 INH SOL 3 ML VIAL.NEB. NEB SCH ×4 (00:33→18:32)
--- NOTE | 2016-09-21 06:27 | OP ---
DATE OF OPERATION: 09/20/2016 PREOPERATIVE DIAGNOSIS: Right foot gangrene. POSTOPERATIVE DIAGNOSIS: Right foot gangrene. PROCEDURE: Right below-knee amputation. SURGEON: Stanley Moncada DO ANESTHESIA: General. ELEVATOR DISPATCHER: ROB Roca BLOOD LOSS: 100 mL. The patient is a 71-year-old male that had a right TMA performed last week and the TMA flap failed and became necrotic and now comes back into the hospital. It was decided that due to the fact that he has gangrene of his right TMA flap he needs a right BKA. Patient's family was consented for the procedure, understanding all risks, benefits, and alternatives. Then taken to the operating room. Once in the operating room, placed on the operating table in the supine manner. The area of the right leg was prepped and draped in the sterile surgical manner. We then 4 fingerbreadths below the right tibial tuberosity and tanisha a stepoff incision using our skin marker. We then went ahead and took a No. 15 blade and cut along our incision circumferentially. Bovie electrocautery was used to control hemostasis. Then, we took the Bovie electrocautery all the way down to the tibia and the fibula. We took down all the muscles attaching, all the muscles around the tibia and the fibula, and we got down to the posterior tibial artery. The posterior tibial artery was dissected anteriorly and posteriorly along with the vein and was then clamped and ligated. We then used 0 silk to tie the distal portion off and we used 0 silk suture ligature to suture the artery. We then went laterally and took down our muscular attachments around the tibia and got down to the anterior tibial artery. The anterior tibial artery was dissected anteriorly and posteriorly along with the vein and clamped and ligated. We then used 0 silk suture ligature and tied off the artery. We then took down the soleus muscle off the tibia and went through the fascia and got down to the peroneal artery. Peroneal artery was dissected anteriorly and posteriorly along with the vein and 2 clamps were placed on it and ligated. We then used 0 silk suture ligature to tie off the artery. Once this was performed, we then took our incision circumferentially and took down our gastrocnemius and our Achilles tendon and the flap was freed up. We then took a saw and transected the tibia and the fibula. The fibula was transected 2 cm above the tibia. Once that was done, the leg was sent off to Pathology. We then went ahead and beveled our tibia so that the bone does not rub against our flap. The wound was then copiously irrigated. There was no bleeding. Bovie electrocautery was used to control hemostasis. We then took 2-0 Vicryl and we were able to approximate the fascia in an interrupted manner. We then closed the 2nd layer using 3-0 Vicryl in an interrupted manner. We then went ahead and closed the skin with skin bryant. Xeroform, 4 x 4s, ABD pads, Kerlix, and Coban were placed along with a knee immobilizer to the leg. Patient was transferred to PACU in stable condition in a knee immobilizer. Total blood loss was 100 mL. STANLEY MONCADA DO [id number]
[2016-09-21] MEDS: DORZOLAMIDE 2% HCL OPHTHALMIC SOLUTION 10 ML BOTTLE OU SCH (08:24)
[2016-09-21] MEDS: FERROUS SO4 325 MG TABLET (FP) PO SCH ×3 (08:26→18:01)
[2016-09-21 09:15] LABS: INR 1.56 (0.82-1.09); PROTHROMBIN TIME (PATIENT) 17.3 SEC (9.98-11.88)
--- NOTE | 2016-09-21 10:12 | PN ---
Progress Note (short form) - Note Progress Note: ID Ertepenem day 1 post op BKA Right Selected Entries 09/21/16 08:00 Temperature 98 F Pulse Rate 77 Respiratory 18 Rate Neck Tracheostomy Microbiology 09/18/16 17:52 Urine - Urine Clean Catch Urine Culture - Preliminary Non Lactose Fermenting Gnb 09/18/16 17:52 Blood - Peripheral Venous Blood Culture - Preliminary NO GROWTH OBTAINED AFTER 48 HOURS, INCUBATION TO CONTINUE FOR 3 DAYS. 09/18/16 17:52 Blood - Peripheral Venous Blood Culture - Preliminary NO GROWTH OBTAINED AFTER 48 HOURS, INCUBATION TO CONTINUE FOR 3 DAYS. Laboratory Tests 09/18/16 09/20/16 09/20/16 17:52 07:45 07:45 WBC 12.6 H Hgb 7.9 L Hct 23.0 L Plt Count 325 BUN 28 H Creatinine 1.0 Urine WBC 1747 Assessment UTI NLF Post op on Ertepenem not pseudo ? Proteus Plan Continue current antibiotic pending c/s Remove radha Tilley MD
[2016-09-21] MEDS ORDERED: PT OWN MED DRAWER 7, Y5N ONE ×3 (10:25→22:04)
[2016-09-21] MEDS: BRIMONIDINE TARTRATE 0.15% OPHTHALMIC 5 ML BOTTLE OD SCH ×2 (10:33→22:21)
[2016-09-21] MEDS: PANTOPRAZOLE 20 MG TABLET (FP) PO SCH ×2 (10:33→22:19)
[2016-09-21] MEDS: FOLIC ACID 1 MG TABLET (FP) PO SCH (10:33)
[2016-09-21] MEDS: ERTAPENEM SODIUM 1 GM in SODIUM CHLORIDE 50 ML IVPB SCH (10:34)
[2016-09-21] MEDS: MIDODRINE HCL 5 MG TABLET PO SCH ×2 (10:35→18:01)
--- NOTE | 2016-09-21 11:30 | PN ---
Progress Note, Physician Chief Complaint: Pt comfortable, has no GA complaints. - Current Medication List Current Medications: Active Medications Acetaminophen (Tylenol -) 650 mg PO Q6H PRN PRN Reason: PAIN/FEVER Albuterol/Ipratropium (Duoneb -) 1 amp NEB QIDR [facility] Last Admin: 09/21/16 05:45 Dose: 1 amp Brimonidine Tartrate (Alphagan 0.15% -) 1 drop OD BID [facility] Last Admin: 09/21/16 10:33 Dose: 1 drop Dorzolamide HCl (Trusopt 2%) 1 drop OU AM [facility] Last Admin: 09/21/16 08:24 Dose: Not Given Fentanyl (Sublimaze Injection -) 25 mcg IVPUSH [id number] PRN PRN Reason: PAIN Stop: 09/23/16 19:52 Fentanyl (Sublimaze Injection -) 50 mcg IVPUSH [id number] PRN PRN Reason: PAIN Stop: 09/23/16 19:52 Ferrous Sulfate (Feosol -) 325 mg PO TIDCM [facility] Last Admin: 09/21/16 08:26 Dose: 325 mg Folic Acid (Folic Acid -) 1 mg PO DAILY [facility] Last Admin: 09/21/16 10:33 Dose: 1 mg Hydromorphone HCl (Dilaudid Injection -) 0.25 mg IVPUSH [id number] PRN PRN Reason: PAIN Stop: 09/23/16 19:52 Ertapenem 1 gm/ Sodium (Chloride) 50 mls @ 50 mls/hr IVPB DAILY [facility] PRN Reason: Protocol Last Admin: 09/21/16 10:34 Dose: 50 mls/hr Lactated Ringer's (Lactated Ringers Solution) 1,000 mls @ 125 mls/hr IV ASDIR [facility] Latanoprost (Xalatan 0.005% Eye Drops -) 1 drop OU HS [facility] Last Admin: 09/20/16 22:42 Dose: 1 drop Midodrine (Proamatine -) 5 mg PO BID-MID [facility] Last Admin: 09/21/16 10:35 Dose: 5 mg Mirtazapine (Remeron -) 15 mg PO HS [facility] Last Admin: 09/20/16 22:41 Dose: 15 mg Morphine Sulfate (Morphine Injection -) 4 mg IVPUSH Q6H PRN PRN Reason: PAIN Oxycodone HCl (Roxicodone -) 5 mg PO Q6H PRN PRN Reason: PAIN Pantoprazole Sodium (Protonix -) 20 mg PO BID [facility] Last Admin: 09/21/16 10:33 Dose: 20 mg - Objective Vital Signs: Vital Signs Temperature 98 F 09/21/16 08:00 Pulse Rate 77 09/21/16 08:00 Respiratory Rate 18 09/21/16 08:00 Blood Pressure 122/60 09/21/16 08:00 O2 Sat by Pulse Oximetry (%) 100 09/21/16 00:35 Constitutional: Yes: Well Nourished, No Distress, Calm Neurological: Yes: WNL, Alert, Oriented Labs: CBC, BMP 09/20/16 07:45 09/20/16 07:45 INR, PTT INR 1.56 (0.82-1.09) H 09/21/16 08:03 Assessment/Plan POD#1 s/p Left BKA under GA. Doing well. D/C from anesthesia care.
--- NOTE | 2016-09-21 11:45 | PN ---
Progress Note, Physician - Current Medication List Current Medications: Active Medications Acetaminophen (Tylenol -) 650 mg PO Q6H PRN PRN Reason: PAIN/FEVER Albuterol/Ipratropium (Duoneb -) 1 amp NEB QIDR [facility] Last Admin: 09/21/16 11:33 Dose: Not Given Brimonidine Tartrate (Alphagan 0.15% -) 1 drop OD BID [facility] Last Admin: 09/21/16 10:33 Dose: 1 drop Dorzolamide HCl (Trusopt 2%) 1 drop OU AM [facility] Last Admin: 09/21/16 08:24 Dose: Not Given Fentanyl (Sublimaze Injection -) 25 mcg IVPUSH [id number] PRN PRN Reason: PAIN Stop: 09/23/16 19:52 Fentanyl (Sublimaze Injection -) 50 mcg IVPUSH [id number] PRN PRN Reason: PAIN Stop: 09/23/16 19:52 Ferrous Sulfate (Feosol -) 325 mg PO TIDCM [facility] Last Admin: 09/21/16 08:26 Dose: 325 mg Folic Acid (Folic Acid -) 1 mg PO DAILY [facility] Last Admin: 09/21/16 10:33 Dose: 1 mg Hydromorphone HCl (Dilaudid Injection -) 0.25 mg IVPUSH [id number] PRN PRN Reason: PAIN Stop: 09/23/16 19:52 Ertapenem 1 gm/ Sodium (Chloride) 50 mls @ 50 mls/hr IVPB DAILY [facility] PRN Reason: Protocol Last Admin: 09/21/16 10:34 Dose: 50 mls/hr Lactated Ringer's (Lactated Ringers Solution) 1,000 mls @ 125 mls/hr IV ASDIR [facility] Latanoprost (Xalatan 0.005% Eye Drops -) 1 drop OU HS [facility] Last Admin: 09/20/16 22:42 Dose: 1 drop Midodrine (Proamatine -) 5 mg PO BID-MID [facility] Last Admin: 09/21/16 10:35 Dose: 5 mg Mirtazapine (Remeron -) 15 mg PO HS [facility] Last Admin: 09/20/16 22:41 Dose: 15 mg Morphine Sulfate (Morphine Injection -) 4 mg IVPUSH Q6H PRN PRN Reason: PAIN Oxycodone HCl (Roxicodone -) 5 mg PO Q6H PRN PRN Reason: PAIN Pantoprazole Sodium (Protonix -) 20 mg PO BID [facility] Last Admin: 09/21/16 10:33 Dose: 20 mg - Objective Vital Signs: Vital Signs Temperature 98 F 09/21/16 08:00 Pulse Rate 88 09/21/16 11:33 Respiratory Rate 18 09/21/16 08:00 Blood Pressure 122/60 09/21/16 08:00 O2 Sat by Pulse Oximetry (%) 97 09/21/16 11:33 Cardiovascular: Yes: S1, S2 Respiratory: Yes: Regular, CTA Bilaterally Gastrointestinal: Yes: Normal Bowel Sounds, Soft. No: Tenderness Extremities: Yes: Amputation Labs: CBC, BMP 09/20/16 07:45 09/20/16 07:45 INR, PTT INR 1.56 (0.82-1.09) H 09/21/16 08:03 Problem List - Problems (1) Gangrene Assessment/Plan: spreading gnagrene of right stump hold coumadin when INR < 2.0 start heparin drip cardio clearance done vascular and podiatry on board S/P Right BKA iv abx Code(s): I96 - GANGRENE, NOT ELSEWHERE CLASSIFIED (2) Orthostatic hypotension Assessment/Plan: on miodrine Code(s): I95.1 - ORTHOSTATIC HYPOTENSION (3) Peripheral vascular disease Assessment/Plan: per vascular ac postop Code(s): I73.9 - PERIPHERAL VASCULAR DISEASE, UNSPECIFIED (4) Pulmonary emboli Assessment/Plan: ac postop--START LOVENOX Code(s): I26.99 - OTHER PULMONARY EMBOLISM WITHOUT ACUTE COR PULMONALE (5) S/P BKA (below knee amputation) Assessment/Plan: Operative Date: 09/20/16 Pre-Operative Diagnosis: Right foot gangrene Operation: right BKA Post-Operative Diagnosis: Same as Pre-op Surgeon: Stanley Boston Code(s): Z89.519 - ACQUIRED ABSENCE OF UNSPECIFIED LEG BELOW KNEE Qualifiers: Laterality: right Qualified Code(s): Z89.511 - Acquired absence of right leg below knee
--- NOTE | 2016-09-21 12:31 | PN ---
Progress Note, Physician Chief Complaint: no new issues History of Present Illness: 71-year-old man with a history of anemia, hypertension, laryngeal Ca s/p tracheostomy and laryngectomy, COPD, colo-vesicular fistula s/p colostomy, pulmonary embolism on Coumadin, seizure disorder, dementia, GERD and urinary tract infection recently admitted with PVD s/p right TMA now sent to the emergency department for right foot gangrene awaiting right TMA. Not able to give history due to dementia. Appears comfortable. Getting PRBC and FFP to reverse coumadin. - Current Medication List Current Medications: Active Medications Acetaminophen (Tylenol -) 650 mg PO Q6H PRN PRN Reason: PAIN/FEVER Albuterol/Ipratropium (Duoneb -) 1 amp NEB QIDR [facility] Last Admin: 09/21/16 11:33 Dose: Not Given Brimonidine Tartrate (Alphagan 0.15% -) 1 drop OD BID [facility] Last Admin: 09/21/16 10:33 Dose: 1 drop Dorzolamide HCl (Trusopt 2%) 1 drop OU AM [facility] Last Admin: 09/21/16 08:24 Dose: Not Given Enoxaparin Sodium (Lovenox -) 60 mg SQ BID [facility] Fentanyl (Sublimaze Injection -) 25 mcg IVPUSH [id number] PRN PRN Reason: PAIN Stop: 09/23/16 19:52 Fentanyl (Sublimaze Injection -) 50 mcg IVPUSH [id number] PRN PRN Reason: PAIN Stop: 09/23/16 19:52 Ferrous Sulfate (Feosol -) 325 mg PO TIDCM [facility] Last Admin: 09/21/16 08:26 Dose: 325 mg Folic Acid (Folic Acid -) 1 mg PO DAILY [facility] Last Admin: 09/21/16 10:33 Dose: 1 mg Hydromorphone HCl (Dilaudid Injection -) 0.25 mg IVPUSH [id number] PRN PRN Reason: PAIN Stop: 09/23/16 19:52 Ertapenem 1 gm/ Sodium (Chloride) 50 mls @ 50 mls/hr IVPB DAILY [facility] PRN Reason: Protocol Last Admin: 09/21/16 10:34 Dose: 50 mls/hr Lactated Ringer's (Lactated Ringers Solution) 1,000 mls @ 125 mls/hr IV ASDIR [facility] Latanoprost (Xalatan 0.005% Eye Drops -) 1 drop OU HS [facility] Last Admin: 09/20/16 22:42 Dose: 1 drop Midodrine (Proamatine -) 5 mg PO BID-MID [facility] Last Admin: 09/21/16 10:35 Dose: 5 mg Mirtazapine (Remeron -) 15 mg PO HS [facility] Last Admin: 09/20/16 22:41 Dose: 15 mg Morphine Sulfate (Morphine Injection -) 4 mg IVPUSH Q6H PRN PRN Reason: PAIN Oxycodone HCl (Roxicodone -) 5 mg PO Q6H PRN PRN Reason: PAIN Pantoprazole Sodium (Protonix -) 20 mg PO BID [facility] Last Admin: 09/21/16 10:33 Dose: 20 mg - Objective Vital Signs: Vital Signs Temperature 98 F 09/21/16 08:00 Pulse Rate 88 09/21/16 11:33 Respiratory Rate 18 09/21/16 08:00 Blood Pressure 122/60 09/21/16 08:00 O2 Sat by Pulse Oximetry (%) 97 09/21/16 11:33 Constitutional: Yes: Cachectic Eyes: Yes: WNL HENT: Yes: WNL Neck: Yes: WNL Cardiovascular: Yes: S1, S2 Respiratory: Yes: Dullness Gastrointestinal: Yes: WNL, Normal Bowel Sounds, Other (ostomy) Extremities: Yes: Amputation Edema: No Labs: CBC, BMP 09/20/16 07:45 09/20/16 07:45 INR, PTT INR 1.56 (0.82-1.09) H 09/21/16 08:03 Problem List - Problems (1) Preop cardiovascular exam Assessment/Plan: Restarted on coumadin. Stable postop. Will see as needed. Code(s): Z01.810 - ENCOUNTER FOR PREPROCEDURAL CARDIOVASCULAR EXAMINATION
[2016-09-21] MEDS: MIRTAZAPINE 15 MG TABLET (FP) PO SCH (22:19)
[2016-09-21] MEDS: ENOXAPARIN NA (PORCINE) 60 MG/0.6 ML DISP.SYRIN SQ SCH (22:19)
[2016-09-21] MEDS: LATANOPROST 0.005% OPHTH SOLN 2.5ML BOTTLE OU SCH (22:22)
[2016-09-21] MEDS: LACTATED RINGERS SOLUTION 1,000 ML IV SCH (22:36)
[2016-09-22] MEDS: ALBUTEROL SO4 2.5/IPRATROPIUM 0.5 INH SOL 3 ML VIAL.NEB. NEB SCH ×5 (00:01→23:15)
[2016-09-22] MEDS: LACTATED RINGERS SOLUTION 1,000 ML IV SCH (06:17)
[2016-09-22] MEDS: DORZOLAMIDE 2% HCL OPHTHALMIC SOLUTION 10 ML BOTTLE OU SCH (06:18)
[2016-09-22 06:43] LABS: INR 1.7 (0.82-1.09); PROTHROMBIN TIME (PATIENT) 18.9 SEC (9.98-11.88)
[2016-09-22] MEDS ORDERED: PT OWN MED DRAWER 7, Y5N ONE ×3 (09:23→21:33)
[2016-09-22] MEDS: ENOXAPARIN NA (PORCINE) 60 MG/0.6 ML DISP.SYRIN SQ SCH ×2 (09:24→21:34)
[2016-09-22] MEDS: FOLIC ACID 1 MG TABLET (FP) PO SCH (09:26)
[2016-09-22] MEDS: FERROUS SO4 325 MG TABLET (FP) PO SCH ×3 (09:26→17:28)
[2016-09-22] MEDS: PANTOPRAZOLE 20 MG TABLET (FP) PO SCH ×2 (09:26→21:35)
[2016-09-22] MEDS: MIDODRINE HCL 5 MG TABLET PO SCH ×2 (09:26→17:28)
[2016-09-22] MEDS: BRIMONIDINE TARTRATE 0.15% OPHTHALMIC 5 ML BOTTLE OD SCH ×2 (09:27→21:36)
[2016-09-22] MEDS: ERTAPENEM SODIUM 1 GM in SODIUM CHLORIDE 50 ML IVPB SCH (10:13)
[2016-09-22] MEDS: morphine CARPU-JECT 4 MG/1 ML DISP.SYRIN IVPUSH PRN ×2 (10:17→17:28)
--- NOTE | 2016-09-22 11:34 | PN ---
Progress Note, Physician - Current Medication List Current Medications: Active Medications Acetaminophen (Tylenol -) 650 mg PO Q6H PRN PRN Reason: PAIN/FEVER Albuterol/Ipratropium (Duoneb -) 1 amp NEB QIDR [facility] Last Admin: 09/22/16 06:32 Dose: 1 amp Brimonidine Tartrate (Alphagan 0.15% -) 1 drop OD BID [facility] Last Admin: 09/22/16 09:27 Dose: 1 drop Dorzolamide HCl (Trusopt 2%) 1 drop OU AM [facility] Last Admin: 09/22/16 06:18 Dose: 1 drop Enoxaparin Sodium (Lovenox -) 60 mg SQ BID [facility] Last Admin: 09/22/16 09:24 Dose: 60 mg Fentanyl (Sublimaze Injection -) 25 mcg IVPUSH [id number] PRN PRN Reason: PAIN Stop: 09/23/16 19:52 Fentanyl (Sublimaze Injection -) 50 mcg IVPUSH [id number] PRN PRN Reason: PAIN Stop: 09/23/16 19:52 Ferrous Sulfate (Feosol -) 325 mg PO TIDCM [facility] Last Admin: 09/22/16 09:26 Dose: 325 mg Folic Acid (Folic Acid -) 1 mg PO DAILY [facility] Last Admin: 09/22/16 09:26 Dose: 1 mg Hydromorphone HCl (Dilaudid Injection -) 0.25 mg IVPUSH [id number] PRN PRN Reason: PAIN Stop: 09/23/16 19:52 Ertapenem 1 gm/ Sodium (Chloride) 50 mls @ 50 mls/hr IVPB DAILY [facility] PRN Reason: Protocol Last Admin: 09/22/16 10:13 Dose: 50 mls/hr Lactated Ringer's (Lactated Ringers Solution) 1,000 mls @ 125 mls/hr IV ASDIR [facility] Last Admin: 09/22/16 06:17 Dose: 125 mls/hr Latanoprost (Xalatan 0.005% Eye Drops -) 1 drop OU HS [facility] Last Admin: 09/21/16 22:22 Dose: 1 drop Midodrine (Proamatine -) 5 mg PO BID-MID [facility] Last Admin: 09/22/16 09:26 Dose: 5 mg Mirtazapine (Remeron -) 15 mg PO [facility] Last Admin: 09/21/16 22:19 Dose: 15 mg Morphine Sulfate (Morphine Injection -) 4 mg IVPUSH Q6H PRN PRN Reason: PAIN Last Admin: 09/22/16 10:17 Dose: 4 mg Oxycodone HCl (Roxicodone -) 5 mg PO Q6H PRN PRN Reason: PAIN Pantoprazole Sodium (Protonix -) 20 mg PO BID [facility] Last Admin: 09/22/16 09:26 Dose: 20 mg - Objective Vital Signs: Vital Signs Temperature 97.6 F 09/22/16 05:29 Pulse Rate 74 09/22/16 05:29 Respiratory Rate 28 H 09/22/16 05:29 Blood Pressure 140/78 09/22/16 05:29 O2 Sat by Pulse Oximetry (%) 97 09/21/16 20:53 Cardiovascular: Yes: Regular Rate and Rhythm Respiratory: Yes: Regular, CTA Bilaterally Gastrointestinal: Yes: Normal Bowel Sounds, Soft Wound/Incision: Yes: Dressing Dry and Intact Labs: CBC, BMP 09/20/16 07:45 09/20/16 07:45 INR, PTT INR 1.70 (0.82-1.09) H 09/22/16 05:32 Problem List - Problems (1) Gangrene Assessment/Plan: spreading gnagrene of right stump hold coumadin LOVENOX cardio clearance done vascular and podiatry on board S/P Right BKA iv abx Code(s): I96 - GANGRENE, NOT ELSEWHERE CLASSIFIED (2) Orthostatic hypotension Assessment/Plan: on miodrine Code(s): I95.1 - ORTHOSTATIC HYPOTENSION (3) Peripheral vascular disease Assessment/Plan: per vascular ac postop Code(s): I73.9 - PERIPHERAL VASCULAR DISEASE, UNSPECIFIED (4) Pulmonary emboli Assessment/Plan: ac postop--START LOVENOX Code(s): I26.99 - OTHER PULMONARY EMBOLISM WITHOUT ACUTE COR PULMONALE (5) S/P BKA (below knee amputation) Assessment/Plan: Operative Date: 09/20/16 Pre-Operative Diagnosis: Right foot gangrene Operation: right BKA Post-Operative Diagnosis: Same as Pre-op Surgeon: Stanley Boston Code(s): Z89.519 - ACQUIRED ABSENCE OF UNSPECIFIED LEG BELOW KNEE Qualifiers: Laterality: right Qualified Code(s): Z89.511 - Acquired absence of right leg below knee
[2016-09-22] MEDS: oxyCODONE HCL 5 MG TABLET PO PRN (11:43)
[2016-09-22] MEDS: MIRTAZAPINE 15 MG TABLET (FP) PO SCH (21:35)
[2016-09-22] MEDS: LATANOPROST 0.005% OPHTH SOLN 2.5ML BOTTLE OU SCH (21:36)
[2016-09-22 22:04] LABS: BASOPHIL 0.8 % (0-2.0); EOSINOPHIL 1.9 % (0-4.5); MCH 28.9 pg (25.7-33.7); MCHC 32.9 g/dl (32.0-35.9); MEAN PLT VOLUME 7.6 fl (7.5-11.1); PLATELET COUNT 395 K/MM3 (134-434); RDW 15.4 % (11.9-15.9); WHITE BLOOD COUNT 8.4 K/mm3 (4.0-10.0)
[2016-09-23] MEDS: ALBUTEROL SO4 2.5/IPRATROPIUM 0.5 INH SOL 3 ML VIAL.NEB. NEB SCH ×3 (06:06→18:01)
[2016-09-23] MEDS: DORZOLAMIDE 2% HCL OPHTHALMIC SOLUTION 10 ML BOTTLE OU SCH (06:26)
--- NOTE | 2016-09-23 07:53 | PN ---
Progress Note (short form) - Note Progress Note: POD #3 Alert. Doing well. Pain managed via PRN meds. AVSS. Afeb. Gen: alert. nad. RLE: knee immobilizer in place. Dressing [place] on rounds. BKA flap viable. Cap refill to tissue < 3 seconds. [place] intact. No hematoma. Problem List - Problems (1) S/P BKA (below knee amputation) Assessment/Plan: POD #3 Dressing changed on rounds. Cont knee immobilizer DVT ppx Cont medical management No further surgical intervention. Reconsult PRN Code(s): Z89.519 - ACQUIRED ABSENCE OF UNSPECIFIED LEG BELOW KNEE Qualifiers: Laterality: right Qualified Code(s): Z89.511 - Acquired absence of right leg below knee
[2016-09-23] MEDS: FERROUS SO4 325 MG TABLET (FP) PO SCH ×3 (08:25→18:45)
[2016-09-23 08:36] LABS: BASOPHIL 0.6 % (0-2.0); EOSINOPHIL 3.1 % (0-4.5); MCH 29.1 pg (25.7-33.7); MCHC 32.7 g/dl (32.0-35.9); MEAN CELL VOLUME 89.1 fl (80-96); MEAN PLT VOLUME 8.2 fl (7.5-11.1); NEUTROPHILS 74.1 % (42.8-82.8); PLATELET COUNT 377 K/MM3 (134-434); RDW 15.3 % (11.9-15.9); WHITE BLOOD COUNT 7.2 K/mm3 (4.0-10.0)
[2016-09-23 08:57] LABS: INR 1.57 (0.82-1.09); PROTHROMBIN TIME (PATIENT) 17.4 SEC (9.98-11.88)
[2016-09-23 09:06] LABS: ALBUMIN 2.2 g/dl (3.4-5.0); ALK PHOS 96 U/L (45-117); ANION GAP 10 (8-16); BILIRUBIN,TOTAL 0.4 mg/dL (0.2-1.0); CALCIUM 7.8 mg/dL (8.5-10.1); CO2 27 mmol/L (21-32); COCKROFT - GAULT 114.07; CREATININE 0.6 mg/dL (0.7-1.3); GLUCOSE,RANDOM 109 mg/dL (74-106); SGOT/AST 31 U/L (15-37); SGPT/ALT 51 U/L (12-78)
--- NOTE | 2016-09-23 09:40 | PN ---
Progress Note (short form) - Note Progress Note: POD #3 s/p BKA no complaints garcia out on Friday Vital Signs Period Temp Pulse Resp BP Sys/Page Pulse Ox Last 24 Hr 97.8 F-98.5 F 66-96 20-20 90-126/49-85 96-96 cor-rrr lungs clear abd soft,nt ext binder intact for right leg- seen by surgery and dressing changed CBC, BMP 04// 07:50 09/23/16 07:50 Microbiology 09/18/16 17:52 Blood - Peripheral Venous Blood Culture - Preliminary NO GROWTH OBTAINED AFTER 96 HOURS, INCUBATION TO CONTINUE FOR 1 DAYS. 09/18/ 17:52 Blood - Peripheral Venous Blood Culture - Preliminary NO GROWTH OBTAINED AFTER 96 HOURS, INCUBATION TO CONTINUE FOR 1 DAYS. 09/18/16 17:52 Urine - Urine Clean Catch Urine Culture - Final Morganella Morganii a/p s/p BKA pod #3 low colony count urine culture garcia out can d/c antibiotics please call back if needed Problem List - Problems (1) Gangrene Code(s): I96 - GANGRENE, NOT ELSEWHERE CLASSIFIED (2) Urinary tract infection Code(s): N39.0 - URINARY TRACT INFECTION, SITE NOT SPECIFIED Qualifiers: Urinary tract infection type: site unspecified Hematuria presence: without hematuria Qualified Code(s): N39.0 - Urinary tract infection, site not specified (3) Peripheral vascular disease Code(s): I73.9 - PERIPHERAL VASCULAR DISEASE, UNSPECIFIED (4) Dementia Code(s): F03.90 - UNSPECIFIED DEMENTIA WITHOUT BEHAVIORAL DISTURBANCE
[2016-09-23] MEDS: BRIMONIDINE TARTRATE 0.15% OPHTHALMIC 5 ML BOTTLE OD SCH ×2 (10:08→21:45)
[2016-09-23] MEDS: PANTOPRAZOLE 20 MG TABLET (FP) PO SCH ×2 (10:08→21:44)
[2016-09-23] MEDS: MIDODRINE HCL 5 MG TABLET PO SCH ×2 (10:08→18:47)
[2016-09-23] MEDS: ENOXAPARIN NA (PORCINE) 60 MG/0.6 ML DISP.SYRIN SQ SCH ×2 (10:08→21:44)
[2016-09-23] MEDS: FOLIC ACID 1 MG TABLET (FP) PO SCH (10:08)
[2016-09-23] MEDS ORDERED: SODIUM CHLORIDE 500 ML IV STA (11:17)
[2016-09-23] MEDS: LACTATED RINGERS SOLUTION 1,000 ML IV SCH (12:15)
--- NOTE | 2016-09-23 12:48 | DS ---
Physical Examination Vital Signs: Vital Signs Temperature 98.6 F 09/23/16 11:00 Pulse Rate 84 09/23/16 11:16 Respiratory Rate 20 09/23/16 11:00 Blood Pressure 87/57 09/23/16 11:00 O2 Sat by Pulse Oximetry (%) 97 09/23/16 11:16 Findings/Remarks: complaing of stump pain Constitutional: Yes: Calm Neck: Yes: Trachea Midline, Other (trach) Cardiovascular: Yes: Regular Rate and Rhythm, S1, S2 Respiratory: Yes: CTA Bilaterally Gastrointestinal: Yes: Soft Edema: No Wound/Incision: Yes: Other (knee imbolizier dressing was changed by surgery earlier today) Neurological: Yes: Alert, Oriented Labs: CBC, BMP 09/23/16 07:50 09/23/16 07:50 Discharge Summary Reason For Visit: GANGRENE Current Active Problems Dementia (Acute) Preop cardiovascular exam (Acute) S/P BKA (below knee amputation) (Acute) Wound infection (Acute) Hospital Course: Chief Complaint: sent for right BKA History of Present Illness: The patient is a 71-year-old man with a significant past medical history of anemia, hypertension, laryngeal Ca with permanent tracheostomy and laryngectomy , chronic obstructive pulmonary disease, pulmonary embolism (on Coumadin), seizure disorder, dementia, gastroesophageal reflux disease and urinary tract infection who was discharge form this hospital yesterday and was sent to the emergency department by Dr. Mayer and Dr. Stanley Boston today for further evaluation of right foot gangrene (avascular necrosis). Patient is scheduled for right below the knee amputation after the reversal of Coumadin. pateint is admitted for right BKA he was recently discharged and to go to wound care center yesterday, today his stump blackened discoloration which was not like that on the day of his last discharge and was discharge on course of keflex as well in ER WBC 15 and INR 3.3 History Source: Medical Record - Past Medical History [employer]: Yes: Dementia Cardiovascular: Yes: HTN Pulmonary: Yes: COPD, Pulmonary Embolus Gastrointestinal: Yes: Diverticulitis, Other (colovesicular fistula with diverticulosis , heme posistive stools) Renal/: Yes: UTI (recurrent) Heme/Onc: Yes: Anemia, Cancer (laryngeal cancer with permanent tracheostomy ) Musculoskeletal: Yes: Chronic low back pain, Osteoarthritis, Other (avascular necrosis of the hip) - Past Surgical History Past Surgical History: Yes: Amputation, Colectomy, Colostomy - Smoking History Smoking history: Never smoked Have you smoked in the past 12 months: No s/p BKA, on lovenox to coumadin daily INR off abx Condition: Stable - Instructions Diet, Activity, Other Instructions: daily INR , continue lovenox till INR > 2.0 Disposition: LONG-TERM FACILITY - Home Medications Comprehensive Discharge Medication List: Ambulatory Orders Aa/Hydrolyzed Collagen, Whey [Lps Neutral Flavor Liquid] 30 ml PO DAILY Acetaminophen [Tylenol] 650 mg PO QID PRN 09/04/16 Albuterol 2.5/Ipratropium 0.5 [Duoneb -] 1 amp NEB QID 09/04/16 Brimonidine Tartrate [Alphagan 0.15% -] 1 drop BID 09/04/16 Dorzolamide HCl [Trusopt 2% -] 1 drop AM 09/04/16 Famotidine 10 mg PO AM 09/04/16 Ferrous Sulfate 325 mg PO TID 09/04/16 Folic Acid 1 mg PO DAILY 09/04/16 Latanoprost 0.005% Eye Drops [Xalatan 0.005% Eye Drops -] 1 drop OU HS 09/04/16 Magnesium Oxide [Mag-Ox -] 400 mg PO DAILY 09/04/16 Midodrine HCl [Proamatine -] 5 mg PO BID 09/04/16 Mirtazapine [Remeron -] 15 mg PO HS 09/04/16 Multivitamin [Poly-Vitamin] 1 each PO DAILY 09/04/16 Bentley-3 Acid Ethyl Esters [Lovaza -] 1,000 mg PO BID 09/04/16 Omeprazole 20 mg PO BID 09/04/16 Oxycodone HCl 5 mg PO QID PRN 09/04/16 Potassium Chloride 20 meq PO DAILY 09/04/16 Warfarin Na [Coumadin -] 7 mg PO DAILY@1800 09/04/16 Cephalexin Monohydrate [Keflex -] 500 mg PO BID #14 tab MDD 2 09/17/16
--- NOTE | 2016-09-23 12:52 | PN ---
Progress Note (short form) - Note Progress Note: start kelvin patrick INR In AM PT today DC to SNF in am Problem List - Problems (1) Gangrene Code(s): I96 - GANGRENE, NOT ELSEWHERE CLASSIFIED (3) Orthostatic hypotension Code(s): I95.1 - ORTHOSTATIC HYPOTENSION (4) Glaucoma Code(s): H40.9 - UNSPECIFIED GLAUCOMA
[2016-09-23] MEDS: oxyCODONE HCL 5 MG TABLET PO PRN ×2 (12:55→21:44)
[2016-09-23] MEDS ORDERED: WARFARIN NA 5 MG TABLET (UD) PO SCH (18:00)
[2016-09-23] MEDS ORDERED: PT OWN MED DRAWER 7, Y5N ONE (18:46)
[2016-09-23] MEDS: MIRTAZAPINE 15 MG TABLET (FP) PO SCH (21:43)
[2016-09-23] MEDS: LATANOPROST 0.005% OPHTH SOLN 2.5ML BOTTLE OU SCH (21:45)
[2016-09-24] MEDS: ALBUTEROL SO4 2.5/IPRATROPIUM 0.5 INH SOL 3 ML VIAL.NEB. NEB SCH ×3 (00:24→11:12)
[2016-09-24 05:28] VITALS: TEMP 98.2
[2016-09-24 06:06] LABS: SERUM IRON 20 ug/dL (38-169); TOTAL IRON BINDING CAPACITY 132 ug/dL (250-450); UIBC 112 ug/dL (111-343)
[2016-09-24] MEDS: oxyCODONE HCL 5 MG TABLET PO PRN (06:09)
[2016-09-24] MEDS: DORZOLAMIDE 2% HCL OPHTHALMIC SOLUTION 10 ML BOTTLE OU SCH (06:10)
[2016-09-24 08:21] LABS: INR 1.57 (0.82-1.09); PROTHROMBIN TIME (PATIENT) 17.4 SEC (9.98-11.88)
[2016-09-24] MEDS: FERROUS SO4 325 MG TABLET (FP) PO SCH ×2 (08:24→12:48)
[2016-09-24] MEDS ORDERED: IRON SUCROSE INJECTION 100 MG in SODIUM CHLORIDE 95 ML IVPB ONE (10:28)
--- NOTE | 2016-09-24 10:30 | PN ---
Progress Note, Physician Chief Complaint: in bed awake - Current Medication List Current Medications: Active Medications Acetaminophen (Tylenol -) 650 mg PO Q6H PRN PRN Reason: PAIN/FEVER Albuterol/Ipratropium (Duoneb -) 1 amp NEB QIDR [facility] Last Admin: 09/24/16 07:00 Dose: 1 amp Brimonidine Tartrate (Alphagan 0.15% -) 1 drop OD BID [facility] Last Admin: 09/23/16 21:45 Dose: 1 drop Dorzolamide HCl (Trusopt 2%) 1 drop OU AM [facility] Last Admin: 09/24/16 06:10 Dose: 1 drop Enoxaparin Sodium (Lovenox -) 60 mg SQ BID [facility] Last Admin: 09/23/16 21:44 Dose: 60 mg Ferrous Sulfate (Feosol -) 325 mg PO TIDCM [facility] Last Admin: 09/24/16 08:24 Dose: 325 mg Folic Acid (Folic Acid -) 1 mg PO DAILY [facility] Last Admin: 09/23/16 10:08 Dose: 1 mg Iron Sucrose 100 mg/ Sodium (Chloride) 100 mls @ 200 mls/hr IVPB ONCE ONE Stop: 09/24/16 10:57 Latanoprost (Xalatan 0.005% Eye Drops -) 1 drop OU HS [facility] Last Admin: 09/23/16 21:45 Dose: 1 drop Midodrine (Proamatine -) 5 mg PO BID-MID [facility] Last Admin: 09/23/16 18:47 Dose: 5 mg Mirtazapine (Remeron -) 15 mg PO HS [facility] Last Admin: 09/23/16 21:43 Dose: 15 mg Oxycodone HCl (Roxicodone -) 5 mg PO Q6H PRN PRN Reason: PAIN Last Admin: 09/24/16 06:09 Dose: 5 mg Pantoprazole Sodium (Protonix -) 20 mg PO BID [facility] Last Admin: 09/23/16 21:44 Dose: 20 mg Warfarin Sodium (Coumadin -) 5 mg PO DAILY@1800 [facility] Last Admin: 09/23/16 18:45 Dose: 5 mg - Objective Vital Signs: Vital Signs Temperature 98.2 F 09/24/16 05:27 Pulse Rate 86 09/24/16 05:27 Respiratory Rate 18 09/24/16 05:27 Blood Pressure 106/60 09/24/16 05:27 O2 Sat by Pulse Oximetry (%) 95 09/23/16 21:00 Constitutional: Yes: Calm Neck: Yes: Other (tracheostomy) Cardiovascular: Yes: Regular Rate and Rhythm, S1, S2 Respiratory: Yes: CTA Bilaterally Gastrointestinal: Yes: Normal Bowel Sounds, Soft Edema: No Wound/Incision: Yes: Other (left knee immobilizer) Neurological: Yes: Alert, Oriented Labs: CBC, BMP 09/23/16 07:50 09/23/16 07:50 INR, PTT INR 1.57 (0.82-1.09) H 09/24/16 07:10 Problem List - Problems (1) Gangrene Assessment/Plan: s/p BKA on lovenox to coumadin bridiging FU with wound care center in one week Code(s): I96 - GANGRENE, NOT ELSEWHERE CLASSIFIED (2) Laryngeal cancer Assessment/Plan: s/p trach trach care (3) Orthostatic hypotension Assessment/Plan: midodrine Code(s): I95.1 - ORTHOSTATIC HYPOTENSION (4) Glaucoma Assessment/Plan: eye drops Code(s): H40.9 - UNSPECIFIED GLAUCOMA
[2016-09-24] MEDS ORDERED: PT OWN MED DRAWER 7, Y5N ONE (10:34)
[2016-09-24 10:42] VITALS: BP 102/45; PULSE 79
[2016-09-24] MEDS: FOLIC ACID 1 MG TABLET (FP) PO SCH (10:42)
[2016-09-24] MEDS: ENOXAPARIN NA (PORCINE) 60 MG/0.6 ML DISP.SYRIN SQ SCH (10:42)
[2016-09-24] MEDS: PANTOPRAZOLE 20 MG TABLET (FP) PO SCH (10:42)
[2016-09-24] MEDS: MIDODRINE HCL 5 MG TABLET PO SCH (10:43)
[2016-09-24] MEDS: BRIMONIDINE TARTRATE 0.15% OPHTHALMIC 5 ML BOTTLE OD SCH (10:44)
--- NOTE | 2016-09-24 13:17 | PATH ---
Surgical Pathology Report Patient Name: FIDELIA VELZE Med. Rec. #: [id number] /Age/Gender: 1945 (Age: 71) / M Account: [id number] Location: [address] [place] [address]/[facility] Taken: 09/22/2016 Received: 09/23/2016 Reported: 09/24/2016 Physicians: Stanley Boston Specimen(s) Received BELOW KNEE AMPUTATION Clinical History Gangrene right foot Final Diagnosis LEG, RIGHT, BELOW KNEE AMPUTATION: SKIN, SOFT TISSUE AND UNDERLYING BONE WITH GANGRENOUS NECROSIS. BONE WITH ASSOCIATED ACUTE OSTEOMYELITIS. ALL ARTERIES WITH MARKEDLY CALCIFIED ATHEROSCLEROTIC PLAQUES WITH UP TO 90% OF SEGMENTAL LUMINAL OCCLUSION. SKIN AND SOFT TISSUE AT RESECTION MARGIN ARE VIABLE WITH CHRONIC ISCHEMIC-TYPE CHANGES. BONE AT RESECTION MARGIN APPEARS VIABLE. Electronically Signed Lawrence Kessler M.D. Gross Description Received fresh, indicated on the requisition to be a "right leg, below the knee and foot amputation" is a 27.5 cm in length below the knee amputation specimen. The proximal margin displays a 6.5 cm in length exposed portion of tibia and a 10 cm in length exposed portion of fibula. The distal foot appears to have been previously amputated and there is a staple line at the previous amputation site. There is a 9.5 x 5.5 cm black, gangrenous lesion at the previous amputation site which appears to involve the underlying bone grossly. Sectioning of the vasculature reveals focal, segmental, moderate atherosclerosis. Security Rep sections are submitted in 7 cassettes as follows: 1-lesion; 2-bone underlying lesion, following decalcification; 3-skin and soft tissue margin; 4-bone marrow from margin, following decalcification; 5-anterior tibial artery; 6-posterior tibial artery; 7-dorsalis pedis. /09/23/2016 saudi/09/23/2016
== END 2016-09-24 14:18 | DRG 475 ==
LOC: JER 16:22 → JERBED 19:49 → J6S 09-19 16:45
PROVIDERS: ADMIT Family Medicine; ATTEND Family Medicine
PROC: 30233L1 Transfusion of Nonautologous Fresh Plasma into Peripheral Vein, Percutaneous Approach (ICD-10-PCS; 2016-09-20)
PROC: 30233N1 Transfusion of Nonautologous Red Blood Cells into Peripheral Vein, Percutaneous Approach (ICD-10-PCS; 2016-09-20)
PROC: 0Y6H0Z2 Detachment at Right Lower Leg, Mid, Open Approach (ICD-10-PCS; principal; 2016-09-20 13:00)
DX: T87.53 Necrosis of amputation stump, right lower extremity (principal); I96 Gangrene, not elsewhere classified; K57.92 Diverticulitis of intestine, part unspecified, without perforation or abscess without bleeding; G40.802 Other epilepsy, not intractable, without status epilepticus; N39.0 Urinary tract infection, site not specified; M87.074 Idiopathic aseptic necrosis of right foot; I95.1 Orthostatic hypotension; H40.9 Unspecified glaucoma; F03.90 Unspecified dementia, unspecified severity, without behavioral disturbance, psychotic disturbance, mood disturbance, and anxiety; I10 Essential (primary) hypertension; J44.9 Chronic obstructive pulmonary disease, unspecified; M54.5 Low back pain; M19.90 Unspecified osteoarthritis, unspecified site; K21.9 Gastro-esophageal reflux disease without esophagitis; D64.9 Anemia, unspecified; Y83.8 Other surgical procedures as the cause of abnormal reaction of the patient, or of later complication, without mention of misadventure at the time of the procedure; Z86.711 Personal history of pulmonary embolism; Z85.21 Personal history of malignant neoplasm of larynx; Z93.3 Colostomy status; Z87.891 Personal history of nicotine dependence; Z88.0 Allergy status to penicillin; Z93.0 Tracheostomy status; Z79.01 Long term (current) use of anticoagulants
CPT/HCPCS: 36415; 36430; 71010-TC; 80048; 80053; 81003; 81015; 82550; 82553; 82728; 82803; 83540; 83550; 83605; 83735; 84484; 85025; 85610; 85730; 86850; 86900; 86901; 86922; 87040; 87086; 87186; 88307-TC; 88311-TC; 93005; 93010; 94640; 94760; 97116-GP; 97162-GP; 99285-25; A6223; G0463-25; P9017; P9038; P9058

== ENCOUNTER → 2016-10-27 | Emergency (ER) | payer OTHER, BC ==
[~2016-10-27] MED LIST: oxyCODONE HCL 5 MG TABLET PO ONE
[2016-10-27 14:51] VITALS: BMI 23.0
[2016-10-27 16:01] LABS: BASOPHIL 0.6 % (0-2.0); EOSINOPHIL 1.7 % (0-4.5); MCH 29.7 pg (25.7-33.7); MCHC 33.1 g/dl (32.0-35.9); MEAN CELL VOLUME 89.9 fl (80-96); MEAN PLT VOLUME 8.2 fl (7.5-11.1); NEUTROPHILS 83.9 % (42.8-82.8); PLATELET COUNT 222 K/MM3 (134-434); RDW 16.8 % (11.9-15.9); WHITE BLOOD COUNT 10.8 K/mm3 (4.0-10.0)
--- NOTE | 2016-10-27 16:04 | PDOC ---
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 Patient denies fall or trauma to head. Patient denies dizziness, headache, nausea, change in vision. PAST MEDICAL HISTORY: as per HPI FAMILY HISTORY: Denies SOCIAL HISTORY: Denies tobacco, alcohol, illicit drug use. SURGICAL HISTORY: Denies ALLERGIES: PCN REVIEW OF SYSTEMS General/Constitutional: Denies fever or chills. HEENT: Blood in L ear. Denies change in vision. Denies ear pain or discharge. Denies sore throat. Cardiovascular: Denies chest pain or shortness of breath. Respiratory: Denies cough, wheezing, or hemoptysis. Gastrointestinal: Denies nausea, vomiting, diarrhea or constipation. Denies rectal bleeding. Genitourinary: Denies dysuria, frequency, or change in urination. Musculoskeletal: Denies joint or muscle swelling or pain. Denies neck or back pain. Skin: Denies rash or easy bruising. Neurologic: Denies headache, vertigo, loss of consciousness, or loss of sensation. PHYSICAL EXAM General Appearance: Well-appearing, appropriately dressed. No apparent distress , no intoxication. HEENT: Blood to L auditory canal. EOMI, PERRLA, normal voice, pharynx normal. No conjunctival pallor. No photophobia, scleral icterus. Neck: Permanent trach site, dry, clean, no surrounding erythema, discharge, warmth. Supple. Trachea midline. No tenderness, rigidity, carotid bruit, stridor, lymphadenopathy, or thyromegaly. Respiratory/Chest: Lungs CTAB. Cardiovascular: RRR. S1, S2. No JVD, murmur, bradycardia, tachycardia. Vascular Pulses: Dorsalis-Pedis (R): 2+, Dorsalis-Pedis (L): 2+ Gastrointestinal/Abdominal: Normal bowel sounds. Abdomen soft, non-distended. No tenderness or rebound tenderness. No organomegaly, pulsatile mass, guarding , hernia, hepatomegaly, splenomegaly. Lymphatic: No adenopathy, tenderness. Musculoskeletal/Extremities: R BKA- stump clean, dry, no erythema, swelling, warmth. Normal inspection. FROM of all extremities, normal capillary refill. Pelvis Stable. No CVA tenderness. No tenderness to extremities, pedal edema, swelling, erythema or deformity. Integumentary: Appropriate color, dry, warm. No cyanosis, erythema, jaundice or rash Neurologic: research executive II-XII intact. Fully oriented, alert. Appropriate mood/affect. Motor strength 5/5. No appreciable EOM palsy, facial droop or sensory deficit. Past History - Past Medical History Allergies/Adverse Reactions: Allergies Allergy/AdvReac Type Severity Reaction Status Date / Time Penicillins Allergy Unknown Verified 10/27/16 14:51 Home Medications: Ambulatory Orders Aa/Hydrolyzed Collagen, Whey [Lps Neutral Flavor Liquid] 30 ml PO DAILY Acetaminophen [Tylenol] 650 mg PO QID PRN 09/04/16 Albuterol 2.5/Ipratropium 0.5 [Duoneb -] 1 amp NEB QID 09/04/16 Ferrous Sulfate 325 mg PO TID 09/04/16 Folic Acid 1 mg PO DAILY 09/04/16 Latanoprost 0.005% Eye Drops [Xalatan 0.005% Eye Drops -] 1 drop OU HS 09/04/16 Magnesium Oxide [Mag-Ox -] 500 mg PO DAILY 09/04/16 Midodrine HCl [Proamatine -] 5 mg PO BID 09/04/16 Mirtazapine [Remeron -] 15 mg PO HS 09/04/16 Multivitamin [Poly-Vitamin] 1 each PO DAILY 09/04/16 [place]-3 Acid Ethyl Esters [Lovaza -] 1,000 mg PO BID 09/04/16 Omeprazole 20 mg PO BID 09/04/16 Oxycodone HCl 5 mg PO QID PRN 09/04/16 Potassium Chloride 20 meq PO DAILY 09/04/16 Warfarin Na [Coumadin -] 7 mg PO DAILY@1800 09/04/16 Ciprofloxacin HCl/Dexameth [Ciprodex Otic Suspension] 4 drop BID #1 bottle Anemia: Yes Cancer: Yes (laryngeal CA w/ permenant tracheostomy) COPD: Yes (PE) GI Disorders: Yes (colostomy/GERD) Disorders: Yes (UTI) HTN: Yes Seizures: Yes (dementia) - Surgical History Abdominal Surgery: Yes (S/P COLOSTOMY; Hartmans procedure) Neurologic Surgery: Yes - Immunization History Immunization Up to Date: Yes - Psycho/Social/Smoking Cessation Hx Anxiety: No Suicidal Ideation: No Smoking History: Unknown if ever smoked Have you smoked in the past 12 months: No Information on smoking cessation initiated: No Hx Alcohol Use: No Drug/Substance Use Hx: No Substance Use Type: None *Physical Exam - Vital Signs Last Vital Signs Temp Pulse Resp BP Pulse Ox 98.1 F 86 18 136/66 96 10/27/16 14:48 10/27/16 14:48 10/27/16 14:48 10/27/16 14:48 10/27/16 14:48 ED Treatment Course - LABORATORY CBC & Chemistry Diagram: 10/27/16 15:46 10/27/16 15:46 - RADIOLOGY Radiology Studies Ordered: Category Date Time Status HEAD CT WITHOUT CONTRAST [CT] Stat CT Scan 10/27/16 15:38 Ordered Medical Decision Making - Medical Decision Making 10/27/16 17:55 71 yo with past medical history of anemia, hypertension, 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 -Head CT -CBC, CMP, PT/INR Labs: INR 3.95, otherwise unremarkable Patient c/o pain to site of BKA. -Oxycodone 5 mg 10/27/16 18:57 Case discussed in detail with oncoming emergency provider including history, physical exam and ancillary studies. In brief, this patient is being seen in the ED for a chief complaint of: I have completed the initial assessment interview note and have ordered the following labs: CBC, CMP, PT/INR I have reviewed the following results: labs Pending results: Head CT Please call the PCP: Marianela Plan for disposition as follows: pending neg head CT, discharge to home Oncoming SAW Santizo has assumed care for the patient and will complete the evaluation and treatment. *DC/Admit/Observation/Transfer Diagnosis at time of Disposition: Otitis media, purulent, acute, with spontaneous rupture of TM - Discharge Dispostion Disposition: DETENTION FACILITY Condition at time of disposition: Stable - Prescriptions Prescriptions: Ciprofloxacin HCl/Dexameth [Ciprodex Otic Suspension] 4 drop BID #1 bottle - Referrals Referrals: Nat Bear MD [Primary Care Provider] - Mio Martinez MD [Staff Physician] - - Patient Instructions Additional Instructions: Your Discharge Instructions: You must call primary care physician within 24 hours to arrange follow-up. Return to the Emergency Department with any new, persistent or worsening symptoms, for fever, chills, SOB, dizziness or any other concerning changes that may occur.
[2016-10-27 16:11] LABS: INR 3.95 (0.82-1.09); PROTHROMBIN TIME (PATIENT) 44.7 SEC (9.98-11.88)
[2016-10-27 16:32] LABS: ALBUMIN 3.4 g/dl (3.4-5.0); ALK PHOS 99 U/L (45-117); ANION GAP 8 (8-16); BILIRUBIN,TOTAL 0.2 mg/dL (0.2-1.0); CALCIUM 8.3 mg/dL (8.5-10.1); CO2 28 mmol/L (21-32); COCKROFT - GAULT 93.71; CREATININE 0.8 mg/dL (0.7-1.3); GLUCOSE,RANDOM 97 mg/dL (74-106); SGOT/AST 14 U/L (15-37); SGPT/ALT 18 U/L (12-78)
--- NOTE | 2016-10-27 20:48 | PDOC ---
*Physical Exam - Vital Signs Last Vital Signs Temp Pulse Resp BP Pulse Ox 98.1 F 86 18 136/66 96 10/27/16 14:48 10/27/16 14:48 10/27/16 14:48 10/27/16 14:48 10/27/16 14:48 <Hill Huertas - Last Filed: 10/27/16 20:48> - Vital Signs Last Vital Signs Temp Pulse Resp BP Pulse Ox 98.1 F 86 18 136/66 96 10/27/16 14:48 10/27/16 14:48 10/27/16 14:48 10/27/16 14:48 10/27/16 14:48 <Inez Vilchis - Last Filed: 10/28/16 02:35> ED Treatment Course - LABORATORY CBC & Chemistry Diagram: 10/27/16 15:46 10/27/16 15:46 - ADDITIONAL ORDERS Additional order review: Laboratory Results 10/27/16 10/27/16 10/27/16 16:26 15:46 15:46 INR 3.95 H D Sodium 140 Potassium 4.4 Chloride 104 Carbon Dioxide 28 Anion Gap 8 BUN 22 H D Creatinine 0.8 D Creat Clearance w eGFR > 60 Random Glucose 97 Calcium 8.3 L Total Bilirubin 0.2 D AST 14 L D ALT 18 D Alkaline Phosphatase 99 Total Protein 7.0 Albumin 3.4 D Blood Type O POSITIVE Antibody Screen Negative 10/27/16 15:46 RBC 3.84 L MCV 89.9 MCHC 33.1 RDW 16.8 H MPV 8.2 Neutrophils % 83.9 H Lymphocytes % 8.5 D Monocytes % 5.3 Eosinophils % 1.7 Basophils % 0.6 - Medications Given in the ED: ED Medications Discontinued Medications Generic Name Dose Route Start Last Admin Trade Name Freq PRN Reason Stop Dose Admin Oxycodone HCl 5 mg 10/27/16 18:30 10/27/16 19:05 Roxicodone - PO 10/27/16 18:31 5 mg ONCE ONE Administration <Hill Huertas - Last Filed: 10/27/16 20:48> - LABORATORY CBC & Chemistry Diagram: 10/27/16 15:46 10/27/16 15:46 - ADDITIONAL ORDERS Additional order review: Laboratory Results 10/27/16 10/27/16 10/27/16 16:26 15:46 15:46 INR 3.95 H D Sodium 140 Potassium 4.4 Chloride 104 Carbon Dioxide 28 Anion Gap 8 BUN 22 H D Creatinine 0.8 D Creat Clearance w eGFR > 60 Random Glucose 97 Calcium 8.3 L Total Bilirubin 0.2 D AST 14 L D ALT 18 D Alkaline Phosphatase 99 Total Protein 7.0 Albumin 3.4 D Blood Type O POSITIVE Antibody Screen Negative 10/27/16 15:46 RBC 3.84 L MCV 89.9 MCHC 33.1 RDW 16.8 H MPV 8.2 Neutrophils % 83.9 H Lymphocytes % 8.5 D Monocytes % 5.3 Eosinophils % 1.7 Basophils % 0.6 - Medications Given in the ED: ED Medications Discontinued Medications Generic Name Dose Route Start Last Admin Trade Name Sarah PRN Reason Stop Dose Admin Oxycodone HCl 5 mg 10/27/16 18:30 10/27/16 19:05 Roxicodone - PO 10/27/16 18:31 5 mg ONCE ONE Administration <Inez Vilchis - Last Filed: 10/28/16 02:35> Medical Decision Making - Medical Decision Making 10/27/16 20:[address] impressions reported by Dr.Elizabeth Bustillo: 1. There is no evidence of an acute intracranial process, intracranial hemorrhage or mass effect. 2. Ventricular size is concordant with the degree of atrophy. 3. The visualized portions of the orbits, paranasal and mastoid sinuses are notable for partial opacification of the left external auditory canal, left middle ear and left mastoid sinus. 4. There is no definite evidence of fracture. If there is a clinical suspicion of a temporal bone fracture, dedicated temporal bone imaging would be helpful. <Hill Huertas - Last Filed: 10/27/16 20:48> - Medical Decision Making 10/27/16 20:48 endorsed to me by ARMIDA Engel to follow CT scan 10/27/16 22:04 Patient Name: Lui Cross THIS IS A PRELIMINARY REPORT FROM [facility] EXAM: CT head without contrast IMAGES: 268 DATE OF SERVICE: 2016-10-27 19:09:46.0 HISTORY:Left hemotympanum. COMPARISON: None. FINDINGS: 1. There is no evidence of an acute intracranial process, intracranial hemorrhage or mass effect. 2. Ventricular size is concordant with the degree of atrophy. 3. The visualized portions of the orbits, paranasal and mastoid sinuses are notable for partial opacification of the left external auditory canal, left middle ear and left mastoid sinus. 4. There is no definite evidence of fracture. If there is a clinical suspicion of a temporal bone fracture, dedicated temporal bone imaging would be helpful. THIS DOCUMENT HAS BEEN ELECTRONICALLY SIGNED Kaye Bustillo MD 10/27/2016 20:21 TRINIDAD Perla Please call [facility] [phone] ([phone]) with questions. CT scan d/w patient will put on antibx gtts and inst to follow up with ENT paitent is no acute distress, no active bleeding from the ear I discussed the physical exam findings, ancillary test results and final diagnoses with the patient. I answered all of the patient's questions. The patient was satisfied with the care received and felt comfortable with the discharge plan and treatment plan. The Patient agrees to follow up with the primary care physician within 24-72 hours. <Inez Vilchis - Last Filed: 10/28/16 02:35> *DC/Admit/Observation/Transfer <Hill Huertas - Last Filed: 10/27/16 20:48> <Inez Vilchis - Last Filed: 10/28/16 02:35> Diagnosis at time of Disposition: Otitis media, purulent, acute, with spontaneous rupture of TM Qualifiers: Laterality: left Recurrence: not specified as recurrent Qualified Code(s): H66.012 - Acute suppurative otitis media with spontaneous rupture of ear drum, left ear - Discharge Dispostion Disposition: HOME Condition at time of disposition: Stable - Prescriptions Prescriptions: Ciprofloxacin HCl/Dexameth [Ciprodex Otic Suspension] 4 drop BID #1 bottle - Referrals Referrals: Nat Bear MD [Primary Care Provider] - Mio Martinez MD [Staff Physician] - - Patient Instructions Additional Instructions: Your Discharge Instructions: You must call primary care physician within 24 hours to arrange follow-up. Return to the Emergency Department with any new, persistent or worsening symptoms, for fever, chills, SOB, dizziness or any other concerning changes that may occur.
[2016-10-27 22:36] VITALS: BP 110/70; PULSE 78; TEMP 98.4
== END ==
LOC: JER 14:30
DX: H66.012 Acute suppurative otitis media with spontaneous rupture of ear drum, left ear (principal); I10 Essential (primary) hypertension; G40.909 Epilepsy, unspecified, not intractable, without status epilepticus; J44.9 Chronic obstructive pulmonary disease, unspecified; K21.9 Gastro-esophageal reflux disease without esophagitis; Z85.21 Personal history of malignant neoplasm of larynx; Z86.711 Personal history of pulmonary embolism; Z79.01 Long term (current) use of anticoagulants; Z93.0 Tracheostomy status; Z89.511 Acquired absence of right leg below knee
CPT/HCPCS: 36415; 70450-TC; 80053; 85025; 85610; 86850; 86900; 86901; 99283-25

== ENCOUNTER 2018-08-20 15:59 | Inpatient (IN) | payer OTHER, BC ==
[2018-08-20] MEDS ORDERED: ACETAMINOPHEN 1000 MG/100 ML VIAL (NON FORMULARY) IVPB ONE (16:49)
[2018-08-20 17:08] LABS: VENOUS PC02 27.2 mmHg (41-51); VENOUS PH 7.47 (7.31-7.41); VENOUS PO2 62.7 mmHg (30-40)
[2018-08-20 17:09] LABS: BASO % 0.2 % (0-2.0); EOS % 0.4 % (0-4.5); HEMATOCRIT 44.1 % (35.4-49); HEMOGLOBIN 15.2 GM/dL (11.7-16.9); LYMPH % 3.1 % (8-40); MCH 32.5 pg (25.7-33.7); MCHC 34.5 g/dl (32.0-35.9); MEAN CELL VOLUME 94.4 fl (80-96); MEAN PLT VOLUME 8.5 fl (7.5-11.1); MONO % 4.3 % (3.8-10.2); PLATELET COUNT 278 K/MM3 (134-434); RBC 4.67 M/mm3 (4.00-5.60); RDW 14.4 % (11.9-15.9); WHITE BLOOD COUNT 9.4 K/mm3 (4.0-10.0)
[2018-08-20] MEDS ORDERED: ACETAMINOPHEN INJECTION 100 ML IVPB ONE (17:17)
[2018-08-20 17:27] LABS: INR 1.2 (0.83-1.09); PROTHROMBIN TIME (PATIENT) 14.2 SEC (9.7-13.0)
[2018-08-20] MEDS ORDERED: SODIUM CHLORIDE 1,000 ML IV STA ×2 (17:33→17:34)
[2018-08-20] MEDS ORDERED: CEFEPIME HCL/D5W 1 GM/50 ML BAG IVPB ONE (17:39)
[2018-08-20] MEDS ORDERED: VANCOMYCIN 1,000 MG in DEXTROSE 5%-WATER - 250 ML IVPB ONE (17:39)
[2018-08-20 17:40] LABS: ALBUMIN 3.4 g/dl (3.4-5.0); ALK PHOS 103 U/L (45-117); ANION GAP 8 MMOL/L (8-16); BILIRUBIN,TOTAL 0.6 mg/dL (0.2-1); BLOOD UREA NITROGEN 29 mg/dL (7-18); CALCIUM 8.6 mg/dL (8.5-10.1); CHLORIDE 111 mmol/L (98-107); CO2 21 mmol/L (21-32); CREATININE 1.5 mg/dL (0.55-1.3); GLUCOSE,RANDOM 130 mg/dL (74-106); SGOT/AST 30 U/L (15-37); SGPT/ALT 40 U/L (13-61); SODIUM 139 mmol/L (136-145); TOT PROT 7.5 g/dl (6.4-8.2)
--- NOTE | 2018-08-20 17:52 | PDOC ---
History of Present Illness - History of Present Illness Initial Comments: 73yo M with PMH of Laryngeal CA s/p trachestomy and laryngotomy, COPD, PE on Eliquis, HTN, [facility] fever of 101.5. Upon asking if he is in acute pain, patient does not nod yes/no. History limited by patient's inability to communicate. <Kaye Richards - Last Filed: 08/21/18 00:50> <Syl Maciel - Last Filed: 08/21/18 18:43> - General Chief Complaint: SIRS, Suspected/Possible Stated Complaint: FEVER Time Seen by Provider: 08/20/18 16:46 Past History - Past Medical History Anemia: Yes Cancer: Yes (laryngeal CA w/ permenant tracheostomy) COPD: Yes (PE) GI Disorders: Yes (colostomy/GERD) Disorders: Yes (UTI) HTN: Yes Seizures: Yes (dementia) - Surgical History Abdominal Surgery: Yes (S/P COLOSTOMY; Hartmans procedure) Neurologic Surgery: Yes - Immunization History Immunization Up to Date: Yes - Suicide/Smoking/Psychosocial Hx Smoking History: Unknown if ever smoked Have you smoked in the past 12 months: No Hx Alcohol Use: No Drug/Substance Use Hx: No Substance Use Type: None <Kaye Richards - Last Filed: 08/21/18 00:50> <Syl Maciel - Last Filed: 08/21/18 18:43> - Past Medical History Allergies/Adverse Reactions: Allergies Allergy/AdvReac Type Severity Reaction Status Date / Time Penicillins Allergy Unknown Verified 10/27/16 14:51 Home Medications: Ambulatory Orders Acetaminophen [Tylenol] 650 mg PO QID PRN 09/04/16 Latanoprost 0.005% Eye Drops [Xalatan 0.005% Eye Drops -] 1 drop OU HS 09/04/16 Midodrine HCl [Proamatine -] 5 mg PO BID 09/04/16 Mirtazapine [Remeron -] 7.5 mg PO HS 09/04/16 Multivitamin [Poly-Vitamin] 1 each PO DAILY 09/04/16 Potassium Chloride 20 meq PO DAILY 09/04/16 Albuterol 2.5/Ipratropium 0.5 [Duoneb -] 1 neb IH QID PRN 08/20/18 Apixaban [Eliquis -] 2.5 mg PO BID 08/20/18 Brimonidine Tartrate [Alphagan 0.15% -] 1 drop OU TID 08/20/18 Cholecalciferol (Vitamin D3) [Vitamin D3 -] 2,000 unit PO DAILY 08/20/18 Dorzolamide HCl/Timolol Maleat [Cosopt Eye Drops] 1 drop OU BID 08/20/18 Famotidine [Pepcid -] 20 mg PO HS 08/20/18 Magnesium Oxide [Magox 400] 500 mg PO DAILY 08/20/18 Review of Systems - Review of Systems Able to Perform ROS?: No (pt nonverbal) <Kaye Richards - Last Filed: 08/21/18 00:50> *Physical Exam - Vital Signs Last Vital Signs Temp Pulse Resp BP Pulse Ox 100.7 F H 105 H 26 H 90/60 92 L 08/20/18 16:25 08/20/18 16:25 08/20/18 16:25 08/20/18 16:25 08/20/18 16:25 - Physical Exam Comments: General: Awake, alert, in no acute distress Head: No signs of trauma Eyes: EOMI, sclera anicteric ENT: Dry mucus membranes Neck: Normal ROM, supple Lungs: Crackles present at L. base, tracheostomy present without collar with some yellow secretions present at the opening Cardio: Regular rhythm, S1 and S2 present Abdomen: Soft, nontender. No grimacing noted upon palpation. Colostomy present in LLQ. Extremities: R. BKA, able to move all etremities SKIN: Warm, Dry, normal turgor Neurologic: Cranial nerves II through XII grossly intact. <Kaye Richards - Last Filed: 08/21/18 00:50> - Vital Signs Last Vital Signs Temp Pulse Resp BP Pulse Ox 100.7 F H 95 H 22 H 101/62 97 08/20/18 16:25 08/20/18 18:39 08/20/18 18:39 08/20/18 18:51 08/20/18 18:39 <Syl Maciel - Last Filed: 08/21/18 18:43> Moderate Sedation - Procedure Monitoring Vital Signs: Procedure Monitoring Vital Signs Temperature 100.7 F H 08/20/18 16:25 Pulse Rate 105 H 08/20/18 16:25 Respiratory Rate 26 H 08/20/18 16:25 Blood Pressure 90/60 08/20/18 16:25 O2 Sat by Pulse Oximetry (%) 92 L 08/20/18 16:25 <Kaye Richards - Last Filed: 08/21/18 00:50> - Procedure Monitoring Vital Signs: Procedure Monitoring Vital Signs Temperature 100.7 F H 08/20/18 16:25 Pulse Rate 95 H 08/20/18 18:39 Respiratory Rate 22 H 08/20/18 18:39 Blood Pressure 101/62 08/20/18 18:51 O2 Sat by Pulse Oximetry (%) 97 08/20/18 18:39 <Syl Maciel - Last Filed: 08/21/18 18:43> ED Treatment Course - LABORATORY CBC & Chemistry Diagram: 08/20/18 16:36 08/20/18 16:36 - ADDITIONAL ORDERS Additional order review: Laboratory Results 08/20/18 08/20/18 08/20/18 16:36 16:36 16:17 PT with INR 14.20 H INR 1.20 H VBG pH 7.47 H POC VBG pCO2 27.2 L POC VBG pO2 62.7 H VBG HCO3 19.3 L VBG O2 Sat (Greyson) 92.6 H VBG Base Excess -2.6 L Sodium 139 Potassium 4.0 Chloride 111 H Carbon Dioxide 21 Anion Gap 8 BUN 29 H Creatinine 1.5 H Creat Clearance w eGFR 46.00 Random Glucose 130 H Calcium 8.6 Total Bilirubin 0.6 AST 30 ALT 40 Alkaline Phosphatase 103 Creatine Kinase 94 Troponin I < 0.02 Total Protein 7.5 Albumin 3.4 08/20/18 16:36 RBC 4.67 MCV 94.4 MCHC 34.5 RDW 14.4 D MPV 8.5 Neutrophils % 92.0 H Lymphocytes % 3.1 L D Monocytes % 4.3 Eosinophils % 0.4 Basophils % 0.2 - Medications Given in the ED: ED Medications Discontinued Medications Generic Name Dose Route Start Last Admin Trade Name Freq PRN Reason Stop Dose Admin Acetaminophen 1,000 mg 08/20/18 16:49 08/20/18 17:19 Ofirmev Injection - IVPB 08/20/18 16:50 1,000 mg ONCE ONE Administration <Kaye Richards - Last Filed: 08/21/18 00:50> - LABORATORY CBC & Chemistry Diagram: 08/21/18 09:42 08/21/18 09:42 - ADDITIONAL ORDERS Additional order review: Laboratory Results 08/20/18 08/20/18 08/20/18 16:36 16:36 16:36 PT with INR 14.20 H INR 1.20 H VBG pH POC VBG pCO2 POC VBG pO2 VBG HCO3 VBG O2 Sat ([place]) VBG Base Excess Sodium 139 Potassium 4.0 Chloride 111 H Carbon Dioxide 21 Anion Gap 8 BUN 29 H Creatinine 1.5 H Creat Clearance w eGFR 46.00 Random Glucose 130 H Lactic Acid 2.5 H* Calcium 8.6 Total Bilirubin 0.6 AST 30 ALT 40 Alkaline Phosphatase 103 Creatine Kinase 94 Troponin I < 0.02 Total Protein 7.5 Albumin 3.4 08/20/18 16:17 PT with INR INR VBG pH 7.47 H POC VBG pCO2 27.2 L POC VBG pO2 62.7 H VBG HCO3 19.3 L VBG O2 Sat ([place]) 92.6 H VBG Base Excess -2.6 L Sodium Potassium Chloride Carbon Dioxide Anion Gap BUN Creatinine Creat Clearance w eGFR Random Glucose Lactic Acid Calcium Total Bilirubin AST ALT Alkaline Phosphatase Creatine Kinase Troponin I Total Protein Albumin 08/20/18 16:36 RBC 4.67 MCV 94.4 MCHC 34.5 RDW 14.4 D MPV 8.5 Neutrophils % 92.0 H Lymphocytes % 3.1 L D Monocytes % 4.3 Eosinophils % 0.4 Basophils % 0.2 - RADIOLOGY Radiology Studies Ordered: Category Date Time Status CHEST X-RAY PORTABLE* [RAD] Stat Radiology 08/20/18 16:36 Completed - Medications Given in the ED: ED Medications Discontinued Medications Generic Name Dose Route Start Last Admin Trade Name Freq PRN Reason Stop Dose Admin Acetaminophen 1,000 mg 08/20/18 16:49 08/20/18 17:19 Ofirmev Injection - IVPB 08/20/18 16:50 1,000 mg ONCE ONE Administration Sodium Chloride 1,000 mls @ 1,000 mls/hr 08/20/18 17:33 08/20/18 16:25 Normal Saline - IV 08/20/18 18:32 1,000 mls/hr ASDIR STA Administration Sodium Chloride 1,000 mls @ 1,000 mls/hr 08/20/18 17:34 08/20/18 18:02 Normal Saline - IV 08/20/18 18:33 1,000 mls/hr ASDIR STA Administration Cefepime HCl 1 gm in 50 mls @ 100 mls/hr 08/20/18 17:39 08/20/18 18:51 Maxipime 1 Gm Premix Ivpb IVPB 08/20/18 18:08 100 mls/hr ONCE ONE Administration <Syl Maciel - Last Filed: 08/21/18 18:43> Medical Decision Making - Medical Decision Making 73yo M with PMH of Laryngeal CA s/p trachestomy and laryngotomy, COPD, PE on Eliquis, HTN, Anemia sent by [facility] for fever of 101.5. Septic workup DDX including but not limited to pneumonia, bacteremia, UTI Vanc/Cefepime 2L NS 08/20/18 17:52 No anemia or leukocytosis JOEL with Cr=1.5 noted as patient's previous Cr was 0.8 Lactate=2.5 Difficulty with catheterization for urine sample Bag has been placed "A single AP view of the chest reveals a weak inspiration with thoracic inlet clips, central crowding and normal mediastinum. The angles are sharp. The bones and soft tissues are intact. The prior study of 09/18/2016, the tracheostomy tube has been removed" 08/20/18 17:54 Pending UA, however still unable to obtain sample Per nurse, patient may have unusual anatomy and patient complained of pain upon attempting catheter insertion. 08/20/18 20:36 Discussed case with ARMIDA Albarado who accepted patient for admission under Dr. Cobb 08/20/18 23:10 <Kaye Richards - Last Filed: 08/21/18 00:50> *DC/Admit/Observation/Transfer - Discharge Dispostion Decision to Admit order: Yes <Kaye Richards - Last Filed: 08/21/18 00:50> - Discharge Dispostion Decision to Admit order: Yes <Syl Maciel - Last Filed: 08/21/18 18:43> Diagnosis at time of Disposition: Febrile illness, acute, Wheezing, JOEL (acute kidney injury) - Discharge Dispostion Condition at time of disposition: Guarded
[2018-08-20] MEDS ORDERED: CEFEPIME 1 GM/100 ML BAG IVPB ONE (17:56)
[2018-08-20] MEDS ORDERED: VANCOMYCIN 500 MG VIAL (RESTRICTED TO ID ONLY) ONE (17:56)
--- NOTE | 2018-08-20 18:21 | PDOC ---
Attending Attestation - Resident Resident Name: Kaye Richards - ED Attending Attestation I have performed the following: I have examined & evaluated the patient, The case was reviewed & discussed with the resident, I agree w/resident's findings & plan - HPI HPI: 08/20/18 18:21 73YOM, anemia, hypertension, laryngeal Ca (with permanent tracheostomy and laryngectomy), chronic obstructive pulmonary disease, pulmonary embolism (on Coumadin), seizure disorder, dementia, gastroesophageal reflux disease, and frequent urinary tract infection, who presents to the ED with, fever. History limited secondary to prior trach, since removed patient does not have voicebox. Allergies: Penicillins Past Medical History: anemia, hypertension, laryngeal Ca (with permanent tracheostomy and laryngectomy), chronic obstructive pulmonary disease, pulmonary embolism (on Coumadin), seizure disorder, dementia, gastroesophageal reflux disease, and freq urinary tract infection Social history: Lives with family. No smoking. No alcohol. No illicit drugs. Surgical history: Colostomy. Right below the knee amputation. PMD: Dr. Bear - Physicial Exam PE: 08/20/18 18:23 NAD, nonverbal, chronic hoarse voice 2/2 trach. PERRL, EOMI, nl conjunctiva, anicteric, +trach stoma; neck supple. +Blt wheezing Right>left with crackles, no respiratory distress. +Tachycardic, abdomen soft nontender. JAMA x4, right BKA. No peripheral edema. normal color for ethnicity, WWP. +Warm to touch. 08/20/18 18:27 - Medical Decision Making 08/20/18 18:22 See HPI for details Vital signs reviewed, +fever, tachycardia. on O2 for via trach stoma; mild tachypnea in 20s initially, mild hypoxia 92% on RA, but also has h/o COPD allowed for 88-92%. no respiratory distress, breathing comfortably. Prior notes reviewed, including admissions, discharges and consultations. laboratory results and imaging reviewed, basic labs and lytes wnl, notable for JOEL new Cr elevation to 1.5 (prior normal ~0.5-0.6). CXR_weak inspiration, no acute pathology. Cardiac panel_negative ED course - sepsis care, blood cultures. IV cefepime and vancomycin for empiric coverage, likely pna vs bronchitis, respiratory etiology with his trach history. treat broadly for now.. duonebs for wheezing. tylenol for fever, recheck VS admit for fever/pna vs bronchitis/wheezing, medical management. admit to hospitalist service, PMD Dr Bear 08/20/18 18:29 08/20/18 18:29 Heart Score/ECG Review #1 ECG reviewed & interpreted by me at: 18:35 General ECG Interpretation: Sinus Rhythm Compared to previous ECG there are: No significant change 08/20/18 19:15 EKG normal sinus rhythm at 97 bpm, no interval abnormalities, narrow QRS, ST and T wave segments and morphology normal. Nonspecific T wave abnormalities
[2018-08-20] MEDS ORDERED: ALBUTEROL SO4 2.5/IPRATROPIUM 0.5 INH SOL 3 ML VIAL.NEB. NEB ONE (18:22)
[2018-08-20] MEDS: ALBUTEROL SO4 2.5/IPRATROPIUM 0.5 INH SOL 3 ML VIAL.NEB. NEB SCH ×3 (18:32→19:53)
[2018-08-20 21:32] LABS: PLATELET ESTIMATE ADEQUATE
[2018-08-20] MEDS ORDERED: ACETAMINOPHEN 325 MG TABLET (FP) PO PRN (22:39)
--- NOTE | 2018-08-20 22:57 | HP ---
CHIEF COMPLAINT: fever PCP:Dr. Belcher HISTORY OF PRESENT ILLNESS: This is a 73 year old male with history of hypotension(on midodrine), anemia, colostomy, laryngeal cancer with laryngectomy and tracheostomy which has been removed, now with an open stoma, chronic obstructive pulmonary disease, pulmonary embolism (on Eliquis 2.5mgtwice daily), seizure disorder, dementia, gastroesophageal reflux disease, and frequent urinary tract infection who presents to the ER from [facility] with fever. Health history is limited secondary to prior tracheostomy and patient is nonverbal. In the ER he was found to have a fever of 100.7, heart rate 107 and blood pressure 90/60. He has an elevated lactic acid of 2.5, WBC is normal. CXR with no acute findings.Influenza A and B negative. Creatinine is 1.5 (baseline creatinine 0.8).Potassium and sodium are normal. He received 2 liters of IV fluid and repeat lactic acid was 2.2. Urinalysis and culture was not obtained with straight catherization as attempted by nursing staff. Blood cultures are pending. He received a dosage of IV cefipine and vancomycin. He is being admitted to Medicine for a further medical evaluation. Recent Travel:n/a PAST MEDICAL HISTORY:anemia, hypotension, laryngeal cancer with laryngectomy and tracheostomy, now with open stoma, chronic obstructive pulmonary disease, pulmonary embolism, seizure disorder, dementia, gastroesophageal reflux disease , frequent urinary tract infection PAST SURGICAL HISTORY: laryngectomy with prior tracheostomy, now with open stoma site colostomy right below the knee amputation Social History: unable to obtain accurate health history and limited as patient is nonverbal Family History: unable to obtain as patient is nonverbal Allergies Penicillins Allergy (Unknown, Verified 10/27/16 14:51) HOME MEDICATIONS: Home Medications Medication Instructions Recorded Acetaminophen [Tylenol] 650 mg PO QID PRN 09/04/16 Latanoprost 0.005% Eye Drops 1 drop OU HS 09/04/16 [Xalatan 0.005% Eye Drops -] Midodrine HCl [Proamatine -] 5 mg PO BID 09/04/16 Mirtazapine [Remeron -] 7.5 mg PO HS 09/04/16 Multivitamin [Poly-Vitamin] 1 each PO DAILY 09/04/16 Potassium Chloride 20 meq PO DAILY 09/04/16 Albuterol 2.5/Ipratropium 0.5 1 neb IH QID PRN 08/20/18 [Duoneb -] Apixaban [Eliquis -] 2.5 mg PO BID 08/20/18 Brimonidine Tartrate [Alphagan 1 drop OU TID 08/20/18 0.15% -] Cholecalciferol (Vitamin D3) 2,000 unit PO DAILY 08/20/18 [Vitamin D3 -] Dorzolamide HCl/Timolol Maleat 1 drop OU BID 08/20/18 [Cosopt Eye Drops] Famotidine [Pepcid -] 20 mg PO HS 08/20/18 Magnesium Oxide [Magox 400] 500 mg PO DAILY 08/20/18 REVIEW OF SYSTEMS CONSTITUTIONAL: Absent: fever, chills, diaphoresis, generalized weakness, malaise, loss of appetite, weight change HEENT: Absent: rhinorrhea, nasal congestion, throat pain, throat swelling, difficulty swallowing, mouth swelling, ear pain, eye pain, visual changes CARDIOVASCULAR: Absent: chest pain, syncope, palpitations, irregular heart rate, lightheadedness , peripheral edema RESPIRATORY: Absent: cough, shortness of breath, dyspnea with exertion, orthopnea, wheezing, stridor, hemoptysis,yellowish sputum GASTROINTESTINAL: Absent: abdominal pain, abdominal distension, nausea, vomiting, diarrhea, constipation, melena, hematochezia GENITOURINARY: Absent: dysuria, frequency, urgency, hesitancy, hematuria, flank pain, genital pain MUSCULOSKELETAL: Absent: myalgia, arthralgia, joint swelling, back pain, neck pain SKIN: Absent: rash, itching, pallor HEMATOLOGIC/IMMUNOLOGIC: Absent: easy bleeding, easy bruising, lymphadenopathy, frequent infections ENDOCRINE: Absent: unexplained weight gain, unexplained weight loss, heat intolerance, cold intolerance NEUROLOGIC: Absent: headache, focal weakness or paresthesias, dizziness, unsteady gait, seizure, mental status changes, bladder or bowel incontinence PSYCHIATRIC: Absent: anxiety, depression, suicidal or homicidal ideation, hallucinations. PHYSICAL EXAMINATION Vital Signs - 24 hr 08/20/18 08/20/18 08/20/18 16:25 16:34 16:36 Temperature 100.7 F H Pulse Rate 105 H 95 H Pulse Rate [ Right] Respiratory 26 H Rate Blood Pressure 90/60 Blood Pressure [Right Arm] O2 Sat by Pulse 92 L 97 97 Oximetry (%) 08/20/18 08/20/18 08/20/18 18:39 18:51 19:21 Temperature 99 F Pulse Rate Pulse Rate [ 95 H Right] Respiratory 22 H Rate Blood Pressure Blood Pressure 101/62 [Right Arm] O2 Sat by Pulse 97 Oximetry (%) GENERAL: awake and nonverbal HEAD: normal, no head trauma EYES: pupils equal, round and reactive to light EARS, NOSE, THROAT: ears normal, nares patent NECK: open stoma with yellowish sputum LUNGS: breath sounds clear to auscultation bilaterally, no wheezes,no crackles, no accessory muscle use HEART: regular rate and mildly tachycardic normal S1 and S2 without murmur ABDOMEN: soft, nontender, not distended, normoactive bowel sounds, colostomy bag in place MUSCULOSKELETAL: limited ROM to RLE due to RT BKA UPPER EXTREMITIES: no cyanosis, no peripheral edema LOWER EXTREMITIES: no edema warm on palpation NEUROLOGICAL: no focal neuro deficits SKIN: warm, dry, normal turgor, no rashes or lesions Laboratory Results - last 24 hr 08/20/18 08/20/18 08/20/18 16:17 16:36 16:36 WBC 9.4 RBC 4.67 Hgb 15.2 Hct 44.1 D MCV 94.4 MCH 32.5 MCHC 34.5 RDW 14.4 D Plt Count 278 D MPV 8.5 Absolute Neuts (auto) 8.6 H Neutrophils % 92.0 H Neutrophils % (Manual) 78.0 Band Neutrophils % 14.0 Lymphocytes % 3.1 L D Lymphocytes % (Manual) 3.0 L Monocytes % 4.3 Monocytes % (Manual) 3 L Eosinophils % 0.4 Eosinophils % (Manual) 0.0 Basophils % 0.2 Basophils % (Manual) 0.0 Myelocytes % (Man) 1 Nucleated RBC % 0 Platelet Estimate Adequate PT with INR 14.20 H INR 1.20 H PTT (Actin FS) VBG pH 7.47 H POC VBG pCO2 27.2 L POC VBG pO2 62.7 H VBG HCO3 19.3 L VBG O2 Sat (Greyson) 92.6 H VBG Base Excess -2.6 L Sodium Potassium Chloride Carbon Dioxide Anion Gap BUN Creatinine Creat Clearance w eGFR Random Glucose Lactic Acid Calcium Total Bilirubin AST ALT Alkaline Phosphatase Creatine Kinase Troponin I Total Protein Albumin Influenza A (Rapid) Influenza B (Rapid) 08/20/18 08/20/18 08/20/18 16:36 16:36 16:36 WBC RBC Hgb Hct MCV MCH MCHC RDW Plt Count MPV Absolute Neuts (auto) Neutrophils % Neutrophils % (Manual) Band Neutrophils % Lymphocytes % Lymphocytes % (Manual) Monocytes % Monocytes % (Manual) Eosinophils % Eosinophils % (Manual) Basophils % Basophils % (Manual) Myelocytes % (Man) Nucleated RBC % Platelet Estimate PT with INR INR PTT (Actin FS) 29.4 VBG pH POC VBG pCO2 POC VBG pO2 VBG HCO3 VBG O2 Sat (Greyson) VBG Base Excess Sodium 139 Potassium 4.0 Chloride 111 H Carbon Dioxide 21 Anion Gap 8 BUN 29 H Creatinine 1.5 H Creat Clearance w eGFR 46.00 Random Glucose 130 H Lactic Acid 2.5 H* Calcium 8.6 Total Bilirubin 0.6 AST 30 ALT 40 Alkaline Phosphatase 103 Creatine Kinase 94 Troponin I < 0.02 Total Protein 7.5 Albumin 3.4 Influenza A (Rapid) Influenza B (Rapid) 08/20/18 08/20/18 19:00 20:07 WBC RBC Hgb Hct MCV MCH MCHC RDW Plt Count MPV Absolute Neuts (auto) Neutrophils % Neutrophils % (Manual) Band Neutrophils % Lymphocytes % Lymphocytes % (Manual) Monocytes % Monocytes % (Manual) Eosinophils % Eosinophils % (Manual) Basophils % Basophils % (Manual) Myelocytes % (Man) Nucleated RBC % Platelet Estimate PT with INR INR PTT (Actin FS) VBG pH POC VBG pCO2 POC VBG pO2 VBG HCO3 VBG O2 Sat (Greyson) VBG Base Excess Sodium Potassium Chloride Carbon Dioxide Anion Gap BUN Creatinine Creat Clearance w eGFR Random Glucose Lactic Acid 2.2 H* Calcium Total Bilirubin AST ALT Alkaline Phosphatase Creatine Kinase Troponin I Total Protein Albumin Influenza A (Rapid) Negative Influenza B (Rapid) Negative ASSESSMENT/PLAN: 73 year old male with history of anemia, hypotension(on midodrine), colostomy, laryngeal cancer with laryngectomy and tracheostomy which has been removed and now with an open stoma, chronic obstructive pulmonary disease, pulmonary embolism (on Eliquis), seizure disorder, dementia, gastroesophageal reflux disease, and frequent urinary tract infection who presented from [facility] with fever, elevated lactic acid and hypotension. Febrile Illness(source unknown, ?UTI versus bronchitis) Lactic acid of 2.5, after IV fluids repeat lactic acid is 2.2, WBC is normal. CXR with no acute findings.Influenza A and B negative. In ER it was unsuccessful to obtain UA/culture with a straight catherization due to his anatomy as per report(no history of BPH). Will request second attempt to obtain UA/culture with straight catherization and if unsuccessful will need urology consult in am. Blood and sputum cultures are pending. He received one dosage of IV cefipine and vancomycin. Continue with IV Cefipine and Tylenol prn for fever. Infectious Diseases -Dr. Yang consulted. Acute Renal Insufficiency Creatinine 1.5 (baseline creatinine 0.8). He received 2 liters of IV fluids and repeat lactic acid was 2.2. Continue with IV fluids at NS at 75cc/hr. Repeat BMP in am. If creatinine continues to rise Nephrology will be consulted in am. Hypotension Asymptomatic. SBP 90-107,continue with midodrine. Laryngeal Cancer with Laryngectomy/ Open stoma from tracheostomy Stoma site with no erythema. Yellowish sputum present through stoma site. Check sputum culture. Anemia(normocytic) Stable. Continue to monitor closely. History Pulmonary Embolism No evidence of active bleeding. Continue with eliquis 2.5 mg twice daily( creatinine 1.5,weight 80 kg, age 73) COPD No acute exacerbation. Continue with albuterol nebulizers. FEN IVF, monitor electrolytes closely, regular diet. DVT Continue with systemic anticoagulation with Eliquis and SCD's. Visit type - Emergency Visit Emergency Visit: Yes ED Registration Date: 08/20/18 Care time: The patient presented to the Emergency Department on the above date and was hospitalized for further evaluation of their emergent condition. - New Patient This patient is new to me today: Yes Date on this admission: 08/21/18 - Critical Care Critical Care patient: No
[2018-08-20] MEDS ORDERED: ALBUTEROL SO4 0.083% IH SOL 2.5 MG/3 ML VIAL.NEB. NEB ONE ×2 (22:58→23:00)
[2018-08-21] MEDS: SODIUM CHLORIDE 1,000 ML IV SCH (00:05)
[2018-08-21] MEDS: BRIMONIDINE TARTRATE 0.15% OPHTHALMIC 5 ML BOTTLE OU SCH ×3 (05:46→22:29)
[2018-08-21] MEDS ORDERED: MAGNESIUM OXIDE 400 MG TABLET (FP) PO SCH (10:00)
[2018-08-21] MEDS ORDERED: CEFEPIME 1 GM in DEXTROSE 5%-WATER 100 ML IVPB SCH (10:00)
[2018-08-21] MEDS ORDERED: PATIENT'S OWN MEDICATION (NON-FORMULARY) (Dorzolamide Hcl/Timolol Maleat [Cosopt Eye Drops OU SCH (10:00)
[2018-08-21 10:01] LABS: HEMATOCRIT 41.2 % (35.4-49); HEMOGLOBIN 14.3 GM/dL (11.7-16.9); MCH 32.4 pg (25.7-33.7); MCHC 34.6 g/dl (32.0-35.9); MEAN CELL VOLUME 93.8 fl (80-96); MEAN PLT VOLUME 8.4 fl (7.5-11.1); PLATELET COUNT 240 K/MM3 (134-434); RBC 4.39 M/mm3 (4.00-5.60); RDW 14.2 % (11.9-15.9); WHITE BLOOD COUNT 7.8 K/mm3 (4.0-10.0)
[2018-08-21 10:18] LABS: ANION GAP 8 MMOL/L (8-16); BLOOD UREA NITROGEN 24 mg/dL (7-18); CALCIUM 7.8 mg/dL (8.5-10.1); CHLORIDE 114 mmol/L (98-107); CO2 22 mmol/L (21-32); CREATININE 1.1 mg/dL (0.55-1.3); GLUCOSE,RANDOM 119 mg/dL (74-106); MAGNESIUM 1.8 mg/dL (1.8-2.4); POTASSIUM 3.7 mmol/L (3.5-5.1); SODIUM 144 mmol/L (136-145)
--- NOTE | 2018-08-21 10:59 | PN ---
Progress Note, Physician Chief Complaint: patient seen and examined in ER came in from [place] for hypotension and fever and tachycardia on trach collar today temperature from 100.7 to 99.5 - Current Medication List Current Medications: Active Medications Acetaminophen (Tylenol -) 650 mg PO Q6H PRN PRN Reason: FEVER Albuterol/Ipratropium (Duoneb -) 1 amp NEB Q6H PRN PRN Reason: SHORT OF BREATH/WHEEZING Apixaban (Eliquis -) 2.5 mg PO BID [facility] Brimonidine Tartrate (Alphagan 0.15% -) 1 drop OU TID TEDDY Last Admin: 08/21/18 05:46 Dose: Not Given Cholecalciferol (Vitamin D3 -) 2,000 unit PO DAILY TEDDY Dorzolamide HCl (Trusopt 2%) 1 drop OU BID TEDDY Sodium Chloride (Normal Saline -) 1,000 mls @ 75 mls/hr IV ASDIR [facility] Last Admin: 08/21/18 00:05 Dose: 75 mls/hr Cefepime HCl 1 gm/ Dextrose 100 mls @ 200 mls/hr IVPB BID TEDDY; Protocol Cefepime HCl 1 gm/ Dextrose 100 mls @ 200 mls/hr IVPB BID TEDDY; Protocol Stop: 08/21/18 22:29 Latanoprost (Xalatan 0.005% Eye Drops -) 1 drop OU HS TEDDY Midodrine (Proamatine -) 5 mg PO BID-MID TEDDY Mirtazapine (Remeron -) 7.5 mg PO HS [facility] Multivitamins/Minerals/Vitamin C (Tab-A-Vit -) 1 tab PO DAILY TEDDY Ranitidine HCl (Zantac -) 150 mg PO HS [facility] Timolol Maleate (Timoptic 0.5%) 1 drop OU BID [facility] - Objective Vital Signs: Vital Signs Temperature 99.5 F 08/21/18 04:35 Pulse Rate 90 08/21/18 04:35 Respiratory Rate 22 H 08/20/18 18:39 Blood Pressure 111/67 08/21/18 04:35 O2 Sat by Pulse Oximetry (%) 96 08/21/18 06:11 Constitutional: Yes: Calm Neck: Yes: Other (trach) Cardiovascular: Yes: Regular Rate and Rhythm, S1, S2 Respiratory: Yes: CTA Bilaterally, Diminished (at bases) Gastrointestinal: Yes: Normal Bowel Sounds, Soft, Other (colostomy) Extremities: Yes: Other (bka) Edema: No Neurological: Yes: Alert, Oriented Labs: CBC, BMP 08/21/18 09:42 08/21/18 09:42 INR, PTT INR 1.20 (0.83-1.09) H 08/20/18 16:36 Problem List - Problems (1) JOEL (acute kidney injury) Assessment/Plan: cr is much improved after ivf Code(s): N17.9 - ACUTE KIDNEY FAILURE, UNSPECIFIED (2) Febrile illness, acute Assessment/Plan: cultures sent pcn allergy ID eval trend lactic acid got once dose of cefepime and vancomycin Code(s): R50.9 - FEVER, UNSPECIFIED (3) Afib Assessment/Plan: eliquis Code(s): I48.91 - UNSPECIFIED ATRIAL FIBRILLATION Qualifiers: Atrial fibrillation type: chronic Qualified Code(s): I48.2 - Chronic atrial fibrillation (4) Glaucoma Code(s): H40.9 - UNSPECIFIED GLAUCOMA (5) Laryngeal cancer Assessment/Plan: s/p trach on trach collar (6) Orthostatic hypotension Assessment/Plan: on midodrine Code(s): I95.1 - ORTHOSTATIC HYPOTENSION
--- NOTE | 2018-08-21 11:05 | EKG ---
Test Reason : Blood Pressure : / mmHG Vent. Rate : 097 BPM Atrial Rate : 097 BPM P-R Int : 152 ms QRS Dur : 088 ms QT Int : 362 ms P-R-T Axes : 035 -24 028 degrees QTc Int : 459 ms POOR DATA QUALITY, INTERPRETATION MAY BE ADVERSELY AFFECTED NORMAL SINUS RHYTHM POOR R WAVE PROGRESSION Confirmed by DALJIT WILLINGHAM MD ([id number]) on 08/21/2018 11:05:33 AM Referred By: Confirmed By:DALJIT WILLINGHAM MD
[2018-08-21] MEDS: APIXABAN 2.5 MG TABLET PO SCH ×2 (11:53→21:49)
[2018-08-21] MEDS: MIDODRINE HCL 5 MG TABLET PO SCH ×2 (11:53→19:43)
[2018-08-21] MEDS: CHOLECALCIFEROL (VIT D3) 1,000 UNIT (25 MCG) TABLET PO SCH (11:54)
[2018-08-21] MEDS: MULTIVITAMINS (DAILY MVI) TABLET (FP) PO SCH (11:54)
[2018-08-21] MEDS ORDERED: CEFEPIME 1 GM/100 ML BAG IVPB ONE (12:19)
[2018-08-21] MEDS: TIMOLOL 0.5% OPHTHALMIC SOL 5 ML BOTTLE OU SCH ×2 (13:52→22:28)
[2018-08-21] MEDS: DORZOLAMIDE 2% HCL OPHTHALMIC SOLUTION 10 ML BOTTLE OU SCH ×2 (13:53→22:30)
[2018-08-21] MEDS ORDERED: VANCOMYCIN 1 GRAM (PRE-DOCKED) 1,000 MG/250 ML BAG IVPB ONE ×2 (15:30→16:01)
[2018-08-21] MEDS ORDERED: PT OWN MED DRAWER 7, Y5N ONE ×2 (18:26→21:42)
--- NOTE | 2018-08-21 18:45 | PN ---
Progress Note (short form) - Note Progress Note: ID consult dictated
[2018-08-21] MEDS ORDERED: DEXTROSE 5%-WATER 100 ML IVPB ONE (21:42)
[2018-08-21] MEDS ORDERED: CEFEPIME HCL 1 GM VIAL (RESTRICTED TO ID) ONE (21:42)
[2018-08-21] MEDS: RANITIDINE HCL 150 MG TABLET (FP) PO SCH (21:49)
[2018-08-21] MEDS: CEFEPIME 1 GM in DEXTROSE 5%-WATER 100 ML IVPB SCH (21:49)
[2018-08-21] MEDS: MIRTAZAPINE 15 MG TABLET (FP) PO SCH (21:49)
[2018-08-21] MEDS: ALBUTEROL SO4 2.5/IPRATROPIUM 0.5 INH SOL 3 ML VIAL.NEB. NEB PRN (22:25)
[2018-08-21] MEDS: LATANOPROST 0.005% OPHTH SOLN 2.5ML BOTTLE OU SCH (22:31)
[2018-08-22] MEDS: SODIUM CHLORIDE 1,000 ML IV SCH ×2 (02:33→06:29)
--- NOTE | 2018-08-22 06:06 | CONS ---
DATE OF CONSULTATION: DATE OF DICTATION: 08/21/2018 REQUESTED BY: Nat Bear MD HISTORY OF PRESENT ILLNESS: This is a 73-year-old man with a history of dementia who is admitted from the [facility]. He has a history of laryngeal cancer with laryngectomy and he has a tracheostomy with an open stoma who comes from the [facility] with fever. He had a recent Citrobacter UTI there. He had a recent Providencia stuartii UTI there in July which was sensitive to cefepime. He was sent with fever. He was found to have a temperature of 100.7, heart rate of 107 in the emergency room with a lactic acid of 2.5. He received fluids and they could not obtain a urine catheter via straight catheter, but given the prior urine culture results and a history of prior UTI he was started on vancomycin and cefepime. Currently resting comfortably. Denies all complaints, but he does suffer from dementia. He denies any respiratory distress. PAST MEDICAL HISTORY: Notable for anemia, hypotension, laryngeal cancer with laryngectomy and tracheostomy, COPD, pulmonary embolus, seizure disorder, dementia, GERD and urinary tract infection. SURGICAL HISTORY: Notable for laryngectomy with trach. He also has a right [id number] amputation and a colostomy. SOCIAL HISTORY: Not available. He resides at the [facility]. ALLERGIC: He is allergic to PENICILLIN but tolerated the cephalosporin in the emergency room. MEDICATIONS: Include mirtazapine, vitamin D, apixaban, midodrine, magnesium oxide, famotidine, Alphagan eye drops, multivitamins and Xalatan eye drops. REVIEW OF SYSTEMS: He has no complaints whatsoever at this time. PHYSICAL EXAMINATION: Vital Signs: Temperature is 99.3, T-max was 100.7, pulse of 100, blood pressure 113/82, respiratory rate is 18. HEENT: He is normocephalic. His eyes are anicteric. Neck: Supple. He has an open stoma. Heart: Regular rate and rhythm. Abdomen: Soft, nontender. Extremities: Without edema. LABORATORY DATA: Blood cultures are pending. BUN is 24 and creatinine 1.1. ASSESSMENT: In summary this is an elderly man from the [facility] admitted with fever, unclear source, possible urinary tract infection. Chest x-ray is negative for pneumonia. Cultures are pending. He received a gram of vancomycin. Would continue the cefepime for now. He does have a prior history of methicillin-resistant Staphylococcus aureus. Further recommendations to follow. Minda [id number]
[2018-08-22] MEDS: BRIMONIDINE TARTRATE 0.15% OPHTHALMIC 5 ML BOTTLE OU SCH ×3 (06:28→22:20)
[2018-08-22] MEDS: ALBUTEROL SO4 2.5/IPRATROPIUM 0.5 INH SOL 3 ML VIAL.NEB. NEB PRN ×2 (07:30→17:42)
[2018-08-22 08:22] LABS: BASO % 0.5 % (0-2.0); EOS % 1.9 % (0-4.5); HEMATOCRIT 41.9 % (35.4-49); HEMOGLOBIN 14.3 GM/dL (11.7-16.9); LYMPH % 9.3 % (8-40); MCH 32.3 pg (25.7-33.7); MCHC 34.2 g/dl (32.0-35.9); MEAN CELL VOLUME 94.6 fl (80-96); MEAN PLT VOLUME 8.2 fl (7.5-11.1); MONO % 9.5 % (3.8-10.2); NEUT % 78.8 % (42.8-82.8); PLATELET COUNT 252 K/MM3 (134-434); RBC 4.43 M/mm3 (4.00-5.60); RDW 14.6 % (11.9-15.9); WHITE BLOOD COUNT 6.9 K/mm3 (4.0-10.0)
[2018-08-22 08:42] LABS: ALBUMIN 3.1 g/dl (3.4-5.0); ALK PHOS 80 U/L (45-117); ANION GAP 7 MMOL/L (8-16); BILIRUBIN,TOTAL 0.5 mg/dL (0.2-1); BLOOD UREA NITROGEN 21 mg/dL (7-18); CALCIUM 8.1 mg/dL (8.5-10.1); CHLORIDE 113 mmol/L (98-107); CO2 24 mmol/L (21-32); GLUCOSE,RANDOM 136 mg/dL (74-106); MAGNESIUM 2.1 mg/dL (1.8-2.4); POTASSIUM 4.4 mmol/L (3.5-5.1); SGOT/AST 23 U/L (15-37); SGPT/ALT 29 U/L (13-61); SODIUM 144 mmol/L (136-145); TOT PROT 7.1 g/dl (6.4-8.2)
[2018-08-22] MEDS ORDERED: DEXTROSE 5%-WATER 100 ML IVPB ONE ×2 (10:06→22:12)
[2018-08-22] MEDS ORDERED: CEFEPIME HCL 1 GM VIAL (RESTRICTED TO ID) ONE ×2 (10:06→22:12)
[2018-08-22] MEDS: MULTIVITAMINS (DAILY MVI) TABLET (FP) PO SCH (10:15)
[2018-08-22] MEDS: CEFEPIME 1 GM in DEXTROSE 5%-WATER 100 ML IVPB SCH ×2 (10:16→22:15)
[2018-08-22] MEDS: CHOLECALCIFEROL (VIT D3) 1,000 UNIT (25 MCG) TABLET PO SCH (10:16)
[2018-08-22] MEDS: MIDODRINE HCL 5 MG TABLET PO SCH ×3 (10:16→17:45)
[2018-08-22] MEDS: TIMOLOL 0.5% OPHTHALMIC SOL 5 ML BOTTLE OU SCH ×2 (10:18→22:20)
[2018-08-22] MEDS: DORZOLAMIDE 2% HCL OPHTHALMIC SOLUTION 10 ML BOTTLE OU SCH ×2 (10:19→22:21)
--- NOTE | 2018-08-22 10:21 | PN ---
Progress Note, Physician Chief Complaint: JOEL Sepsis History of Present Illness: NAD + BC Seen by ID On Cefepime IV - Current Medication List Current Medications: Active Medications Acetaminophen (Tylenol -) 650 mg PO Q6H PRN PRN Reason: FEVER Albuterol/Ipratropium (Duoneb -) 1 amp NEB Q6H PRN PRN Reason: SHORT OF BREATH/WHEEZING Last Admin: 08/22/18 07:30 Dose: 1 amp Apixaban (Eliquis -) 2.5 mg PO BID TEDDY Last Admin: 08/21/18 21:49 Dose: 2.5 mg Brimonidine Tartrate (Alphagan 0.15% -) 1 drop OU TID TEDDY Last Admin: 08/22/18 06:28 Dose: 1 drop Cholecalciferol (Vitamin D3 -) 2,000 unit PO DAILY TEDDY Last Admin: 08/22/18 10:16 Dose: Not Given Dorzolamide HCl (Trusopt 2%) 1 drop OU BID TEDYD Last Admin: 08/22/18 10:19 Dose: 1 drop Sodium Chloride (Normal Saline -) 1,000 mls @ 75 mls/hr IV ASDIR TEDDY Last Admin: 08/22/18 06:29 Dose: 75 mls/hr Cefepime HCl 1 gm/ Dextrose 100 mls @ 200 mls/hr IVPB BID TEDDY; Protocol Last Admin: 08/22/18 10:16 Dose: 200 mls/hr Latanoprost (Xalatan 0.005% Eye Drops -) 1 drop OU HS TEDDY Last Admin: 08/21/18 22:31 Dose: 1 drop Midodrine (Proamatine -) 5 mg PO BID-MID TEDDY Last Admin: 08/22/18 10:16 Dose: Not Given Mirtazapine (Remeron -) 7.5 mg PO HS TEDDY Last Admin: 08/21/18 21:49 Dose: 7.5 mg Multivitamins/Minerals/Vitamin C (Tab-A-Vit -) 1 tab PO DAILY TEDDY Last Admin: 08/22/18 10:15 Dose: Not Given Ondansetron HCl (Zofran Injection) 4 mg IVPUSH Q6H PRN PRN Reason: NAUSEA Ranitidine HCl (Zantac -) 150 mg PO HS [facility] Last Admin: 08/21/18 21:49 Dose: 150 mg Timolol Maleate (Timoptic 0.5%) 1 drop OU BID TEDDY Last Admin: 08/22/18 10:18 Dose: 1 drop - Objective Vital Signs: Vital Signs Temperature 98.0 F 08/22/18 08:21 Pulse Rate 86 08/22/18 08:21 Respiratory Rate 18 08/22/18 08:21 Blood Pressure 122/78 08/22/18 08:21 O2 Sat by Pulse Oximetry (%) 98 08/22/18 08:51 Constitutional: Yes: Well Nourished, No Distress, Calm Cardiovascular: Yes: Regular Rate and Rhythm Respiratory: Yes: Regular, Rhonchi (diffuse), Other (On trach collar) Gastrointestinal: Yes: WNL Genitourinary: Yes: WNL Musculoskeletal: Yes: WNL Extremities: Yes: WNL Edema: No Peripheral Pulses WNL: Yes Neurological: Yes: Alert, Pre-Existing Deficit Psychiatric: Yes: Alert Labs: CBC, BMP 08/22/18 07:10 08/22/18 07:10 INR, PTT INR 1.20 (0.83-1.09) H 08/20/18 16:36 Problem List - Problems (1) Bacteremia Assessment/Plan: Cultures: Microbiology 08/21/18 11:46 Sputum - Expectorated Gram Stain - Final 08/21/18 11:46 Sputum - Expectorated Sputum Culture - Final NORMAL RESPIRATORY GADIEL 08/20/18 16:36 Blood - Peripheral Venous Blood Culture - Final Staphylococcus Epidermidis 08/20/18 16:45 Blood - Peripheral Venous Blood Culture - Preliminary NO GROWTH OBTAINED AFTER 48 HOURS, INCUBATION TO CONTINUE FOR 3 DAYS. -Seen by ID -IV abx Code(s): R78.81 - BACTEREMIA (2) Sepsis Assessment/Plan: Cultures: Microbiology 08/21/18 11:46 Sputum - Expectorated Gram Stain - Final 08/21/18 11:46 Sputum - Expectorated Sputum Culture - Final NORMAL RESPIRATORY GADIEL 08/20/18 16:36 Blood - Peripheral Venous Blood Culture - Final Staphylococcus Epidermidis 08/20/18 16:45 Blood - Peripheral Venous Blood Culture - Preliminary NO GROWTH OBTAINED AFTER 48 HOURS, INCUBATION TO CONTINUE FOR 3 DAYS. -Seen by ID -IV abx -afebrile -no leukocytosis -lactic acid normalized Code(s): A41.9 - SEPSIS, UNSPECIFIED ORGANISM (3) JOEL (acute kidney injury) Assessment/Plan: -improved -Continue IVF Code(s): N17.9 - ACUTE KIDNEY FAILURE, UNSPECIFIED (4) Afib Assessment/Plan: -chronic, rate controlled -On eliquis Code(s): I48.91 - UNSPECIFIED ATRIAL FIBRILLATION Qualifiers: Atrial fibrillation type: chronic Qualified Code(s): I48.2 - Chronic atrial fibrillation Assessment/Plan see problem list
[2018-08-22 13:11] LABS: HEMOGLOBIN 14.1 GM/dL (11.7-16.9); MCH 32.2 pg (25.7-33.7); MCHC 34.3 g/dl (32.0-35.9); MEAN CELL VOLUME 93.9 fl (80-96); MEAN PLT VOLUME 8.2 fl (7.5-11.1); PLATELET COUNT 257 K/MM3 (134-434); RBC 4.36 M/mm3 (4.00-5.60); RDW 14.3 % (11.9-15.9); WHITE BLOOD COUNT 9.3 K/mm3 (4.0-10.0)
--- NOTE | 2018-08-22 13:59 | CON.PULM ---
Consult Consult Specialty:: PULMONARY Referred by:: Dr Strange Reason for Consultation:: trach stoma - History of Present Illness Chief Complaint: fever History of Present Illness: 73yo male with h/o laryngeal ca s/p laryngectomy/tracheostomy now removed, COPD , h/o PE on anticoagulation, dementia, h/o colo-vesicular fistula s/p colostomy , s/p R BKA for gangrene who was [facility] from the [facility] living for fevers. Hypotensive, tachycardic with lactic acidosis on bloodwork, started on IVF and antibiotics. Currently denies shortness of breath, c/o abdominal bloating. CXR read as without infiltrates but with poor inspiration and he does have some purulent secretions upon coughing. 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: Dementia Cardio/Vascular: Yes: HTN Pulmonary: Yes: COPD, Pulmonary Embolus Gastrointestinal: Yes: Diverticulitis, Other (colovesicular fistula with diverticulosis , heme posistive stools) Renal/: Yes: UTI (recurrent) Musculoskeletal: Yes: Chronic low back pain, Osteoarthritis, Other (avascular necrosis of the hip) - Past Surgical History Past Surgical History: Yes: Amputation, Colectomy, Colostomy - Alcohol/Substance Use Hx Alcohol Use: No - Smoking History Smoking history: Unknown if ever smoked Have you smoked in the past 12 months: No - Social History Usual Living Arrangement: Longterm ADL: Support Services History of Recent Travel: No Home Medications - Allergies Allergies/Adverse Reactions: Allergies Allergy/AdvReac Type Severity Reaction Status Date / Time Penicillins Allergy Unknown Verified 10/27/16 14:51 - Home Medications Home Medications: Ambulatory Orders Acetaminophen [Tylenol] 650 mg PO QID PRN 09/04/16 Latanoprost 0.005% Eye Drops [Xalatan 0.005% Eye Drops -] 1 drop OU HS 09/04/16 Midodrine HCl [Proamatine -] 5 mg PO BID 09/04/16 Mirtazapine [Remeron -] 7.5 mg PO HS 09/04/16 Multivitamin [Poly-Vitamin] 1 each PO DAILY 09/04/16 Potassium Chloride 20 meq PO DAILY 09/04/16 Albuterol 2.5/Ipratropium 0.5 [Duoneb -] 1 neb IH QID PRN 08/20/18 Apixaban [Eliquis -] 2.5 mg PO BID 08/20/18 Brimonidine Tartrate [Alphagan 0.15% -] 1 drop OU TID 08/20/18 Cholecalciferol (Vitamin D3) [Vitamin D3 -] 2,000 unit PO DAILY 08/20/18 Dorzolamide HCl/Timolol Maleat [Cosopt Eye Drops] 1 drop OU BID 08/20/18 Famotidine [Pepcid -] 20 mg PO HS 08/20/18 Magnesium Oxide [Magox 400] 500 mg PO DAILY 08/20/18 Review of Systems Unable to obtain ROS, reason: pt nonverbal Physical Exam Vital Sings: Vital Signs Temperature 98.0 F 08/22/18 08:21 Pulse Rate 86 08/22/18 08:21 Respiratory Rate 18 08/22/18 08:21 Blood Pressure 122/78 08/22/18 08:21 O2 Sat by Pulse Oximetry (%) 98 08/22/18 08:51 Constitutional: Yes: Anxious Eyes: Yes: Conjunctiva Clear, EOM Intact HENT: Yes: Atraumatic, Normocephalic Neck: Yes: Supple, Trachea Midline Cardiovascular: Yes: Regular Rate and Rhythm Respiratory: Yes: Rhonchi (scattered) ...Clubbing: No Gastrointestinal: Yes: Normal Bowel Sounds, Soft, Distention, Other (+ostomy). No: Tenderness Edema: No Neurological: Yes: Alert Labs: CBC, BMP 08/22/18 07:10 Imaging - Results Chest X-ray: Report Reviewed, Image Reviewed (poor inspiration) Problem List - Problems (1) Sepsis Code(s): A41.9 - SEPSIS, UNSPECIFIED ORGANISM (2) JOEL (acute kidney injury) Code(s): N17.9 - ACUTE KIDNEY FAILURE, UNSPECIFIED (3) Dementia Code(s): F03.90 - UNSPECIFIED DEMENTIA WITHOUT BEHAVIORAL DISTURBANCE (4) HTN (hypertension) Code(s): I10 - ESSENTIAL (PRIMARY) HYPERTENSION Qualifiers: Hypertension type: essential hypertension Qualified Code(s): I10 - Essential (primary) hypertension (5) Hyperlipidemia Code(s): E78.5 - HYPERLIPIDEMIA, UNSPECIFIED Assessment/Plan Sepsis r/o Pneumonia Lactic Acidosis Acute Kidney Injury h/o PE h/o Laryngeal Ca s/p laryngectomy COPD Dementia s/p R BKA - IV antibiotics - f/u cultures - repeat CXR in AM - IVF - monitor urine output, creatinine - lactate normalized - continue anticoagulation - trach collar to keep SpO2 >90% Thank you for this consult Walt Aldridge MD
[2018-08-22] MEDS ORDERED: PT OWN MED DRAWER 7, Y5N ONE (17:53)
[2018-08-22 18:47] LABS: HEMATOCRIT 41.9 % (35.4-49); HEMOGLOBIN 14.7 GM/dL (11.7-16.9); MCH 32.8 pg (25.7-33.7); MCHC 35.1 g/dl (32.0-35.9); MEAN CELL VOLUME 93.6 fl (80-96); MEAN PLT VOLUME 8.3 fl (7.5-11.1); PLATELET COUNT 245 K/MM3 (134-434); RBC 4.48 M/mm3 (4.00-5.60); RDW 14.3 % (11.9-15.9); WHITE BLOOD COUNT 8.1 K/mm3 (4.0-10.0)
[2018-08-22] MEDS: APIXABAN 2.5 MG TABLET PO SCH (22:15)
[2018-08-22] MEDS: RANITIDINE HCL 150 MG TABLET (FP) PO SCH (22:15)
[2018-08-22] MEDS: MIRTAZAPINE 15 MG TABLET (FP) PO SCH (22:15)
[2018-08-22] MEDS: LATANOPROST 0.005% OPHTH SOLN 2.5ML BOTTLE OU SCH (22:21)
[2018-08-23] MEDS: SODIUM CHLORIDE 1,000 ML IV SCH ×2 (00:58→10:24)
[2018-08-23] MEDS: ALBUTEROL SO4 2.5/IPRATROPIUM 0.5 INH SOL 3 ML VIAL.NEB. NEB PRN ×2 (05:37→23:52)
[2018-08-23] MEDS: BRIMONIDINE TARTRATE 0.15% OPHTHALMIC 5 ML BOTTLE OU SCH ×3 (05:57→22:37)
[2018-08-23 09:02] LABS: HEMATOCRIT 41.5 % (35.4-49); HEMOGLOBIN 14.3 GM/dL (11.7-16.9); MCH 32.3 pg (25.7-33.7); MCHC 34.4 g/dl (32.0-35.9); MEAN CELL VOLUME 93.8 fl (80-96); PLATELET COUNT 242 K/MM3 (134-434); RBC 4.43 M/mm3 (4.00-5.60); RDW 14.3 % (11.9-15.9); WHITE BLOOD COUNT 8.3 K/mm3 (4.0-10.0)
[2018-08-23 09:27] LABS: ANION GAP 9 MMOL/L (8-16); BLOOD UREA NITROGEN 18 mg/dL (7-18); CHLORIDE 113 mmol/L (98-107); CO2 23 mmol/L (21-32); CREATININE 0.9 mg/dL (0.55-1.3); GLUCOSE,RANDOM 123 mg/dL (74-106); POTASSIUM 3.4 mmol/L (3.5-5.1); SODIUM 145 mmol/L (136-145)
[2018-08-23] MEDS ORDERED: DEXTROSE 5%-WATER 100 ML IVPB ONE ×2 (09:44→22:26)
[2018-08-23] MEDS ORDERED: PT OWN MED DRAWER 7, Y5N ONE ×2 (09:44→22:26)
[2018-08-23] MEDS ORDERED: CEFEPIME HCL 1 GM VIAL (RESTRICTED TO ID) ONE ×2 (09:44→22:26)
[2018-08-23] MEDS: CEFEPIME 1 GM in DEXTROSE 5%-WATER 100 ML IVPB SCH ×2 (10:03→22:37)
[2018-08-23] MEDS: ONDANSETRON 4 MG/2 ML VIAL IVPUSH PRN ×2 (10:03→15:28)
[2018-08-23] MEDS: CHOLECALCIFEROL (VIT D3) 1,000 UNIT (25 MCG) TABLET PO SCH (10:04)
[2018-08-23] MEDS: MULTIVITAMINS (DAILY MVI) TABLET (FP) PO SCH (10:15)
[2018-08-23] MEDS: MIDODRINE HCL 5 MG TABLET PO SCH ×2 (10:15→17:20)
[2018-08-23] MEDS: APIXABAN 2.5 MG TABLET PO SCH ×2 (10:15→22:37)
[2018-08-23] MEDS: TIMOLOL 0.5% OPHTHALMIC SOL 5 ML BOTTLE OU SCH ×2 (10:20→22:38)
[2018-08-23] MEDS: DORZOLAMIDE 2% HCL OPHTHALMIC SOLUTION 10 ML BOTTLE OU SCH ×2 (10:21→22:38)
[2018-08-23] MEDS ORDERED: POTASSIUM CHLORIDE ORAL LIQUID 20 MEQ/15 ML PO ONE (10:30)
--- NOTE | 2018-08-23 10:31 | PN ---
Progress Note, Physician Chief Complaint: JOEL Sepsis History of Present Illness: NAD + BC Seen by ID On Cefepime IV On IVF refusing po intake pulling out equipment - Current Medication List Current Medications: Active Medications Acetaminophen (Tylenol -) 650 mg PO Q6H PRN PRN Reason: FEVER Albuterol/Ipratropium (Duoneb -) 1 amp NEB Q6H PRN PRN Reason: SHORT OF BREATH/WHEEZING Last Admin: 08/23/18 05:37 Dose: 1 amp Apixaban (Eliquis -) 2.5 mg PO BID [facility] Last Admin: 08/23/18 10:15 Dose: Not Given Brimonidine Tartrate (Alphagan 0.15% -) 1 drop OU TID [facility] Last Admin: 08/23/18 05:57 Dose: 1 drop Cholecalciferol (Vitamin D3 -) 2,000 unit PO DAILY [facility] Last Admin: 08/23/18 10:04 Dose: 2,000 unit Dorzolamide HCl (Trusopt 2%) 1 drop OU BID [facility] Last Admin: 08/23/18 10:21 Dose: 1 drop Sodium Chloride (Normal Saline -) 1,000 mls @ 75 mls/hr IV ASDIR TEDDY Last Admin: 08/23/18 10:24 Dose: 75 mls/hr Cefepime HCl 1 gm/ Dextrose 100 mls @ 200 mls/hr IVPB BID [facility]ED[facility]; Protocol Last Admin: 08/23/18 10:03 Dose: 200 mls/hr Latanoprost (Xalatan 0.005% Eye Drops -) 1 drop OU HS [facility] Last Admin: 08/22/18 22:21 Dose: 1 drop Midodrine (Proamatine -) 5 mg PO BID-MID [facility] Last Admin: 08/23/18 10:15 Dose: Not Given Mirtazapine (Remeron -) 7.5 mg PO HS [facility] Last Admin: 08/22/18 22:15 Dose: 7.5 mg Multivitamins/Minerals/Vitamin C (Tab-A-Vit -) 1 tab PO DAILY [facility] Last Admin: 08/23/18 10:15 Dose: Not Given Ondansetron HCl (Zofran Injection) 4 mg IVPUSH Q6H PRN PRN Reason: NAUSEA Last Admin: 08/23/18 10:03 Dose: 4 mg Ranitidine HCl (Zantac -) 150 mg PO HS [facility] Last Admin: 08/22/18 22:15 Dose: 150 mg Timolol Maleate (Timoptic 0.5%) 1 drop OU BID [facility] Last Admin: 08/23/18 10:20 Dose: 1 drop - Objective Vital Signs: Vital Signs Temperature 98.2 F 08/23/18 07:55 Pulse Rate 99 H 08/23/18 07:55 Respiratory Rate 18 08/23/18 07:55 Blood Pressure 114/74 08/23/18 07:55 O2 Sat by Pulse Oximetry (%) 98 08/23/18 08:40 Constitutional: Yes: Well Nourished, No Distress, Calm Cardiovascular: Yes: Regular Rate and Rhythm Respiratory: Yes: Regular, Rhonchi (diffuse), Other (trach collar) Genitourinary: Yes: Incontinence Musculoskeletal: Yes: Muscle Weakness Extremities: Yes: WNL Edema: No Peripheral Pulses WNL: Yes Neurological: Yes: Alert, Pre-Existing Deficit Psychiatric: Yes: Alert Labs: CBC, BMP 08/23/18 08:46 08/23/18 08:46 INR, PTT INR 1.20 (0.83-1.09) H 08/20/18 16:36 Problem List - Problems (1) Bacteremia Assessment/Plan: Cultures: Microbiology 08/21/18 11:46 Sputum - Expectorated Gram Stain - Final 08/21/18 11:46 Sputum - Expectorated Sputum Culture - Final NORMAL RESPIRATORY GADIEL 08/20/18 16:36 Blood - Peripheral Venous Blood Culture - Final Staphylococcus Epidermidis 08/20/18 16:45 Blood - Peripheral Venous Blood Culture - Preliminary NO GROWTH OBTAINED AFTER 48 HOURS, INCUBATION TO CONTINUE FOR 3 DAYS. -Seen by ID -IV abx Code(s): R78.81 - BACTEREMIA (2) Sepsis Assessment/Plan: Cultures: Microbiology 08/21/18 11:46 Sputum - Expectorated Gram Stain - Final 08/21/18 11:46 Sputum - Expectorated Sputum Culture - Final NORMAL RESPIRATORY GADIEL 08/20/18 16:36 Blood - Peripheral Venous Blood Culture - Final Staphylococcus Epidermidis 08/20/18 16:45 Blood - Peripheral Venous Blood Culture - Preliminary NO GROWTH OBTAINED AFTER 48 HOURS, INCUBATION TO CONTINUE FOR 3 DAYS. -Seen by ID -IV abx -afebrile -no leukocytosis -lactic acid normalized Code(s): A41.9 - SEPSIS, UNSPECIFIED ORGANISM (3) JOEL (acute kidney injury) Assessment/Plan: -improved -Continue IVF Code(s): N17.9 - ACUTE KIDNEY FAILURE, UNSPECIFIED (4) Afib Assessment/Plan: -chronic, rate controlled -On eliquis Code(s): I48.91 - UNSPECIFIED ATRIAL FIBRILLATION Qualifiers: Atrial fibrillation type: chronic Qualified Code(s): I48.2 - Chronic atrial fibrillation Assessment/Plan see problem list
--- NOTE | 2018-08-23 11:38 | PN ---
Progress Note (short form) - Note Progress Note: PULMONARY Denies shortness of breath, still with productive cough. No further fevers. Vital Signs Period Temp Pulse Resp BP Sys/Page Pulse Ox Last 24 Hr 98.2 F-99.5 F 82-101 18-20 114-140/73-88 97-98 Gen: NAD at rest Heart: RRR Lung: decreased breath sounds at the bases Abd: soft, nontender Ext: no edema CBC, BMP 08/23/18 08:46 08/23/18 08:46 Active Medications Acetaminophen (Tylenol -) 650 mg PO Q6H PRN PRN Reason: FEVER Albuterol/Ipratropium (Duoneb -) 1 amp NEB Q6H PRN PRN Reason: SHORT OF BREATH/WHEEZING Last Admin: 08/23/18 05:37 Dose: 1 amp Apixaban (Eliquis -) 2.5 mg PO BID [facility] Last Admin: 08/23/18 10:15 Dose: Not Given Brimonidine Tartrate (Alphagan 0.15% -) 1 drop OU TID [facility] Last Admin: 08/23/18 05:57 Dose: 1 drop Cholecalciferol (Vitamin D3 -) 2,000 unit PO DAILY [facility] Last Admin: 08/23/18 10:04 Dose: 2,000 unit Dorzolamide HCl (Trusopt 2%) 1 drop OU BID [facility] Last Admin: 08/23/18 10:21 Dose: 1 drop Cefepime HCl 1 gm/ Dextrose 100 mls @ 200 mls/hr IVPB BID [facility]; Protocol Last Admin: 08/23/18 10:03 Dose: 200 mls/hr Potassium Chloride (Potassium Chloride 10 Meq Premix Ivpb -) 10 meq in 100 mls @ 100 mls/hr IVPB Q60M [facility]DY Stop: 08/23/18 14:14 Potassium Chloride/Sodium Chloride (Ns+20 Meq Kcl -) 20 meq in 1,000 mls @ 75 mls/hr IV ASDIR TEDDY Latanoprost (Xalatan 0.005% Eye Drops -) 1 drop OU HS [facility] Last Admin: 08/22/18 22:21 Dose: 1 drop Midodrine (Proamatine -) 5 mg PO BID-MID [facility] Last Admin: 08/23/18 10:15 Dose: Not Given Mirtazapine (Remeron -) 7.5 mg PO HS [facility] Last Admin: 08/22/18 22:15 Dose: 7.5 mg Multivitamins/Minerals/Vitamin C (Tab-A-Vit -) 1 tab PO DAILY [facility] Last Admin: 08/23/18 10:15 Dose: Not Given Ondansetron HCl (Zofran Injection) 4 mg IVPUSH Q6H PRN PRN Reason: NAUSEA Last Admin: 08/23/18 10:03 Dose: 4 mg Ranitidine HCl (Zantac -) 150 mg PO HS [facility] Last Admin: 08/22/18 22:15 Dose: 150 mg Timolol Maleate (Timoptic 0.5%) 1 drop OU BID [facility] Last Admin: 08/23/18 10:20 Dose: 1 drop A/P Sepsis r/o Pneumonia Lactic Acidosis Acute Kidney Injury h/o PE h/o Laryngeal Ca s/p laryngectomy COPD Dementia s/p R BKA - continue antibiotics - f/u cultures - repeat CXR ordered - IVF - monitor urine output, creatinine - continue anticoagulation - trach collar to keep SpO2 >90% Problem List - Problems (1) Sepsis Code(s): A41.9 - SEPSIS, UNSPECIFIED ORGANISM (2) JOEL (acute kidney injury) Code(s): N17.9 - ACUTE KIDNEY FAILURE, UNSPECIFIED (3) Dementia Code(s): F03.90 - UNSPECIFIED DEMENTIA WITHOUT BEHAVIORAL DISTURBANCE (4) HTN (hypertension) Code(s): I10 - ESSENTIAL (PRIMARY) HYPERTENSION Qualifiers: Hypertension type: essential hypertension Qualified Code(s): I10 - Essential (primary) hypertension (5) Hyperlipidemia Code(s): E78.5 - HYPERLIPIDEMIA, UNSPECIFIED
[2018-08-23] MEDS: SODIUM CHLORIDE 0.9%/KCL 20 MEQ/1,000 ML INFUS.BAG IV SCH (11:40)
[2018-08-23] MEDS: KCL 10 MEQ IVPB 10 MEQ/100 ML INFUS.BAG IVPB SCH ×3 (11:40→15:28)
--- NOTE | 2018-08-23 11:43 | PN ---
Progress Note (short form) - Note Progress Note: alert no further fevers requires restraints Vital Signs Period Temp Pulse Resp BP Sys/Page Pulse Ox Last 24 Hr 98.2 F-99.5 F 82-101 18-20 114-140/73-88 97-98 cor-rrr lungs clear stoma with trach collar abd soft,nt ext no edema +right BKA CBC, BMP 08/23/18 08:46 08/23/18 08:46 Microbiology 08/21/18 11:46 Sputum - Expectorated Gram Stain - Final 08/21/18 11:46 Sputum - Expectorated Sputum Culture - Final NORMAL RESPIRATORY GADIEL 08/20/18 16:36 Blood - Peripheral Venous Blood Culture - Final Staphylococcus Epidermidis 08/20/18 16:45 Blood - Peripheral Venous Blood Culture - Preliminary NO GROWTH OBTAINED AFTER 48 HOURS, INCUBATION TO CONTINUE FOR 3 DAYS. a/p fevers/hypotension resolvedi ?bronchitis, ?uti blodd culture isolate is contaminant unable to obtain urine sample would be reasonable to switch to po ceftin 500 bid at time of discharge back to [place] - for one week thanks please call back if needed Problem List - Problems (1) Fever Code(s): R50.9 - FEVER, UNSPECIFIED
[2018-08-23 15:47] VITALS: BMI 24.1
[2018-08-23] MEDS: MIRTAZAPINE 15 MG TABLET (FP) PO SCH (22:38)
[2018-08-23] MEDS: LATANOPROST 0.005% OPHTH SOLN 2.5ML BOTTLE OU SCH (22:38)
[2018-08-23] MEDS: RANITIDINE HCL 150 MG TABLET (FP) PO SCH (22:38)
[2018-08-24] MEDS: BRIMONIDINE TARTRATE 0.15% OPHTHALMIC 5 ML BOTTLE OU SCH ×3 (07:02→21:41)
[2018-08-24] MEDS: ALBUTEROL SO4 2.5/IPRATROPIUM 0.5 INH SOL 3 ML VIAL.NEB. NEB PRN ×2 (07:35→23:00)
[2018-08-24] MEDS ORDERED: PT OWN MED DRAWER 7, Y5N ONE (09:02)
[2018-08-24] MEDS ORDERED: CEFEPIME HCL 1 GM VIAL (RESTRICTED TO ID) ONE ×2 (09:02→21:17)
[2018-08-24] MEDS ORDERED: DEXTROSE 5%-WATER 100 ML IVPB ONE ×2 (09:03→21:17)
[2018-08-24] MEDS: MULTIVITAMINS (DAILY MVI) TABLET (FP) PO SCH (09:37)
[2018-08-24] MEDS: CHOLECALCIFEROL (VIT D3) 1,000 UNIT (25 MCG) TABLET PO SCH (09:37)
[2018-08-24] MEDS: APIXABAN 2.5 MG TABLET PO SCH ×2 (09:37→21:42)
[2018-08-24] MEDS: CEFEPIME 1 GM in DEXTROSE 5%-WATER 100 ML IVPB SCH ×2 (09:37→21:42)
[2018-08-24] MEDS: TIMOLOL 0.5% OPHTHALMIC SOL 5 ML BOTTLE OU SCH ×2 (09:38→21:42)
[2018-08-24] MEDS: DORZOLAMIDE 2% HCL OPHTHALMIC SOLUTION 10 ML BOTTLE OU SCH ×2 (09:39→21:42)
[2018-08-24] MEDS: MIDODRINE HCL 5 MG TABLET PO SCH ×2 (09:57→17:09)
--- NOTE | 2018-08-24 10:37 | PN ---
Progress Note (short form) - Note Progress Note: Still with productive cough. Thick, yellow secretions suctioned from the stoma. NAD on Trach collar. Intake & Output 08/21/18 08/22/18 08/23/18 08/24/18 23:59 23:59 23:59 23:59 Intake Total 650 1600 2250 Output Total 1 1 4 100 Balance 649 1599 2246 -100 Weight 176 lb 8 oz 178 lb Last Vital Signs Temp Pulse Resp BP Pulse Ox 99.9 F H 99 H 16 133/76 98 08/24/18 03:00 08/24/18 07:34 08/24/18 03:00 08/24/18 03:00 08/24/18 07:34 Active Medications Acetaminophen (Tylenol -) 650 mg PO Q6H PRN PRN Reason: FEVER Albuterol/Ipratropium (Duoneb -) 1 amp NEB Q6H PRN PRN Reason: SHORT OF BREATH/WHEEZING Last Admin: 08/24/18 07:35 Dose: 1 amp Apixaban (Eliquis -) 2.5 mg PO BID [facility] Last Admin: 08/24/18 09:37 Dose: 2.5 mg Brimonidine Tartrate (Alphagan 0.15% -) 1 drop OU TID [facility] Last Admin: 08/24/18 07:02 Dose: 1 drop Cholecalciferol (Vitamin D3 -) 2,000 unit PO DAILY [facility] Last Admin: 08/24/18 09:37 Dose: 2,000 unit Dorzolamide HCl (Trusopt 2%) 1 drop OU BID [facility] Last Admin: 08/24/18 09:39 Dose: 1 drop Cefepime HCl 1 gm/ Dextrose 100 mls @ 200 mls/hr IVPB BID TEDDY; Protocol Last Admin: 08/24/18 09:37 Dose: 200 mls/hr Potassium Chloride/Sodium Chloride (Ns+20 Meq Kcl -) 20 meq in 1,000 mls @ 75 mls/hr IV ASDIR TEDDY Last Admin: 08/23/18 11:40 Dose: 75 mls/hr Latanoprost (Xalatan 0.005% Eye Drops -) 1 drop OU HS [facility] Last Admin: 08/23/18 22:38 Dose: 1 drop Midodrine (Proamatine -) 5 mg PO BID-MID [facility] Last Admin: 08/24/18 09:57 Dose: 5 mg Mirtazapine (Remeron -) 7.5 mg PO HS [facility] Last Admin: 08/23/18 22:38 Dose: 7.5 mg Multivitamins/Minerals/Vitamin C (Tab-A-Vit -) 1 tab PO DAILY [facility] Last Admin: 08/24/18 09:37 Dose: 1 tab Ondansetron HCl (Zofran Injection) 4 mg IVPUSH Q6H PRN PRN Reason: NAUSEA Last Admin: 08/23/18 15:28 Dose: 4 mg Ranitidine HCl (Zantac -) 150 mg PO HS [facility] Last Admin: 08/23/18 22:38 Dose: 150 mg Timolol Maleate (Timoptic 0.5%) 1 drop OU BID [facility] Last Admin: 08/24/18 09:38 Dose: 1 drop Gen: NAD at rest Neck: stoma intact Heart: RRR Lung: bilateral scattered rhonchi, no wheeze Abd: soft, nontender Ext: no edema Problem List - Problems (1) Sepsis Code(s): A41.9 - SEPSIS, UNSPECIFIED ORGANISM (2) JOEL (acute kidney injury) Code(s): N17.9 - ACUTE KIDNEY FAILURE, UNSPECIFIED (3) Dementia Code(s): F03.90 - UNSPECIFIED DEMENTIA WITHOUT BEHAVIORAL DISTURBANCE (4) HTN (hypertension) Code(s): I10 - ESSENTIAL (PRIMARY) HYPERTENSION Qualifiers: Hypertension type: essential hypertension Qualified Code(s): I10 - Essential (primary) hypertension (5) Hyperlipidemia Code(s): E78.5 - HYPERLIPIDEMIA, UNSPECIFIED A/P Sepsis Suspected Pneumonia Lactic Acidosis Acute Kidney Injury h/o PE h/o Laryngeal Ca s/p laryngectomy COPD Dementia s/p R BKA - Antibiotics per ID - monitor urine output, creatinine - continue anticoagulation - trach collar to keep SpO2 >90% - Suction PRN - Aspiration precautions Dr Kelley
--- NOTE | 2018-08-24 12:03 | CONSULT ---
Admitting History and Physical - Primary Care Physician PCP: Nat Bear - Admission History of Present Illness: 73yo male with h/o laryngeal ca s/p laryngectomy/tracheostomy now removed, COPD , h/o PE on anticoagulation, dementia, h/o colo-vesicular fistula s/p colostomy , s/p R BKA for gangrene who was sent from the group home for fevers. Selected Entries 08/23/18 08/23/18 08/23/18 02:10 06:00 07:55 Lunch Temperature 98.6 F 98.2 F 98.2 F 08/23/18 08/23/18 08/23/18 12:17 15:32 20:55 Lunch 25% Temperature 99.7 F H 98.1 F 08/24/18 08/24/18 03:00 09:00 Lunch Temperature 99.9 F H 98.9 F Laboratory Tests 08/23/18 08:46 WBC 8.3 Mouths words. Oriented to name, not age, time, place. Small stoma. This is my first consult on this pt. Has pt had speech pathology evaluation for communication in past? History Source: Medical Record Limitations to Obtaining History: Clinical Condition, Dementia - Past Medical History [employer]: Yes: Dementia Cardiovascular: Yes: HTN Pulmonary: Yes: COPD, Pulmonary Embolus Gastrointestinal: Yes: Diverticulitis, Other (colovesicular fistula with diverticulosis , heme posistive stools) Renal/: Yes: UTI (recurrent) Heme/Onc: Yes: Anemia, Cancer (laryngeal cancer with permanent tracheostomy ) Musculoskeletal: Yes: Chronic low back pain, Osteoarthritis, Other (avascular necrosis of the hip) - Past Surgical History Past Surgical History: Yes: Amputation, Colectomy, Colostomy - Smoking History Smoking history: Unknown if ever smoked Have you smoked in the past 12 months: No - Alcohol/Substance Use Hx Alcohol Use: No - Social History ADL: Support Services History of Recent Travel: No History - Admission Reason For Visit: ACUTE KIDNEY INJURY,SYSTEMIC INFLAMMTORY RESPONSE - Diagnostics X-ray: Report Reviewed - General Mental Status: Awake and Alert, Able to Follow Commands, Forgetful, Vague, Confused Attention: Distractible, Mild Impairment Ability to Follow Directions: Fair Head/Neck Control: Fair Speech Evaluation - Communication Primary Language: BENINESE Oral Expression Ability: Yes: Non-Vocal (Mouths words slowly and precisely) - Speech Production Intelligibility: Yes: Mildly Impaired, Moderately Impaired - Language/Verbal Expression Able to Communicate Wants and Needs: Yes: Mildly Impaired, Moderately Impaired Functional Communication Status: Yes: Mildly Impaired, Moderately Impaired - Swallow Evaluation/Bedside Assessment Current Nutritional Intake: Soft, Thin Liquids Facial Symmetry at Rest: Symmetrical Facial Symmetry on Retraction: Symmetrical Against Resistance Opening: Normal Against Resistance Closing: Normal Pucker Lips: Normal Smile: Normal Lingual Movement: Normal, Symmetric Lingual Speed of Movement: Normal Lingual Movement Strgth Against Opposition: Normal Lingual Movement Characteristics: Normal Velopharyngeal Movement: Normal Laryngeal Elevation: WFL Laryngeal Movement: Able to Palpate Labial Seal: WFL Chewing: WFL Oral Prep Time: WFL A-P Transit: WFL Pocketing: None Coughing/Throat Clear: No Change in Voice: No Recommendations - Speech Evaluation, Impression/Plan Impression: Limited appetite. Laryngectomy x a few years. Mouths words but non vocal. Has pt had speech pathology evaluation for communication in past? Consider electrolarynx training at [place] if never done before to improve functional communication. Overtly pt can swallow but limited appetite. - Disposition [facility]charge to: [facility] - Dysphagia Impressions/Plan *Silent aspiration: cannot be R/O at bedside (not suspected.)
--- NOTE | 2018-08-24 13:12 | PN ---
Progress Note, Physician Chief Complaint: Sepsis History of Present Illness: Previous notes and events reviewed awake and alert NAD o2 via trach collar denies chest pain, SOB colostomy noted with dark watery output - Current Medication List Current Medications: Active Medications Acetaminophen (Tylenol -) 650 mg PO Q6H PRN PRN Reason: FEVER Albuterol/Ipratropium (Duoneb -) 1 amp NEB Q6H PRN PRN Reason: SHORT OF BREATH/WHEEZING Last Admin: 08/24/18 07:35 Dose: 1 amp Apixaban (Eliquis -) 2.5 mg PO BID [facility] Last Admin: 08/24/18 09:37 Dose: 2.5 mg Brimonidine Tartrate (Alphagan 0.15% -) 1 drop OU TID [facility]ED[facility] Last Admin: 08/24/18 07:02 Dose: 1 drop Cholecalciferol (Vitamin D3 -) 2,000 unit PO DAILY [facility] Last Admin: 08/24/18 09:37 Dose: 2,000 unit Dorzolamide HCl (Trusopt 2%) 1 drop OU BID [facility] Last Admin: 08/24/18 09:39 Dose: 1 drop Cefepime HCl 1 gm/ Dextrose 100 mls @ 200 mls/hr IVPB BID TEDDY; Protocol Last Admin: 08/24/18 09:37 Dose: 200 mls/hr Potassium Chloride/Sodium Chloride (Ns+20 Meq Kcl -) 20 meq in 1,000 mls @ 75 mls/hr IV ASDIR TEDDY Last Admin: 08/23/18 11:40 Dose: 75 mls/hr Latanoprost (Xalatan 0.005% Eye Drops -) 1 drop OU HS [facility] Last Admin: 08/23/18 22:38 Dose: 1 drop Midodrine (Proamatine -) 5 mg PO BID-MID [facility] Last Admin: 08/24/18 09:57 Dose: 5 mg Mirtazapine (Remeron -) 7.5 mg PO HS [facility] Last Admin: 08/23/18 22:38 Dose: 7.5 mg Multivitamins/Minerals/Vitamin C (Tab-A-Vit -) 1 tab PO DAILY [facility] Last Admin: 08/24/18 09:37 Dose: 1 tab Ondansetron HCl (Zofran Injection) 4 mg IVPUSH Q6H PRN PRN Reason: NAUSEA Last Admin: 08/23/18 15:28 Dose: 4 mg Ranitidine HCl (Zantac -) 150 mg PO HS [facility] Last Admin: 08/23/18 22:38 Dose: 150 mg Timolol Maleate (Timoptic 0.5%) 1 drop OU BID [facility] Last Admin: 08/24/18 09:38 Dose: 1 drop - Objective Vital Signs: Vital Signs Temperature 98.9 F 08/24/18 09:00 Pulse Rate 96 H 08/24/18 09:00 Respiratory Rate 20 08/24/18 09:00 Blood Pressure 143/72 08/24/18 09:00 O2 Sat by Pulse Oximetry (%) 95 08/24/18 09:00 Constitutional: Yes: No Distress, Calm Eyes: Yes: Conjunctiva Clear HENT: Yes: Atraumatic Neck: Yes: Other (trach) Cardiovascular: Yes: Regular Rate and Rhythm Respiratory: Yes: Regular, Rhonchi, Other (O2 via trach collar) Gastrointestinal: Yes: Normal Bowel Sounds, Soft, Other (non tender) ...Rectal Exam: Yes: Other (colostomy) Genitourinary: Yes: Incontinence Musculoskeletal: Yes: Muscle Weakness Extremities: Yes: Other (R BKA) Neurological: Yes: Alert, Pre-Existing Deficit Psychiatric: Yes: Alert Labs: CBC, BMP 08/23/18 08:46 08/23/18 08:46 INR, PTT INR 1.20 (0.83-1.09) H 08/20/18 16:36 Microbiology 08/20/18 16:45 Blood - Peripheral Venous Blood Culture - Preliminary NO GROWTH OBTAINED AFTER 72 HOURS, INCUBATION TO CONTINUE FOR 2 DAYS. 08/21/18 11:46 Sputum - Expectorated Gram Stain - Final 08/21/18 11:46 Sputum - Expectorated Sputum Culture - Final NORMAL RESPIRATORY GADIEL 08/20/18 16:36 Blood - Peripheral Venous Blood Culture - Final Staphylococcus Epidermidis Problem List - Problems (1) JOEL (acute kidney injury) Assessment/Plan: -current BUN/Cr 18/0.9 -continue to monitor renal function -continue with IV hydration Code(s): N17.9 - ACUTE KIDNEY FAILURE, UNSPECIFIED (2) Bacteremia Assessment/Plan: -ID on board -continue with cefepime IV -afebrile, wbc 8.3 -LA 1.3 Microbiology 08/20/18 16:45 Blood - Peripheral Venous Blood Culture - Preliminary NO GROWTH OBTAINED AFTER 72 HOURS, INCUBATION TO CONTINUE FOR 2 DAYS. 08/21/18 11:46 Sputum - Expectorated Gram Stain - Final 08/21/18 11:46 Sputum - Expectorated Sputum Culture - Final NORMAL RESPIRATORY GADIEL 08/20/18 16:36 Blood - Peripheral Venous Blood Culture - Final Staphylococcus Epidermidis Code(s): R78.81 - BACTEREMIA (3) Sepsis Assessment/Plan: -ID on board -continue with cefepime IV -LA 1.3 -afebrile, wbc 8.3 Microbiology 08/20/18 16:45 Blood - Peripheral Venous Blood Culture - Preliminary NO GROWTH OBTAINED AFTER 72 HOURS, INCUBATION TO CONTINUE FOR 2 DAYS. 08/21/18 11:46 Sputum - Expectorated Gram Stain - Final 08/21/18 11:46 Sputum - Expectorated Sputum Culture - Final NORMAL RESPIRATORY GADIEL 08/20/18 16:36 Blood - Peripheral Venous Blood Culture - Final Staphylococcus Epidermidis Code(s): A41.9 - SEPSIS, UNSPECIFIED ORGANISM (4) Afib Assessment/Plan: -continue with eliquis Code(s): I48.91 - UNSPECIFIED ATRIAL FIBRILLATION Qualifiers: Atrial fibrillation type: chronic Qualified Code(s): I48.2 - Chronic atrial fibrillation Assessment/Plan see problem list dvt ppx
[2018-08-24] MEDS: SODIUM CHLORIDE 0.9%/KCL 20 MEQ/1,000 ML INFUS.BAG IV SCH (13:58)
[2018-08-24] MEDS: MIRTAZAPINE 15 MG TABLET (FP) PO SCH (21:42)
[2018-08-24] MEDS: LATANOPROST 0.005% OPHTH SOLN 2.5ML BOTTLE OU SCH (21:43)
[2018-08-24] MEDS: RANITIDINE HCL 150 MG TABLET (FP) PO SCH (21:43)
[2018-08-25] MEDS: SODIUM CHLORIDE 0.9%/KCL 20 MEQ/1,000 ML INFUS.BAG IV SCH (03:46)
[2018-08-25] MEDS: BRIMONIDINE TARTRATE 0.15% OPHTHALMIC 5 ML BOTTLE OU SCH ×3 (06:28→22:00)
[2018-08-25] MEDS: ALBUTEROL SO4 2.5/IPRATROPIUM 0.5 INH SOL 3 ML VIAL.NEB. NEB PRN (06:31)
[2018-08-25 08:16] LABS: ALBUMIN 2.3 g/dl (3.4-5.0); ALK PHOS 57 U/L (45-117); ANION GAP 6 MMOL/L (8-16); BILIRUBIN,TOTAL 0.8 mg/dL (0.2-1); BLOOD UREA NITROGEN 29 mg/dL (7-18); CALCIUM 7.6 mg/dL (8.5-10.1); CHLORIDE 123 mmol/L (98-107); CO2 20 mmol/L (21-32); CREATININE 0.8 mg/dL (0.55-1.3); GLUCOSE,RANDOM 105 mg/dL (74-106); POTASSIUM 4.1 mmol/L (3.5-5.1); SGOT/AST 18 U/L (15-37); SGPT/ALT 19 U/L (13-61); SODIUM 149 mmol/L (136-145); TOT PROT 5.8 g/dl (6.4-8.2)
[2018-08-25 09:37] LABS: HEMATOCRIT 38.6 % (35.4-49); HEMOGLOBIN 13.1 GM/dL (11.7-16.9); MCH 32.5 pg (25.7-33.7); MCHC 34.1 g/dl (32.0-35.9); MEAN CELL VOLUME 95.3 fl (80-96); MEAN PLT VOLUME 8.6 fl (7.5-11.1); PLATELET COUNT 248 K/MM3 (134-434); RBC 4.05 M/mm3 (4.00-5.60); RDW 14.3 % (11.9-15.9); WHITE BLOOD COUNT 9.5 K/mm3 (4.0-10.0)
[2018-08-25] MEDS ORDERED: CEFEPIME HCL 1 GM VIAL (RESTRICTED TO ID) ONE ×2 (10:21→21:08)
[2018-08-25] MEDS ORDERED: DEXTROSE 5%-WATER 100 ML IVPB ONE ×2 (10:21→21:08)
--- NOTE | 2018-08-25 10:30 | PN ---
Progress Note (short form) - Note Progress Note: Still with productive cough and thick, yellow secretions suctioned from the stoma. NAD on Trach collar. Intake & Output 08/22/18 08/23/18 08/24/18 08/25/18 23:59 23:59 23:59 23:59 Intake Total 1600 2250 200 900 Output Total 1 4 600 Balance 1599 2246 -400 900 Weight 178 lb Last Vital Signs Temp Pulse Resp BP Pulse Ox 98.9 F 100 H 20 139/80 96 08/25/18 07:19 08/25/18 07:19 08/25/18 07:19 08/25/18 07:19 08/24/18 21:00 Active Medications Acetaminophen (Tylenol -) 650 mg PO Q6H PRN PRN Reason: FEVER Albuterol/Ipratropium (Duoneb -) 1 amp NEB Q6H PRN PRN Reason: SHORT OF BREATH/WHEEZING Last Admin: 08/25/18 06:31 Dose: 1 amp Apixaban (Eliquis -) 2.5 mg PO BID [facility] Last Admin: 08/24/18 21:42 Dose: 2.5 mg Brimonidine Tartrate (Alphagan 0.15% -) 1 drop OU TID [facility] Last Admin: 08/25/18 06:28 Dose: 1 drop Cholecalciferol (Vitamin D3 -) 2,000 unit PO DAILY [facility] Last Admin: 08/24/18 09:37 Dose: 2,000 unit Dorzolamide HCl (Trusopt 2%) 1 drop OU BID [facility] Last Admin: 08/24/18 21:42 Dose: 1 drop Cefepime HCl 1 gm/ Dextrose 100 mls @ 200 mls/hr IVPB BID [facility]ED[facility]; Protocol Last Admin: 08/24/18 21:42 Dose: 200 mls/hr Potassium Chloride/Sodium Chloride (Ns+20 Meq Kcl -) 20 meq in 1,000 mls @ 75 mls/hr IV ASDIR TEDDY Last Admin: 08/25/18 03:46 Dose: 75 mls/hr Latanoprost (Xalatan 0.005% Eye Drops -) 1 drop OU HS [facility] Last Admin: 08/24/18 21:43 Dose: 1 drop Midodrine (Proamatine -) 5 mg PO BID-MID [facility] Last Admin: 08/24/18 17:09 Dose: 5 mg Mirtazapine (Remeron -) 7.5 mg PO [facility] Last Admin: 08/24/18 21:42 Dose: 7.5 mg Multivitamins/Minerals/Vitamin C (Tab-A-Vit -) 1 tab PO DAILY [facility] Last Admin: 08/24/18 09:37 Dose: 1 tab Ondansetron HCl (Zofran Injection) 4 mg IVPUSH Q6H PRN PRN Reason: NAUSEA Last Admin: 08/23/18 15:28 Dose: 4 mg Ranitidine HCl (Zantac -) 150 mg PO [facility] Last Admin: 08/24/18 21:43 Dose: 150 mg Timolol Maleate (Timoptic 0.5%) 1 drop OU BID [facility] Last Admin: 08/24/18 21:42 Dose: 1 drop Gen: NAD at rest Neck: stoma intact Heart: RRR Lung: bilateral scattered rhonchi, no wheeze Abd: soft, nontender Ext: no edema Laboratory Results - last 24 hr 08/24/18 08/25/18 08/25/18 15:30 06:10 06:10 WBC 9.5 RBC 4.05 Hgb 13.1 Hct 38.6 MCV 95.3 MCH 32.5 MCHC 34.1 RDW 14.3 Plt Count 248 MPV 8.6 Sodium 149 H Potassium 4.1 Chloride 123 H Carbon Dioxide 20 L Anion Gap 6 L BUN 29 H Creatinine 0.8 Creat Clearance w eGFR 95.02 Random Glucose 105 Calcium 7.6 L Total Bilirubin 0.8 AST 18 ALT 19 Alkaline Phosphatase 57 Total Protein 5.8 L Albumin 2.3 L Stool Occult Blood Positive Problem List - Problems (1) Sepsis Code(s): A41.9 - SEPSIS, UNSPECIFIED ORGANISM (2) JOEL (acute kidney injury) Code(s): N17.9 - ACUTE KIDNEY FAILURE, UNSPECIFIED (3) Dementia Code(s): F03.90 - UNSPECIFIED DEMENTIA WITHOUT BEHAVIORAL DISTURBANCE (4) HTN (hypertension) Code(s): I10 - ESSENTIAL (PRIMARY) HYPERTENSION Qualifiers: Hypertension type: essential hypertension Qualified Code(s): I10 - Essential (primary) hypertension (5) Hyperlipidemia Code(s): E78.5 - HYPERLIPIDEMIA, UNSPECIFIED A/P Sepsis Suspected Pneumonia Lactic Acidosis Acute Kidney Injury h/o PE h/o Laryngeal Ca s/p laryngectomy COPD Dementia s/p R BKA - Antibiotics per ID - monitor urine output, creatinine - continue anticoagulation - trach collar to keep SpO2 >90% - Suction PRN - Aspiration precautions Dr Kelley
[2018-08-25] MEDS: CEFEPIME 1 GM in DEXTROSE 5%-WATER 100 ML IVPB SCH ×2 (10:33→21:48)
[2018-08-25] MEDS: CHOLECALCIFEROL (VIT D3) 1,000 UNIT (25 MCG) TABLET PO SCH (10:34)
[2018-08-25] MEDS: APIXABAN 2.5 MG TABLET PO SCH ×2 (10:34→21:49)
[2018-08-25] MEDS: MULTIVITAMINS (DAILY MVI) TABLET (FP) PO SCH (10:34)
[2018-08-25] MEDS: MIDODRINE HCL 5 MG TABLET PO SCH ×2 (10:49→18:03)
[2018-08-25] MEDS: TIMOLOL 0.5% OPHTHALMIC SOL 5 ML BOTTLE OU SCH ×2 (12:53→21:50)
[2018-08-25] MEDS: DORZOLAMIDE 2% HCL OPHTHALMIC SOLUTION 10 ML BOTTLE OU SCH ×2 (12:54→21:40)
--- NOTE | 2018-08-25 13:31 | PN ---
Progress Note, Physician Chief Complaint: Sepsis History of Present Illness: Previous notes and events reviewed awake and alert NAD o2 via trach collar denies chest pain, SOB colostomy noted with dark watery output--stool OB positive, Hg stable at 13.1 - Current Medication List Current Medications: Active Medications Acetaminophen (Tylenol -) 650 mg PO Q6H PRN PRN Reason: FEVER Albuterol/Ipratropium (Duoneb -) 1 amp NEB Q6H PRN PRN Reason: SHORT OF BREATH/WHEEZING Last Admin: 08/25/18 06:31 Dose: 1 amp Apixaban (Eliquis -) 2.5 mg PO BID TEDDY Last Admin: 08/25/18 10:34 Dose: 2.5 mg Brimonidine Tartrate (Alphagan 0.15% -) 1 drop OU TID TEDDY Last Admin: 08/25/18 06:28 Dose: 1 drop Cholecalciferol (Vitamin D3 -) 2,000 unit PO DAILY TEDDY Last Admin: 08/25/18 10:34 Dose: 2,000 unit Dorzolamide HCl (Trusopt 2%) 1 drop OU BID TEDDY Last Admin: 08/25/18 12:54 Dose: 1 drop Cefepime HCl 1 gm/ Dextrose 100 mls @ 200 mls/hr IVPB BID TEDDY; Protocol Last Admin: 08/25/18 10:33 Dose: 200 mls/hr Potassium Chloride/Sodium Chloride (Ns+20 Meq Kcl -) 20 meq in 1,000 mls @ 75 mls/hr IV ASDIR TEDDY Last Admin: 08/25/18 03:46 Dose: 75 mls/hr Latanoprost (Xalatan 0.005% Eye Drops -) 1 drop OU HS TEDDY Last Admin: 08/24/18 21:43 Dose: 1 drop Midodrine (Proamatine -) 5 mg PO BID-MID TEDDY Last Admin: 08/25/18 10:49 Dose: 5 mg Mirtazapine (Remeron -) 7.5 mg PO HS TEDDY Last Admin: 08/24/18 21:42 Dose: 7.5 mg Multivitamins/Minerals/Vitamin C (Tab-A-Vit -) 1 tab PO DAILY TEDDY Last Admin: 08/25/18 10:34 Dose: 1 tab Ondansetron HCl (Zofran Injection) 4 mg IVPUSH Q6H PRN PRN Reason: NAUSEA Last Admin: 08/23/18 15:28 Dose: 4 mg Ranitidine HCl (Zantac -) 150 mg PO HS [facility] Last Admin: 08/24/18 21:43 Dose: 150 mg Timolol Maleate (Timoptic 0.5%) 1 drop OU BID TEDDY Last Admin: 08/25/18 12:53 Dose: 1 drop - Objective Vital Signs: Vital Signs Temperature 98.9 F 08/25/18 07:19 Pulse Rate 100 H 08/25/18 07:19 Respiratory Rate 20 08/25/18 07:19 Blood Pressure 139/80 08/25/18 07:19 O2 Sat by Pulse Oximetry (%) 96 08/24/18 21:00 Constitutional: Yes: No Distress, Calm Eyes: Yes: Conjunctiva Clear HENT: Yes: Atraumatic Neck: Yes: Other (trach stoma) Cardiovascular: Yes: Regular Rate and Rhythm (O2 via trach mask) Gastrointestinal: Yes: Normal Bowel Sounds, Soft, Other (nontender) Musculoskeletal: Yes: Muscle Weakness Extremities: Yes: Other (R BKA) Edema: No Neurological: Yes: Alert, Pre-Existing Deficit Psychiatric: Yes: Alert Labs: CBC, BMP 08/25/18 06:10 08/25/18 06:10 INR, PTT INR 1.20 (0.83-1.09) H 08/20/18 16:36 Problem List - Problems (1) JOEL (acute kidney injury) Assessment/Plan: -current BUN/Cr 29/0.9 -continue to monitor renal function -continue with IV hydration Code(s): N17.9 - ACUTE KIDNEY FAILURE, UNSPECIFIED (2) Bacteremia Assessment/Plan: -ID on board -continue with cefepime IV -afebrile, wbc 9.5 -LA 1.3 Microbiology 08/20/18 16:45 Blood - Peripheral Venous Blood Culture - Preliminary NO GROWTH OBTAINED AFTER 72 HOURS, INCUBATION TO CONTINUE FOR 2 DAYS. 08/21/18 11:46 Sputum - Expectorated Gram Stain - Final 08/21/18 11:46 Sputum - Expectorated Sputum Culture - Final NORMAL RESPIRATORY GADIEL 08/20/18 16:36 Blood - Peripheral Venous Blood Culture - Final Staphylococcus Epidermidis Code(s): R78.81 - BACTEREMIA (3) Sepsis Assessment/Plan: -ID on board -continue with cefepime IV -LA 1.3 -afebrile, wbc 9.5 Microbiology 08/20/18 16:45 Blood - Peripheral Venous Blood Culture - Preliminary NO GROWTH OBTAINED AFTER 72 HOURS, INCUBATION TO CONTINUE FOR 2 DAYS. 08/21/18 11:46 Sputum - Expectorated Gram Stain - Final 08/21/18 11:46 Sputum - Expectorated Sputum Culture - Final NORMAL RESPIRATORY GADIEL 08/20/18 16:36 Blood - Peripheral Venous Blood Culture - Final Staphylococcus Epidermidis Code(s): A41.9 - SEPSIS, UNSPECIFIED ORGANISM (4) Afib Assessment/Plan: -continue with eliquis Code(s): I48.91 - UNSPECIFIED ATRIAL FIBRILLATION Qualifiers: Atrial fibrillation type: chronic Qualified Code(s): I48.2 - Chronic atrial fibrillation Assessment/Plan see problem list dvt ppx
--- NOTE | 2018-08-25 13:35 | PN ---
Progress Note, IRONER MACHINE - Note Progress Note: Pt with h/o laryngectomy for a few years, per chart, with limited functional communication. Pt is verbal, mouths words, non vocal, rambles, seems confused. Pt requires intensive speech tx at [place] to improve speech production and functional communication. Easiest option is 1-an electrolarynx with training for quickest improvement of functional communication. Other other options are 2- esophageal voice which may not have potential if no tone produced over the years. 1-swjeyfs-dmqrybrlft puncture- however, NH will need knowledge in maintaing TEP and keeping clean, changing prosthetic, etc. Due to confusion and ease, electrolarynx seems to be best option to try first.
--- NOTE | 2018-08-25 20:23 | CON.GI ---
Consult Consult Specialty:: Gastroenterology Referred by:: Narda GARCIA Reason for Consultation:: Occult GI bleeding - History of Present Illness Chief Complaint: Fever History of Present Illness: 73M with dementia is admitted from the [facility] with fever. I am asked to evaluate for occult GI bleeding. His Hb is 13. No overt bleeding reported. Lui is noncommucative so I called his . She asked why I am questioning her for information when " everything was done there". She does not know why he has a colostomy. She does not know whether he has ever had a colonoscopy or EGD. I told her that I was called to evaluate occult bleeding which could reflect such bleeding sources as cancer, ulcers and AVMs among others. She does not want either performed on her citing his clinical situation. She will bring in her list of medical data to Dr Bear so that it can be reflected on the chart. She did tell me that he had a total laryngectomy at [facility] with Dr Small and did not require RT or chemotherapy I reviewed [facility] and found that Lui had a sigmoid resection for a colovesical fistula and drainage of an abscess by Dr. Mukul Gallegos on 04/17/15. He had recurring perivesicular abscesses that were finally found to be due to a hole in the bladder by dye injected into an IR drain on 09/20/15. As far as I can tell no further abdominal surgery was done as this problem resolved. Several GI consults by Dr. Torres allude to the need for a colonoscopy but as far as I can tell this was never done. 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), Colectomy (sigmoid colectomy 04/17/15 for colovesical fistula with diverting colostomy ), Colostomy - Alcohol/Substance Use Hx Alcohol Use: No - Smoking History Smoking history: Unknown if ever smoked Have you smoked in the past 12 months: No - Social History Usual Living Arrangement: [facility] ADL: Support Services History of Recent Travel: No Home Medications - Allergies Allergies/Adverse Reactions: Allergies Allergy/AdvReac Type Severity Reaction Status Date / Time Penicillins Allergy Unknown Verified 10/27/16 14:51 - Home Medications Home Medications: Ambulatory Orders Acetaminophen [Tylenol] 650 mg PO QID PRN 09/04/16 Latanoprost 0.005% Eye Drops [Xalatan 0.005% Eye Drops -] 1 drop OU HS 09/04/16 Midodrine HCl [Proamatine -] 5 mg PO BID 09/04/16 Mirtazapine [Remeron -] 7.5 mg PO HS 09/04/16 Multivitamin [Poly-Vitamin] 1 each PO DAILY 09/04/16 Potassium Chloride 20 meq PO DAILY 09/04/16 Albuterol 2.5/Ipratropium 0.5 [Duoneb -] 1 neb IH QID PRN 08/20/18 Apixaban [Eliquis -] 2.5 mg PO BID 08/20/18 Brimonidine Tartrate [Alphagan 0.15% -] 1 drop OU TID 08/20/18 Cholecalciferol (Vitamin D3) [Vitamin D3 -] 2,000 unit PO DAILY 08/20/18 Dorzolamide HCl/Timolol Maleat [Cosopt Eye Drops] 1 drop OU BID 08/20/18 Famotidine [Pepcid -] 20 mg PO HS 08/20/18 Magnesium Oxide [Magox 400] 500 mg PO DAILY 08/20/18 Family Disease History - Family Disease History Family History: Unable to Obtain Review of Systems Unable to obtain ROS, reason: dementia Physical Exam-GI Vital Signs: Vital Signs Temperature 100.3 F H 08/25/18 19:11 Pulse Rate 85 08/25/18 19:11 Respiratory Rate 22 H 08/25/18 19:11 Blood Pressure 130/73 08/25/18 19:11 O2 Sat by Pulse Oximetry (%) 96 08/25/18 09:00 CBC,CMP WBC 9.5 K/mm3 (4.0-10.0) 08/25/18 06:10 RBC 4.05 M/mm3 (4.00-5.60) 08/25/18 06:10 Hgb 13.1 GM/dL (11.7-16.9) 08/25/18 06:10 Hct 38.6 % (35.4-49) 08/25/18 06:10 MCV 95.3 fl (80-96) 08/25/18 06:10 MCH 32.5 pg (25.7-33.7) 08/25/18 06:10 MCHC 34.1 g/dl (32.0-35.9) 08/25/18 06:10 RDW 14.3 % (11.9-15.9) 08/25/18 06:10 Plt Count 248 K/MM3 (134-434) 08/25/18 06:10 MPV 8.6 fl (7.5-11.1) 08/25/18 06:10 Absolute Neuts (auto) 5.5 K/mm3 (1.5-8.0) 08/22/18 07:10 Neutrophils % 78.8 % (42.8-82.8) 08/22/18 07:10 Neutrophils % (Manual) 78.0 % (42.8-82.8) 08/20/18 16:36 Band Neutrophils % 14.0 % 08/20/18 16:36 Lymphocytes % 9.3 % (8-40) D 08/22/18 07:10 Lymphocytes % (Manual) 3.0 % (8-40) L 08/20/18 16:36 Monocytes % 9.5 % (3.8-10.2) D 08/22/18 07:10 Monocytes % (Manual) 3 % (3.8-10.2) L 08/20/18 16:36 Eosinophils % 1.9 % (0-4.5) D 08/22/18 07:10 Eosinophils % (Manual) 0.0 % (0-4.5) 08/20/18 16:36 Basophils % 0.5 % (0-2.0) 08/22/18 07:10 Basophils % (Manual) 0.0 % (0-2.0) 08/20/18 16:36 Myelocytes % (Man) 1 % (0-2) 08/20/18 16:36 Nucleated RBC % 0 % (0-0) 08/22/18 07:10 Platelet Estimate Adequate 08/20/18 16:36 Sodium 149 mmol/L (136-145) H 08/25/18 06:10 Potassium 4.1 mmol/L (3.5-5.1) 08/25/18 06:10 Chloride 123 mmol/L (98-107) H 08/25/18 06:10 Carbon Dioxide 20 mmol/L (21-32) L 08/25/18 06:10 Anion Gap 6 MMOL/L (8-16) L 08/25/18 06:10 BUN 29 mg/dL (7-18) H 08/25/18 06:10 Creatinine 0.8 mg/dL (0.55-1.3) 08/25/18 06:10 Creat Clearance w eGFR 95.02 (>60) 08/25/18 06:10 Random Glucose 105 mg/dL (74-106) 08/25/18 06:10 Lactic Acid 1.3 mmol/L (0.4-2.0) 08/21/18 11:15 Calcium 7.6 mg/dL (8.5-10.1) L 08/25/18 06:10 Magnesium 2.1 mg/dL (1.8-2.4) 08/22/18 07:10 Total Bilirubin 0.8 mg/dL (0.2-1) 08/25/18 06:10 AST 18 U/L (15-37) 08/25/18 06:10 ALT 19 U/L (13-61) 08/25/18 06:10 Alkaline Phosphatase 57 U/L (45-117) 08/25/18 06:10 Creatine Kinase 94 U/L (26-308) 08/20/18 16:36 Troponin I < 0.02 ng/ml (0.00-0.05) 08/20/18 16:36 Total Protein 5.8 g/dl (6.4-8.2) L 08/25/18 06:10 Albumin 2.3 g/dl (3.4-5.0) L 08/25/18 06:10 Current Medications Generic Name Dose Route Start Last Admin Trade Name Freq PRN Reason Stop Dose Admin Acetaminophen 650 mg 08/20/18 22:39 Tylenol - PO Q6H PRN FEVER Albuterol/Ipratropium 1 amp 08/20/18 22:38 08/25/18 06:31 Duoneb - NEB 1 amp Q6H PRN Administration SHORT OF BREATH/WHEEZING Apixaban 2.5 mg 08/21/18 10:00 08/25/18 10:34 Eliquis - PO 2.5 mg BID TEDDY Administration Brimonidine Tartrate 1 drop 08/21/18 06:00 08/25/18 16:33 Alphagan 0.15% - OU 1 drop TID TEDDY Administration Cholecalciferol 2,000 unit 08/21/18 10:00 08/25/18 10:34 Vitamin D3 - PO 2,000 unit DAILY TEDDY Administration Dorzolamide HCl 1 drop 08/21/18 10:00 08/25/18 12:54 Trusopt 2% OU 1 drop BID TEDDY Administration Cefepime HCl 1 gm/ Dextrose 100 mls @ 200 mls/hr 08/21/18 22:00 08/25/18 10: 33 IVPB 200 mls/hr BID TEDDY Administration Protocol Potassium Chloride/Sodium Chloride 20 meq in 1,000 mls @ 75 mls/hr 08/23/18 11 :15 08/25/18 03:46 Ns+20 Meq Kcl - IV 75 mls/hr ASDIR TEDDY Administration Latanoprost 1 drop 08/21/18 22:00 08/24/18 21:43 Xalatan 0.005% Eye Drops - OU 1 drop HS TEDDY Administration Midodrine 5 mg 08/21/18 10:00 08/25/18 18:03 Proamatine - PO 5 mg BID-MID TEDDY Administration Mirtazapine 7.5 mg 08/21/18 22:00 08/24/18 21:42 Remeron - PO 7.5 mg HS TEDDY Administration Multivitamins/Minerals/Vitamin C 1 tab 08/21/18 10:00 08/25/18 10:34 Tab-A-Vit - PO 1 tab DAILY TEDDY Administration Ondansetron HCl 4 mg 08/22/18 07:42 08/23/18 15:28 Zofran Injection IVPUSH 4 mg Q6H PRN Administration NAUSEA Pantoprazole Sodium 40 mg 08/26/18 10:00 Protonix Iv IVPUSH DAILY TEDDY Ranitidine HCl 150 mg 08/21/18 22:00 08/24/18 21:43 Zantac - PO 150 mg HS TEDDY Administration Timolol Maleate 1 drop 08/21/18 10:00 08/25/18 12:53 Timoptic 0.5% OU 1 drop BID TEDDY Administration Constitutional: Yes: Calm, Other (nonverbal due to laryngectomy) Eyes: Yes: Conjunctiva Clear HENT: Yes: Normocephalic Neck: Yes: Supple, Other (trachestomy stoma) Cardiovascular: Yes: Pulse Irregular Respiratory: Yes: CTA Bilaterally Gastrointestinal Inspection: Yes: Scars (vertical periumbilical midline and transverse suprapubic healed incisions), Other (functioning LLQ colostomy) ...Auscultate: Yes: Normoactive Bowel Sounds ...Palpate: Yes: Soft, Other (nontender) ...Percussion: Yes: Tympanitic ...Rectal Exam: Yes: Guaiac Positive (from colostomy) Extremities: Yes: Other (Right BKA) Peripheral Pulses WNL: Yes Neurological: Yes: Alert (but unable to verbalize, does not mimic appropriately) Labs: CBC, BMP 08/25/18 06:10 08/25/18 06:10 INR, PTT INR 1.20 (0.83-1.09) H 08/20/18 16:36 Problem List - Problems (1) Occult blood in stools Assessment/Plan: Occult bleeding but not associated with anemia. Will check iron levels. Suspect stress gastritis or AVM bleeding but cannot exclude malignancy. Lui's does not want endoscopic evaluation. Would maintain PPI empiricaly Code(s): R19.5 - OTHER FECAL ABNORMALITIES (2) Diverticulosis Code(s): K57.90 - DVRTCLOS OF INTEST, PART UNSP, W/O PERF OR ABSCESS W/O BLEED (3) Colostomy in place Code(s): Z93.3 - COLOSTOMY STATUS (4) Fever Code(s): R50.9 - FEVER, UNSPECIFIED (5) Peripheral vascular disease Code(s): I73.9 - PERIPHERAL VASCULAR DISEASE, UNSPECIFIED (6) Pulmonary emboli Code(s): I26.99 - OTHER PULMONARY EMBOLISM WITHOUT ACUTE COR PULMONALE (7) S/P BKA (below knee amputation) Code(s): Z89.519 - ACQUIRED ABSENCE OF UNSPECIFIED LEG BELOW KNEE Qualifiers: Laterality: right Qualified Code(s): Z89.511 - Acquired absence of right leg below knee (8) Staphylococcus epidermidis bacteremia Code(s): R78.81 - BACTEREMIA (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 stress gastritis, AVMs. GERD, ? malignancy H/O colostomy for colovesical fistula likely due to diverticular disease Plan: Pantoprazole 40mg daily Please recall us if brisk bleeding ensues or the patient's changes her mind about an endoscopic evaluation
[2018-08-25] MEDS: LATANOPROST 0.005% OPHTH SOLN 2.5ML BOTTLE OU SCH (21:45)
[2018-08-25] MEDS: MIRTAZAPINE 15 MG TABLET (FP) PO SCH (21:49)
[2018-08-26] MEDS: SODIUM CHLORIDE 0.9%/KCL 20 MEQ/1,000 ML INFUS.BAG IV SCH ×3 (02:24→21:30)
[2018-08-26] MEDS: BRIMONIDINE TARTRATE 0.15% OPHTHALMIC 5 ML BOTTLE OU SCH ×3 (05:58→21:25)
[2018-08-26 06:39] LABS: HEMATOCRIT 36.1 % (35.4-49); HEMOGLOBIN 12.3 GM/dL (11.7-16.9); MCH 32.4 pg (25.7-33.7); MEAN CELL VOLUME 95.2 fl (80-96); MEAN PLT VOLUME 8.4 fl (7.5-11.1); PLATELET COUNT 251 K/MM3 (134-434); RDW 14.2 % (11.9-15.9); WHITE BLOOD COUNT 9.7 K/mm3 (4.0-10.0)
[2018-08-26 07:32] LABS: ALBUMIN 2.3 g/dl (3.4-5.0); ALK PHOS 84 U/L (45-117); ANION GAP 4 MMOL/L (8-16); BLOOD UREA NITROGEN 17 mg/dL (7-18); CALCIUM 7.6 mg/dL (8.5-10.1); CHLORIDE 121 mmol/L (98-107); CO2 21 mmol/L (21-32); CREATININE 0.7 mg/dL (0.55-1.3); GLUCOSE,RANDOM 103 mg/dL (74-106); POTASSIUM 3.8 mmol/L (3.5-5.1); SGOT/AST 26 U/L (15-37); SGPT/ALT 26 U/L (13-61); SODIUM 146 mmol/L (136-145); TOT PROT 5.9 g/dl (6.4-8.2)
[2018-08-26] MEDS ORDERED: PANTOPRAZOLE SODIUM 40 MG VIAL IVPUSH SCH (10:00)
[2018-08-26] MEDS ORDERED: DEXTROSE 5%-WATER 100 ML IVPB ONE ×2 (10:08→21:18)
[2018-08-26] MEDS ORDERED: PT OWN MED DRAWER 7, Y5N ONE ×2 (10:08→17:19)
[2018-08-26] MEDS ORDERED: CEFEPIME HCL 1 GM VIAL (RESTRICTED TO ID) ONE ×2 (10:08→21:18)
[2018-08-26] MEDS: CEFEPIME 1 GM in DEXTROSE 5%-WATER 100 ML IVPB SCH ×2 (10:11→21:24)
[2018-08-26] MEDS: CHOLECALCIFEROL (VIT D3) 1,000 UNIT (25 MCG) TABLET PO SCH (10:13)
[2018-08-26] MEDS: MULTIVITAMINS (DAILY MVI) TABLET (FP) PO SCH (10:13)
[2018-08-26] MEDS: MIDODRINE HCL 5 MG TABLET PO SCH ×2 (10:14→17:22)
[2018-08-26] MEDS: PANTOPRAZOLE 40 MG TABLET (FP) PO SCH (10:14)
[2018-08-26] MEDS: APIXABAN 2.5 MG TABLET PO SCH ×2 (10:14→21:24)
[2018-08-26] MEDS: DORZOLAMIDE 2% HCL OPHTHALMIC SOLUTION 10 ML BOTTLE OU SCH ×2 (10:19→21:25)
[2018-08-26] MEDS: TIMOLOL 0.5% OPHTHALMIC SOL 5 ML BOTTLE OU SCH ×2 (10:20→21:25)
--- NOTE | 2018-08-26 12:37 | PN ---
Progress Note, Physician Chief Complaint: Sepsis History of Present Illness: Previous notes and events reviewed awake and alert NAD o2 via trach collar denies chest pain, SOB - Current Medication List Current Medications: Active Medications Acetaminophen (Tylenol -) 650 mg PO Q6H PRN PRN Reason: FEVER Apixaban (Eliquis -) 2.5 mg PO BID TEDDY Last Admin: 08/26/18 10:14 Dose: 2.5 mg Brimonidine Tartrate (Alphagan 0.15% -) 1 drop OU TID TEDDY Last Admin: 08/26/18 05:58 Dose: 1 drop Cholecalciferol (Vitamin D3 -) 2,000 unit PO DAILY TEDDY Last Admin: 08/26/18 10:13 Dose: 2,000 unit Dorzolamide HCl (Trusopt 2%) 1 drop OU BID TEDDY Last Admin: 08/26/18 10:19 Dose: 1 drop Cefepime HCl 1 gm/ Dextrose 100 mls @ 200 mls/hr IVPB BID TEDDY; Protocol Last Admin: 08/26/18 10:11 Dose: 200 mls/hr Potassium Chloride/Sodium Chloride (Ns+20 Meq Kcl -) 20 meq in 1,000 mls @ 75 mls/hr IV ASDIR TEDDY Last Admin: 08/26/18 02:24 Dose: 75 mls/hr Latanoprost (Xalatan 0.005% Eye Drops -) 1 drop OU HS TEDDY Last Admin: 08/25/18 21:45 Dose: 1 drop Midodrine (Proamatine -) 5 mg PO BID-MID TEDDY Last Admin: 08/26/18 10:14 Dose: 5 mg Mirtazapine (Remeron -) 7.5 mg PO HS TEDDY Last Admin: 08/25/18 21:49 Dose: 7.5 mg Multivitamins/Minerals/Vitamin C (Tab-A-Vit -) 1 tab PO DAILY TEDDY Last Admin: 08/26/18 10:13 Dose: 1 tab Ondansetron HCl (Zofran Injection) 4 mg IVPUSH Q6H PRN PRN Reason: NAUSEA Last Admin: 08/23/18 15:28 Dose: 4 mg Pantoprazole Sodium (Protonix -) 40 mg PO DAILY TEDDY Last Admin: 08/26/18 10:14 Dose: 40 mg Timolol Maleate (Timoptic 0.5%) 1 drop OU BID TEDDY Last Admin: 08/26/18 10:20 Dose: 1 drop - Objective Vital Signs: Vital Signs Temperature 97.4 F L 08/26/18 10:00 Pulse Rate 94 H 08/26/18 10:00 Respiratory Rate 24 H 08/26/18 10:00 Blood Pressure 112/72 08/26/18 10:00 O2 Sat by Pulse Oximetry (%) 96 08/25/18 09:00 Constitutional: Yes: No Distress, Calm Eyes: Yes: Conjunctiva Clear HENT: Yes: Atraumatic Neck: Yes: Other (trach stoma) Cardiovascular: Yes: Regular Rate and Rhythm Respiratory: Yes: Rhonchi, Other (O2 via trach collar) Gastrointestinal: Yes: Normal Bowel Sounds, Soft, Other (non tender) ...Rectal Exam: Yes: Other (colostomy with watery diarrhea black in color) Genitourinary: Yes: Incontinence Musculoskeletal: Yes: Muscle Weakness Extremities: Yes: Other (R BKA) Neurological: Yes: Alert, Pre-Existing Deficit Psychiatric: Yes: Alert Labs: CBC, BMP 08/26/18 06:00 08/26/18 06:00 INR, PTT INR 1.20 (0.83-1.09) H 08/20/18 16:36 Problem List - Problems (1) JOEL (acute kidney injury) Assessment/Plan: -current BUN/Cr 17/0.7 -continue to monitor renal function -continue with IV hydration Code(s): N17.9 - ACUTE KIDNEY FAILURE, UNSPECIFIED (2) Bacteremia Assessment/Plan: -ID on board -continue with cefepime IV -afebrile, wbc 9.7 -LA 1.3 Microbiology 08/20/18 16:45 Blood - Peripheral Venous Blood Culture - Preliminary NO GROWTH OBTAINED AFTER 72 HOURS, INCUBATION TO CONTINUE FOR 2 DAYS. 08/21/18 11:46 Sputum - Expectorated Gram Stain - Final 08/21/18 11:46 Sputum - Expectorated Sputum Culture - Final NORMAL RESPIRATORY GADIEL 08/20/18 16:36 Blood - Peripheral Venous Blood Culture - Final Staphylococcus Epidermidis Code(s): R78.81 - BACTEREMIA (3) Sepsis Assessment/Plan: -ID on board -continue with cefepime IV -LA 1.3 -afebrile, wbc 9.7 Microbiology 08/20/18 16:45 Blood - Peripheral Venous Blood Culture - Preliminary NO GROWTH OBTAINED AFTER 72 HOURS, INCUBATION TO CONTINUE FOR 2 DAYS. 08/21/18 11:46 Sputum - Expectorated Gram Stain - Final 08/21/18 11:46 Sputum - Expectorated Sputum Culture - Final NORMAL RESPIRATORY GADIEL 08/20/18 16:36 Blood - Peripheral Venous Blood Culture - Final Staphylococcus Epidermidis Code(s): A41.9 - SEPSIS, UNSPECIFIED ORGANISM (4) Afib Assessment/Plan: -continue with eliquis Code(s): I48.91 - UNSPECIFIED ATRIAL FIBRILLATION Qualifiers: Atrial fibrillation type: chronic Qualified Code(s): I48.2 - Chronic atrial fibrillation (5) Occult blood in stools Assessment/Plan: -GI on board -NOK wishes for patient not to have EGD -will monitor Hg rosendo, current Hg 12.3 -continue pantoprazole daily Code(s): R19.5 - OTHER FECAL ABNORMALITIES
--- NOTE | 2018-08-26 14:36 | PN ---
Progress Note, Physician History of Present Illness: PULMONARY no distress,less cough,less congestion - Current Medication List Current Medications: Active Medications Acetaminophen (Tylenol -) 650 mg PO Q6H PRN PRN Reason: FEVER Apixaban (Eliquis -) 2.5 mg PO BID [facility] Last Admin: 08/26/18 10:14 Dose: 2.5 mg Brimonidine Tartrate (Alphagan 0.15% -) 1 drop OU TID TEDDY Last Admin: 08/26/18 05:58 Dose: 1 drop Cholecalciferol (Vitamin D3 -) 2,000 unit PO DAILY TEDDY Last Admin: 08/26/18 10:13 Dose: 2,000 unit Dorzolamide HCl (Trusopt 2%) 1 drop OU BID [facility] Last Admin: 08/26/18 10:19 Dose: 1 drop Cefepime HCl 1 gm/ Dextrose 100 mls @ 200 mls/hr IVPB BID TEDDY; Protocol Last Admin: 08/26/18 10:11 Dose: 200 mls/hr Potassium Chloride/Sodium Chloride (Ns+20 Meq Kcl -) 20 meq in 1,000 mls @ 75 mls/hr IV ASDIR TEDDY Last Admin: 08/26/18 02:24 Dose: 75 mls/hr Latanoprost (Xalatan 0.005% Eye Drops -) 1 drop OU HS [facility] Last Admin: 08/25/18 21:45 Dose: 1 drop Midodrine (Proamatine -) 5 mg PO BID-MID [facility] Last Admin: 08/26/18 10:14 Dose: 5 mg Mirtazapine (Remeron -) 7.5 mg PO HS [facility] Last Admin: 08/25/18 21:49 Dose: 7.5 mg Multivitamins/Minerals/Vitamin C (Tab-A-Vit -) 1 tab PO DAILY [facility] Last Admin: 08/26/18 10:13 Dose: 1 tab Ondansetron HCl (Zofran Injection) 4 mg IVPUSH Q6H PRN PRN Reason: NAUSEA Last Admin: 08/23/18 15:28 Dose: 4 mg Pantoprazole Sodium (Protonix -) 40 mg PO DAILY [facility] Last Admin: 08/26/18 10:14 Dose: 40 mg Timolol Maleate (Timoptic 0.5%) 1 drop OU BID [facility] Last Admin: 03/20/19 10:20 Dose: 1 drop - Objective Vital Signs: Vital Signs Temperature 97.4 F L 08/26/18 10:00 Pulse Rate 94 H 08/26/18 10:00 Respiratory Rate 24 H 08/26/18 10:00 Blood Pressure 112/72 08/26/18 10:00 O2 Sat by Pulse Oximetry (%) 96 08/25/18 09:00 Constitutional: Yes: Well Nourished, Calm Eyes: Yes: WNL HENT: Yes: WNL Neck: Yes: Supple (trach) Cardiovascular: Yes: Regular Rate and Rhythm, S1, S2 Respiratory: Yes: Rhonchi (few rhonchi) Gastrointestinal: Yes: Normal Bowel Sounds, Soft Extremities: Yes: Amputation (R BKA) Edema: No Labs: CBC, BMP 08/26/18 06:00 08/26/18 06:00 INR, PTT INR 1.20 (0.83-1.09) H 08/20/18 16:36 Assessment/Plan Problem List - Problems (1) Sepsis Code(s): A41.9 - SEPSIS, UNSPECIFIED ORGANISM (2) JOEL (acute kidney injury) Code(s): N17.9 - ACUTE KIDNEY FAILURE, UNSPECIFIED (3) Dementia Code(s): F03.90 - UNSPECIFIED DEMENTIA WITHOUT BEHAVIORAL DISTURBANCE (4) HTN (hypertension) Code(s): I10 - ESSENTIAL (PRIMARY) HYPERTENSION Qualifiers: Hypertension type: essential hypertension Qualified Code(s): I10 - Essential (primary) hypertension (5) Hyperlipidemia Code(s): E78.5 - HYPERLIPIDEMIA, UNSPECIFIED A/P Sepsis Suspected Pneumonia Lactic Acidosis Acute Kidney Injury h/o PE h/o Laryngeal Ca s/p laryngectomy COPD Dementia s/p R BKA - Antibiotics per ID - monitor urine output, creatinine - anticoagulation - trach collar to keep SpO2 >90% - Suction PRN - Aspiration precautions DR METCALF
[2018-08-26] MEDS: MIRTAZAPINE 15 MG TABLET (FP) PO SCH (21:25)
[2018-08-26] MEDS: LATANOPROST 0.005% OPHTH SOLN 2.5ML BOTTLE OU SCH (21:25)
[2018-08-27 04:15] LABS: SERUM IRON SATURATION 18 % (15-55); TOTAL IRON BINDING CAPACITY 148 ug/dL (250-450); UIBC 121 ug/dL (111-343)
[2018-08-27] MEDS: BRIMONIDINE TARTRATE 0.15% OPHTHALMIC 5 ML BOTTLE OU SCH ×3 (06:36→21:42)
[2018-08-27 08:56] LABS: HEMATOCRIT 37.1 % (35.4-49); HEMOGLOBIN 12.7 GM/dL (11.7-16.9); MCH 32.6 pg (25.7-33.7); MCHC 34.2 g/dl (32.0-35.9); MEAN CELL VOLUME 95.3 fl (80-96); MEAN PLT VOLUME 8.5 fl (7.5-11.1); PLATELET COUNT 252 K/MM3 (134-434); RBC 3.89 M/mm3 (4.00-5.60); RDW 14.3 % (11.9-15.9)
--- NOTE | 2018-08-27 09:12 | PN ---
Progress Note (short form) - Note Progress Note: Appears comfortable on 40% Trach collar. Less productive cough and secretions are noted. Afebrile. Intake & Output 08/24/18 08/25/18 08/26/18 08/27/18 23:59 23:59 23:59 23:59 Intake Total 200 1300 2675 900 Output Total 625 877 1961 Balance -444 129 5753 900 Last Vital Signs Temp Pulse Resp BP Pulse Ox 98.7 F 83 19 134/77 98 08/27/18 06:42 08/27/18 06:42 08/27/18 06:42 08/27/18 06:42 08/27/18 05:27 Active Medications Acetaminophen (Tylenol -) 650 mg PO Q6H PRN PRN Reason: FEVER Apixaban (Eliquis -) 2.5 mg PO BID [facility] Last Admin: 08/26/18 21:24 Dose: 2.5 mg Brimonidine Tartrate (Alphagan 0.15% -) 1 drop OU TID [facility] Last Admin: 08/27/18 06:36 Dose: 1 drop Cholecalciferol (Vitamin D3 -) 2,000 unit PO DAILY [facility] Last Admin: 08/26/18 10:13 Dose: 2,000 unit Dorzolamide HCl (Trusopt 2%) 1 drop OU BID [facility] Last Admin: 08/26/18 21:25 Dose: 1 drop Cefepime HCl 1 gm/ Dextrose 100 mls @ 200 mls/hr IVPB BID [facility]; Protocol Last Admin: 08/26/18 21:24 Dose: 200 mls/hr Potassium Chloride/Sodium Chloride (Ns+20 Meq Kcl -) 20 meq in 1,000 mls @ 75 mls/hr IV ASDIR [facility] Last Admin: 08/26/18 21:30 Dose: 75 mls/hr Latanoprost (Xalatan 0.005% Eye Drops -) 1 drop OU HS [facility] Last Admin: 08/26/18 21:25 Dose: 1 drop Midodrine (Proamatine -) 5 mg PO BID-MID [facility] Last Admin: 08/26/18 17:22 Dose: 5 mg Mirtazapine (Remeron -) 7.5 mg PO HS [facility] Last Admin: 08/26/18 21:25 Dose: 7.5 mg Multivitamins/Minerals/Vitamin C (Tab-A-Vit -) 1 tab PO DAILY [facility] Last Admin: 08/26/18 10:13 Dose: 1 tab Ondansetron HCl (Zofran Injection) 4 mg IVPUSH Q6H PRN PRN Reason: NAUSEA Last Admin: 08/23/18 15:28 Dose: 4 mg Pantoprazole Sodium (Protonix -) 40 mg PO DAILY [facility] Last Admin: 08/26/18 10:14 Dose: 40 mg Timolol Maleate (Timoptic 0.5%) 1 drop OU BID [facility] Last Admin: 08/26/18 21:25 Dose: 1 drop Gen: NAD at rest Neck: stoma intact Heart: RRR Lung: bilateral scattered rhonchi, no wheeze Abd: soft, nontender Ext: no edema Laboratory Results - last 24 hr 08/26/18 06:00 Iron 27 L TIBC 148 L Iron Saturation 18 Problem List - Problems (1) Sepsis Code(s): A41.9 - SEPSIS, UNSPECIFIED ORGANISM (2) JOEL (acute kidney injury) Code(s): N17.9 - ACUTE KIDNEY FAILURE, UNSPECIFIED (3) Dementia Code(s): F03.90 - UNSPECIFIED DEMENTIA WITHOUT BEHAVIORAL DISTURBANCE (4) HTN (hypertension) Code(s): I10 - ESSENTIAL (PRIMARY) HYPERTENSION Qualifiers: Hypertension type: essential hypertension Qualified Code(s): I10 - Essential (primary) hypertension (5) Hyperlipidemia Code(s): E78.5 - HYPERLIPIDEMIA, UNSPECIFIED A/P Sepsis Suspected Pneumonia Lactic Acidosis Acute Kidney Injury h/o PE h/o Laryngeal Ca s/p laryngectomy COPD Dementia s/p R BKA - Antibiotics per ID - monitor urine output, creatinine - continue anticoagulation - trach collar to keep SpO2 >90% - Suction PRN - Aspiration precautions Dr Kelley
[2018-08-27 09:21] LABS: ALBUMIN 2.4 g/dl (3.4-5.0); ALK PHOS 100 U/L (45-117); ANION GAP 4 MMOL/L (8-16); BILIRUBIN,TOTAL 0.9 mg/dL (0.2-1); BLOOD UREA NITROGEN 9 mg/dL (7-18); CALCIUM 7.8 mg/dL (8.5-10.1); CHLORIDE 118 mmol/L (98-107); CO2 23 mmol/L (21-32); CREATININE 0.7 mg/dL (0.55-1.3); GLUCOSE,RANDOM 103 mg/dL (74-106); POTASSIUM 3.6 mmol/L (3.5-5.1); SGOT/AST 44 U/L (15-37); SGPT/ALT 45 U/L (13-61); SODIUM 145 mmol/L (136-145); TOT PROT 6.2 g/dl (6.4-8.2)
[2018-08-27] MEDS ORDERED: CEFEPIME HCL 1 GM VIAL (RESTRICTED TO ID) ONE ×2 (09:24→20:58)
[2018-08-27] MEDS ORDERED: DEXTROSE 5%-WATER 100 ML IVPB ONE ×2 (09:24→20:58)
[2018-08-27] MEDS: CEFEPIME 1 GM in DEXTROSE 5%-WATER 100 ML IVPB SCH ×2 (09:35→21:43)
[2018-08-27] MEDS: MIDODRINE HCL 5 MG TABLET PO SCH ×2 (09:36→18:37)
[2018-08-27] MEDS: MULTIVITAMINS (DAILY MVI) TABLET (FP) PO SCH (09:36)
[2018-08-27] MEDS: APIXABAN 2.5 MG TABLET PO SCH ×2 (09:36→21:42)
[2018-08-27] MEDS: TIMOLOL 0.5% OPHTHALMIC SOL 5 ML BOTTLE OU SCH ×2 (09:36→21:44)
[2018-08-27] MEDS: CHOLECALCIFEROL (VIT D3) 1,000 UNIT (25 MCG) TABLET PO SCH (09:36)
[2018-08-27] MEDS: PANTOPRAZOLE 40 MG TABLET (FP) PO SCH (09:36)
[2018-08-27] MEDS: DORZOLAMIDE 2% HCL OPHTHALMIC SOLUTION 10 ML BOTTLE OU SCH ×2 (09:37→21:46)
--- NOTE | 2018-08-27 10:36 | PN ---
Progress Note, Physician Chief Complaint: Sepsis History of Present Illness: Previous notes and events reviewed awake and alert NAD o2 via trach collar denies chest pain, SOB - Current Medication List Current Medications: Active Medications Acetaminophen (Tylenol -) 650 mg PO Q6H PRN PRN Reason: FEVER Apixaban (Eliquis -) 2.5 mg PO BID [facility] Last Admin: 08/27/18 09:36 Dose: 2.5 mg Brimonidine Tartrate (Alphagan 0.15% -) 1 drop OU TID [facility] Last Admin: 08/27/18 06:36 Dose: 1 drop Cholecalciferol (Vitamin D3 -) 2,000 unit PO DAILY [facility] Last Admin: 08/27/18 09:36 Dose: 2,000 unit Dorzolamide HCl (Trusopt 2%) 1 drop OU BID [facility] Last Admin: 08/27/18 09:37 Dose: 1 drop Cefepime HCl 1 gm/ Dextrose 100 mls @ 200 mls/hr IVPB BID [facility]; Protocol Last Admin: 08/27/18 09:35 Dose: 200 mls/hr Potassium Chloride/Sodium Chloride (Ns+20 Meq Kcl -) 20 meq in 1,000 mls @ 75 mls/hr IV ASDIR [facility] Last Admin: 08/26/18 21:30 Dose: 75 mls/hr Latanoprost (Xalatan 0.005% Eye Drops -) 1 drop OU HS [facility] Last Admin: 08/26/18 21:25 Dose: 1 drop Midodrine (Proamatine -) 5 mg PO BID-MID [facility] Last Admin: 08/27/18 09:36 Dose: 5 mg Mirtazapine (Remeron -) 7.5 mg PO HS [facility] Last Admin: 08/26/18 21:25 Dose: 7.5 mg Multivitamins/Minerals/Vitamin C (Tab-A-Vit -) 1 tab PO DAILY [facility] Last Admin: 08/27/18 09:36 Dose: 1 tab Ondansetron HCl (Zofran Injection) 4 mg IVPUSH Q6H PRN PRN Reason: NAUSEA Last Admin: 08/23/18 15:28 Dose: 4 mg Pantoprazole Sodium (Protonix -) 40 mg PO DAILY [facility] Last Admin: 08/27/18 09:36 Dose: 40 mg Timolol Maleate (Timoptic 0.5%) 1 drop OU BID [facility] Last Admin: 08/27/18 09:36 Dose: 1 drop - Objective Vital Signs: Vital Signs Temperature 98.7 F 08/27/18 06:42 Pulse Rate 83 08/27/18 06:42 Respiratory Rate 19 08/27/18 06:42 Blood Pressure 134/77 08/27/18 06:42 O2 Sat by Pulse Oximetry (%) 98 08/27/18 05:27 Constitutional: Yes: No Distress, Calm Eyes: Yes: Conjunctiva Clear HENT: Yes: Atraumatic Neck: Yes: Other (trach stoma) Cardiovascular: Yes: Regular Rate and Rhythm Respiratory: Yes: Regular, Rhonchi, Other (trach collar O2) Gastrointestinal: Yes: Normal Bowel Sounds, Soft, Other (colostomy) Musculoskeletal: Yes: Muscle Weakness Extremities: Yes: Other (R BKA) Neurological: Yes: Alert, Pre-Existing Deficit Psychiatric: Yes: Alert Labs: CBC, BMP 08/27/18 07:35 08/27/18 07:35 INR, PTT INR 1.20 (0.83-1.09) H 08/20/18 16:36 Microbiology 08/25/18 15:00 Nose MRSA Screen - Final Mr S Aureus 08/20/18 16:45 Blood - Peripheral Venous Blood Culture - Final NO GROWTH AFTER 5 DAYS INCUBATION 08/21/18 11:46 Sputum - Expectorated Gram Stain - Final 08/21/18 11:46 Sputum - Expectorated Sputum Culture - Final NORMAL RESPIRATORY GADIEL 08/20/18 16:36 Blood - Peripheral Venous Blood Culture - Final Staphylococcus Epidermidis Problem List - Problems (1) JOEL (acute kidney injury) Assessment/Plan: -current BUN/Cr 9/0.7 -continue to monitor renal function -continue with IV hydration Code(s): N17.9 - ACUTE KIDNEY FAILURE, UNSPECIFIED (2) Bacteremia Assessment/Plan: -ID on board -continue with cefepime IV -afebrile, wbc 11.0 -LA 1.3 Microbiology 08/20/18 16:45 Blood - Peripheral Venous Blood Culture - Preliminary NO GROWTH OBTAINED AFTER 72 HOURS, INCUBATION TO CONTINUE FOR 2 DAYS. 08/21/18 11:46 Sputum - Expectorated Gram Stain - Final 08/21/18 11:46 Sputum - Expectorated Sputum Culture - Final NORMAL RESPIRATORY GADIEL 08/20/18 16:36 Blood - Peripheral Venous Blood Culture - Final Staphylococcus Epidermidis Code(s): R78.81 - BACTEREMIA (3) Sepsis Assessment/Plan: -ID on board -continue with cefepime IV -LA 1.3 -afebrile, wbc 11.0 Microbiology 08/20/18 16:45 Blood - Peripheral Venous Blood Culture - Preliminary NO GROWTH OBTAINED AFTER 72 HOURS, INCUBATION TO CONTINUE FOR 2 DAYS. 08/21/18 11:46 Sputum - Expectorated Gram Stain - Final 08/21/18 11:46 Sputum - Expectorated Sputum Culture - Final NORMAL RESPIRATORY GADIEL 08/20/18 16:36 Blood - Peripheral Venous Blood Culture - Final Staphylococcus Epidermidis Code(s): A41.9 - SEPSIS, UNSPECIFIED ORGANISM (4) Afib Assessment/Plan: -continue with eliquis Code(s): I48.91 - UNSPECIFIED ATRIAL FIBRILLATION Qualifiers: Atrial fibrillation type: chronic Qualified Code(s): I48.2 - Chronic atrial fibrillation (5) Occult blood in stools Assessment/Plan: -GI on board -NOK wishes for patient not to have EGD -will monitor Hg rosendo, current Hg 12.7 -continue pantoprazole daily Code(s): R19.5 - OTHER FECAL ABNORMALITIES Assessment/Plan see problem list dvt ppx
[2018-08-27] MEDS: SODIUM CHLORIDE 0.9%/KCL 20 MEQ/1,000 ML INFUS.BAG IV SCH (18:36)
[2018-08-27] MEDS ORDERED: PT OWN MED DRAWER 7, Y5N ONE (20:58)
[2018-08-27] MEDS: LATANOPROST 0.005% OPHTH SOLN 2.5ML BOTTLE OU SCH (21:40)
[2018-08-27] MEDS: MIRTAZAPINE 15 MG TABLET (FP) PO SCH (21:44)
[2018-08-28] MEDS: BRIMONIDINE TARTRATE 0.15% OPHTHALMIC 5 ML BOTTLE OU SCH ×3 (06:03→22:49)
[2018-08-28] MEDS: SODIUM CHLORIDE 0.9%/KCL 20 MEQ/1,000 ML INFUS.BAG IV SCH ×3 (06:05→22:45)
[2018-08-28 08:51] LABS: HEMATOCRIT 37.5 % (35.4-49); MCH 32.7 pg (25.7-33.7); MCHC 34.6 g/dl (32.0-35.9); MEAN CELL VOLUME 94.3 fl (80-96); MEAN PLT VOLUME 8.7 fl (7.5-11.1); PLATELET COUNT 268 K/MM3 (134-434); RBC 3.98 M/mm3 (4.00-5.60); WHITE BLOOD COUNT 10.5 K/mm3 (4.0-10.0)
[2018-08-28 09:13] LABS: ALBUMIN 2.6 g/dl (3.4-5.0); ALK PHOS 120 U/L (45-117); ANION GAP 9 MMOL/L (8-16); BILIRUBIN,TOTAL 0.7 mg/dL (0.2-1); BLOOD UREA NITROGEN 7 mg/dL (7-18); CALCIUM 7.9 mg/dL (8.5-10.1); CHLORIDE 107 mmol/L (98-107); CO2 24 mmol/L (21-32); CREATININE 0.8 mg/dL (0.55-1.3); GLUCOSE,RANDOM 87 mg/dL (74-106); POTASSIUM 3.6 mmol/L (3.5-5.1); SGOT/AST 39 U/L (15-37); SGPT/ALT 50 U/L (13-61); SODIUM 140 mmol/L (136-145); TOT PROT 6.8 g/dl (6.4-8.2)
[2018-08-28] MEDS: MULTIVITAMINS (DAILY MVI) TABLET (FP) PO SCH (10:06)
[2018-08-28] MEDS ORDERED: PT OWN MED DRAWER 7, Y5N ONE ×2 (10:26→16:44)
[2018-08-28] MEDS ORDERED: DEXTROSE 5%-WATER 100 ML IVPB ONE (10:27)
[2018-08-28] MEDS ORDERED: CEFEPIME HCL 1 GM VIAL (RESTRICTED TO ID) ONE (10:27)
[2018-08-28] MEDS: CEFEPIME 1 GM in DEXTROSE 5%-WATER 100 ML IVPB SCH (10:51)
[2018-08-28] MEDS: CHOLECALCIFEROL (VIT D3) 1,000 UNIT (25 MCG) TABLET PO SCH (11:06)
[2018-08-28] MEDS: APIXABAN 2.5 MG TABLET PO SCH ×2 (11:06→22:44)
[2018-08-28] MEDS: MIDODRINE HCL 5 MG TABLET PO SCH ×2 (11:06→17:08)
[2018-08-28] MEDS: PANTOPRAZOLE 40 MG TABLET (FP) PO SCH (11:07)
[2018-08-28] MEDS: TIMOLOL 0.5% OPHTHALMIC SOL 5 ML BOTTLE OU SCH ×2 (11:10→22:40)
[2018-08-28] MEDS: DORZOLAMIDE 2% HCL OPHTHALMIC SOLUTION 10 ML BOTTLE OU SCH ×2 (11:11→22:47)
--- NOTE | 2018-08-28 12:33 | PN ---
Progress Note, Physician - Current Medication List Current Medications: Active Medications Acetaminophen (Tylenol -) 650 mg PO Q6H PRN PRN Reason: FEVER Apixaban (Eliquis -) 2.5 mg PO BID [facility] Last Admin: 08/28/18 11:06 Dose: 2.5 mg Brimonidine Tartrate (Alphagan 0.15% -) 1 drop OU TID [facility] Last Admin: 08/28/18 06:03 Dose: 1 drop Cholecalciferol (Vitamin D3 -) 2,000 unit PO DAILY [facility] Last Admin: 08/28/18 11:06 Dose: 2,000 unit Dorzolamide HCl (Trusopt 2%) 1 drop OU BID [facility] Last Admin: 08/28/18 11:11 Dose: 1 drop Cefepime HCl 1 gm/ Dextrose 100 mls @ 200 mls/hr IVPB BID [facility]; Protocol Last Admin: 08/28/18 10:51 Dose: 200 mls/hr Potassium Chloride/Sodium Chloride (Ns+20 Meq Kcl -) 20 meq in 1,000 mls @ 75 mls/hr IV ASDIR [facility] Last Admin: 08/28/18 06:05 Dose: 75 mls/hr Latanoprost (Xalatan 0.005% Eye Drops -) 1 drop OU HS [facility] Last Admin: 08/27/18 21:40 Dose: 1 drop Midodrine (Proamatine -) 5 mg PO BID-MID [facility] Last Admin: 08/28/18 11:06 Dose: 5 mg Mirtazapine (Remeron -) 7.5 mg PO HS [facility] Last Admin: 08/27/18 21:44 Dose: 7.5 mg Multivitamins/Minerals/Vitamin C (Tab-A-Vit -) 1 tab PO DAILY [facility] Last Admin: 08/28/18 10:06 Dose: 1 tab Ondansetron HCl (Zofran Injection) 4 mg IVPUSH Q6H PRN PRN Reason: NAUSEA Last Admin: 08/23/18 15:28 Dose: 4 mg Pantoprazole Sodium (Protonix -) 40 mg PO DAILY [facility] Last Admin: 08/28/18 11:07 Dose: 40 mg Timolol Maleate (Timoptic 0.5%) 1 drop OU BID [facility] Last Admin: 08/28/18 11:10 Dose: 1 drop - Objective Vital Signs: Vital Signs Temperature 98.5 F 08/28/18 10:00 Pulse Rate 74 08/28/18 10:00 Respiratory Rate 18 08/28/18 10:00 Blood Pressure 121/73 08/28/18 10:00 O2 Sat by Pulse Oximetry (%) 96 08/28/18 07:35 Labs: CBC, BMP 08/28/18 07:16 08/28/18 07:16 INR, PTT INR 1.20 (0.83-1.09) H 08/20/18 16:36 Problem List - Problems (1) JOEL (acute kidney injury) Code(s): N17.9 - ACUTE KIDNEY FAILURE, UNSPECIFIED (2) Bacteremia Code(s): R78.81 - BACTEREMIA (3) Sepsis Code(s): A41.9 - SEPSIS, UNSPECIFIED ORGANISM (4) Afib Code(s): I48.91 - UNSPECIFIED ATRIAL FIBRILLATION Qualifiers: Atrial fibrillation type: chronic Qualified Code(s): I48.2 - Chronic atrial fibrillation (5) Occult blood in stools Code(s): R19.5 - OTHER FECAL ABNORMALITIES
--- NOTE | 2018-08-28 12:39 | PN ---
Progress Note, Physician Chief Complaint: Sepsis History of Present Illness: Previous notes and events reviewed awake and alert NAD o2 via trach collar denies chest pain, SOB stool in colostomy noted be less dark - Current Medication List Current Medications: Active Medications Acetaminophen (Tylenol -) 650 mg PO Q6H PRN PRN Reason: FEVER Apixaban (Eliquis -) 2.5 mg PO BID [facility] Last Admin: 08/28/18 11:06 Dose: 2.5 mg Brimonidine Tartrate (Alphagan 0.15% -) 1 drop OU TID [facility] Last Admin: 08/28/18 06:03 Dose: 1 drop Cholecalciferol (Vitamin D3 -) 2,000 unit PO DAILY [facility] Last Admin: 08/28/18 11:06 Dose: 2,000 unit Dorzolamide HCl (Trusopt 2%) 1 drop OU BID [facility] Last Admin: 08/28/18 11:11 Dose: 1 drop Cefepime HCl 1 gm/ Dextrose 100 mls @ 200 mls/hr IVPB BID [facility]; Protocol Last Admin: 08/28/18 10:51 Dose: 200 mls/hr Potassium Chloride/Sodium Chloride (Ns+20 Meq Kcl -) 20 meq in 1,000 mls @ 75 mls/hr IV ASDIR [facility] Last Admin: 08/28/18 06:05 Dose: 75 mls/hr Latanoprost (Xalatan 0.005% Eye Drops -) 1 drop OU HS [facility] Last Admin: 08/27/18 21:40 Dose: 1 drop Midodrine (Proamatine -) 5 mg PO BID-MID [facility] Last Admin: 08/28/18 11:06 Dose: 5 mg Mirtazapine (Remeron -) 7.5 mg PO HS [facility] Last Admin: 08/27/18 21:44 Dose: 7.5 mg Multivitamins/Minerals/Vitamin C (Tab-A-Vit -) 1 tab PO DAILY [facility] Last Admin: 08/28/18 10:06 Dose: 1 tab Ondansetron HCl (Zofran Injection) 4 mg IVPUSH Q6H PRN PRN Reason: NAUSEA Last Admin: 08/23/18 15:28 Dose: 4 mg Pantoprazole Sodium (Protonix -) 40 mg PO DAILY [facility] Last Admin: 08/28/18 11:07 Dose: 40 mg Timolol Maleate (Timoptic 0.5%) 1 drop OU BID [facility] Last Admin: 08/28/18 11:10 Dose: 1 drop - Objective Vital Signs: Vital Signs Temperature 98.5 F 08/28/18 10:00 Pulse Rate 74 08/28/18 10:00 Respiratory Rate 18 08/28/18 10:00 Blood Pressure 121/73 08/28/18 10:00 O2 Sat by Pulse Oximetry (%) 96 08/28/18 07:35 Constitutional: Yes: No Distress Eyes: Yes: Conjunctiva Clear HENT: Yes: Atraumatic Neck: Yes: Other (trach stoma) Cardiovascular: Yes: Regular Rate and Rhythm Respiratory: Yes: Rhonchi, Other (O2 via trach collar) Gastrointestinal: Yes: Normal Bowel Sounds, Soft, Other (colostomy) Genitourinary: Yes: Incontinence Musculoskeletal: Yes: Muscle Weakness Extremities: Yes: Other (R BKA) Edema: No Neurological: Yes: Alert, Pre-Existing Deficit Psychiatric: Yes: Alert Labs: CBC, BMP 08/28/18 07:16 08/28/18 07:16 INR, PTT INR 1.20 (0.83-1.09) H 08/20/18 16:36 Microbiology 08/25/18 15:00 Nose MRSA Screen - Final Mr S Aureus 08/20/18 16:45 Blood - Peripheral Venous Blood Culture - Final NO GROWTH AFTER 5 DAYS INCUBATION 08/21/18 11:46 Sputum - Expectorated Gram Stain - Final 08/21/18 11:46 Sputum - Expectorated Sputum Culture - Final NORMAL RESPIRATORY GADIEL 08/20/18 16:36 Blood - Peripheral Venous Blood Culture - Final Staphylococcus Epidermidis Problem List - Problems (1) JOEL (acute kidney injury) Assessment/Plan: -current BUN/Cr 7/0.8 -continue to monitor renal function -continue with IV hydration Code(s): N17.9 - ACUTE KIDNEY FAILURE, UNSPECIFIED (2) Bacteremia Assessment/Plan: -ID on board -continue with cefepime IV -afebrile, wbc 10.5 -LA 1.3 Microbiology 08/20/18 16:45 Blood - Peripheral Venous Blood Culture - Preliminary NO GROWTH OBTAINED AFTER 72 HOURS, INCUBATION TO CONTINUE FOR 2 DAYS. 08/21/18 11:46 Sputum - Expectorated Gram Stain - Final 08/21/18 11:46 Sputum - Expectorated Sputum Culture - Final NORMAL RESPIRATORY GADIEL 08/20/18 16:36 Blood - Peripheral Venous Blood Culture - Final Staphylococcus Epidermidis Code(s): R78.81 - BACTEREMIA (3) Sepsis Assessment/Plan: -ID on board -continue with cefepime IV -LA 1.3 -afebrile, wbc 10.5 Microbiology 08/20/18 16:45 Blood - Peripheral Venous Blood Culture - Preliminary NO GROWTH OBTAINED AFTER 72 HOURS, INCUBATION TO CONTINUE FOR 2 DAYS. 08/21/18 11:46 Sputum - Expectorated Gram Stain - Final 08/21/18 11:46 Sputum - Expectorated Sputum Culture - Final NORMAL RESPIRATORY GADIEL 08/20/18 16:36 Blood - Peripheral Venous Blood Culture - Final Staphylococcus Epidermidis Code(s): A41.9 - SEPSIS, UNSPECIFIED ORGANISM (4) Afib Assessment/Plan: -continue with eliquis Code(s): I48.91 - UNSPECIFIED ATRIAL FIBRILLATION Qualifiers: Atrial fibrillation type: chronic Qualified Code(s): I48.2 - Chronic atrial fibrillation (5) Occult blood in stools Assessment/Plan: -GI on board -NOK wishes for patient not to have EGD -will monitor Hg rosendo, current Hg 13.0 -continue pantoprazole daily Code(s): R19.5 - OTHER FECAL ABNORMALITIES Assessment/Plan see problem list dvt ppx
--- NOTE | 2018-08-28 16:10 | PN ---
Progress Note (short form) - Note Progress Note: PULMONARY Appears comfortable on 40% Trach collar. Less productive cough and secretions are noted. Afebrile/VSS Gen: NAD at rest Neck: stoma intact Heart: RRR Lung: bilateral scattered rhonchi, no wheeze Abd: soft, nontender Ext: no edema LABS/MEDS/NOTES/IMAGES REVIEWED Sepsis Suspected Pneumonia Lactic Acidosis Acute Kidney Injury h/o PE h/o Laryngeal Ca s/p laryngectomy COPD Dementia s/p R BKA - Antibiotics per ID - monitor urine output, creatinine - continue anticoagulation - trach collar to keep SpO2 >90% - Suction PRN - Aspiration precautions Negrita SORENSON MD
[2018-08-28] MEDS: MIRTAZAPINE 15 MG TABLET (FP) PO SCH (22:44)
[2018-08-28] MEDS: LATANOPROST 0.005% OPHTH SOLN 2.5ML BOTTLE OU SCH (22:49)
[2018-08-29] MEDS: BRIMONIDINE TARTRATE 0.15% OPHTHALMIC 5 ML BOTTLE OU SCH ×3 (06:04→23:04)
[2018-08-29] MEDS ORDERED: PT OWN MED DRAWER 7, Y5N ONE ×3 (09:18→22:56)
[2018-08-29] MEDS: SODIUM CHLORIDE 0.9%/KCL 20 MEQ/1,000 ML INFUS.BAG IV SCH ×2 (09:27→23:11)
[2018-08-29] MEDS: MIDODRINE HCL 5 MG TABLET PO SCH ×2 (09:28→17:39)
[2018-08-29] MEDS: PANTOPRAZOLE 40 MG TABLET (FP) PO SCH (09:28)
[2018-08-29] MEDS: CHOLECALCIFEROL (VIT D3) 1,000 UNIT (25 MCG) TABLET PO SCH (09:28)
[2018-08-29] MEDS: APIXABAN 2.5 MG TABLET PO SCH ×2 (09:28→23:03)
[2018-08-29] MEDS: MULTIVITAMINS (DAILY MVI) TABLET (FP) PO SCH (09:28)
[2018-08-29] MEDS: TIMOLOL 0.5% OPHTHALMIC SOL 5 ML BOTTLE OU SCH ×2 (09:29→23:05)
[2018-08-29] MEDS: DORZOLAMIDE 2% HCL OPHTHALMIC SOLUTION 10 ML BOTTLE OU SCH ×2 (09:29→23:05)
--- NOTE | 2018-08-29 10:12 | PN ---
Progress Note, Physician Chief Complaint: Sepsis History of Present Illness: Previous notes and events reviewed awake and alert NAD denies chest pain, difficulty breathing - Current Medication List Current Medications: Active Medications Acetaminophen (Tylenol -) 650 mg PO Q6H PRN PRN Reason: FEVER Apixaban (Eliquis -) 2.5 mg PO BID [facility] Last Admin: 08/29/18 09:28 Dose: 2.5 mg Brimonidine Tartrate (Alphagan 0.15% -) 1 drop OU TID [facility] Last Admin: 08/29/18 06:04 Dose: 1 drop Cholecalciferol (Vitamin D3 -) 2,000 unit PO DAILY [facility] Last Admin: 08/29/18 09:28 Dose: 2,000 unit Dorzolamide HCl (Trusopt 2%) 1 drop OU BID [facility] Last Admin: 08/29/18 09:29 Dose: 1 drop Potassium Chloride/Sodium Chloride (Ns+20 Meq Kcl -) 20 meq in 1,000 mls @ 75 mls/hr IV ASDIR [facility] Last Admin: 08/29/18 09:27 Dose: 75 mls/hr Latanoprost (Xalatan 0.005% Eye Drops -) 1 drop OU HS [facility] Last Admin: 08/28/18 22:49 Dose: 1 drop Midodrine (Proamatine -) 5 mg PO BID-MID [facility] Last Admin: 08/29/18 09:28 Dose: 5 mg Mirtazapine (Remeron -) 7.5 mg PO HS [facility] Last Admin: 08/28/18 22:44 Dose: 7.5 mg Multivitamins/Minerals/Vitamin C (Tab-A-Vit -) 1 tab PO DAILY [facility] Last Admin: 08/29/18 09:28 Dose: 1 tab Ondansetron HCl (Zofran Injection) 4 mg IVPUSH Q6H PRN PRN Reason: NAUSEA Last Admin: 08/23/18 15:28 Dose: 4 mg Pantoprazole Sodium (Protonix -) 40 mg PO DAILY [facility] Last Admin: 08/29/18 09:28 Dose: 40 mg Timolol Maleate (Timoptic 0.5%) 1 drop OU BID [facility] Last Admin: 08/29/18 09:29 Dose: 1 drop - Objective Vital Signs: Vital Signs Temperature 98.0 F 08/29/18 07:56 Pulse Rate 68 08/29/18 07:56 Respiratory Rate 16 08/29/18 07:56 Blood Pressure 134/61 08/29/18 07:56 O2 Sat by Pulse Oximetry (%) 97 08/29/18 07:17 Constitutional: Yes: No Distress, Calm Eyes: Yes: Conjunctiva Clear HENT: Yes: Atraumatic Neck: Yes: Other (trach stoma) Cardiovascular: Yes: Regular Rate and Rhythm Respiratory: Yes: Rhonchi, Other (O2 via trach collar) Gastrointestinal: Yes: Normal Bowel Sounds, Soft Genitourinary: Yes: Incontinence Musculoskeletal: Yes: Muscle Weakness Extremities: Yes: Other (R BKA) Edema: No Neurological: Yes: Alert, Confusion Psychiatric: Yes: Alert Labs: CBC, BMP 08/28/18 07:16 08/28/18 07:16 INR, PTT INR 1.20 (0.83-1.09) H 08/20/18 16:36 Microbiology 08/25/18 15:00 Nose MRSA Screen - Final Mr S Aureus 08/20/18 16:45 Blood - Peripheral Venous Blood Culture - Final NO GROWTH AFTER 5 DAYS INCUBATION 08/21/18 11:46 Sputum - Expectorated Gram Stain - Final 08/21/18 11:46 Sputum - Expectorated Sputum Culture - Final NORMAL RESPIRATORY GADIEL 08/20/18 16:36 Blood - Peripheral Venous Blood Culture - Final Staphylococcus Epidermidis Problem List - Problems (1) JOEL (acute kidney injury) Assessment/Plan: -current BUN/Cr 7/0.8 -continue to monitor renal function -continue with IV hydration Code(s): N17.9 - ACUTE KIDNEY FAILURE, UNSPECIFIED (2) Bacteremia Assessment/Plan: -ID on board -continue with cefepime IV -afebrile, wbc 10.5 -LA 1.3 Microbiology 08/20/18 16:45 Blood - Peripheral Venous Blood Culture - Preliminary NO GROWTH OBTAINED AFTER 72 HOURS, INCUBATION TO CONTINUE FOR 2 DAYS. 08/21/18 11:46 Sputum - Expectorated Gram Stain - Final 08/21/18 11:46 Sputum - Expectorated Sputum Culture - Final NORMAL RESPIRATORY GADIEL 08/20/18 16:36 Blood - Peripheral Venous Blood Culture - Final Staphylococcus Epidermidis Code(s): R78.81 - BACTEREMIA (3) Sepsis Assessment/Plan: -ID on board -continue with cefepime IV -LA 1.3 -afebrile, wbc 10.5 Microbiology 08/20/18 16:45 Blood - Peripheral Venous Blood Culture - Preliminary NO GROWTH OBTAINED AFTER 72 HOURS, INCUBATION TO CONTINUE FOR 2 DAYS. 08/21/18 11:46 Sputum - Expectorated Gram Stain - Final 08/21/18 11:46 Sputum - Expectorated Sputum Culture - Final NORMAL RESPIRATORY GADIEL 08/20/18 16:36 Blood - Peripheral Venous Blood Culture - Final Staphylococcus Epidermidis Code(s): A41.9 - SEPSIS, UNSPECIFIED ORGANISM (4) Afib Assessment/Plan: -continue with eliquis Code(s): I48.91 - UNSPECIFIED ATRIAL FIBRILLATION Qualifiers: Atrial fibrillation type: chronic Qualified Code(s): I48.2 - Chronic atrial fibrillation (5) Occult blood in stools Assessment/Plan: -GI on board -NOK wishes for patient not to have EGD -will monitor Hg rosendo, current Hg 13.0 -continue pantoprazole daily Code(s): R19.5 - OTHER FECAL ABNORMALITIES Assessment/Plan see problem list dvt ppx
[2018-08-29 10:17] LABS: HEMATOCRIT 38.1 % (35.4-49); HEMOGLOBIN 13.2 GM/dL (11.7-16.9); MCH 32.4 pg (25.7-33.7); MCHC 34.5 g/dl (32.0-35.9); MEAN CELL VOLUME 93.9 fl (80-96); MEAN PLT VOLUME 8.9 fl (7.5-11.1); PLATELET COUNT 308 K/MM3 (134-434); RBC 4.06 M/mm3 (4.00-5.60); RDW 14.2 % (11.9-15.9); WHITE BLOOD COUNT 11.4 K/mm3 (4.0-10.0)
[2018-08-29 10:46] LABS: ALBUMIN 2.4 g/dl (3.4-5.0); ALK PHOS 99 U/L (45-117); ANION GAP 6 MMOL/L (8-16); BILIRUBIN,TOTAL 0.5 mg/dL (0.2-1); BLOOD UREA NITROGEN 6 mg/dL (7-18); CALCIUM 7.9 mg/dL (8.5-10.1); CHLORIDE 109 mmol/L (98-107); CO2 23 mmol/L (21-32); CREATININE 0.6 mg/dL (0.55-1.3); GLUCOSE,RANDOM 119 mg/dL (74-106); POTASSIUM 3.8 mmol/L (3.5-5.1); SGOT/AST 26 U/L (15-37); SGPT/ALT 42 U/L (13-61); SODIUM 137 mmol/L (136-145); TOT PROT 6.6 g/dl (6.4-8.2)
[2018-08-29] MEDS: MIRTAZAPINE 15 MG TABLET (FP) PO SCH (23:03)
[2018-08-29] MEDS: CEFUROXIME AXETIL 500 MG TABLET PO SCH (23:03)
[2018-08-29] MEDS: LATANOPROST 0.005% OPHTH SOLN 2.5ML BOTTLE OU SCH (23:05)
[2018-08-30] MEDS: BRIMONIDINE TARTRATE 0.15% OPHTHALMIC 5 ML BOTTLE OU SCH ×3 (05:57→22:31)
[2018-08-30 08:47] LABS: HEMATOCRIT 37.1 % (35.4-49); HEMOGLOBIN 12.8 GM/dL (11.7-16.9); MCH 32.2 pg (25.7-33.7); MCHC 34.4 g/dl (32.0-35.9); MEAN CELL VOLUME 93.5 fl (80-96); MEAN PLT VOLUME 8.7 fl (7.5-11.1); PLATELET COUNT 303 K/MM3 (134-434); RBC 3.96 M/mm3 (4.00-5.60); RDW 14.4 % (11.9-15.9); WHITE BLOOD COUNT 8.5 K/mm3 (4.0-10.0)
[2018-08-30 08:50] LABS: ALBUMIN 2.5 g/dl (3.4-5.0); ALK PHOS 92 U/L (45-117); ANION GAP 8 MMOL/L (8-16); BILIRUBIN,TOTAL 0.4 mg/dL (0.2-1); BLOOD UREA NITROGEN 7 mg/dL (7-18); CALCIUM 7.6 mg/dL (8.5-10.1); CHLORIDE 105 mmol/L (98-107); CO2 24 mmol/L (21-32); CREATININE 0.6 mg/dL (0.55-1.3); GLUCOSE,RANDOM 91 mg/dL (74-106); POTASSIUM 3.8 mmol/L (3.5-5.1); SGOT/AST 23 U/L (15-37); SGPT/ALT 35 U/L (13-61); SODIUM 137 mmol/L (136-145); TOT PROT 6.6 g/dl (6.4-8.2)
[2018-08-30] MEDS ORDERED: PT OWN MED DRAWER 7, Y5N ONE ×2 (09:13→17:06)
[2018-08-30] MEDS: APIXABAN 2.5 MG TABLET PO SCH ×2 (09:15→22:30)
[2018-08-30] MEDS: CHOLECALCIFEROL (VIT D3) 1,000 UNIT (25 MCG) TABLET PO SCH (09:15)
[2018-08-30] MEDS: MIDODRINE HCL 5 MG TABLET PO SCH ×2 (09:16→17:08)
[2018-08-30] MEDS: MULTIVITAMINS (DAILY MVI) TABLET (FP) PO SCH (09:16)
[2018-08-30] MEDS: CEFUROXIME AXETIL 500 MG TABLET PO SCH ×2 (09:16→22:32)
[2018-08-30] MEDS: PANTOPRAZOLE 40 MG TABLET (FP) PO SCH (09:16)
[2018-08-30] MEDS: TIMOLOL 0.5% OPHTHALMIC SOL 5 ML BOTTLE OU SCH ×2 (09:20→22:31)
[2018-08-30] MEDS: DORZOLAMIDE 2% HCL OPHTHALMIC SOLUTION 10 ML BOTTLE OU SCH ×2 (09:20→22:31)
--- NOTE | 2018-08-30 11:32 | DS ---
Physical Examination Vital Signs: Vital Signs Temperature 98.0 F 08/30/18 08:03 Pulse Rate 74 08/30/18 08:23 Respiratory Rate 14 08/30/18 08:03 Blood Pressure 138/70 08/30/18 08:03 O2 Sat by Pulse Oximetry (%) 98 08/30/18 09:00 Constitutional: Yes: No Distress, Calm Eyes: Yes: Conjunctiva Clear HENT: Yes: Atraumatic Neck: Yes: Other (trach stoma) Respiratory: Yes: Regular, Diminished, Other (O2 via trach collar) Gastrointestinal: Yes: Normal Bowel Sounds, Soft, Other (colostomy) Renal/: Yes: Incontinence Musculoskeletal: Yes: Muscle Weakness Extremities: Yes: Other (R BKA) Edema: No Neurological: Yes: Alert, Pre-Existing Deficit Psychiatric: Yes: Alert Labs: CBC, BMP 08/30/18 07:30 08/30/18 07:30 Discharge Summary Reason For Visit: ACUTE KIDNEY INJURY,SYSTEMIC INFLAMMTORY RESPONSE Current Active Problems JOEL (acute kidney injury) (Acute) Bacteremia (Acute) Colostomy in place (Acute) Diverticulosis (Acute) Febrile illness, acute (Acute) Fever (Acute) Occult blood in stools (Acute) Sepsis (Acute) Staphylococcus epidermidis bacteremia (Acute) Wheezing (Acute) Hospital Course: see progress notes Laboratory Tests 08/20/18 08/20/18 08/20/18 16:17 16:36 16:36 WBC 9.4 RBC 4.67 Hgb 15.2 Hct 44.1 D MCV 94.4 MCH 32.5 MCHC 34.5 RDW 14.4 D Plt Count 278 D MPV 8.5 Absolute Neuts (auto) 8.6 H Neutrophils % 92.0 H Neutrophils % (Manual) 78.0 Band Neutrophils % 14.0 Lymphocytes % 3.1 L D Lymphocytes % (Manual) 3.0 L Monocytes % 4.3 Monocytes % (Manual) 3 L Eosinophils % 0.4 Eosinophils % (Manual) 0.0 Basophils % 0.2 Basophils % (Manual) 0.0 Myelocytes % (Man) 1 Nucleated RBC % 0 Platelet Estimate Adequate PT with INR 14.20 H INR 1.20 H PTT (Actin FS) VBG pH 7.47 H POC VBG pCO2 27.2 L POC VBG pO2 62.7 H VBG HCO3 19.3 L VBG O2 Sat (Greyson) 92.6 H VBG Base Excess -2.6 L Sodium Potassium Chloride Carbon Dioxide Anion Gap BUN Creatinine Creat Clearance w eGFR Random Glucose Lactic Acid Calcium Magnesium Iron TIBC Iron Saturation Ferritin Total Bilirubin AST ALT Alkaline Phosphatase Creatine Kinase Troponin I C-Reactive Protein Total Protein Albumin Stool Occult Blood Influenza A (Rapid) Influenza B (Rapid) 08/20/18 08/20/18 08/20/18 16:36 16:36 16:36 WBC RBC Hgb Hct MCV MCH MCHC RDW Plt Count MPV Absolute Neuts (auto) Neutrophils % Neutrophils % (Manual) Band Neutrophils % Lymphocytes % Lymphocytes % (Manual) Monocytes % Monocytes % (Manual) Eosinophils % Eosinophils % (Manual) Basophils % Basophils % (Manual) Myelocytes % (Man) Nucleated RBC % Platelet Estimate PT with INR INR PTT (Actin FS) 29.4 VBG pH POC VBG pCO2 POC VBG pO2 VBG HCO3 VBG O2 Sat (Greyson) VBG Base Excess Sodium 139 Potassium 4.0 Chloride 111 H Carbon Dioxide 21 Anion Gap 8 BUN 29 H Creatinine 1.5 H Creat Clearance w eGFR 46.00 Random Glucose 130 H Lactic Acid 2.5 H* Calcium 8.6 Magnesium Iron TIBC Iron Saturation Ferritin Total Bilirubin 0.6 AST 30 ALT 40 Alkaline Phosphatase 103 Creatine Kinase 94 Troponin I < 0.02 C-Reactive Protein Total Protein 7.5 Albumin 3.4 Stool Occult Blood Influenza A (Rapid) Influenza B (Rapid) 08/20/18 08/20/18 08/21/18 19:00 20:07 09:42 WBC RBC Hgb Hct MCV MCH MCHC RDW Plt Count MPV Absolute Neuts (auto) Neutrophils % Neutrophils % (Manual) Band Neutrophils % Lymphocytes % Lymphocytes % (Manual) Monocytes % Monocytes % (Manual) Eosinophils % Eosinophils % (Manual) Basophils % Basophils % (Manual) Myelocytes % (Man) Nucleated RBC % Platelet Estimate PT with INR INR PTT (Actin FS) VBG pH POC VBG pCO2 POC VBG pO2 VBG HCO3 VBG O2 Sat (Greyson) VBG Base Excess Sodium 144 Potassium 3.7 Chloride 114 H Carbon Dioxide 22 Anion Gap 8 BUN 24 H Creatinine 1.1 Creat Clearance w eGFR 65.80 Random Glucose 119 H Lactic Acid 2.2 H* Calcium 7.8 L Magnesium 1.8 Iron TIBC Iron Saturation Ferritin Total Bilirubin AST ALT Alkaline Phosphatase Creatine Kinase Troponin I C-Reactive Protein Total Protein Albumin Stool Occult Blood Influenza A (Rapid) Negative Influenza B (Rapid) Negative 08/21/18 08/21/18 08/22/18 09:42 11:15 07:10 WBC 7.8 6.9 RBC 4.39 4.43 Hgb 14.3 14.3 Hct 41.2 41.9 MCV 93.8 94.6 MCH 32.4 32.3 MCHC 34.6 34.2 RDW 14.2 14.6 Plt Count 240 252 MPV 8.4 8.2 Absolute Neuts (auto) 5.5 Neutrophils % 78.8 Neutrophils % (Manual) Band Neutrophils % Lymphocytes % 9.3 D Lymphocytes % (Manual) Monocytes % 9.5 D Monocytes % (Manual) Eosinophils % 1.9 D Eosinophils % (Manual) Basophils % 0.5 Basophils % (Manual) Myelocytes % (Man) Nucleated RBC % 0 Platelet Estimate PT with INR INR PTT (Actin FS) VBG pH POC VBG pCO2 POC VBG pO2 VBG HCO3 VBG O2 Sat (Greyson) VBG Base Excess Sodium Potassium Chloride Carbon Dioxide Anion Gap BUN Creatinine Creat Clearance w eGFR Random Glucose Lactic Acid 1.3 Calcium Magnesium Iron TIBC Iron Saturation Ferritin Total Bilirubin AST ALT Alkaline Phosphatase Creatine Kinase Troponin I C-Reactive Protein Total Protein Albumin Stool Occult Blood Influenza A (Rapid) Influenza B (Rapid) 08/22/18 08/22/18 08/22/18 07:10 12:26 18:15 WBC 9.3 8.1 RBC 4.36 4.48 Hgb 14.1 14.7 Hct 41.0 41.9 MCV 93.9 93.6 MCH 32.2 32.8 MCHC 34.3 35.1 RDW 14.3 14.3 Plt Count 257 245 MPV 8.2 8.3 Absolute Neuts (auto) Neutrophils % Neutrophils % (Manual) Band Neutrophils % Lymphocytes % Lymphocytes % (Manual) Monocytes % Monocytes % (Manual) Eosinophils % Eosinophils % (Manual) Basophils % Basophils % (Manual) Myelocytes % (Man) Nucleated RBC % Platelet Estimate PT with INR INR PTT (Actin FS) VBG pH POC VBG pCO2 POC VBG pO2 VBG HCO3 VBG O2 Sat (Greyson) VBG Base Excess Sodium 144 Potassium 4.4 Chloride 113 H Carbon Dioxide 24 Anion Gap 7 L BUN 21 H Creatinine 1.0 Creat Clearance w eGFR 73.45 Random Glucose 136 H Lactic Acid Calcium 8.1 L Magnesium 2.1 Iron TIBC Iron Saturation Ferritin Total Bilirubin 0.5 AST 23 ALT 29 Alkaline Phosphatase 80 Creatine Kinase Troponin I C-Reactive Protein Total Protein 7.1 Albumin 3.1 L Stool Occult Blood Influenza A (Rapid) Influenza B (Rapid) 08/23/18 08/23/18 08/24/18 08:46 08:46 15:30 WBC 8.3 RBC 4.43 Hgb 14.3 Hct 41.5 MCV 93.8 MCH 32.3 MCHC 34.4 RDW 14.3 Plt Count 242 MPV 8.0 Absolute Neuts (auto) Neutrophils % Neutrophils % (Manual) Band Neutrophils % Lymphocytes % Lymphocytes % (Manual) Monocytes % Monocytes % (Manual) Eosinophils % Eosinophils % (Manual) Basophils % Basophils % (Manual) Myelocytes % (Man) Nucleated RBC % Platelet Estimate PT with INR INR PTT (Actin FS) VBG pH POC VBG pCO2 POC VBG pO2 VBG HCO3 VBG O2 Sat (Greyson) VBG Base Excess Sodium 145 Potassium 3.4 L Chloride 113 H Carbon Dioxide 23 Anion Gap 9 BUN 18 Creatinine 0.9 Creat Clearance w eGFR 82.95 Random Glucose 123 H Lactic Acid Calcium 8.0 L Magnesium Iron TIBC Iron Saturation Ferritin Total Bilirubin AST ALT Alkaline Phosphatase Creatine Kinase Troponin I C-Reactive Protein Total Protein Albumin Stool Occult Blood Positive Influenza A (Rapid) Influenza B (Rapid) 08/25/18 08/25/18 08/26/18 06:10 06:10 06:00 WBC 9.5 9.7 RBC 4.05 3.80 L Hgb 13.1 12.3 Hct 38.6 36.1 MCV 95.3 95.2 MCH 32.5 32.4 MCHC 34.1 34.0 RDW 14.3 14.2 Plt Count 248 251 MPV 8.6 8.4 Absolute Neuts (auto) Neutrophils % Neutrophils % (Manual) Band Neutrophils % Lymphocytes % Lymphocytes % (Manual) Monocytes % Monocytes % (Manual) Eosinophils % Eosinophils % (Manual) Basophils % Basophils % (Manual) Myelocytes % (Man) Nucleated RBC % Platelet Estimate PT with INR INR PTT (Actin FS) VBG pH POC VBG pCO2 POC VBG pO2 VBG HCO3 VBG O2 Sat ([place]) VBG Base Excess Sodium 149 H Potassium 4.1 Chloride 123 H Carbon Dioxide 20 L Anion Gap 6 L BUN 29 H Creatinine 0.8 Creat Clearance w eGFR 95.02 Random Glucose 105 Lactic Acid Calcium 7.6 L Magnesium Iron TIBC Iron Saturation Ferritin Total Bilirubin 0.8 AST 18 ALT 19 Alkaline Phosphatase 57 Creatine Kinase Troponin I C-Reactive Protein Total Protein 5.8 L Albumin 2.3 L Stool Occult Blood Influenza A (Rapid) Influenza B (Rapid) 08/26/18 08/26/18 08/26/18 06:00 06:00 06:00 WBC RBC Hgb Hct MCV MCH MCHC RDW Plt Count MPV Absolute Neuts (auto) Neutrophils % Neutrophils % (Manual) Band Neutrophils % Lymphocytes % Lymphocytes % (Manual) Monocytes % Monocytes % (Manual) Eosinophils % Eosinophils % (Manual) Basophils % Basophils % (Manual) Myelocytes % (Man) Nucleated RBC % Platelet Estimate PT with INR INR PTT (Actin FS) VBG pH POC VBG pCO2 POC VBG pO2 VBG HCO3 VBG O2 Sat (Greyson) VBG Base Excess Sodium 146 H Potassium 3.8 Chloride 121 H Carbon Dioxide 21 Anion Gap 4 L BUN 17 Creatinine 0.7 Creat Clearance w eGFR 110.85 Random Glucose 103 Lactic Acid Calcium 7.6 L Magnesium Iron 27 L TIBC 148 L Iron Saturation 18 Ferritin 316.4 Total Bilirubin 1.0 AST 26 ALT 26 Alkaline Phosphatase 84 Creatine Kinase Troponin I C-Reactive Protein 9.2 H Total Protein 5.9 L Albumin 2.3 L Stool Occult Blood Influenza A (Rapid) Influenza B (Rapid) 08/27/18 08/27/18 08/28/18 07:35 07:35 07:16 WBC 11.0 H 10.5 H RBC 3.89 L 3.98 L Hgb 12.7 13.0 Hct 37.1 37.5 MCV 95.3 94.3 MCH 32.6 32.7 MCHC 34.2 34.6 RDW 14.3 14.0 Plt Count 252 268 MPV 8.5 8.7 Absolute Neuts (auto) Neutrophils % Neutrophils % (Manual) Band Neutrophils % Lymphocytes % Lymphocytes % (Manual) Monocytes % Monocytes % (Manual) Eosinophils % Eosinophils % (Manual) Basophils % Basophils % (Manual) Myelocytes % (Man) Nucleated RBC % Platelet Estimate PT with INR INR PTT (Actin FS) VBG pH POC VBG pCO2 POC VBG pO2 VBG HCO3 VBG O2 Sat ([place]yson) VBG Base Excess Sodium 145 Potassium 3.6 Chloride 118 H Carbon Dioxide 23 Anion Gap 4 L BUN 9 Creatinine 0.7 Creat Clearance w eGFR 110.85 Random Glucose 103 Lactic Acid Calcium 7.8 L Magnesium Iron TIBC Iron Saturation Ferritin Total Bilirubin 0.9 AST 44 H ALT 45 Alkaline Phosphatase 100 Creatine Kinase Troponin I C-Reactive Protein Total Protein 6.2 L Albumin 2.4 L Stool Occult Blood Influenza A (Rapid) Influenza B (Rapid) 08/28/18 08/29/18 08/29/18 07:16 09:48 09:48 WBC 11.4 H RBC 4.06 Hgb 13.2 Hct 38.1 MCV 93.9 MCH 32.4 MCHC 34.5 RDW 14.2 Plt Count 308 MPV 8.9 Absolute Neuts (auto) Neutrophils % Neutrophils % (Manual) Band Neutrophils % Lymphocytes % Lymphocytes % (Manual) Monocytes % Monocytes % (Manual) Eosinophils % Eosinophils % (Manual) Basophils % Basophils % (Manual) Myelocytes % (Man) Nucleated RBC % Platelet Estimate PT with INR INR PTT (Actin FS) VBG pH POC VBG pCO2 POC VBG pO2 VBG HCO3 VBG O2 Sat ([place]) VBG Base Excess Sodium 140 137 Potassium 3.6 3.8 Chloride 107 109 H Carbon Dioxide 24 23 Anion Gap 9 6 L BUN 7 6 L Creatinine 0.8 0.6 Creat Clearance w eGFR 95.02 132.44 Random Glucose 87 119 H Lactic Acid Calcium 7.9 L 7.9 L Magnesium Iron TIBC Iron Saturation Ferritin Total Bilirubin 0.7 0.5 AST 39 H 26 ALT 50 42 Alkaline Phosphatase 120 H 99 Creatine Kinase Troponin I C-Reactive Protein Total Protein 6.8 6.6 Albumin 2.6 L 2.4 L Stool Occult Blood Influenza A (Rapid) Influenza B (Rapid) 08/30/18 08/30/18 07:30 07:30 WBC 8.5 RBC 3.96 L Hgb 12.8 Hct 37.1 MCV 93.5 MCH 32.2 MCHC 34.4 RDW 14.4 Plt Count 303 MPV 8.7 Absolute Neuts (auto) Neutrophils % Neutrophils % (Manual) Band Neutrophils % Lymphocytes % Lymphocytes % (Manual) Monocytes % Monocytes % (Manual) Eosinophils % Eosinophils % (Manual) Basophils % Basophils % (Manual) Myelocytes % (Man) Nucleated RBC % Platelet Estimate PT with INR INR PTT (Actin FS) VBG pH POC VBG pCO2 POC VBG pO2 VBG HCO3 VBG O2 Sat ([place]yson) VBG Base Excess Sodium 137 Potassium 3.8 Chloride 105 Carbon Dioxide 24 Anion Gap 8 BUN 7 Creatinine 0.6 Creat Clearance w eGFR 132.44 Random Glucose 91 Lactic Acid Calcium 7.6 L Magnesium Iron TIBC Iron Saturation Ferritin Total Bilirubin 0.4 AST 23 ALT 35 Alkaline Phosphatase 92 Creatine Kinase Troponin I C-Reactive Protein Total Protein 6.6 Albumin 2.5 L Stool Occult Blood Influenza A (Rapid) Influenza B (Rapid) Active Medications Generic Name Dose Route Start Last Admin Trade Name Freq PRN Reason Stop Dose Admin Acetaminophen 650 mg 08/20/18 22:39 Tylenol - PO Q6H PRN FEVER Apixaban 2.5 mg 08/21/18 10:00 08/30/18 09:15 Eliquis - PO 2.5 mg BID TEDDY Administration Brimonidine Tartrate 1 drop 08/21/18 06:00 08/30/18 05:57 Alphagan 0.15% - OU 1 drop TID TEDDY Administration Cefuroxime Axetil 500 mg 08/29/18 22:00 08/30/18 09:16 Ceftin - PO 09/05/18 21:59 500 mg BID TEDDY Administration Cholecalciferol 2,000 unit 08/21/18 10:00 08/30/18 09:15 Vitamin D3 - PO 2,000 unit DAILY TEDDY Administration Dorzolamide HCl 1 drop 08/21/18 10:00 08/30/18 09:20 Trusopt 2% OU 1 drop BID TEDDY Administration Potassium Chloride/Sodium Chloride 20 meq in 1,000 mls @ 75 mls/hr 08/23/18 11 :15 08/29/18 23:11 Ns+20 Meq Kcl - IV 75 mls/hr ASDIR TEDDY Administration Latanoprost 1 drop 08/21/18 22:00 08/29/18 23:05 Xalatan 0.005% Eye Drops - OU 1 drop HS TEDDY Administration Midodrine 5 mg 08/21/18 10:00 08/30/18 09:16 Proamatine - PO 5 mg BID-MID TEDDY Administration Mirtazapine 7.5 mg 08/21/18 22:00 08/29/18 23:03 Remeron - PO 7.5 mg HS TEDDY Administration Multivitamins/Minerals/Vitamin C 1 tab 08/21/18 10:00 08/30/18 09:16 Tab-A-Vit - PO 1 tab DAILY TEDDY Administration Ondansetron HCl 4 mg 08/22/18 07:42 08/23/18 15:28 Zofran Injection IVPUSH 4 mg Q6H PRN Administration NAUSEA Pantoprazole Sodium 40 mg 08/26/18 10:00 08/30/18 09:16 Protonix - PO 40 mg DAILY TEDDY Administration Timolol Maleate 1 drop 08/21/18 10:00 08/30/18 09:20 Timoptic 0.5% OU 1 drop BID TEDDY Administration Microbiology 08/25/18 15:00 Nose MRSA Screen - Final Mr S Aureus 08/20/18 16:45 Blood - Peripheral Venous Blood Culture - Final NO GROWTH AFTER 5 DAYS INCUBATION 08/21/18 11:46 Sputum - Expectorated Gram Stain - Final 08/21/18 11:46 Sputum - Expectorated Sputum Culture - Final NORMAL RESPIRATORY GADIEL 08/20/18 16:36 Blood - Peripheral Venous Blood Culture - Final Staphylococcus Epidermidis Condition: Stable - Instructions Diet, Activity, Other Instructions: follow up with pmd follow up with bell attendant follow up with GI continue with medication as prescribed return to ER if develop change in mental status, fever, chest pain, SOB Disposition: [facility] - Home Medications Comprehensive Discharge Medication List: Ambulatory Orders Acetaminophen [Tylenol] 650 mg PO QID PRN 09/04/16 Latanoprost 0.005% Eye Drops [Xalatan 0.005% Eye Drops -] 1 drop OU HS 09/04/16 Midodrine HCl [Proamatine -] 5 mg PO BID 09/04/16 Mirtazapine [Remeron -] 7.5 mg PO HS 09/04/16 Multivitamin [Poly-Vitamin] 1 each PO DAILY 09/04/16 Potassium Chloride 20 meq PO DAILY 09/04/16 Albuterol 2.5/Ipratropium 0.5 [Duoneb -] 1 neb IH QID PRN 08/20/18 Apixaban [Eliquis -] 2.5 mg PO BID 08/20/18 Brimonidine Tartrate [Alphagan 0.15% -] 1 drop OU TID 08/20/18 Cholecalciferol (Vitamin D3) [Vitamin D3 -] 2,000 unit PO DAILY 08/20/18 Dorzolamide HCl/Timolol Maleat [Cosopt Eye Drops] 1 drop OU BID 08/20/18 Famotidine [Pepcid -] 20 mg PO HS 08/20/18 Magnesium Oxide [Magox 400] 500 mg PO DAILY 08/20/18
--- NOTE | 2018-08-30 11:43 | PN ---
Progress Note (short form) - Note Progress Note: PULMONARY Appears comfortable on 40% Trach collar. Less productive cough and secretions are noted. Afebrile/VSS Gen: NAD at rest Neck: stoma intact Heart: RRR Lung: bilateral scattered rhonchi, no wheeze Abd: soft, nontender Ext: no edema LABS/MEDS/NOTES/IMAGES REVIEWED Sepsis Suspected Pneumonia Lactic Acidosis Acute Kidney Injury h/o PE h/o Laryngeal Ca s/p laryngectomy COPD Dementia s/p R BKA - No objection to discharge panning - monitor urine output, creatinine - continue anticoagulation - trach collar to keep SpO2 >90% - Suction PRN - Aspiration precautions Negrita SORENSON MD
[2018-08-30] MEDS: POLYETHYLENE GLYCOL 3350 119 GM BTL PO SCH (13:13)
[2018-08-30] MEDS: MIRTAZAPINE 15 MG TABLET (FP) PO SCH (22:30)
[2018-08-30] MEDS: LATANOPROST 0.005% OPHTH SOLN 2.5ML BOTTLE OU SCH (22:31)
[2018-08-31 05:49] VITALS: TEMP 98.8
[2018-08-31] MEDS: BRIMONIDINE TARTRATE 0.15% OPHTHALMIC 5 ML BOTTLE OU SCH ×2 (05:55→14:25)
[2018-08-31 08:06] VITALS: PULSE 82
[2018-08-31 09:17] VITALS: BP 110/67
[2018-08-31] MEDS ORDERED: PT OWN MED DRAWER 7, Y5N ONE (10:46)
[2018-08-31] MEDS: MULTIVITAMINS (DAILY MVI) TABLET (FP) PO SCH (10:56)
[2018-08-31] MEDS: PANTOPRAZOLE 40 MG TABLET (FP) PO SCH (10:56)
[2018-08-31] MEDS: APIXABAN 2.5 MG TABLET PO SCH (10:56)
[2018-08-31] MEDS: CHOLECALCIFEROL (VIT D3) 1,000 UNIT (25 MCG) TABLET PO SCH (10:56)
[2018-08-31] MEDS: CEFUROXIME AXETIL 500 MG TABLET PO SCH (10:57)
[2018-08-31] MEDS: MIDODRINE HCL 5 MG TABLET PO SCH (10:57)
[2018-08-31] MEDS: TIMOLOL 0.5% OPHTHALMIC SOL 5 ML BOTTLE OU SCH (11:00)
[2018-08-31] MEDS: POLYETHYLENE GLYCOL 3350 119 GM BTL PO SCH (11:00)
[2018-08-31] MEDS: DORZOLAMIDE 2% HCL OPHTHALMIC SOLUTION 10 ML BOTTLE OU SCH (11:01)
--- NOTE | 2018-08-31 11:30 | PN ---
Progress Note (short form) - Note Progress Note: PULMONARY On trach collar. No current complaints. Vital Signs Period Temp Pulse Resp BP Sys/Page Pulse Ox Last 24 Hr 98.4 F-99.1 F 73-93 20-22 110-146/59-82 90-96 Gen: NAD at rest Heart: RRR Lung: decreased breath sounds at the bases Abd: soft, nontender Ext: no edema, R BKA CBC, BMP 08/30/18 07:30 08/30/18 07:30 Active Medications Acetaminophen (Tylenol -) 650 mg PO Q6H PRN PRN Reason: FEVER Apixaban (Eliquis -) 2.5 mg PO BID [facility] Last Admin: 08/31/18 10:56 Dose: 2.5 mg Brimonidine Tartrate (Alphagan 0.15% -) 1 drop OU TID [facility] Last Admin: 08/31/18 05:55 Dose: 1 drop Cefuroxime Axetil (Ceftin -) 500 mg PO BID TEDDY Stop: 09/05/18 21:59 Last Admin: 08/31/18 10:57 Dose: 500 mg Cholecalciferol (Vitamin D3 -) 2,000 unit PO DAILY TEDDY Last Admin: 08/31/18 10:56 Dose: 2,000 unit Dorzolamide HCl (Trusopt 2%) 1 drop OU BID [facility] Last Admin: 08/31/18 11:01 Dose: 1 drop Latanoprost (Xalatan 0.005% Eye Drops -) 1 drop OU HS [facility] Last Admin: 08/30/18 22:31 Dose: 1 drop Midodrine (Proamatine -) 5 mg PO BID-MID [facility] Last Admin: 08/31/18 10:57 Dose: 5 mg Mirtazapine (Remeron -) 7.5 mg PO HS [facility] Last Admin: 08/30/18 22:30 Dose: 7.5 mg Multivitamins/Minerals/Vitamin C (Tab-A-Vit -) 1 tab PO DAILY [facility] Last Admin: 08/31/18 10:56 Dose: 1 tab Ondansetron HCl (Zofran Injection) 4 mg IVPUSH Q6H PRN PRN Reason: NAUSEA Last Admin: 08/23/18 15:28 Dose: 4 mg Pantoprazole Sodium (Protonix -) 40 mg PO DAILY TEDDY Last Admin: 08/31/18 10:56 Dose: 40 mg Polyethylene Glycol (Miralax (For Daily Use) -) 17 gm PO DAILY [facility] Last Admin: 08/31/18 11:00 Dose: Not Given Timolol Maleate (Timoptic 0.5%) 1 drop OU BID [facility] Last Admin: 08/31/18 11:00 Dose: 1 drop A/P Sepsis r/o Pneumonia Lactic Acidosis Acute Kidney Injury h/o PE h/o Laryngeal Ca s/p laryngectomy COPD Dementia s/p R BKA - complete antibiotics - monitor urine output, creatinine - continue anticoagulation - trach collar to keep SpO2 >90% - agree with d/c planning Problem List - Problems (1) Sepsis Code(s): A41.9 - SEPSIS, UNSPECIFIED ORGANISM (2) JOEL (acute kidney injury) Code(s): N17.9 - ACUTE KIDNEY FAILURE, UNSPECIFIED (3) Dementia Code(s): F03.90 - UNSPECIFIED DEMENTIA WITHOUT BEHAVIORAL DISTURBANCE (4) HTN (hypertension) Code(s): I10 - ESSENTIAL (PRIMARY) HYPERTENSION Qualifiers: Hypertension type: essential hypertension Qualified Code(s): I10 - Essential (primary) hypertension (5) Hyperlipidemia Code(s): E78.5 - HYPERLIPIDEMIA, UNSPECIFIED
--- NOTE | 2018-08-31 11:40 | PN ---
Progress Note, Physician Chief Complaint: JOEL Sepsis History of Present Illness: NAD awaiting discharge - Current Medication List Current Medications: Active Medications Acetaminophen (Tylenol -) 650 mg PO Q6H PRN PRN Reason: FEVER Apixaban (Eliquis -) 2.5 mg PO BID [facility] Last Admin: 08/31/18 10:56 Dose: 2.5 mg Brimonidine Tartrate (Alphagan 0.15% -) 1 drop OU TID [facility] Last Admin: 08/31/18 05:55 Dose: 1 drop Cefuroxime Axetil (Ceftin -) 500 mg PO BID [facility] Stop: 09/05/18 21:59 Last Admin: 08/31/18 10:57 Dose: 500 mg Cholecalciferol (Vitamin D3 -) 2,000 unit PO DAILY [facility] Last Admin: 08/31/18 10:56 Dose: 2,000 unit Dorzolamide HCl (Trusopt 2%) 1 drop OU BID [facility] Last Admin: 08/31/18 11:01 Dose: 1 drop Latanoprost (Xalatan 0.005% Eye Drops -) 1 drop OU HS [facility] Last Admin: 08/30/18 22:31 Dose: 1 drop Midodrine (Proamatine -) 5 mg PO BID-MID [facility] Last Admin: 08/31/18 10:57 Dose: 5 mg Mirtazapine (Remeron -) 7.5 mg PO HS [facility] Last Admin: 08/30/18 22:30 Dose: 7.5 mg Multivitamins/Minerals/Vitamin C (Tab-A-Vit -) 1 tab PO DAILY [facility] Last Admin: 08/31/18 10:56 Dose: 1 tab Ondansetron HCl (Zofran Injection) 4 mg IVPUSH Q6H PRN PRN Reason: NAUSEA Last Admin: 08/23/18 15:28 Dose: 4 mg Pantoprazole Sodium (Protonix -) 40 mg PO DAILY [facility] Last Admin: 08/31/18 10:56 Dose: 40 mg Polyethylene Glycol (Miralax (For Daily Use) -) 17 gm PO DAILY [facility] Last Admin: 08/31/18 11:00 Dose: Not Given Timolol Maleate (Timoptic 0.5%) 1 drop OU BID [facility] Last Admin: 08/31/18 11:00 Dose: 1 drop - Objective Vital Signs: Vital Signs Temperature 98.8 F 08/31/18 09:00 Pulse Rate 82 08/31/18 09:00 Respiratory Rate 20 08/31/18 09:00 Blood Pressure 110/67 08/31/18 09:00 O2 Sat by Pulse Oximetry (%) 90 L 08/31/18 09:00 Constitutional: Yes: Well Nourished, No Distress, Calm Cardiovascular: Yes: Regular Rate and Rhythm Respiratory: Yes: Regular Gastrointestinal: Yes: WNL Genitourinary: Yes: Incontinence Musculoskeletal: Yes: Muscle Weakness Extremities: Yes: WNL Edema: No Peripheral Pulses WNL: Yes Neurological: Yes: Alert, Confusion Psychiatric: Yes: Alert Labs: CBC, BMP 08/30/18 07:30 08/30/18 07:30 INR, PTT INR 1.20 (0.83-1.09) H 08/20/18 16:36 Problem List - Problems (1) Bacteremia Assessment/Plan: Cultures: Microbiology 08/21/18 11:46 Sputum - Expectorated Gram Stain - Final 08/21/18 11:46 Sputum - Expectorated Sputum Culture - Final NORMAL RESPIRATORY GADIEL 08/20/18 16:36 Blood - Peripheral Venous Blood Culture - Final Staphylococcus Epidermidis 08/20/18 16:45 Blood - Peripheral Venous Blood Culture - Preliminary NO GROWTH OBTAINED AFTER 48 HOURS, INCUBATION TO CONTINUE FOR 3 DAYS. -Seen by ID -IV abx finished Code(s): R78.81 - BACTEREMIA (2) Sepsis Assessment/Plan: Cultures: Microbiology 08/21/18 11:46 Sputum - Expectorated Gram Stain - Final 08/21/18 11:46 Sputum - Expectorated Sputum Culture - Final NORMAL RESPIRATORY GADIEL 08/20/18 16:36 Blood - Peripheral Venous Blood Culture - Final Staphylococcus Epidermidis 08/20/18 16:45 Blood - Peripheral Venous Blood Culture - Preliminary NO GROWTH OBTAINED AFTER 48 HOURS, INCUBATION TO CONTINUE FOR 3 DAYS. -Seen by ID -IV abx finished -afebrile -no leukocytosis -lactic acid normalized Code(s): A41.9 - SEPSIS, UNSPECIFIED ORGANISM (3) JOEL (acute kidney injury) Assessment/Plan: -improved -Continue IVF Code(s): N17.9 - ACUTE KIDNEY FAILURE, UNSPECIFIED (4) Afib Assessment/Plan: -chronic, rate controlled -On eliquis Code(s): I48.91 - UNSPECIFIED ATRIAL FIBRILLATION Qualifiers: Atrial fibrillation type: chronic Qualified Code(s): I48.2 - Chronic atrial fibrillation Assessment/Plan see problem list
== END 2018-08-31 14:34 | DRG 872 ==
LOC: JER 15:59 → JERBED 21:59 → J6S 08-21 16:46
PROVIDERS: ADMIT Internal Medicine; ATTEND Family Medicine
DX: A41.9 Sepsis, unspecified organism (principal); N17.9 Acute kidney failure, unspecified; E87.2 Acidosis; J44.9 Chronic obstructive pulmonary disease, unspecified; I10 Essential (primary) hypertension; D64.9 Anemia, unspecified; G40.909 Epilepsy, unspecified, not intractable, without status epilepticus; F03.90 Unspecified dementia, unspecified severity, without behavioral disturbance, psychotic disturbance, mood disturbance, and anxiety; K21.9 Gastro-esophageal reflux disease without esophagitis; Z86.711 Personal history of pulmonary embolism; Z79.01 Long term (current) use of anticoagulants; Z88.0 Allergy status to penicillin; Z85.21 Personal history of malignant neoplasm of larynx; H40.9 Unspecified glaucoma; I48.2 Chronic atrial fibrillation; Z89.511 Acquired absence of right leg below knee
CPT/HCPCS: 36415; 71045-TC-FY; 80048; 80053; 82272; 82550; 82728; 82803; 83540; 83550; 83605; 83735; 84484; 85025; 85027; 85610; 85730; 86140; 87040; 87070; 87081; 87186; 87205; 87804; 93005; 93010; 94640; 97116-GP; 97162-GP; 99284-25; J0131; J7030